=== PATIENT | female | born 1990 | race Caucasian/White ===

== ENCOUNTER → 2016-07-23 | Outpatient (CLI) | payer OTHER ==
[2016-07-23 18:27] LABS: BASO # 0.1 K/mm3 (0.0-0.2); EOS # 0.1 K/mm3 (0.0-0.50); EOS % 0.7 % (0.0-3.0); LARGE UNSTAINED CELL # 0.1 K/mm3 (0.0-0.4); LARGE UNSTAINED CELL % 0.8 % (0.0-4.0); LYMPH # 1.9 K/mm3 (1.5-6.5); LYMPH % 15.5 % (24.0-44.0); MEAN CORPUSCULAR HEMOGLOBIN 30.4 pg (27.0-33.0); MEAN CORPUSCULAR HGB CONC 34.6 g/dl (32.0-36.5); MONO # 0.4 K/mm3 (0.0-0.8); MONO % 3.4 % (0.0-5.0); NEUTROPHILS # 9.2 K/mm3 (1.8-7.7); NEUTROPHILS % 78.5 % (36.0-66.0); PLATELET COUNT, AUTOMATED 272 k/mm3 (150-450); RED CELL DISTRIBUTION WIDTH 12.6 % (11.5-14.5); WHITE BLOOD COUNT 11.6 K/mm3 (4.0-10.0)
[2016-07-24 10:18] LABS: HIV SCRN NEGATIVE (NEGATIVE); HIV SCRN1 NEGATIVE (NEGATIVE)
[2016-07-24 10:19] LABS: CONTROL LINE INT CTR LINE PRESENT
[2016-07-26 10:53] LABS: HBsAg Prenatal NEGATIVE (NEGATIVE)
== END ==
LOC: M SMT 14:19
PROVIDERS: ATTEND Obstetrics & Gynecology
DX: Z34.81 Encounter for supervision of other normal pregnancy, first trimester (principal)

== ENCOUNTER → 2016-09-03 | Outpatient (CLI) | payer OTHER ==
--- NOTE | 2016-09-03 15:17 | REP ---
Clinical: Anatomical evaluation. Comparison: 06/16/2016 . Findings: Examination demonstrates a single live intrauterine in cephalic presentation. motion is identified by technologist. Placenta is noted anteriorly and grade zero without evidence for placenta previa or abruption. Amniotic fluid volume is normal. Cervix measures 4.5 cm in length and appears closed. No evidence for nuchal cord. Gestational age by LMP 19 weeks 0 days with SHUN 01/28/2017 . Gestational age by current measurements 18 weeks 6 days with SHUN 01/29/2017 . FHR equals 147 beats per minute. BPD 4.4 cm 19 weeks 2 days HC 15.8 cm 18 weeks 5 days AC 14.0 cm 19 weeks 3 days FL 2.9 cm 19 weeks 0 days HL 3.0 cm 19 weeks 6 days HC/AC ratio 1.13 Estimated weight 276 grams (52nd percentile). Anatomical assessment demonstrates normal structures including cranium, cavum, cerebellum/posterior fossa, facial features, lungs, four-chamber heart/ventricular outflow tracts, diaphragm, stomach, cord insertion/three-vessel cord, kidneys/bladder, spine, and extremities. Small choroid plexus cysts noted bilaterally. Impression: Single live intrauterine in cephalic presentation demonstrating appropriate interval growth. Small choroid plexus cysts noted. Anatomical assessment is otherwise complete and normal. Signed by Hosea Ling MD 09/03/2016 03:08 P
== END ==
LOC: M SMT 14:01
PROVIDERS: ATTEND Obstetrics & Gynecology
DX: Z36 Encounter for antenatal screening of mother (principal); Z3A.18 18 weeks gestation of pregnancy

== ENCOUNTER → 2019-01-24 | Outpatient (REF) | payer OTHER ==
[2019-01-27 00:06] LABS: HPV HYBRID CAPTURE II Negative (Negative)
== END ==
LOC: M SFHCWAGY 16:17
PROVIDERS: ATTEND Nurse Practitioner Women's Health
DX: Z12.4 Encounter for screening for malignant neoplasm of cervix (principal)

== ENCOUNTER → 2019-03-22 | Outpatient (CLI) | payer OTHER ==
--- NOTE | 2019-03-22 10:13 | REP ---
Chest x-ray: Two views. History: Cough. No comparison study. Findings: There is a mild S-shaped thoracic scoliosis. No other bony abnormality is seen. Nipple silhouettes project at the bases bilaterally. The lungs are well inflated and clear. Pleural angles are sharp. Heart size is normal. Pulmonary vasculature is not increased. Impression: No active disease. Mild scoliosis. Electronically Signed by Joao Combs MD 03/22/2019 10:05 A
== END ==
LOC: M ADAMS 09:51
PROVIDERS: ATTEND Physician Assistant
DX: R05 Cough (principal)

== ENCOUNTER → 2019-05-16 | Outpatient (REF) | payer OTHER ==
[2019-05-16 15:51] LABS: CALCIUM LEVEL 10.3 MG/DL (8.5-10.1); MAGNESIUM LEVEL 2.1 MG/DL (1.8-2.4); PHOSPHORUS LEVEL 2.1 MG/DL (2.5-4.9)
[2019-05-16 16:02] LABS: TOTAL 25(OH) VITAMIN D 22.1 NG/ML (30.0-100.0)
== END ==
LOC: M LABDRAW1 13:20
PROVIDERS: ATTEND Nurse Practitioner Family
DX: E83.52 Hypercalcemia (principal)

== ENCOUNTER → 2019-08-07 | Outpatient (CLI) | payer OTHER ==
[~2019-08-07] MED LIST: ALBU8.5H INH; EPIP0.3I2 IM; FLUC200T2 PO; QUET5TAB PO; RIZA10TA2 PO; TAMS1CAP17 PO; TOPI50TA9 PO; VITA50005 PO
[2019-08-07 13:58] LABS: BASO % 0.5 % (0.0-1.0); EOS % 0.5 % (0.0-3.0); HEMATOCRIT 43.2 % (36.0-47.0); HEMOGLOBIN 13.4 g/dl (12.0-15.5); LYMPH # 1.8 10^3/uL (1.5-5.0); MEAN CORPUSCULAR HEMOGLOBIN 29.3 pg (27.0-33.0); MEAN CORPUSCULAR VOLUME 94.3 fl (80.0-96.0); MONO # 0.7 10^3/uL (0.0-0.8); MONO % 7.9 % (0.0-5.0); NEUTROPHILS % 69.7 % (36.0-66.0); PLATELET COUNT, AUTOMATED 255 10^3/uL (150-450); RED BLOOD COUNT 4.58 10^6/uL (4.00-5.40); WHITE BLOOD COUNT 8.6 10^3/uL (4.0-10.0)
[2019-08-07 14:19] LABS: BLOOD UREA NITROGEN 14 MG/DL (7-18); CALCIUM LEVEL 9.7 MG/DL (8.5-10.1); CARBON DIOXIDE LEVEL 26 MEQ/L (21-32); CHLORIDE LEVEL 107 MEQ/L (98-107); CREATININE FOR GFR 0.98 MG/DL (0.55-1.30); GLOMERULAR FILTRATION RATE > 60.0 (>60); GLUCOSE, FASTING 88 MG/DL (70-100); SODIUM LEVEL 140 MEQ/L (136-145)
--- NOTE | 2019-08-07 16:39 | REP ---
Supine abdomen for urinary calculus: Comparison is the abdomen/pelvis CT dated 09/12/2012. There is a 5 ml calcification projected inferior to the L2 right transverse process. This is nonspecific and could represent a right renal calculus, right ureteral calculus or gallbladder calculus. It was not present on the comparison study. The There are calcifications inferiorly in the pelvis, likely phlebolith or bowel lumen artifact. There are no other calcifications. The bowel gas pattern is normal. There is mild thoracic scoliosis convex left, unchanged. The skeletal structures and soft tissues are otherwise unremarkable. Electronically Signed by Lui Naidu MD 08/07/2019 04:31 P
== END ==
LOC: M ADAMS 10:09
PROVIDERS: ATTEND Nurse Practitioner Family
DX: N20.0 Calculus of kidney (principal)

== ENCOUNTER 2019-08-09 10:31 | Observation (INO) | payer OTHER ==
[2019-08-09] VITALS (7 sets, daily range): BP systolic 100–128; BP diastolic 54–71
[~2019-08-09] VITALS: Ht 157.5 cm; Wt 53.5 kg
[2019-08-09] MEDS: TAMSULOSIN 0.4 MG CAP PO SCH (09:00)
[2019-08-09] MEDS ORDERED: RIZA10TA2 PO (10:40)
[2019-08-09] MEDS ORDERED: QUET5TAB PO (10:40)
[2019-08-09] MEDS ORDERED: TOPI50TA9 PO (10:40)
[2019-08-09] MEDS ORDERED: VITA50005 PO (10:40)
[2019-08-09] MEDS ORDERED: ALBU8.5H INH (10:40)
[2019-08-09] MEDS ORDERED: TAMS1CAP17 PO (10:40)
[2019-08-09] MEDS ORDERED: FLUC200T2 PO (10:40)
[2019-08-09] MEDS ORDERED: NS 1,000 ML IV ONE (11:15)
[2019-08-09] MEDS ORDERED: KETOROLAC 30 MG/ML VIAL (J1885) IV ONE (11:15)
[2019-08-09] MEDS ORDERED: ONDANSETRON 4MG/2ML VIAL (J2405) IV ONE (11:15)
[2019-08-09 11:51] LABS: BASO % 0.6 % (0.0-1.0); EOS % 0.6 % (0.0-3.0); HEMATOCRIT 39.4 % (36.0-47.0); HEMOGLOBIN 12.8 g/dl (12.0-15.5); LYMPH # 1.2 10^3/uL (1.5-5.0); LYMPH % 18.5 % (24.0-44.0); MEAN CORPUSCULAR HEMOGLOBIN 29.8 pg (27.0-33.0); MEAN CORPUSCULAR HGB CONC 32.5 g/dl (32.0-36.5); MEAN CORPUSCULAR VOLUME 91.6 fl (80.0-96.0); MONO # 0.4 10^3/uL (0.0-0.8); MONO % 6.3 % (0.0-5.0); NEUTROPHILS # 4.7 10^3/uL (1.5-8.5); NEUTROPHILS % 73.8 % (36.0-66.0); PLATELET COUNT, AUTOMATED 207 10^3/uL (150-450); WHITE BLOOD COUNT 6.3 10^3/uL (4.0-10.0)
[2019-08-09] MEDS ORDERED: ISOVUE-370 76% 100ML VIAL (Q9967) As Ordered ONE (11:58)
[2019-08-09 12:24] LABS: ALT/SGPT 9 U/L (12-78); BILIRUBIN,DIRECT 0.1 MG/DL (0.0-0.2); BILIRUBIN,TOTAL 0.7 MG/DL (0.2-1.0); LIPASE 66 U/L (73-393); TOTAL PROTEIN 7.6 GM/DL (6.4-8.2)
--- NOTE | 2019-08-09 12:32 | REP ---
CT of the abdomen and pelvis with IV contrast, without bowel contrast for right lower quadrant abdominal pain: Comparison is 09/12/2012. There is a 6 ml calculus in the proximal right ureter at the level of the L4 superior endplate resulting in right hydronephrosis. There is no perinephric stranding. There is a nonobstructive 6 ml right renal calculus. In addition. No left renal calculi are identified. There is no left hydronephrosis. The The cecum is on a redundant mesentery and located anterior to the sacrum. The appendix is not identified as a distinct structure, however, there is no pericecal abscess, inflammation or free fluid. There is a 12 mm right adnexal follicle and a a 3.3 centimeter left adnexal cyst. The The visualized lung nolasco are unremarkable. The hepatic parenchyma, gallbladder, pancreas, spleen, adrenals, abdominal aorta, bowel and mesentery are unremarkable. Pelvis: There is no ascites or adenopathy. There is a right adnexal follicle. Left adnexal cyst as previously described. Impression: There is a 6 mm calculus obstructing the proximal right ureter and right hydronephrosis without perinephric stranding. There is a nonobstructive right renal calculus measuring 6 mm. The appendix cannot be identified, however there is no pericecal abscess, inflammation or fluid collection. There is a right adnexal follicle in the left adnexal cyst. Electronically Signed by Lui Naidu MD 08/09/2019 12:23 P
[2019-08-09] MEDS ORDERED: MORPHINE 4 MG/ML 1ML VIAL/SYRINGE (J2270) IV ONE (13:00)
[2019-08-09] MEDS ORDERED: PROMETHAZINE INJ 25 MG/ML VIAL (J2550) IV ONE (13:00)
[2019-08-09 13:14] LABS: HCG, SERUM QUALITATIVE NEGATIVE (NEGATIVE)
[2019-08-09] MEDS ORDERED: CONRAY-60 60% 50ML VIAL (Q9961) As Ordered ONE (13:31)
[2019-08-09] MEDS ORDERED: EPIP0.3I2 IM (13:43)
[2019-08-09] MEDS ORDERED: ONDANSETRON 4MG/2ML VIAL (J2405) IV PRN ×2 (14:45→18:30)
[2019-08-09] MEDS ORDERED: RIZATRIPTAN BENZOATE 10 MG TAB PO PRN (14:45)
[2019-08-09] MEDS ORDERED: MORPHINE 2 MG/ML 1ML VIAL (J2270) IV PRN (14:45)
[2019-08-09] MEDS ORDERED: TAMSULOSIN 0.4 MG CAP PO ONE (14:45)
[2019-08-09] MEDS ORDERED: ALBUTEROL 90 MCG/ACT 8GM HFA INHALER INH PRN (14:45)
--- NOTE | 2019-08-09 14:46 | HPEPDOC ---
General Date of Admission 08/09/19 Date of Service: Aug 09, 2019 Chief Complaint The patient is a 28-year-old female admitted with a reason for visit of Flank Pain. Source: Patient Exam Limitations: No limitations Timing/Duration: Other Severity: Severe (3-4 days) Associated Symptoms: Other (right flank pain) History of Present Illness This is a 28 years old white female with past medical history of migraine headache. Malignant hyperthermia. Polycystic ovarian syndrome and mood disor ders, had developed right-sided flank pain since last Tuesday. Flank pain is right-sided in origin, nonradiating, dull, associated with nausea not relieved with any pain medication by any position are diet since last 4-5 days. Patient was diagnosed with right obstructing proximal ureter stone. Home Medications Scheduled Ergocalciferol (Vitamin D2) (Vitamin D2) 50,000 Units Cap, 50,000 UNITS PO QWEEK, (Reported) SUNDAYS Quetiapine Fumarate (Quetiapine Fumarate) 50 Mg Tablet, 50 MG PO QHS, (Reported) Tamsulosin Hcl (Tamsulosin HCl) 0.4 Mg Capsule, 0.4 MG PO DAILY, (Reported) FOR 7 DAYS, STARTED 08/07/19 Topiramate (Topiramate) 50 Mg Tablet, 50 MG PO BID, (Reported) Scheduled PRN Albuterol Sulfate (Albuterol Sulfate Hfa) 8.5 Gm Hfa.aer.ad, 2 PUFFS INH QID PRN for SHORTNESS OF BREATH, (Reported) Epinephrine (Epipen 2-Eder) 0.3 Mg/0.3 Ml Auto.injct, 1 SYRINGE IM ONCE PRN for ALLERGIC REACTION, (Reported) Fluconazole (Fluconazole) 200 Mg Tablet, 200 MG PO ASDIRECTED PRN for YEAST INFECTIONS, (Reported) Rizatriptan Benzoate (Rizatriptan) 10 Mg Tablet, 10 MG PO ASDIRECTED PRN for MIGRAINE, (Reported) Allergies Coded Allergies: Sulfa (Sulfonamide Antibiotics) (Verified Allergy, Severe, ANYPHYLAXIS, 08/09/19) bee pollen (Verified Allergy, Severe, ANAPHYLAXIS, 08/09/19) doxycycline (Verified Allergy, Intermediate, RASH, N/V, 08/09/19) ondansetron (Verified Adverse Reaction, Severe, massive migraine, 08/09/19) tetracycline (Verified Adverse Reaction, Intermediate, BLISTERS WITH VAGINAL CREAM, CAN TAKE ORAL, 08/09/19) Past Medical History Medical History Polycystic ovarian syndrome, migraine headache, malignant hypothermia, mood disorders Surgical History D&C Family History Significant Family History: No pertinent family hx Social History * Smoker: Denies Alcohol: Denies Drugs: denies A-FIB/CHADSVASC A-FIB History Current/History of A-Fib/PAF?: No Review of Systems Constitutional: Denies: Chills, Fever, Malaise, Night Sweats, Weakness, Fatigue, Weight Loss, Lethargy, Other Eyes: Denies: Pain, Vision change, Conjunctivae inflammation, Eyelid inflammation, Redness, Other ENT: Denies: Head Aches, Ear Pain, Dysphagia, Sinus Congestion, Post Nasal Drip, Sore Throat, Epistaxis, Other Symptoms Skin: Denies: Rash, Lesions, Jaundice, Bruising, Itching, Dry, Breakdown, Nail Changes, Other Pulmonary: Denies: Dyspnea, Cough, Pleuritic Chest Pain, Other Symptoms Cardiovascular: Denies: Chest Pain, Palpitations, Orthopnea, Paroxysmal Noc. Dyspnea, Edema, Lt Headedness, Other Symptoms Gastrointestinal: Denies: Nausea, Vomiting, Abdominal Pain, Diarrhea, Constipation, Melena, Hematochezia, Other Symptoms Genitourinary: Reports: Other Symptoms (, right flank pain) Hematologic: Denies: Bruising, Bleeding Excessively, Petecchia, Purpura, Enlarged Lymph Nodes, Other Hematologic Endocrine: Denies: Polydipsia, Polyphagia, Polyuria, Heat Intolerance, Cold Intolerance, Other Endocrine Sx Musculoskeletal: Denies: Neck Pain, Back Pain, Shoulder Pain, Arm Pain, Hand Pain, Leg Pain, Foot Pain, Joint Pain, Muscle Pain, Spasms, Other Symptoms Neurological: Denies: Weakness, Numbness, Incoordination, Change in speech, Confusion, Seizures, Other Symptoms Psych: Denies: Mood Normal, Anxiety, Depression, Memory Issues, Thoughts of Self Harm, Anger, Thoughts of Harming Other, Other Psych Physical Examination General Exam: Positive: Alert, Cooperative Eye Exam: Positive: PERRLA, Conjunctiva & lids normal ENT Exam: Positive: Atraumatic, Mucous membr. moist/pink Neck Exam: Positive: Supple Chest Exam: Positive: Clear to auscultation, Normal air movement Heart Exam: Positive: Rate Normal, Normal S1, Normal S2 Abdomen Exam: Positive: Normal bowel sounds, Soft, Other (. Negative Mera's punch Gen.) Extremity Exam: Positive: Normal pulses Skin Exam: Positive: Nl turgor and temperature Neuro Exam: Positive: Strength at 5/5 X4 ext, Sensation Intact, Cranial Nerves 3-12 NL Psych Exam: Positive: Mood NL, Oriented x 3 Vital Signs Vital Signs Date Time Temp Pulse Resp B/P (MAP) Pulse Ox O2 Delivery O2 Flow Rate FiO2 08/09/19 13:18 16 08/09/19 11:51 08/09/19 10:31 99.3 86 100 Room Air Laboratory Data Labs 24H Laboratory Tests 2 08/09/19 11:39: POC Glucose (Misc Panel) 88, POC Sodium (Misc Panel) 141, POC Potassium (Misc Panel) 3.9, POC Chloride (Misc Panel) 105, POC Total CO2 (Misc Panel) 24.0, POC Blood Urea Nitrogen (Misc Panel 11, POC Ionized Calcium (Misc Panel) 5.3, POC Creatinine (Misc Panel) 0.9, POC Hematocrit (Misc Panel) 40.0 08/09/19 11:40: Immature Granulocyte % (Auto) 0.2, Neutrophils (%) (Auto) 73.8H, Lymphocytes (%) (Auto) 18.5L, Monocytes (%) (Auto) 6.3H, Eosinophils (%) (Auto) 0.6, Basophils (%) (Auto) 0.6, Neutrophils # (Auto) 4.7, Lymphocytes # (Auto) 1.2L, Monocytes # (Auto) 0.4, Eosinophils # (Auto) 0.0, Basophils # (Auto) 0.0, Nucleated Red Blood Cells % (auto) 0.0, Urine Color STRAW, Urine Appearance CLEAR, Urine pH 8.0, Urine Specific [place] 1.009, Urine Protein NEGATIVE, Urine Glucose (UA) NEGATIVE, Urine Ketones NEGATIVE, Urine Blood NEGATIVE, Urine Nitrite NEGATIVE, Urine Bilirubin NEGATIVE, Urine Urobilinogen 0.2, Urine Leukocyte Esterase NEGATIVE, Urine WBC (Auto) 1, Urine RBC (Auto) 1, Urine Hyaline Casts (Auto) 0, Urine Bacteria (Auto) NEGATIVE, Urine Squamous Epithelial Cells 0, Urine Sperm (Auto) , Total Bilirubin 0.7, Direct Bilirubin 0.1, Aspartate Amino Transf (AST/SGOT) 8, Alanine Aminotransferase (ALT/SGPT) 9L, Alkaline Phosphatase 49, Total Protein 7.6, Albumin 4.0, Albumin/Globulin Ratio 1.11, Lipase 66L, Human Chorionic Gonadotropin, Qual NEGATIVE CBC/BMP Laboratory Tests 08/09/19 11:40 Problems (1) Hydronephrosis with obstructing calculus Status: Acute Problem Text: 28 years old white female admitted with the 6 mm calculus obstructing proximal right ureter with right hydronephrosis. There was no perinephric stranding. Also there is a smaller stone in the right kidney pelvis which is nonobstructing. Dr. Tracey was called for urology consultation and he wanted patient to be admitted under medical service and he will perform cystoscopy to remove the stone. Admit patient to medical service under observation IV fluids normal saline 100 mL per hour Morphine sulfate 2 mg IV every 4 hours when necessary for pain Toradol 15 mg IV IV every 6 hours when necessary for pain Zofran 4 mg IV every 4 hours when necessary for nausea, vomiting Nothing by mouth except meds DVT prophylaxis with bilateral SCDs Activity as tolerated (2) Migraine headache Status: Chronic Problem Text: Continue home meds Plan / VTE VTE Prophylaxis Ordered?: Yes BRETT JO MD Aug 09, 2019 14:46
[2019-08-09] MEDS ORDERED: ACETAMINOPHEN TAB 650MG DOSE (2X325MG) PO PRN (15:00)
[2019-08-09] MEDS: NS 1,000 ML IV SCH (15:13)
[2019-08-09] MEDS ORDERED: MIDAZOLAM INJ 2 MG/2 ML VIAL (J2250) As Ordered ONE (16:44)
[2019-08-09] MEDS ORDERED: propofoL 500 MG/50 ML VIAL As Ordered ONE (16:44)
[2019-08-09] MEDS ORDERED: fentaNYL 100 MCG/2 ML INJECTION (J3010) As Ordered ONE (16:44)
[2019-08-09] MEDS ORDERED: ONDANSETRON 4MG/2ML VIAL (J2405) As Ordered ONE (16:50)
[2019-08-09] MEDS ORDERED: dexameTHASONE 4 MG/ML 1ML VIAL (J1100) As Ordered ONE (16:50)
--- NOTE | 2019-08-09 17:45 | CR ---
DATE OF CONSULTATION: 08/09/2019 REASON FOR CONSULTATION: Right ureteral calculus with colic. HISTORY: This is a 28-year-old white female who began having some right flank pain 3 days ago. At first, she thought it was back pain, since it was not like the pain she has had with prior kidney stones. The next day, she presented to the urgent care center, where she was diagnosed with a right renal calculus then discharged to home with ibuprofen and Flomax. Pain persisted, so she presented to the emergency room and was subsequently admitted. Patient has had several stones in the past, all of which she has passed spontaneously from both kidneys. PAST MEDICAL HISTORY: 1. Polycystic ovarian syndrome. 2. Migraine headaches. 3. Malignant hypothermia. 4. Malignant hyperthermia. 5. Mood disorders. PAST SURGICAL HISTORY: Patient had a dilatation and curettage (D and C) in the past. FAMILY HISTORY: Significant only for malignant hyperthermia. SOCIAL HISTORY: Patient does not smoke, drink, or use recreational drugs. REVIEW OF SYSTEMS: Patient had a 12-point review of systems and it is no different than her admitting history and physical. PHYSICAL EXAMINATION: Shows an alert, oriented white female who is in moderate distress. HEENT shows pupils equal and reactive to light. Sclerae white. Extraocular movements (EOMs) intact. Neck is supple without adenopathy. Trachea is in the midline with no jugular venous distention. CHEST: Normal thoracic breath sounds bilaterally present, equal and clear. CARDIAC: Regular without murmurs. ABDOMEN: Flat and soft with some right-sided tenderness. BACK: Has 4+ right-sided costovertebral angle (CVA) tenderness. EXTREMITIES: Good range of motion. Review of laboratory data shows the patient has an obstructing 6 mm right proximal ureteral calculus. On the contrast-enhanced CT scan, the right renal function is also diminished compared to the left. I discussed with the patient treatment options and recommended a stent insertion to be followed by extracorporeal shockwave lithotripsy (ESWL) treatment. The advantages, disadvantages, and alternatives were discussed as well as the possible complications of stent insertion, including, but not limited to, infection, pain, bleeding, stricture, and perforation. Patient has agreed to these procedures and conditions and has consented to the operation. JOSUE
[2019-08-09] MEDS ORDERED: fentaNYL 100 MCG/2 ML INJECTION (J3010) IV PRN (18:30)
[2019-08-09] MEDS ORDERED: LR 1,000 ML IV SCH (18:30)
[2019-08-09] MEDS: KETOROLAC 30 MG/ML VIAL (J1885) IV PRN (19:46)
[2019-08-09] MEDS ORDERED: IBUPROFEN 600 MG TAB PO PRN (20:30)
[2019-08-09] MEDS: TOPIRAMATE (TopAMAX) 25 MG TAB PO SCH (20:40)
[2019-08-09] MEDS ORDERED: QUEtiapine FUMARATE 50 MG TAB PO SCH (21:00)
--- NOTE | 2019-08-09 21:35 | RO ---
DATE OF PROCEDURE: 08/09/2019 PREPROCEDURE DIAGNOSIS: Right ureteral calculus. POSTPROCEDURE DIAGNOSIS: Right ureteral calculus. PROCEDURE: Cystoscopy, right retrograde pyelogram, ureteral stent insertion. SURGEON: Denny Tracey MD AUTOMOTIVE SERVICE CASHIER: None ANESTHESIA: Monitored anesthesia care (MAC). INDICATION FOR OPERATION: This is a 28-year-old white female with sudden onset of pain from an obstructing 6 mm proximal ureteral calculus. Because the stone had been present for 4 days and the pain and the stone have not changed, the patient was brought to the operating room for stent insertion. DESCRIPTION OF PROCEDURE: The patient was anesthetized with MAC anesthesia, placed in lithotomy position, prepped with Betadine paint and draped in an aseptic manner. Time-out was then performed. A 22-Mozambican cystoscope was then inserted into the meatus and advanced under direct vision of a 30-degree lens to the bladder. The bladder appeared normal. The right ureteral orifice was then catheterized with a 5-Mozambican Pollack catheter and retrograde injection of Conray showed the patient had an obstructing proximal ureteral calculus, which was pushed back up into the renal pelvis. A wire guide was then passed through the catheter, and the catheter then removed. A 5-Mozambican double-J stent was then passed over this wire and curled well in the renal pelvis. The bladder was then drained, cystoscope was removed, and the patient was awakened and sent to the recovery room in stable condition, having tolerated the procedure well. The patient will next have an extracorporeal shock wave lithotripsy (ESWL) procedure performed, and the stent can then be removed in the office. JOSUE
[2019-08-09] MEDS ORDERED: PROMETHAZINE INJ 25 MG/ML VIAL (J2550) IV PRN (22:00)
[2019-08-10] VITALS: BP 97/54
[2019-08-10] MEDS: NS 1,000 ML IV SCH ×2 (00:45→10:22)
[2019-08-10 04:00] VITALS: BP 96/57
[2019-08-10 07:08] LABS: HEMATOCRIT 38.2 % (36.0-47.0); HEMOGLOBIN 12.1 g/dl (12.0-15.5); MEAN CORPUSCULAR HEMOGLOBIN 29.3 pg (27.0-33.0); MEAN CORPUSCULAR HGB CONC 31.7 g/dl (32.0-36.5); MEAN CORPUSCULAR VOLUME 92.5 fl (80.0-96.0); PLATELET COUNT, AUTOMATED 194 10^3/uL (150-450); RED BLOOD COUNT 4.13 10^6/uL (4.00-5.40); WHITE BLOOD COUNT 6.9 10^3/uL (4.0-10.0)
[2019-08-10] MEDS: KETOROLAC 30 MG/ML VIAL (J1885) IV PRN (07:21)
[2019-08-10 07:39] LABS: ALBUMIN 3.4 GM/DL (3.2-5.2); ALT/SGPT 10 U/L (12-78); BILIRUBIN,TOTAL 0.8 MG/DL (0.2-1.0); BLOOD UREA NITROGEN 12 MG/DL (7-18); CARBON DIOXIDE LEVEL 24 MEQ/L (21-32); CHLORIDE LEVEL 112 MEQ/L (98-107); CREATININE FOR GFR 0.68 MG/DL (0.55-1.30); GLOMERULAR FILTRATION RATE > 60.0 (>60); GLUCOSE, FASTING 93 MG/DL (70-100); POTASSIUM SERUM 3.8 MEQ/L (3.5-5.1); SODIUM LEVEL 140 MEQ/L (136-145); TOTAL PROTEIN 6.4 GM/DL (6.4-8.2)
[2019-08-10] MEDS: TAMSULOSIN 0.4 MG CAP PO SCH (08:13)
[2019-08-10] MEDS: TOPIRAMATE (TopAMAX) 25 MG TAB PO SCH (08:14)
[2019-08-10] MEDS ORDERED: KETO10TAB PO ×2 (10:01→11:12)
--- NOTE | 2019-08-10 13:50 | DS.PDOC ---
Discharge Summary General Date of Admission Aug 09, 2019 at 10:32 Date of Discharge 08/10/19 Discharge Summary PROCEDURES PERFORMED DURING STAY: Cystoscopy with a stent placement. ADMITTING DIAGNOSES: 1. Right Hydronephrosis, right ureteral stone. DISCHARGE DIAGNOSES: 1. right Hydronephrosis, right ureteral stone. COMPLICATIONS/CHIEF COMPLAINT: Hydronephrosis With Obstructing Calculus. HISTORY OF PRESENT ILLNESS: This is a 28 years old white female with past medical history of migraine headache. Malignant hyperthermia. Polycystic ovarian syndrome and mood disorders, had developed right-sided flank pain since last Tuesday. Flank pain is right-sided in origin, nonradiating, dull, associated with nausea not relieved with any pain medication by any position are diet since last 4-5 days. Patient was diagnosed with right obstructing proximal ureter stone.. HOSPITAL COURSE: Patient was admitted with the diagnoses of right-sided obstructing proximal ureteral stone causing hydronephrosis. Patient was initially treated with IV fluids and pain management. Patient was seen by Dr. Tracey from urology and patient was taken to the OR that night. Patient had a cystoscopy done with a placement of a stent. Patient is completely asymptomatic. This morning she is a scheduled to see Dr. Tracey for lithotripsy and O on removal of the stent as an outpatient. Patient will be discharged home on all her home meds as well as coronal by mouth for pain control. Patient has been advised to follow with urology within 1 week.. DISCHARGE MEDICATIONS: Please see below. ALLERGIES: Please see below. PHYSICAL EXAMINATION ON DISCHARGE: VITAL SIGNS: Please see below. GENERAL: Within normal limits HEENT: PERRLA. Extraocular muscles intact NECK: Supple, CARDIOVASCULAR EXAMINATION: S1, S2, regular RESPIRATORY EXAMINATION: Clear to A&P ABDOMINAL EXAMINATION: , Soft, nontender. Pulses are present. No organomegaly EXTREMITIES: no clubbing, cyanosis, edema SKIN: Within normal limits NEUROLOGICAL EXAMINATION: . No focal motor sensory deficit PSYCHIATRIC EXAMINATION: ,nl LABORATORY DATA: Please see below. IMAGING: CT abdomen and pelvis:There is a 6 mm calculus obstructing the proximal right ureter and right hydronephrosis without perinephric stranding. There is a nonobstructive right renal calculus measuring 6 mm. The appendix cannot be identified, however there is no pericecal abscess, inflammation or fluid collection. There is a right adnexal follicle in the left adnexal cyst. PROGNOSIS: Good ACTIVITY: As tolerated. DIET: Regular DISCHARGE PLAN: Follow with urology as an outpatient DISPOSITION: 01 Home, Self-Care. DISCHARGE INSTRUCTIONS: 1. As per discharge instructions. ITEMS TO FOLLOWUP ON ON OUTPATIENT: 1. Follow with urology as outpatient. DISCHARGE CONDITION: Stable. TIME SPENT ON DISCHARGE: 28 minutes. Vital Signs/I&Os Vital Signs Date Time Temp Pulse Resp B/P (MAP) Pulse Ox O2 Delivery O2 Flow Rate FiO2 08/10/19 04:00 97.7 63 15 96/57 (70) 97 Room Air I&O- Last 24 Hours up to 6 AM 08/10/19 06:00 Intake Total 2850 ml Output Total 1725 ml Balance 1125 ml Laboratory Data Labs 24H Laboratory Tests 2 08/10/19 06:43: Nucleated Red Blood Cells % (auto) 0.0 08/10/19 06:44: Anion Gap 4L, Glomerular Filtration Rate > 60.0, Calcium Level 9.0, Total Bilirubin 0.8, Aspartate Amino Transf (AST/SGOT) 7, Alanine Aminotransferase (ALT/SGPT) 10L, Alkaline Phosphatase 45, Total Protein 6.4, Albumin 3.4, Albumin/Globulin Ratio 1.13 CBC/BMP Laboratory Tests 08/10/19 06:43 08/10/19 06:44 Discharge Medications Scheduled Ergocalciferol (Vitamin D2) (Vitamin D2) 50,000 Units Cap, 50,000 UNITS PO QWEEK, (Reported) SUNDAYS Quetiapine Fumarate (Quetiapine Fumarate) 50 Mg Tablet, 50 MG PO QHS, (Reported) Tamsulosin Hcl (Tamsulosin HCl) 0.4 Mg Capsule, 0.4 MG PO DAILY, (Reported) FOR 7 DAYS, STARTED 08/07/19 Topiramate (Topiramate) 50 Mg Tablet, 50 MG PO BID, (Reported) Scheduled PRN Albuterol Sulfate (Albuterol Sulfate Hfa) 8.5 Gm Hfa.aer.ad, 2 PUFFS INH QID PRN for SHORTNESS OF BREATH, (Reported) Epinephrine (Epipen 2-Eder) 0.3 Mg/0.3 Ml Auto.injct, 1 SYRINGE IM ONCE PRN for ALLERGIC REACTION, (Reported) Fluconazole (Fluconazole) 200 Mg Tablet, 200 MG PO ASDIRECTED PRN for YEAST INFECTIONS, (Reported) Ketorolac Tromethamine (Ketorolac Tromethamine) 10 Mg Tablet, 1 TAB PO Q6HP PRN for pain Ketorolac Tromethamine (Ketorolac Tromethamine) 10 Mg Tablet, 10 MG PO Q6HP PRN for pain Rizatriptan Benzoate (Rizatriptan) 10 Mg Tablet, 10 MG PO ASDIRECTED PRN for MIGRAINE, (Reported) Allergies Coded Allergies: Sulfa (Sulfonamide Antibiotics) (Verified Allergy, Severe, ANYPHYLAXIS, ) bee pollen (Verified Allergy, Severe, ANAPHYLAXIS, 08/09/19) doxycycline (Verified Allergy, Intermediate, RASH, N/V, 08/09/19) ondansetron (Verified Adverse Reaction, Severe, massive migraine, 08/09/19) tetracycline (Verified Adverse Reaction, Intermediate, BLISTERS WITH VAGINAL CREAM, CAN TAKE ORAL, 08/09/19) BRETT JO MD Aug 10, 2019 13:50
== END 2019-08-10 11:43 | disposition home or self-care (01) ==
LOC: M ED 10:31 → M ED INP 10:32 → M MS4PR 17:15
PROVIDERS: ADMIT Internal Medicine; ATTEND Internal Medicine
DX: N13.1 Hydronephrosis with ureteral stricture, not elsewhere classified (principal); N20.0 Calculus of kidney; N83.292 Other ovarian cyst, left side; R11.2 Nausea with vomiting, unspecified; G43.909 Migraine, unspecified, not intractable, without status migrainosus; J45.909 Unspecified asthma, uncomplicated; E28.2 Polycystic ovarian syndrome; F99 Mental disorder, not otherwise specified; R50.9 Fever, unspecified; F17.210 Nicotine dependence, cigarettes, uncomplicated; Z79.899 Other long term (current) drug therapy; Z88.2 Allergy status to sulfonamides; Z88.1 Allergy status to other antibiotic agents; Z88.8 Allergy status to other drugs, medicaments and biological substances; Z91.030 Bee allergy status
CPT/HCPCS: 36415; 52332; 74177; 74420; 80053; 80076; 81001; 83690; 84703; 85025; 85027; 96361; 96374; 96375; 96376; 99284; C1769; C2617; J1100; J1885; J2250; J2270; J2405; J3010; Q9961; Q9967

== ENCOUNTER → 2019-08-09 | Outpatient (REF) | payer OTHER ==
[~2019-08-09] MED LIST changes: +KETO10TAB PO
[2019-08-09 13:49] LABS: CALCIUM, URINE 9.3 MG/DL
[2019-08-09 15:20] LABS: CALCIUM, 24 HOUR URINE 97.6 MG/24HR (42-353)
== END ==
LOC: M LAB REF 12:44
PROVIDERS: ATTEND Nurse Practitioner Family
DX: E83.52 Hypercalcemia (principal)

== ENCOUNTER → 2019-08-10 | Outpatient (REF) | payer OTHER | LOC: M LAB REF 18:05 | PROVIDERS: ATTEND Internal Medicine Endocrinology, Diabetes & Metabolism | DX: E83.52 Hypercalcemia (principal) ==

== ENCOUNTER → 2019-08-21 | Outpatient (CLI) | payer OTHER ==
[2019-08-21 13:49] LABS: HEMATOCRIT 41.7 % (36.0-47.0); HEMOGLOBIN 13.5 g/dl (12.0-15.5); MEAN CORPUSCULAR HEMOGLOBIN 29.9 pg (27.0-33.0); MEAN CORPUSCULAR HGB CONC 32.4 g/dl (32.0-36.5); MEAN CORPUSCULAR VOLUME 92.3 fl (80.0-96.0); PLATELET COUNT, AUTOMATED 294 10^3/uL (150-450); RED BLOOD COUNT 4.52 10^6/uL (4.00-5.40)
[2019-08-21 14:00] LABS: INR 1.04; PROTHROMBIN TIME 13.3 SECONDS (11.8-14.0)
[2019-08-21 14:01] LABS: PARTIAL THROMBOPLASTIN TIME 32.1 SECONDS (25.0-38.4)
[2019-08-21 14:19] LABS: BLOOD UREA NITROGEN 25 MG/DL (7-18); CARBON DIOXIDE LEVEL 28 MEQ/L (21-32); CHLORIDE LEVEL 111 MEQ/L (98-107); CREATININE FOR GFR 0.77 MG/DL (0.55-1.30); GLOMERULAR FILTRATION RATE > 60.0 (>60); GLUCOSE, FASTING 92 MG/DL (70-100); POTASSIUM SERUM 4.3 MEQ/L (3.5-5.1); SODIUM LEVEL 142 MEQ/L (136-145)
--- NOTE | 2019-08-22 03:44 | REPPI ---
Clinical: Pelvic pain. Technique: Single supine view of the abdomen and pelvis. Findings: Right ureteral stent in seemingly satisfactory position. Small right intrarenal calculi measuring up to 3.5 mm suggested. Bowel gas pattern is nonspecific. No organomegaly. No significant abnormal calcifications or foreign body. Skeletal structures intact. Impression: 3.5 mm nonobstructing right renal calculus. Electronically Signed by Hosea Ling MD 08/22/2019 03:36 A
== END ==
LOC: M PLAIMG 11:41
PROVIDERS: ATTEND Urology
DX: N20.0 Calculus of kidney (principal); R10.2 Pelvic and perineal pain; Z96.0 Presence of urogenital implants

== ENCOUNTER → 2019-08-21 | Outpatient (REF) | payer OTHER ==
[~2019-08-21] MED LIST changes: +DITR5TAB PO; +PYRI1TAB5 PO
== END ==
LOC: M SMT 16:57
PROVIDERS: ATTEND Urology
DX: N20.0 Calculus of kidney (principal)

== ENCOUNTER 2019-08-30 05:37 | Day surgery (SDC) | payer OTHER ==
[~2019-08-30] VITALS: Ht 157.5 cm; Wt 50.7 kg
[2019-08-30] MEDS ORDERED: LR 1,000 ML IV ONE (06:00)
[2019-08-30] MEDS ORDERED: ceFAZolin SOD 2 GM in IV 1 EA IV ONE (06:00)
[2019-08-30] MEDS ORDERED: fentaNYL 100 MCG/2 ML INJECTION (J3010) As Ordered ONE (06:35)
[2019-08-30] MEDS ORDERED: MIDAZOLAM INJ 2 MG/2 ML VIAL (J2250) As Ordered ONE (06:35)
[2019-08-30] MEDS ORDERED: LIDOCAINE 2% INJ 100 MG/5 ML SDV (FOR ANES.) As Ordered ONE (06:39)
[2019-08-30] MEDS ORDERED: propofoL 200 MG/20 ML VIAL As Ordered ONE (06:39)
--- NOTE | 2019-08-30 07:54 | REP ---
Clinical: Kidney stone. Technique: Single supine view of the abdomen and pelvis. Comparison: 08/21/2019. Findings: Right ureteral stent in stable, satisfactory position. Two the right intrarenal calculi are again suggested and unchanged in appearance or position. Bowel gas pattern is nonspecific. Skeletal structures are intact. No foreign body. No obvious organomegaly. Impression: Right ureteral stent with continued right renal calculi noted. Electronically Signed by Hosea Ling MD 08/30/2019 07:46 A
[2019-08-30] MEDS ORDERED: PHENYLephrine HCL 500 MCG/5 ML (100MCG/ML) SYRINGE (J2370) As Ordered ONE (08:04)
[2019-08-30] MEDS ORDERED: ePHEDrine SULFATE 25 MG/5 ML(5MG/ML) SYRINGE As Ordered ONE (08:04)
[2019-08-30 09:50] VITALS: BP 108/52
--- NOTE | 2019-08-30 21:15 | RO ---
DATE OF PROCEDURE: 08/30/2019 PREPROCEDURE DIAGNOSIS: Right kidney stones. POSTPROCEDURE DIAGNOSIS: Right kidney stones. PROCEDURE: Right extracorporeal shock wave lithotripsy, cystoscopy, right ureteral stent removal. SURGEON: Keith Suarez MD HELP DESK SUPPORT: None ANESTHESIA: Monitored anesthesia care (MAC). OPERATIVE INDICATIONS: This is a 28-year-old female who was found to have a proximal obstructing right ureteral stone a few weeks ago, had a right ureteral stent placed. She also had another nonobstructing stone on CT scan. When the stent was placed, the ureteral stone was pushed into the kidney. She was brought to the operating room today for treatment. DESCRIPTION OF PROCEDURE: The patient was brought to the operating room where MAC anesthesia was administered. Prophylactic antibiotics were infused. She was then placed in the supine position and prepped and draped in the usual sterile fashion. Flexible cystoscopy was then performed and the right ureteral stent was seen. The stent was then grasped and withdrawn from the right collecting system intact. At this point, the shock wave lithotripsy was performed. Ultrasound was utilized to monitor stone position, fragmentation throughout the procedure. Shock waves were delivered ungated. There were no arrhythmias. Both stones were targeted. Both stones appeared to fragment well. After a total of 2500 shocks the procedure was concluded. The patient was then awakened from anesthesia and transported to the recovery room in stable condition. ESTIMATED BLOOD LOSS: 0 mL. INTRAOPERATIVE COMPLICATIONS: None. SPECIMENS: None. PLAN: The patient will followup in the clinic in a few weeks with imaging prior to assess for residual stone burden. [facility]RIC CENTERLilo
== END 2019-08-30 09:55 | disposition home or self-care (01) ==
LOC: M SDC 05:37
PROVIDERS: ATTEND Urology
DX: N20.0 Calculus of kidney (principal); J45.909 Unspecified asthma, uncomplicated; G43.909 Migraine, unspecified, not intractable, without status migrainosus; E28.2 Polycystic ovarian syndrome; F31.9 Bipolar disorder, unspecified; F17.210 Nicotine dependence, cigarettes, uncomplicated; Z91.030 Bee allergy status; Z88.1 Allergy status to other antibiotic agents; Z88.8 Allergy status to other drugs, medicaments and biological substances; Z88.2 Allergy status to sulfonamides; Z79.899 Other long term (current) drug therapy
CPT/HCPCS: 50590; 52310; 74018; 81025; J0690; J2250; J2370; J3010

== ENCOUNTER → 2019-09-20 | Outpatient (CLI) | payer OTHER ==
--- NOTE | 2019-09-20 14:50 | REPPI ---
KUB ABDOMEN AND PELVIS: AP view of the abdomen and pelvis is performed. Bowel gas pattern is normal with no obstruction. There appears to be a punctate calculus in the upper pole of the right kidney. Previously noted right ureteral stent has been removed. Oval calcific density in the inferior right hemipelvis is unchanged. There is mild curvature of the thoracolumbar spine convex to the left. Electronically Signed by Lui Marin MD 09/21/2019 04:45 P
== END ==
LOC: M PLAIMG 12:14
PROVIDERS: ATTEND Urology
DX: N20.0 Calculus of kidney (principal)

== ENCOUNTER → 2019-09-20 | Outpatient (REF) | payer OTHER | LOC: M SMT 16:54 | PROVIDERS: ATTEND Nurse Practitioner Family | DX: N20.0 Calculus of kidney (principal) ==

== ENCOUNTER 2021-02-02 11:47 | Inpatient (IN) | payer OTHER ==
[~2021-02-02] VITALS: Ht 157.5 cm; Wt 23.6 kg
[~2021-02-02 11:47] MED LIST changes: +ERGO500029 PO; +QUET50TA3 PO; -QUET5TAB PO; -VITA50005 PO
[2021-02-02] MEDS ORDERED: METF500T13 PO (11:54)
[2021-02-02] MEDS ORDERED: OLAN1TAB16 PO (11:54)
[2021-02-02] MEDS ORDERED: FLUO10CA16 PO (11:54)
[2021-02-02] MEDS ORDERED: DEBL1TAB PO (11:54)
[2021-02-02 12:31] LABS: HEMATOCRIT 42.2 % (36.0-47.0); HEMOGLOBIN 13.9 g/dl (12.0-15.5); MEAN CORPUSCULAR HEMOGLOBIN 29.7 pg (27.0-33.0); MEAN CORPUSCULAR HGB CONC 32.9 g/dl (32.0-36.5); MEAN CORPUSCULAR VOLUME 90.2 fl (80.0-96.0); PLATELET COUNT, AUTOMATED 262 10^3/uL (150-450); RED BLOOD COUNT 4.68 10^6/uL (4.00-5.40); WHITE BLOOD COUNT 7.1 10^3/uL (4.0-10.0)
[2021-02-02 12:55] LABS: AMPHETAMINES LEVEL URINE NEGATIVE (NEGATIVE); BARBITURATES URINE NEGATIVE (NEGATIVE); BENZODIAZEPINES URINE NEGATIVE (NEGATIVE); CANNABINOIDS URINE POSITIVE (NEGATIVE); COCAINE METABOLITE URINE NEGATIVE (NEGATIVE); METHADONE URINE NEGATIVE (NEGATIVE); OPIATES URINE NEGATIVE (NEGATIVE); PHENCYCLIDINE URINE NEGATIVE (NEGATIVE)
[2021-02-02 13:01] LABS: ALBUMIN 4.2 GM/DL (3.2-5.2); ALT/SGPT 15 U/L (12-78); BILIRUBIN,DIRECT < 0.1 MG/DL (0.0-0.2); BILIRUBIN,TOTAL 0.3 MG/DL (0.2-1.0); BLOOD UREA NITROGEN 13 MG/DL (7-18); CARBON DIOXIDE LEVEL 26 MEQ/L (21-32); CHLORIDE LEVEL 109 MEQ/L (98-107); CREATININE FOR GFR 0.74 MG/DL (0.55-1.30); ETHYL ALCOHOL (ETHANOL) < 0.003 % (0.000-0.010); GLOMERULAR FILTRATION RATE > 60.0 (>60); GLUCOSE, FASTING 98 MG/DL (70-100); POTASSIUM SERUM 4.1 MEQ/L (3.5-5.1); SALICYLATE LEVEL < 1.7 MG/DL (5.0-30.0); SODIUM LEVEL 140 MEQ/L (136-145); THYROID STIMULATING HORMONE 0.622 uIU/ML (0.358-3.740); TOTAL PROTEIN 7.9 GM/DL (6.4-8.2)
[2021-02-02 13:02] LABS: ACETAMINOPHEN LEVEL < 2.0 UG/ML (10.0-30.0)
[2021-02-02 13:22] LABS: HCG, SERUM QUALITATIVE NEGATIVE (NEGATIVE)
[2021-02-02] MEDS ORDERED: CLON0.5T2 PO (14:27)
[2021-02-02] MEDS ORDERED: clonazePAM 0.5 MG TAB PO ONE (18:25)
[2021-02-02] MEDS ORDERED: OLANZapine 5 MG TAB PO ONE (19:35)
[2021-02-02] MEDS ORDERED: FLUoxetine 10 MG CAP PO ONE (19:35)
[2021-02-02] MEDS ORDERED: ACETAMINOPHEN TAB 650MG DOSE (2X325MG) PO ONE (19:35)
[2021-02-03] MEDS ORDERED: STRETAB4 PO (08:38)
[2021-02-03] MEDS ORDERED: FLUO20CA22 PO (08:40)
[2021-02-03] MEDS ORDERED: TOPIRAMATE (TopAMAX) 25 MG TAB PO ONE (11:00)
[2021-02-03 11:52] LABS: RSV AMPLIFICATION NEGATIVE (NEGATIVE)
[2021-02-03] MEDS ORDERED: MOM 30ML SUSPENSION UDC PO PRN (13:45)
[2021-02-03] MEDS ORDERED: ACETAMINOPHEN TAB 650MG DOSE (2X325MG) PO PRN (13:45)
[2021-02-03] MEDS ORDERED: clonazePAM 0.5 MG TAB PO PRN (13:45)
[2021-02-03] MEDS ORDERED: ALBUTEROL 90 MCG/ACT 8GM HFA INHALER INH PRN (13:45)
[2021-02-03] MEDS ORDERED: traZODone 50 MG TAB PO PRN (13:45)
[2021-02-03] MEDS ORDERED: MAALOX 30 ML SUSP *UDC PO PRN (13:45)
[2021-02-03 15:01] VITALS: BP 120/76
[2021-02-03] MEDS ORDERED: RIZATRIPTAN BENZOATE 10 MG TAB PO PRN (16:30)
[2021-02-03] MEDS: metFORMIN (GLUCOPHAGE) 500MG TAB PO SCH ×2 (17:32→20:05)
[2021-02-03] MEDS: TOPIRAMATE (TopAMAX) 25 MG TAB PO SCH (17:48)
[2021-02-03] MEDS: FLUoxetine 20 MG CAP PO SCH (20:04)
[2021-02-03] MEDS ORDERED: FLUoxetine 10 MG CAP PO SCH (21:00)
[2021-02-03] MEDS ORDERED: OLANZapine 5 MG TAB PO SCH (21:00)
[2021-02-04 06:00] VITALS: BP 102/50
[2021-02-04] MEDS: MULTIVITAMINS/MINERALS THERAP 1 TAB PO SCH (08:56)
[2021-02-04] MEDS: TOPIRAMATE (TopAMAX) 25 MG TAB PO SCH ×2 (08:57→17:20)
[2021-02-04] MEDS: metFORMIN (GLUCOPHAGE) 500MG TAB PO SCH ×2 (09:00→21:29)
[2021-02-04] MEDS: JENCYCLA PO SCH ×2 (09:00→17:17)
--- NOTE | 2021-02-04 11:00 | MHHPEPDOC ---
General Date Of Admission: Feb 03, 2021 Legal Status: 9.39 Chief Complaint "[I was hoping somebody would carry me]. History of Present Illness HISTORY OF THE PRESENT ILLNESS: Patient is a 30 -year-old , female, who [has a long extensive history of depression but no previous inpatient treatment. Patient apparently moved from [place] back to [place] and has not been linked with any outpatient treatment source. Patient stated that she had difficult time to stabilize her depression and finally was doing better with Zyprexa 5 mg and Prozac 30 mg in the past year. Patient stated that since we moved back to [place] she is having increasing depressive symptoms including feeling tired and sleeping all day long sometimes and has no energy poor concentration and feeling worthless and hopeless at times. 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 She stated that she is getting increasing suicidal thoughts but has no clear plan or intent I was just wishing somebody would kill her and ended it all for her. She she does not think her current medicine is working out and wanted some medication adjustment to make her feel better but does not have any psychiatric appointment available soon enough and came to the emergency room seeking help. She is willing to cooperate with the medication change but is feeling uneasy and unsure whether she can spend so much time in hospital because she needs to care for her 4-year-old son who is staying with her father at this time. She is denying any substance abuse issues she denies any history of psychosis or manic episode and denies any previous history of suicidal attempt. She clarifies that her suicidal thoughts are more of a passive nature and does not have any clear plan or intent.]. Psychiatric Review of Systems Depression (2 or more weeks): depressed mood, insomnia/hypersomnia, feelings of worthlesness, decreased energy, difficulty concentrating, suicidal thoughts Velia (4 or more days of): denies Psychosis: denies PTSD: denies Anxiety: situational anxiety, stressor related anxiety Past Psychiatric History Previous Psychiatric Diagnosis: . Major depression since age 14. Had a history of anorexia and is better with Zyprexa Previous Psychiatric Admissions: . No previous inpatient treatment Suicide Attempts: . No history of suicidal attempt Psychiatric Follow-up: . [facility] Psych[facility] medications: . Failed with many SSRIs had the benefit from Prozac but lately she does not feel it works. She reports poor response to oral of atypical antipsychotics except for Zyprexa Past Medical History Medical Problems Migraine Head Injury: No Seizures: No Hospitalizations: No Surgeries: No Family Medical/Psychiatric HX Medical Problems Noncontributory Psychiatric Disorders: Yes (Strong family history of depression patient mother and grandmother has severe depression) Addiction: No Suicide Attemps/Completions: No Addiction History denies Social History Childhood: . Born in [place] unremarkable childhood Abuse/Trauma:[Denies any abuse issues]. Current Living Situation: Currently staying with her father in [place]. Education: High school and nursing school. 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 Social Support: . Father Legal: . No legal history Marital: . twice second marriage for 9 years her is in [place] planning to move to [place] and there is some marital discord Mental Status Examination General Appearance: appears stated age Build: average Demeanor: average Eye Contact: average Activity: average Behavior: cooperative Speech: clear, spontaneous, normal volume Mood: depressed, anxious Mood Long history of depression with multiple clinical depressive symptoms Affect: constricted, appropriate, congruent Thought Process: logical/linear, depressed Thought Content (Delusions): none reported, other (Suicidal thoughts of a passive nature and no plan or intent) Thought Content (Other): none reported Thought Content (Aggressive): none reported Perception (Hallucinations): none reported Perception (Other): none reported Cognition (Impairment of): none reported Cognition(Intelligence Est.): average Oriented: Awake, Alert, Oriented times three Insight: fair Judgment: Fair Psychosis: Denies Diagnoses Major depression recurrent A-FIB/CHADSVASC A-FIB History Current/History of A-Fib/PAF?: No Current PO Anticoag Therapy: No Age/Risk Factor Scoring CHADSVASC: CHADSVASC Response (Comments) Value Gender Risk Factor Female 1 Hx of CHF No 0 Hx of HTN No 0 Hx of Stroke/TIA/or VTE No 0 Hx of Diabetes No 0 Hx of Vascular Disease No 0 Total 1 Treatment Treatment ordered: NONE Assessment Patient reports a long history of the severe depression but no psychotic symptoms and no clear suicidal intent. Patient was offered medication change including decrease of the Prozac for cross taper and start Effexor and titrate and patient is somewhat ambivalent about continued inpatient stay. We will try to stabilize her with medication and supportive therapy Initial Treatment Plan 1. Patient was admitted on a 9.39 status. 2. Complete history was obtained. 3. With patients permission, family will be contacted and database will be expanded. 4. Patients medication regimen will be reviewed and changed accordingly. 5. Patient will be provided with protected environment. 6. Patient will be treated with individual, group, and milieu therapies. 7. Patient will receive supportive psych-education. 8. Discharge planning will commence immediately. 9. Outpatient follow-up treatment will be strongly recommended. 10. The initial treatment plan will focus initially on: * Depression. * Risk for suicide. ESTIMATED LENGTH OF STAY: 5-7 DAYS. TIME SPENT COUNSELING AND COORDINATING INITIAL CARE: 45 minutes. Tobacco Cessation Screen If Patient is a Smoker Non-smoker Complete/Results docum. Vital Signs Vital Signs Date Time Temp Pulse Resp B/P (MAP) Pulse Ox O2 Delivery O2 Flow Rate FiO2 02/04/21 06:00 97.8 67 16 102/50 (67) 96 02/03/21 14:49 Room Air Laboratory Data 24H Labs Laboratory Tests 2 02/03/21 10:49: Coronavirus (COVID-19)(PCR) NEGATIVE, Influenza Type A (RT-PCR) NEGATIVE, Influenza Type B (RT-PCR) NEGATIVE, Respiratory Syncytial Virus (PCR) NEGATIVE Medications Scheduled Fluoxetine Hcl (Fluoxetine HCl) 10 Mg Capsule, 10 MG PO QHS, (Reported) TAKES WITH 20MG FOR TOTAL DOSE 30MG Fluoxetine Hcl (Fluoxetine HCl) 20 Mg Capsule, 20 MG PO QHS, (Reported) TAKES WITH 10MG FOR TOTAL DOSE 30MG Metformin HCl (Metformin HCl) 500 Mg Tablet, 500 MG PO BID, (Reported) Multivitamin,Stress Formula (Stress Formula) 1 Each Tablet, 1 TAB PO DAILY, (Reported) Norethindrone (Deblitane) 0.35 Mg Tablet, 0.35 MG PO QPM, (Reported) TAKES AT 1930 Olanzapine (Olanzapine) 5 Mg Tablet, 5 MG PO QHS, (Reported) Topiramate (Topiramate) 50 Mg Tablet, 50 MG PO BID, (Reported) TAKES WITH BREAKFAST AND DINNER Scheduled PRN Albuterol Sulfate (Albuterol Sulfate Hfa) 8.5 Gm Hfa.aer.ad, 2 PUFFS INH QID PRN for SHORTNESS OF BREATH, (Reported) Clonazepam (Clonazepam) 0.5 Mg Tablet, 0.5 MG PO BID PRN for ANXIETY, (Reported) Epinephrine (Epipen 2-Eder) 0.3 Mg/0.3 Ml Auto.injct, 1 SYRINGE IM ONCE PRN for ALLERGIC REACTION, (Reported) Fluconazole (Fluconazole) 200 Mg Tablet, 200 MG PO ASDIRECTED PRN for YEAST INFECTIONS, (Reported) Rizatriptan Benzoate (Rizatriptan) 10 Mg Tablet, 10 MG PO ASDIRECTED PRN for MIGRAINE, (Reported) Allergies Coded Allergies: Sulfa (Sulfonamide Antibiotics) (Verified Allergy, Severe, ANYPHYLAXIS, 08/09/19) doxycycline (Verified Allergy, Intermediate, RASH, N/V, 08/09/19) bee venom protein (honey bee) (Verified Allergy, Unknown, hives, 08/24/19) ondansetron (Verified Adverse Reaction, Severe, massive migraine, 08/09/19) tetracycline (Verified Adverse Reaction, Intermediate, BLISTERS WITH VAGINAL CREAM, CAN TAKE ORAL, 08/09/19) LORENZO WASHINGTON M.D. Feb 04, 2021 11:00
--- NOTE | 2021-02-04 14:45 | HPEPDOC ---
General Date of Admission Feb 03, 2021 at 13:43 Date of Service: Feb 04, 2021 Chief Complaint The patient is a 30-year-old female admitted with a reason for visit of Unspecified Depressive Disorder. Source: Patient Exam Limitations: No limitations History of Present Illness Patient is 30 years old female with past medical history of PCOS, depression, anxiety, bipolar disorder, migraine presented to hospital with suicidal ideation. Patient stated that since we moved back to [place] she is having increasing depressive symptoms including feeling tired and sleeping all day long sometimes and has no energy poor concentration and feeling worthless and hopeless at times. 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 During my interview patient denies fever, chills, nausea, vomiting, diarrhea dysuria Home Medications Scheduled Fluoxetine Hcl (Fluoxetine HCl) 10 Mg Capsule, 10 MG PO QHS, (Reported) TAKES WITH 20MG FOR TOTAL DOSE 30MG Fluoxetine Hcl (Fluoxetine HCl) 20 Mg Capsule, 20 MG PO QHS, (Reported) TAKES WITH 10MG FOR TOTAL DOSE 30MG Metformin HCl (Metformin HCl) 500 Mg Tablet, 500 MG PO BID, (Reported) Multivitamin,Stress Formula (Stress Formula) 1 Each Tablet, 1 TAB PO DAILY, (Reported) Norethindrone (Deblitane) 0.35 Mg Tablet, 0.35 MG PO QPM, (Reported) TAKES AT 1930 Olanzapine (Olanzapine) 5 Mg Tablet, 5 MG PO QHS, (Reported) Topiramate (Topiramate) 50 Mg Tablet, 50 MG PO BID, (Reported) TAKES WITH BREAKFAST AND DINNER Scheduled PRN Albuterol Sulfate (Albuterol Sulfate Hfa) 8.5 Gm Hfa.aer.ad, 2 PUFFS INH QID PRN for SHORTNESS OF BREATH, (Reported) Clonazepam (Clonazepam) 0.5 Mg Tablet, 0.5 MG PO BID PRN for ANXIETY, (Reported) Epinephrine (Epipen 2-Eder) 0.3 Mg/0.3 Ml Auto.injct, 1 SYRINGE IM ONCE PRN for ALLERGIC REACTION, (Reported) Fluconazole (Fluconazole) 200 Mg Tablet, 200 MG PO ASDIRECTED PRN for YEAST INFECTIONS, (Reported) Rizatriptan Benzoate (Rizatriptan) 10 Mg Tablet, 10 MG PO ASDIRECTED PRN for MIGRAINE, (Reported) Allergies Coded Allergies: Sulfa (Sulfonamide Antibiotics) (Verified Allergy, Severe, ANYPHYLAXIS, 08/09/19) doxycycline (Verified Allergy, Intermediate, RASH, N/V, 08/09/19) bee venom protein (honey bee) (Verified Allergy, Unknown, hives, 08/24/19) ondansetron (Verified Adverse Reaction, Severe, massive migraine, 08/09/19) tetracycline (Verified Adverse Reaction, Intermediate, BLISTERS WITH VAGINAL CREAM, CAN TAKE ORAL, 08/09/19) Past Medical History Medical History PCOS, depression, anxiety, bipolar disorder, migraine Family History Mom has hypertension and depression Social History * Smoker: Denies Alcohol: occationally Drugs: marijuana A-FIB/CHADSVASC A-FIB History Current/History of A-Fib/PAF?: No Current PO Anticoag Therapy: No Age/Risk Factor Scoring CHADSVASC: CHADSVASC Response (Comments) Value Gender Risk Factor Female 1 Hx of CHF No 0 Hx of HTN No 0 Hx of Stroke/TIA/or VTE No 0 Hx of Diabetes No 0 Hx of Vascular Disease No 0 Total 1 Review of Systems Constitutional: Denies: Chills, Fever Eyes: Denies: Pain ENT: Denies: Head Aches Skin: Denies: Rash, Lesions Pulmonary: Denies: Dyspnea, Cough Cardiovascular: Denies: Chest Pain Gastrointestinal: Denies: Nausea, Vomiting Genitourinary: Denies: Dysuria Hematologic: Denies: Bleeding Excessively Endocrine: Denies: Polydipsia Musculoskeletal: Denies: Neck Pain, Back Pain Neurological: Denies: Weakness Psych: Reports: Depression Physical Examination General Exam: Positive: Alert, Cooperative Eye Exam: Positive: PERRLA ENT Exam: Positive: Atraumatic Neck Exam: Positive: Supple; Negative: JVD Chest Exam: Positive: Clear to auscultation Heart Exam: Positive: Rate Normal Telemetry: Positive: No significant arrhythmia Abdomen Exam: Positive: Normal bowel sounds Extremity Exam: Negative: Clubbing, Cyanosis Skin Exam: Positive: Nl turgor and temperature Neuro Exam: Positive: Normal Gait Psych Exam: Positive: Oriented x 3 Vital Signs Vital Signs Date Time Temp Pulse Resp B/P (MAP) Pulse Ox O2 Delivery O2 Flow Rate FiO2 02/04/21 10:59 Room Air 02/04/21 06:00 97.8 67 16 102/50 (67) 96 Assessment/Plan Patient is 30 years old female with past medical history of PCOS, depression, anxiety, bipolar disorder, migraine presented to hospital with suicidal ideation. Patient stated that since we moved back to [place] she is having increasing depressive symptoms including feeling tired and sleeping all day long sometimes and has no energy poor concentration and feeling worthless and hopeless at times. 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 During my interview patient denies fever, chills, nausea, vomiting, diarrhea dysuria Problems (1) Depression with suicidal ideation Status: Acute Problem Text: Defer treatment to psych team (2) Migraine headache Status: Chronic Problem Text: Continue Topamax Follow-up with neurologist in the outpatient settings (3) PCOS (polycystic ovarian syndrome) Status: Chronic Problem Text: Continue Metformin Plan / VTE VTE Prophylaxis Ordered?: No VTE Exclusion Mechanical Proph: Low Risk for VTE ADDIS MANZO DO Feb 04, 2021 14:45
[2021-02-04 17:34] VITALS: BP 117/56
[2021-02-04] MEDS: OLANZapine 2.5MG TABLET PO SCH (21:28)
[2021-02-04] MEDS: FLUoxetine 20 MG CAP PO SCH (21:29)
[2021-02-04] MEDS: VENLAFAXINE 37.5 MG TAB PO SCH (21:29)
[2021-02-05 07:07] VITALS: BP 92/53
[2021-02-05] MEDS: MULTIVITAMINS/MINERALS THERAP 1 TAB PO SCH (08:15)
[2021-02-05] MEDS: metFORMIN (GLUCOPHAGE) 500MG TAB PO SCH ×2 (08:15→20:35)
[2021-02-05] MEDS: VENLAFAXINE 37.5 MG TAB PO SCH ×2 (08:15→20:35)
[2021-02-05] MEDS: TOPIRAMATE (TopAMAX) 25 MG TAB PO SCH ×2 (08:15→16:56)
[2021-02-05] MEDS: JENCYCLA PO SCH (08:15)
--- NOTE | 2021-02-05 10:42 | MHIPNPDOC ---
[facility] Progress Note Progress Note DATE OF SERVICE: 02/05/21 The patient is fully cooperated with the medication changes and tolerating the new medicine Effexor without any side effect. She reported a little restless sl eep after her Zyprexa was decreased to 2.5 mg but denies any other complaints. She reports no serious active suicidal thoughts and again denies any intent to kill herself. She misses her son who is staying with her father and is very anxious to go back home. She is willing to try the new antidepressant medicine and wants to try increased dose tomorrow morning but does not want to stay in inpatient and wants to follow-up with outpatient treatment. She does not appear to be acutely suicidal so we will arrange for close outpatient follow-up and hopefully be able to discharge her tomorrow. HISTORY:. VITAL SIGNS: See below. NEW TEST RESULTS:. CURRENT MEDICATIONS: See below. MENTAL STATUS EXAMINATION: Patient is a 30-year old female, who is cooperative and in no acute distress. Speech: Is rational and coherent. Language skills are good. Thought processes including: Productive. Thought content: Denies any suicidal plan or intent. Abstract reasoning, and computation: Fair. Description of associations: Organized. Description of abnormal or psychotic thoughts: Denies any psychotic symptoms. Judgment: Fair. Insight: Fair. Orientation: Oriented. Recent and remote memory: Unimpaired. Attention span and concentration: Fair. Language:. Fund of knowledge:. Mood: Remains depressed but smiling more. Affect: Appropriate. DIAGNOSES: 1.. Major depression recurrent 2.. 3.. ASSESSMENT: Cooperating and tolerating medications and does not appear to be acutely suicidal MANAGEMENT PLAN: Increase Effexor tomorrow and possibly discharge. TIME SPENT: 20 minutes. Vital Signs Vital Signs Date Time Temp Pulse Resp B/P (MAP) Pulse Ox O2 Delivery O2 Flow Rate FiO2 02/05/21 08:19 Room Air 02/05/21 07:07 97.6 72 20 92/53 (66) 96 Current Medications Current Medications Medications (Trade) Dose Ordered Sig/Alexis Route PRN Reason Start Time Stop Time Status Last Admin Dose Admin Acetaminophen (Tylenol Tab) 650 mg Q6HP PRN PO HEADACHE or MILD DISCOMFORT 02/03/21 13:45 02/03/21 17:49 Al Hydrox/Mg Hydrox/Simethicone (Mylanta) 30 ml Q4HP PRN PO HEARTBURN/INDIGESTION 02/03/21 13:45 Albuterol Sulfate (Proventil, Ventolin Hfa) 2 puff QID PRN INH SHORTNESS OF BREATH 02/03/21 13:45 Clonazepam (KlonoPIN) 0.5 mg BID PRN PO ANXIETY 02/03/21 13:45 Fluoxetine HCl (PROzac) 10 mg QHS PO 02/03/21 21:00 02/04/21 10:46 DC 02/03/21 20:04 Fluoxetine HCl (PROzac) 20 mg QHS PO 02/03/21 21:00 02/04/21 21:29 Home Med (Med Rec Complete!) ASDIRECTED XX 02/03/21 08:45 02/03/21 08:46 DC Magnesium Hydroxide (Milk Of Magnesia) 30 ml DAILYPRN PRN PO CONSTIPATION 02/03/21 13:45 Metformin HCl (Glucophage) 500 mg BID PO 02/03/21 09:00 02/05/21 08:15 Multivitamins (Theragram-M) 1 tab DAILY PO 02/04/21 09:00 02/05/21 08:15 Olanzapine (ZyPREXA) 2.5 mg QHS PO 02/04/21 21:00 02/04/21 21:28 Olanzapine (ZyPREXA) 5 mg QHS PO 02/03/21 21:00 02/04/21 10:46 DC 02/03/21 20:04 Patient Own Medication (Patient'S Own Med) DEBLITANE 0.35 MG -TAKE ... DAILY PO 02/07/21 09:00 Patient Own Medication (Patient'S Own Med) NORETHINDRONE 0.35MG TABLET DA... DAILY PO 02/03/21 09:00 02/05/21 08:15 Rizatriptan Benzoate (Maxalt) 10 mg Q2HP PRN PO MIGRAINE 02/03/21 16:30 Topiramate (TopAMAX) 50 mg BID@0900,1700 PO 02/03/21 17:00 02/05/21 08:15 Trazodone HCl (Desyrel) 50 mg QHSP PRN PO INSOMNIA 02/03/21 13:45 Venlafaxine HCl (Effexor) 37.5 mg BID PO 02/04/21 21:00 02/05/21 08:15 Allergies Coded Allergies: Sulfa (Sulfonamide Antibiotics) (Verified Allergy, Severe, ANYPHYLAXIS, 08/09/19) doxycycline (Verified Allergy, Intermediate, RASH, N/V, 08/09/19) bee venom protein (honey bee) (Verified Allergy, Unknown, hives, 08/24/19) ondansetron (Verified Adverse Reaction, Severe, massive migraine, 08/09/19) tetracycline (Verified Adverse Reaction, Intermediate, BLISTERS WITH VAGINAL CREAM, CAN TAKE ORAL, 08/09/19) LORENZO WASHINGTON M.D. Feb 05, 2021 10:42
[2021-02-05 18:00] VITALS: BP 116/63
[2021-02-05] MEDS: FLUoxetine 20 MG CAP PO SCH (20:35)
[2021-02-05] MEDS: OLANZapine 2.5MG TABLET PO SCH (20:35)
[2021-02-06 06:32] VITALS: BP 120/67
[2021-02-06] MEDS: MULTIVITAMINS/MINERALS THERAP 1 TAB PO SCH (08:25)
[2021-02-06] MEDS: metFORMIN (GLUCOPHAGE) 500MG TAB PO SCH (08:25)
[2021-02-06] MEDS: TOPIRAMATE (TopAMAX) 25 MG TAB PO SCH (08:26)
[2021-02-06] MEDS: JENCYCLA PO SCH (08:26)
[2021-02-06] MEDS ORDERED: OLAN2.5T25 PO (08:27)
[2021-02-06] MEDS ORDERED: FLUO20CA22 PO (08:27)
[2021-02-06] MEDS ORDERED: VENL75CA47 PO (08:27)
[2021-02-06] MEDS ORDERED: VENLAFAXINE **XR** 75MG CAPSULE PO SCH ×2 (09:00)
--- NOTE | 2021-02-06 10:56 | MHDSPDOC ---
[facility] Discharge Summary Discharge Summary DATE OF ADMISSION: Feb 03, 2021 at 13:43 DATE OF DISCHARGE: February 06, 2021 DISCHARGE DIAGNOSES: 1. . Major depression recurrent 2. . REASON FOR ADMISSION: [30-year-old female with a long history of depression admitted due to increasing depression and suicidal thoughts. Patient has been marginally stable with her current medicine of Prozac and Zyprexa but reports decreasing efficacy from the medicine and is feeling tired lacking energy and having recurring passive suicidal thoughts and admitted for stabilization.] CONSULTANTS INVOLVED: TREATMENT AND PROGRESS ON THE UNIT : [The patient reports poor response to most of other antidepressant medicine but has not tried any SNRIs and is willing to try Effexor. Her Prozac was decreased from 30mg to 20 mg and she was started on Effexor 37.5 mg twice a day increased to Effexor ER 150 mg daily. Her Zyprexa was reduced from 5 mg at bedtime to 2.5 mg at bedtime. Patient is fully coop erating with this and reports no side effect and tolerating well. She is willing to continue outpatient treatment and was instructed to work with a psychiatrist to gradually taper off Prozac and increase Effexor to a more therapeutic amount.]. HOSPITAL COURSE: [Patient is fully cooperated with medications and tolerating well. She reports feeling somewhat better and appears much more animated and does not fear so suicidal anymore. She is much brighter and appropriate and has a good deal of insight and has good support system and feeling safe to be discharged.] DISCHARGE ASSESSMENT: [Improved stable and not suicidal] MENTAL STATUS EXAMINATION ON DISCHARGE: Patient is a [30]-year old female, who is [cooperative and in good control]. Speech is rational and coherent. Language skills are good. Thought processes including: Coherent productive. Thought content: Denies any suicidal plan or intent. Abstract reasoning, and computation: Fair. Description of associations: Well organized. Description of abnormal or psychotic thoughts: None. Judgment: Fair. Insight: Good. Orientation to well oriented. Recent and remote memory: Unimpaired. Attention span and concentration: Good. Language:. Fund of knowledge:. Mood: Not as depressed. Affect: Animated and appropriate. MEDICATIONS ON DISCHARGE: -For. Prozac 20 mg daily for 7 days with 3 refills -For. Effexor ER 150 mg daily for 7 days with 3 refills -For. Zyprexa 2.5 mg at bedtime for 7 days with 3 refills PLAN/FOLLOWUP ARRANGEMENTS: Has an appointment. The amount of time spent in the coordination of care for this patient was approximately 35 minutes. ETOH/Disorder Med Rx ETOH/DRUG DISORDER RX: N/A Vital Signs/I&Os Vital Signs Date Time Temp Pulse Resp B/P (MAP) Pulse Ox O2 Delivery O2 Flow Rate FiO2 02/06/21 06:32 98.2 72 16 120/67 (84) 97 Room Air Medications Scheduled Fluoxetine Hcl (Fluoxetine HCl) 20 Mg Capsule, 20 MG PO QHS for depression for 7 Days, #7 Metformin HCl (Metformin HCl) 500 Mg Tablet, 500 MG PO BID, (Reported) Multivitamin,Stress Formula (Stress Formula) 1 Each Tablet, 1 TAB PO DAILY, (Reported) Norethindrone (Deblitane) 0.35 Mg Tablet, 0.35 MG PO QPM, (Reported) TAKES AT 1930 Olanzapine (Olanzapine) 2.5 Mg Tablet, 2.5 MG PO QHS for mood for 7 Days, #7 Topiramate (Topiramate) 50 Mg Tablet, 50 MG PO BID, (Reported) TAKES WITH BREAKFAST AND DINNER Venlafaxine HCl (Venlafaxine HCl ER) 75 Mg Cap.er.24h, 150 MG PO DAILY for depression for 7 Days, #14 Scheduled PRN Albuterol Sulfate (Albuterol Sulfate Hfa) 8.5 Gm Hfa.aer.ad, 2 PUFFS INH QID PRN for SHORTNESS OF BREATH, (Reported) Clonazepam (Clonazepam) 0.5 Mg Tablet, 0.5 MG PO BID PRN for ANXIETY, (Reported) Epinephrine (Epipen 2-Eder) 0.3 Mg/0.3 Ml Auto.injct, 1 SYRINGE IM ONCE PRN for ALLERGIC REACTION, (Reported) Fluconazole (Fluconazole) 200 Mg Tablet, 200 MG PO ASDIRECTED PRN for YEAST INFECTIONS, (Reported) Rizatriptan Benzoate (Rizatriptan) 10 Mg Tablet, 10 MG PO ASDIRECTED PRN for MIGRAINE, (Reported) Allergies Coded Allergies: Sulfa (Sulfonamide Antibiotics) (Verified Allergy, Severe, ANYPHYLAXIS, 08/09/19) doxycycline (Verified Allergy, Intermediate, RASH, N/V, 08/09/19) bee venom protein (honey bee) (Verified Allergy, Unknown, hives, 08/24/19) ondansetron (Verified Adverse Reaction, Severe, massive migraine, 08/09/19) tetracycline (Verified Adverse Reaction, Intermediate, BLISTERS WITH VAGINAL CREAM, CAN TAKE ORAL, 08/09/19) LORENZO WASHINGTON M.D. Feb 06, 2021 10:56
[2021-02-07] MEDS ORDERED: [UNRECOGNIZED DRUG - OTHER] PO SCH (09:00)
== END 2021-02-06 11:14 | disposition home or self-care (01) | DRG 751 ==
LOC: M ED 11:47 → M ED INP 02-03 13:43 → M PSY 02-03 15:01
PROVIDERS: ADMIT Psychiatry & Neurology Psychiatry; ATTEND Psychiatry & Neurology Psychiatry
DX: F33.9 Major depressive disorder, recurrent, unspecified (principal); R45.851 Suicidal ideations; E28.2 Polycystic ovarian syndrome; G43.709 Chronic migraine without aura, not intractable, without status migrainosus; Z79.84 Long term (current) use of oral hypoglycemic drugs; Z79.899 Other long term (current) drug therapy; Z88.1 Allergy status to other antibiotic agents; Z88.2 Allergy status to sulfonamides; Z88.8 Allergy status to other drugs, medicaments and biological substances; Z63.0 Problems in relationship with spouse or partner; Z91.040 Latex allergy status

== ENCOUNTER → 2021-02-28 | Outpatient (CLI) | payer OTHER ==
[~2021-02-28] MED LIST changes: +CLON0.5T2 PO; +DEBL1TAB PO; +FLUO10CA16 PO; +FLUO20CA22 PO; +METF500T13 PO; +OLAN1TAB16 PO; +OLAN2.5T25 PO; -QUET50TA3 PO; +QUET50TA4 PO; +STRETAB4 PO; +VENL75CA47 PO
[2021-02-28 11:49] LABS: BASO # 0.1 10^3/uL (0.0-0.2); BASO % 0.7 % (0.0-1.0); EOS % 0.1 % (0.0-3.0); HEMOGLOBIN 14.1 g/dl (12.0-15.5); LYMPH # 2.2 10^3/uL (1.5-5.0); LYMPH % 31.5 % (24.0-44.0); MEAN CORPUSCULAR HEMOGLOBIN 29.1 pg (27.0-33.0); MEAN CORPUSCULAR VOLUME 90.9 fl (80.0-96.0); MONO # 0.5 10^3/uL (0.0-0.8); MONO % 6.8 % (2.0-8.0); NEUTROPHILS # 4.3 10^3/uL (1.5-8.5); NEUTROPHILS % 60.6 % (36.0-66.0); PLATELET COUNT, AUTOMATED 258 10^3/uL (150-450); RED BLOOD COUNT 4.84 10^6/uL (4.00-5.40); WHITE BLOOD COUNT 7.1 10^3/uL (4.0-10.0)
[2021-02-28 12:27] LABS: ALT/SGPT 15 U/L (12-78); BILIRUBIN,TOTAL 0.4 MG/DL (0.2-1.0); BLOOD UREA NITROGEN 20 MG/DL (7-18); CALCIUM LEVEL 9.4 MG/DL (8.5-10.1); CARBON DIOXIDE LEVEL 27 MEQ/L (21-32); CHLORIDE LEVEL 111 MEQ/L (98-107); FREE T4 0.81 NG/DL (0.76-1.46); GLOMERULAR FILTRATION RATE > 60.0 (>60); GLUCOSE, FASTING 85 MG/DL (70-100); POTASSIUM SERUM 4.3 MEQ/L (3.5-5.1); SODIUM LEVEL 141 MEQ/L (136-145); THYROID STIMULATING HORMONE 0.488 uIU/ML (0.358-3.740); TOTAL PROTEIN 7.6 GM/DL (6.4-8.2)
[2021-03-02 11:31] LABS: TESTOSTERONE 33 NG/DL (14-76)
[2021-03-02 11:32] LABS: PROGESTERONE 0.41 NG/ML; PROLACTIN 7.8 NG/ML
[2021-03-02 11:33] LABS: FOLLICLE STIMULATING HORMONE 8.2 mIU/mL; LUTEINIZING HORMONE 30.5 mIU/mL
== END ==
LOC: M LAB 11:24
PROVIDERS: ATTEND Nurse Practitioner
DX: N92.6 Irregular menstruation, unspecified (principal); L68.0 Hirsutism

== ENCOUNTER 2021-05-11 07:02 | Emergency (ER) | payer OTHER ==
[~2021-05-11] VITALS: Ht 157.5 cm; Wt 67.3 kg
--- OUTSIDE RECORDS SUMMARY | 2021-05-11 07:09 | CCD ---
Author Author Emily Rodriguez Organization Unknown Address [address] [place] [address] Phone Care Team Providers Care Shotgun Shell Reprinting Unit Operator Name Role Phone Michael Heidi PCP Allergies, Adverse Reactions, Alerts Concept Allergy Name Reaction Severity Onset Date Status Documentation Date Phone Number Npid Taxonomy Code Taxonomy Desc Author Last Name Author Fi rst Name Concept Type 155583 bee venom protein (honey bee) Anaphylaxis Life threatening s ev Active 03/02/2021 [id number] Nurse Practitioner Michael petit RXNORM 307269 doxycycline Hives Moderate Active 03/02/2021 [id number] Nurse Practitioner Michael Gordon RXNORM Problem List Concept Problem Description Status Start Date Created Date Resolv ed Date Snomed Code F12.10 Cannabis Use Disorder, Mild Active 03/02/2021 F31.9 Bipolar I Disorder, Current or most rece nt episode depressed, Unspecified Active 03/02/2021 Medications Rx Norm Medication Route Route Concept Start Date Stop Date Dosage Ankit quency Duration Formula Strength Dosage Form Dosage Form Code Dosage Description Medication Id Account Npid Author First Name Author Last Name Taxonomy Code Taxonomy Desc Phone Number [phone] mirtazapine by mouth [id number] 02/18/2021 at bedtime 15 mg ta blet 71295 [phone] Heidi Rodriguez [id number] Nurse Practitioner [phone] 272040 fluoxetine by mouth [id number] 02/20/2021 03/02/2021 every morning 30 10 mg capsule 45121 038240 [id number] Heidi Rodriguez [id number] N idrise Practitioner [phone] 210961 Klonopin by mouth [id number] 02/18/2021 03/20/2021 as directed 30 0.5 mg tablet as needed 50989 026615 [id number] Heidi Rodriguez [id number] Nurse Practitioner [phone] 647315 venlafaxine by mouth [id number] 02/18/2021 03/20/2021 every morning 30 75 mg capsule,extended release 24hr 75013 026611 [id number] Lew Rodriguez [id number] Nurse Practitioner [phone] 172272 olanzapine by mouth [id number] 02/18/2021 03/20/2021 at bedtime 30 2.5 mg tablet 14754 109826 [id number] Heidi Rodriguez [id number] Nurse P judetitioner [id number] Social History Social History Element Description Concept Effective Date Smoking Status Unknown if ever smoked [id number] Immunizations No Data in Section Vital Signs Encounter Date Height Ins Weight Lbs Bmi Bp Systolic Bp Diastoli c Oxygen Saturation Respiration Rate Pulse Rate Body Temp Head Circumference Heigh t Lying 03/02/2021 62.00 142.00 25.97 112 72 0.00 0 102 98.60 0.0 0. 00 Procedures Date Concept Id Description Targeted Site Concept Targeted Site Concept Type 03/02/2021 63814 E/M Level 3 - Established Patient CPT Patient has no history of implantable de vices Encounters Encounter Start Date End Date Encounter Type Description Diagnosis Di agnosis Desc Location Author First Name Author Last Name Npid Taxonomy Cod e Taxonomy Desc Phone Number Location Addr1 Location Addr2 Location [facility] Location [facility] Location [facility] [place] [id number] 03/02/2021 03/02/2021 36721 E/M Level 3 - Established Pa tient F12.10 Cannabis abuse, uncomplicated [facility] Heidi [phone] [id number] Nurse Practitioner [phone] [address] [address] Plan of Treatment No Data in Section Lab Results No Data in Section Instructions No Data in Section Functional Cognitive Status No Data in Section Insurance Providers Insurance Id Policy Effective Date Policy Thru Date Company Theresa zelaya [id number] 2021 [facility]
--- OUTSIDE RECORDS SUMMARY | 2021-05-11 07:09 | CCD ---
Author Author Emily Garcia Organization Unknown Address [address] [place] [address] Phone Care Team Providers Care Graphic Technician Name Role Phone Heidi Garcia PCP Allergies, Adverse Reactions, Alerts Concept Allergy Name Reaction Severity Onset Date Status Documentation Date Phone Number Npid Taxonomy Code Taxonomy Desc Author Last Name Author Fi rst Name Concept Type 763812 bee venom protein (honey bee) Anaphylaxis Life threatening s ev Active 03/02/2021 [id number] Nurse Practitioner Michael petit RXNORM 550264 doxycycline Hives Moderate Active 03/02/2021 [id number] 14 [id number] Nurse Practitioner Michael Gordon RXNORM Problem List [...] Name Taxonomy Code Taxonomy Desc Phone Number [phone] mirtazapine by mouth [id number] 02/18/2021 at bedtime 15 mg ta blet 28006 [id number] [phone] Heidi Rodriguez [id number] Nurse Practitioner [phone] 517144 fluoxetine by mouth [id number] 02/20/2021 03/02/2021 every morning 30 10 mg capsule 38795 853773 [id number] Heidi Rodriguez [id number] N idrise Practitioner [phone] 622720 Klonopin by mouth [id number] 02/18/2021 03/20/2021 as directed 30 0.5 mg tablet as needed 08589 292039 [id number] Heidi Rodriguez [id number] Nurse Practitioner [phone] 385097 venlafaxine by mouth [id number] 02/18/2021 03/20/2021 every morning 30 75 mg capsule,extended release 24hr 59828 495392 [id number] Lew Rodriguez [id number] Nurse Practitioner [phone] olanzapine by mouth [id number] 02/18/2021 03/20/2021 at bedtime 30 2.5 mg tablet 60594 601373 [id number] Heidi Rodriguez [id number] Nurse P judetitioner [phone] Social History Social History Element Description Concept Effective Date Smoking Status Unknown if ever smoked [id number] Immunizations No Data in Section Vital Signs No Data in Section Procedures Date Concept Id Description Targeted Site Concept Targeted Site Concept Type 03/02/2021 92303 Brief Individual Psychotherapy - 30 min CPT Patient has no history of implantable de vices Encounters Encounter Start Date End Date Encounter Type Description Diagnosis Di agnosis Desc Location Author First Name Author Last Name Npid Taxonomy Cod e Taxonomy Desc Phone Number Location Addr1 Location Addr2 Location [facility] Location Sta Location [facility] [id number] 03/02/2021 03/02/2021 05058 Brief Individual Psychoth erapy - 30 min F31.9 Bipolar disorder, unspecified [facility] [phone] [id number] [place] [phone] [address] [address] Plan of Treatment No Data in Section Lab Results No Data in Section Instructions No Data in Section Insurance Providers Insurance Id Policy Effective Date Policy Thru Date Company N nathalie [id number] [facility]
--- OUTSIDE RECORDS SUMMARY | 2021-05-11 07:09 | CCD | Continuity of Care Document ---
Author Author Emily SALCIDO [facility] Organization Unknown Address [address] [facility] [address] [place] [address] Phone [phone] Problems Active Problems Provider Date Migraine Sofia Zuniga RPA-C Onset: 2012 Anxiety state Marie Isidro FNP-C Onset: Asthma Yin Rico FNP-BC Onset: 10/09/2015 Insomnia Everton Salcido RPA Onset: 02/22/2018 Headache Everton Salcido RPA Onset: 02/22/2018 Mild recurrent major depression Everton Salcido RPA Onset : 07/25/2018 Bipolar disorder Everton Salcido RPA Onset: 08/04/2018 Tachycardia Everton Salcido RPA Onset: 04/10/2021 Migraine without aura, not refractory Everton Salcido RPA Onset: 03/13/2020 Social History Type Date Description Comments Sex Unknown Tobacco Use Start: Unknown Current Cigarette Smoker 1-5 Cig arettes Daily ETOH Use Occasionally consumes alcohol 1 or 2 glasses once a month Recreational Drug Use Denies Drug Use Tobacco Use Start: Unknown End: Unknown Patient is a former smoker Allergies and adverse reactions Active Allergies Criticality Reaction | Severity Comments Date Sulfa Drugs Unable to assess criticality 04/05/2013 Doxycycline Unable to assess criticality Vomiting/Hiv es 04/21/2016 Medications Active Medications SIG Qnty Indications Ordering Provide r Date Toprol XL 25mg Tablets ER 24HR 1 by mouth one time a day 30tabs Fantasma Dumont D.O., FAAFP Olanzapine 2.5mg Tablets one by mouth every night at bedtime Fantasma Dumont D.O., FA AFP 02/12/2021 Clonazepam 0.5mg Tablets 1 tab by mouth twice a day as needed for anxiety ([place]: [id number]) 60tabs Fantasma Dumont D.O., FAAFP 01/05/2021 Rizatriptan Benzoate 10mg Tablets Dispers take one tablet by mouth every day at the onset of headache may repeat in 2 hours as directed 12tabs Fantasma Dumont D.O., FAAFP 0 03/13/2020 Topamax 50mg Tablets take one tablet by mouth bid. 180tabs Fantasma Dumont D.O., FAAFP 02/2019 Metformin HCL 500mg Tablets take one tablet by mouth twice a day 180tabs Nohemy Hillman, FAAFP 02/22/2018 Epipen 2-Eder 0.3mg/0 .3ML Solution Auto-Inject inject as directed 2units Fantasma Dumont D.O., FAAFP 10/09/2015 Ventolin HFA 108(90Base) mcg/Act A erosol 2 puffs every 4-6 hours as needed 1units Fantasma Dumont D.O., FAAFP 02/04/2014 Jencycla 0.35mg Tablets 1 by mouth daily 28tabs Jeny Hernandez FNP- Effexor XR 75mg Caps ER 24HR 2 by mouth every day Unknown Remeron 15mg Tablets 1 tablet at bedtime daily Unknown History Medications OLANZapine 2.5mg Tablets one by mouth every night at bedtime Everton Salcido, [facility] - 02/12/2021 Fluoxetine HCL 20mg Capsules 1 by mouth every day 90caps Fantasma Dumont D.O., FAAFP - 02/12/2021 Fluoxetine HCL 10mg Capsules 1 by mouth every day 90caps Fantasma Dumont D.O., FAAFP - 02/12/2021 Olanzapine 5mg Tablets one by mouth every night at bedtime 30tabs Fantasma Dumont D.O., FAAFP - 02/12/2021 Medications Administered in Office Medication SIG Qnty Indications Ordering Provider Date Injection (SC)/(Im) Injection David Jeny VelDARIAN 02/03/2015 Immunizations CPT Code Status Date Vaccine Lot # [id number] Given 02/03/2015 Tdap Tetanus,Dip htheria Toxoids/Acellular Pertussis 7Yrs Or Older 44571 Given 02/03/2015 PPD Tuberculosis Intradermal 94573 Refused 04/10/2021 Influenza Virus Vaccine, Quadrivalent, Slit Virus, Im Use 3Y & Up Vital Signs Date Vital Result Comment 04/24/2021 3:33pm BP Systolic 100 mmHg BP Diastolic 76 mmHg Body Temperature 97.8 F Heart Rate 97 /min Respiratory Rate 16 /min Height 63 inches 5'3" Weight 148.00 lb [place] Body Weight 115 lb BMI (Body Mass Index) 26.2 kg/m2 O2 % BldC Oximetry 97 % 04/10/2021 11:16am BP Systolic 108 mmHg BP Diastolic 80 mmHg Body Temperature 98.0 F Heart Rate 130 /min Respiratory Rate 16 /min Height 63 inches 5'3" Weight 146.00 lb [place] Body Weight 115 lb BMI (Body Mass Index) 25.9 kg/m2 O2 % BldC Oximetry 97 % Results Test Acquired Date Facility Test Result H/L Range Note Salvage Diver Pap Test Age-Based GL Cerv CA & STDS 02/27/2021 [facility] Age 30-65 1 Diagn See Comment: 2 Adeq See Comment: 3 Cicd10 See Comment: 4 Perfor See Comment: 5 Signed See Comment: 6 Comm . Note See Comment: 7 Iglbp See Comment: 8 HPV Aptima Negative Negative 9 Influenxa A/B RSV Covid Amp 02/03/2021 [facility] (Interface) [phone] Influenza A Amplification NEGATIVE Normal Negati ve 10 Influenza B Amplification NEGATIVE Normal Negative 11 RSV Amplification NEGATIVE Normal Negative 12 Sars Covid-19 Amplification NEGATIVE Normal Negative 13 Complete Blood Count 02/02/2021 [facility] ( Interface) [phone] White Blood Count 7.1 10 Normal 4.0-10.0 Red Blood Count 4.68 10 Normal 4.00-5.40 Hemoglobin 13.9 g/dL Normal 12.0-15.5 Hematocrit 42.2 % Normal 36.0-47.0 Mean Corpuscular Volume 90.2 fl Normal 80.0-96.0 Mean Corpuscular Hemoglobin 29.7 pg Normal 27.0-33.0 Mean Corpuscular HGB Conc 32.9 g/dL Normal 32.0-36.5 Red Cell Distribution Width 11.7 % Normal 11.5-14.5 Platelet Count, Automated 262 10 Normal 150-450 Nucleated Red Blood Cell % 0.0 % Normal 0-0 Drug Eval Toxicology ED Only 02/02/2021 [facility] (Interface) [phone] Amphetamines Level Urine NEGATIVE Normal Negativ e Barbiturates Urine NEGATIVE Normal Negative Benzodiazepines Urine NEGATIVE Normal Negative Cannabinoids Urine POSITIVE High Negative Cocaine Metabolite Urine NEGATIVE Normal Negative Methadone Urine NEGATIVE Normal Negative Opiates Urine NEGATIVE Normal Negative Phencyclidine Urine NEGATIVE Normal Negative 14 Liver Profile 02/02/2021 [facility] [phone] Ast/Sgot 9 U/L Normal 7-37 Alt/SGPT 15 U/L Normal 12-78 Alkaline Phosphatase 66 U/L Normal 45-117 Bilirubin,Total 0.3 mg/dL Normal 0.2-1.0 Bilirubin,Direct < 0.1 mg/dL Normal 0.0-0.2 Total Protein 7.9 GM/DL Normal 6.4-8.2 Albumin 4.2 GM/DL Normal 3.2-5.2 Albumin/Globulin Ratio 1.1 Low 1.2-2.2 Basic Metabolic Profile 02/02/2021 [facility] (Interface) [phone] Glucose, Fasting 98 mg/dL Normal 70-100 Blood Urea Nitrogen 13 mg/dL Normal 7-18 Creatinine For GFR 0.74 mg/dL Normal 0.55-1.30 Glomerular Filtration Rate > 60.0 Normal >60 1 5 Sodium Level 140 mEq/L Normal 136-145 Potassium Serum 4.1 mEq/L Normal 3.5-5.1 Chloride Level 109 mEq/L High 98-107 Carbon Dioxide Level 26 mEq/L Normal 21-32 Anion Gap 5 mEq/L Low 8-16 Calcium Level 10.0 mg/dL Normal 8.5-10.1 Laboratory test finding 02/02/2021 [facility] (Interface) [phone] Ethyl Alcohol (Ethanol) < 0.003 % Normal 0.000-0. 010 Salicylate Level < 1.7 mg/dL Low 5.0-30.0 Acetaminophen Level < 2.0 UG/ML Low 10.0-30.0 Thyroid Stimulating Hormone 0.622 uIU/ML Normal 0.358-3.740 HCG Serum Qualitative NEGATIVE Normal Negative 1 Source.............Endocervi x Dates / Results....LMP 11/05 No. of containers..01 ThinPrep Vial [id number] 2 NEGATIVE FOR INTRAEPITHELIAL LESION OR MALIGNANCY. REACTIVE CELLULAR CHANGES AND/OR REPAIR ARE PRESENT. 3 Satisfactory for evaluation. Endocervical and/or squamous metaplastic cells (endocervical component) are present. 4 Z12.4 5 Damien Lawler totechnologist (ASCP) 6 Cary hSoemaker MD, Patholog ist 7 The Pap smear is a screening test designed to aid in the detection of premalignant and malignant conditions of the uterine cervix. It is not a diagnostic procedure and should not be used as the sole means of detecting cervical cancer. Both false-positive and false-negative reports do occur. 8 This liquid based ThinPrep(R ) pap test was screened with the use of an image guided system. 9 This nucleic acid amplificat ion test detects fourteen high-risk HPV types (16,18,31,33,35,39,45,51,52,56,58,59,66,68) without differentiation. 10 Negative results do not prec lude influenza or RSV virus infection and should not be used as the sole basis for treatment or other patient management decisions. 11 Negative results do not prec lude influenza or RSV virus infection and should not be used as the sole basis for treatment or other patient management decisions. 12 Negative results do not prec lude influenza or RSV virus infection and should not be used as the sole basis for treatment or other patient management decisions. 13 A false negative result may occur if a specimen is improperly collected, transported or handled. False negative results may also occur if inadequate numbers of organisms are present in the specimen. As with any molecular test, mutations within the target regions of Xpert Xpress SARS-CoV-2 could affect primer and/or probe binding resulting in failure to detect the presence of virus. This test cannot rule out diseases caused by other bacterial or viral pathogens. DISCLAIMER: Testing was performed using the [employer] SARS-CoV-2 test. This test was developed and its performance characteristics determined by [employer]. This test has not been FDA cleared or approved. This test has been authorized by FDA under an Emergency Use Authorization (EUA). This test is only authorized for the duration of time the declaration that circumstances exist justifying the authorization of the emergency use of in vitro diagnostic tests for detection of SARS-CoV-2 virus and/or diagnosis of COVID-19 infection under section 564(b)(1) of the Act, 21 U.S.C. 360bbb-3(b)(1), unless the authorization is terminated or revoked sooner. 14 ALL PRESUMPTIVE POSITIVE FINDINGS ARE UNCONFIRMED THRESHOLD IN NG/ML AMPHETAMINES/METHAMPHET 1000 BARBITURATES 200 BENZODIAZEPINES 200 CANNABINOIDS (THC) 50 COCAINE METABOLITE 300 METHADONE 300 OPIATES 300 PHENCYCLIDINE 25 RESULTS ARE FOR MEDICAL PURPOSES ONLY. ALL URINE SPECIMENS WILL BE SAVED FOR 3 DAYS. IF CONFIRMATION OF A PRESUMPTIVE POSITIVE SCREEN RESULT IS DESIRED, CALL CHEMISTRY ([phone]) AND REQUEST URINE TO BE SENT TO REFERENCE LAB. FOR A LIST OF CLOSELY RELATED COMPOUNDS PLEASE CALL THE LAB. 15 Units are mL/min/1.73 m2 Chronic Kidney Disease Staging per NKF: Stage I & II GFR >=60 Normal to Mildly Decreased Stage III GFR 30-59 Moderately Decreased Stage IV GFR 15-29 Severely Decreased Stage V GFR <15 Very Little GFR Left ESRD GFR <15 on DEVELOPMENTAL MATHEMATICS INSTRUCTOR Procedures Date Code Description Status 04/24/2021 34040 Office/Outpatient Established Mo d MDM 30-39 Min Completed 04/10/2021 49921 Office/Outpatient Established Mo d MDM 30-39 Min Completed 04/10/2021 09117 Electrocardiogram Complete Compl eted 02/27/2021 70248 Preventive Visit Est 18-39 Yrs C ompleted 02/12/2021 61508 Office/Outpatient Established Lo w MDM 20-29 Min Completed 01/05/2021 67607 Office/Outpatient Established Mo d MDM 30-39 Min Completed Medical Devices Description No Information Available Encounters Type Date Location Provider Dx Diagnosis Office Visit 04/24/2021 3:30p [facility] Everton Salcido, RP A J45.909 Unspecified asthma, uncomplicated R00.0 Tachycardia, unspecified R53.83 Other fatigue Office Visit 04/10/2021 11:00a [facility] Everton Salcido, RP A J45.909 Unspecified asthma, uncomplicated G47.00 Insomnia, unspecified F41.9 Anxiety disorder, unspecifie d F31.9 Bipolar disorder, unspecifie d R00.0 Tachycardia, unspecified Office Visit 02/27/2021 2:00p [facility], Jeny Crowder, [facility] Z01.411 Encntr for magneto electrician exam (general) (routine) w abnormal findings N92.6 Irregular menstruation, unsp ecified L68.0 Hirsutism E28.2 Polycystic ovarian syndrome R68.82 Decreased libido Office Visit 02/12/2021 11:00a [facility] Everton Salcido, RP A G47.00 Insomnia, unspecified F41.9 Anxiety disorder, unspecifie d F31.9 Bipolar disorder, unspecifie d Office Visit 01/05/2021 2:40p [facility] Everton Salcido, RP A J45.909 Unspecified asthma, uncomplicated G43.009 Migraine w/o aura, not intra ctable, w/o status migrainosus G47.00 Insomnia, unspecified Assessments Date Code Description Provider 04/24/2021 J45.909 Unspecified asthma, uncomplicate d Everton Salcido, RPA 04/24/2021 R00.0 Tachycardia, unspecified Everton Salcido, RPA 04/24/2021 R53.83 Fatigue Everton Salcido, RPA 04/10/2021 J45.909 Unspecified asthma, uncomplicate d Everton Salcido, RPA 04/10/2021 G47.00 Insomnia, unspecified Yuridia Salcido, RPA 04/10/2021 F41.9 Anxiety disorder, unspecified Everton Martin, RPA 04/10/2021 F31.9 Bipolar disorder, unspecified Everton Martin, RPA 04/10/2021 R00.0 Tachycardia, unspecified Everton Salcido, RPA 02/27/2021 Z01.411 Encounter for gyneco logical examination (general) (routine) with abnormal findings David Jeny Crowder [facility] 02/27/2021 N92.6 Irregular menstruation, unspecif ied David Jeny Vel [facility] 02/27/2021 L68.0 Hirsutism David Jeny M, [facility] 02/27/2021 E28.2 Polycystic ovarian syndrome Jeny Edwards [facility] 02/27/2021 R68.82 Decreased libido David Jeny M, [facility] 02/12/2021 G47.00 Insomnia, unspecified Yuridia Salcido, [facility] 02/12/2021 F41.9 Anxiety disorder, unspecified Everton Martin, [facility] 02/12/2021 F31.9 Bipolar disorder, unspecified Everton Martin, [facility] 01/05/2021 J45.909 Unspecified asthma, uncomplicate d Everton Salcido, [facility] 01/05/2021 G43.009 Migraine without aur a, not intractable, without status migrainosus Everton Salcido, [facility] 01/05/2021 G47.00 Insomnia, unspecified Yuridia Salcido, RPA Plan of Treatment No Information Available Functional Status Description No Information Available Mental Status Description No Information Available Referrals Refer to Reason for Referral Status Appt Date [facility] Anxiety, depression, ea ting disorder. Sent [address] [place] [address] [phone]
--- OUTSIDE RECORDS SUMMARY | 2021-05-11 07:09 | CCD | Continuity of Care Document ---
Author Emily Diane [facility] Organization Unknown Address 3 [facility] [address] [place] [address] Phone [phone] Problems Active Problems Provider Date Migraine Sofia Zuniga [facility] Onset: 2012 Anxiety state Marie Isidro [facility]- Onset: Asthma Yin Rico [facility]- Onset: 10/09/2015 Insomnia Everton Salcido RPA Onset: 02/22/2018 Headache Everton Salcido RPA Onset: 02/22/2018 Mild recurrent major depression Everton Salcido RPA Onset : 07/25/2018 Bipolar disorder Everton Salcido RPA Onset: 08/04/2018 Migraine without aura, not refractory Everton Salcido RPA Onset: 03/13/2020 Social History Type Date Description Comments Sex Unknown Tobacco Use Start: Unknown Current Cigarette Smoker 1-5 Cig arettes Daily ETOH Use Occasionally consumes alcohol 1 or 2 glasses once a month Recreational Drug Use Denies Drug Use Tobacco Use Start: Unknown End: Unknown Patient is a former smoker Allergies, Adverse Reactions, Alerts Active Allergies Criticality Reaction | Severity Comments Date Sulfa Drugs Unable to assess criticality 04/05/2013 Doxycycline Unable to assess criticality Vomiting/Hiv es 04/21/2016 Medications Active Medications SIG Qnty Indications Ordering Provide r Date Olanzapine 2.5mg Tablets one by mouth every night at bedtime Fantasma Dumont D.O., FA AFP 02/12/2021 Clonazepam 0.5mg Tablets 1 tab by mouth twice a day as needed for anxiety (Istop: [id number]) 60tabs Fantasma Dumont D.O., FAAFP 01/05/2021 Rizatriptan Benzoate 10mg Tablets Dispers take one tablet by mouth every day at the onset of headache may repeat in 2 hours as directed 12tabs Fantasma Dumont D.O., FAAFP 0 03/13/2020 Topamax 50mg Tablets take one tablet by mouth bid. 60tabs [facility]., [facility] 02/2019 Metformin HCL 500mg Tablets take one tablet by mouth twice a day 180tabs Nohemy Hillman, FAAFP 02/22/2018 Epipen 2-Eder 0.3mg/0 .3ML Solution Auto-Inject inject as directed 2units Fantasma [facility]ont D.O., [facility] 10/09/2015 Ventolin HFA 108(90Base) mcg/Act A erosol 2 puffs every 4-6 hours as needed 1units Fantasma Dumont D.O., [facility] 02/04/2014 Jencycla 0.35mg Tablets 1 po daily 28tabs Fantasma Dumont D.O., FAAFP Venlafaxine HCL ER 150mg Tablets E R 24HR 1 by mouth every day Unknown Fluoxetine HCL 20mg Capsules 1 by mouth every day Unknown History Medications OLANZapine 2.5mg Tablets one by mouth every night at bedtime Everton Salcido, [facility] - 02/12/2021 Fluoxetine HCL 20mg Capsules 1 by mouth every day 90caps Fantasma Dumont D.O., FAA - 02/12/2021 Fluoxetine HCL 10mg Capsules 1 by mouth every day 90caps Fantasma Dumont D.O., FAAFP - 02/12/2021 Olanzapine 5mg Tablets one by mouth every night at bedtime 30tabs Fantasma [facility] D.O., [facility] - 02/12/2021 Medications Administered in Office Medication SIG Qnty Indications Ordering Provider Date Injection (SC)/(Im) Injection Jeny Hernandez FNP-BC 02/03/2015 Immunizations CPT Code Status Date Vaccine Lot # [id number] Given 02/03/2015 Tdap Tetanus,Dip htheria Toxoids/Acellular Pertussis 7Yrs Or Older 82096 Given 02/03/2015 PPD Tuberculosis Intradermal Vital Signs Date Vital Result Comment 02/27/2021 1:58pm BP Systolic 122 mmHg BP Diastolic 62 mmHg Body Temperature 97.8 F Heart Rate 107 /min Respiratory Rate 16 /min Height 63 inches 5'3" Weight 143.00 lb [place] Body Weight 115 lb BMI (Body Mass Index) 25.3 kg/m2 O2 % BldC Oximetry 98 % 02/12/2021 10:48am BP Systolic 100 mmHg BP Diastolic 78 mmHg Body Temperature 97.5 F Heart Rate 77 /min Respiratory Rate 16 /min Height 63 inches 5'3" Weight 138.00 lb [place] Body Weight 115 lb BMI (Body Mass Index) 24.4 kg/m2 O2 % BldC Oximetry 98 % Results Test Acquired Date Facility Test Result H/L Range Note Influenxa A/B RSV Covid Amp 02/03/2021 [facility] (Interface) [phone] Influenza A Amplification NEGATIVE Normal Negati ve 1 Influenza B Amplification NEGATIVE Normal Negative 2 RSV Amplification NEGATIVE Normal Negative 3 Sars Covid-19 Amplification NEGATIVE Normal Negative 4 Complete Blood Count 02/02/2021 [facility] ( Interface) [phone] White Blood Count 7.1 10 Normal 4.0-10.0 [...] 0-0 Drug Eval Toxicology ED Only 02/02/2021 [facility] (Interface) [phone] Amphetamines Level Urine NEGATIVE Normal Negativ e Barbiturates Urine NEGATIVE Normal Negative Benzodiazepines Urine NEGATIVE Normal Negative Cannabinoids Urine POSITIVE High Negative Cocaine Metabolite Urine NEGATIVE Normal Negative Methadone Urine NEGATIVE Normal Negative Opiates Urine NEGATIVE Normal Negative Phencyclidine Urine NEGATIVE Normal Negative 5 Liver Profile 02/02/2021 [facility] ([facility]) [phone] Ast/Sgot 9 U/L Normal 7-37 Alt/SGPT 15 U/L Normal 12-78 Alkaline Phosphatase 66 U/L Normal 45-117 Bilirubin,Total 0.3 mg/dL Normal 0.2-1.0 Bilirubin,Direct < 0.1 mg/dL Normal 0.0-0.2 Total Protein 7.9 GM/DL Normal 6.4-8.2 Albumin 4.2 GM/DL Normal 3.2-5.2 Albumin/Globulin Ratio 1.1 Low 1.2-2.2 Basic Metabolic Profile 02/02/2021 [facility] (Interface) [phone] Glucose, Fasting 98 mg/dL Normal 70-100 Blood Urea Nitrogen 13 mg/dL Normal 7-18 Creatinine For GFR 0.74 mg/dL Normal 0.55-1.30 Glomerular Filtration Rate > 60.0 Normal >60 6 Sodium Level 140 mEq/L Normal 136-145 Potassium Serum 4.1 mEq/L Normal 3.5-5.1 Chloride Level 109 mEq/L High 98-107 Carbon Dioxide Level 26 mEq/L Normal 21-32 Anion Gap 5 mEq/L Low 8-16 Calcium Level 10.0 mg/dL Normal 8.5-10.1 Laboratory test finding 02/02/2021 [facility] (Interface) [phone] Ethyl Alcohol (Ethanol) < 0.003 % Normal 0.000-0. 010 Salicylate Level < 1.7 mg/dL Low 5.0-30.0 Acetaminophen Level < 2.0 UG/ML Low 10.0-30.0 Thyroid Stimulating Hormone 0.622 uIU/ML Normal 0.358-3.740 HCG Serum Qualitative NEGATIVE Normal Negative 1 Negative results do not prec lude influenza or RSV virus infection and should not be used as the sole basis for treatment or other patient management decisions. 2 Negative results do not prec lude influenza or RSV virus infection and should not be used as the sole basis for treatment or other patient management decisions. 3 Negative results do not prec lude influenza or RSV virus infection and should not be used as the sole basis for treatment or other patient management decisions. 4 A false negative result may occur if [...] pathogens. DISCLAIMER: Testing was performed using the [facility] [facility] SARS-CoV-2 test. This test was developed and its performance characteristics determined by [facility]. This test has not been FDA cleared [...] the authorization is terminated or revoked sooner. 5 ALL PRESUMPTIVE POSITIVE FINDINGS ARE UNCONFIRMED THRESHOLD [...] CLOSELY RELATED COMPOUNDS PLEASE CALL THE LAB. 6 Units are mL/min/1.73 m2 Chronic Kidney Disease Staging per NKF: Stage I & II GFR >=60 Normal to Mildly Decreased Stage III GFR 30-59 Moderately Decreased Stage IV GFR 15-29 Severely Decreased Stage V GFR <15 Very Little GFR Left ESRD GFR <15 on BALLISTICIAN Procedures Date Code Description Status 02/27/2021 97861 Preventive Visit Est 18-39 Yrs C ompleted 02/12/2021 76483 Office/Outpatient Established Lo w MDM 20-29 Min Completed 01/05/2021 26851 Office/Outpatient Established Mo d MDM 30-39 Min Completed Medical Devices Description No Information Available Encounters Type Date Location Provider Dx Diagnosis Office Visit 02/27/2021 2:00p [place] [facility] Jeny Hernandez [facility] Z01.411 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) w abnormal findings N92.6 Irregular menstruation, unsp ecified L68.0 Hirsutism E28.2 Polycystic ovarian syndrome R68.82 Decreased libido Office Visit 02/12/2021 11:00a [place] [facility] Everton Salcido, RP A G47.00 Insomnia, unspecified F41.9 Anxiety disorder, unspecifie d F31.9 Bipolar disorder, unspecifie d Office Visit 01/05/2021 2:40p [place] [facility] Everton Salcido, RP A J45.909 Unspecified asthma, uncomplicated G43.009 Migraine w/o aura, not intra ctable, w/o status migrainosus G47.00 Insomnia, unspecified Assessments Date Code Description Provider 02/27/2021 Z01.411 Encounter for gyneco logical examination (general) (routine) with abnormal findings Jeny Hernandez [facility] 02/27/2021 N92.6 Irregular menstruation, unspecif ied Jeny Hernandez [facility] 02/27/2021 L68.0 Hirsutism Jeny Hernandez [facility] 02/27/2021 E28.2 Polycystic ovarian syndrome Jeny Edwards [facility] 02/27/2021 R68.82 Decreased libido Jeny Hernandez [facility] 02/12/2021 G47.00 Insomnia, unspecified Yuridia Salcido, RPA 02/12/2021 F41.9 Anxiety disorder, unspecified Everton Martin, RPA 02/12/2021 F31.9 Bipolar disorder, unspecified Everton Martin, RPA 01/05/2021 J45.909 Unspecified asthma, uncomplicate d Everton Salcido, RPA 01/05/2021 G43.009 Migraine without aur a, not intractable, without status migrainosus Everton Salcido, RPA 01/05/2021 G47.00 Insomnia, unspecified Yuridia Salcido, RPA Plan of Treatment Future Appointment(s):* 04/10/2021 11:00 am - Everton Salcido RPA at [place] [facility] Functional Status Description No Information Available Mental Status Description No Information Available Referrals Refer to Reason for Referral Status Appt Date [facility] Anxiety, depression, ea ting disorder. Sent [address] [place], [place] [address] [phone]
--- OUTSIDE RECORDS SUMMARY | 2021-05-11 07:09 | CCD | Continuity of Care Document ---
Author Author Emily SALCIDO [facility] Organization Unknown Address 3 [facility] [address] [place] [address] Phone [phone] Problems Active Problems Provider Date Migraine Sofia [...] a day as needed for anxiety (Istop: [id number]) 60tabs Fantasma Dumont D.O., FAAFP 01/05/2021 Rizatriptan [...] 1 by mouth daily 28tabs Jeny Hernandez FISHING ROD MECHANIC- Effexor XR 75mg Caps ER 24HR 2 by mouth every day Unknown Remeron 15mg Tablets 1 tablet at bedtime daily Unknown History Medications OLANZapine 2.5mg Tablets one by mouth every night at bedtime Everton Salcido, [facility] - 02/12/2021 Fluoxetine HCL 20mg Capsules 1 [...] CPT Code Status Date Vaccine Lot # [id number] Given 02/03/2015 Tdap Tetanus,Dip htheria Toxoids/Acellular Pertussis 7Yrs Or Older [id number] Given 02/03/2015 PPD Tuberculosis Intradermal 06554 Refused 04/10/2021 Influenza Virus Vaccine, Quadrivalent, Slit Virus, Im Use 3Y & Up Vital Signs Date Vital Result Comment 04/10/2021 11:16am BP Systolic 108 mmHg BP Diastolic 80 mmHg Body Temperature 98.0 F Heart Rate 130 /min Respiratory Rate 16 /min Height 63 inches 5'3" Weight 146.00 lb [place] Body Weight 115 lb BMI (Body Mass Index) 25.9 kg/m2 O2 % BldC Oximetry 97 % 02/27/2021 1:58pm BP Systolic 122 mmHg BP Diastolic 62 mmHg Body Temperature 97.8 F Heart Rate 107 /min Respiratory Rate 16 /min Height 63 inches 5'3" Weight 143.00 lb [place] Body Weight 115 lb BMI (Body Mass Index) 25.3 kg/m2 O2 % BldC Oximetry 98 % Results Test Acquired Date Facility Test Result H/L Range Note Manager Materials Management Pap Test Age-Based GL Cerv CA & STDS 02/27/2021 [facility] Age 30-65 1 Diagn See Comment: 2 Adeq See Comment: 3 Cicd10 See Comment: 4 Perfor See Comment: 5 Signed See Comment: 6 Comm . Note See Comment: 7 Iglbp See Comment: 8 HPV Aptima Negative Negative 9 Influenxa A/B RSV Covid Amp 02/03/2021 [facility] (Interface) [phone] Influenza A Amplification NEGATIVE Normal Negati ve 10 Influenza B Amplification NEGATIVE Normal Negative 11 RSV Amplification NEGATIVE Normal Negative 12 Sars Covid-19 Amplification NEGATIVE Normal Negative 13 Complete Blood Count 02/02/2021 [facility] ( Interface) [phone] White Blood Count 7.1 10 Normal 4.0-10.0 [...] 0-0 Drug Eval Toxicology ED Only 02/02/2021 [facility] (Interface) [phone] Amphetamines Level Urine NEGATIVE Normal Negativ e Barbiturates Urine NEGATIVE Normal Negative Benzodiazepines Urine NEGATIVE Normal Negative Cannabinoids Urine POSITIVE High Negative Cocaine Metabolite Urine NEGATIVE Normal Negative Methadone Urine NEGATIVE Normal Negative Opiates Urine NEGATIVE Normal Negative Phencyclidine Urine NEGATIVE Normal Negative 14 Liver Profile 02/02/2021 [facility] [phone] Ast/Sgot 9 U/L Normal 7-37 Alt/SGPT 15 U/L Normal 12-78 Alkaline Phosphatase 66 U/L Normal 45-117 Bilirubin,Total 0.3 mg/dL Normal 0.2-1.0 Bilirubin,Direct < 0.1 mg/dL Normal 0.0-0.2 Total Protein 7.9 GM/DL Normal 6.4-8.2 Albumin 4.2 GM/DL Normal 3.2-5.2 Albumin/Globulin Ratio 1.1 Low 1.2-2.2 Basic Metabolic Profile 02/02/2021 [facility] (Interface) [phone] Glucose, Fasting 98 mg/dL Normal 70-100 Blood [...] mg/dL Normal 8.5-10.1 Laboratory test finding 02/02/2021 [facility] (Interface) [phone] Ethyl Alcohol (Ethanol) < 0.003 % Normal 0.000-0. 010 Salicylate Level < 1.7 mg/dL Low 5.0-30.0 Acetaminophen Level < 2.0 UG/ML Low 10.0-30.0 Thyroid Stimulating Hormone 0.622 uIU/ML Normal 0.358-3.740 HCG Serum Qualitative NEGATIVE Normal Negative 1 Source.............Endocervi x Dates / Results....LMP 11/05 No. of containers..01 ThinPrep Vial [id number] 2 NEGATIVE FOR INTRAEPITHELIAL LESION OR MALIGNANCY. REACTIVE CELLULAR CHANGES AND/OR REPAIR ARE PRESENT. 3 Satisfactory for evaluation. Endocervical and/or squamous metaplastic cells (endocervical component) are present. 4 Z12.4 5 Damien Lawler totechnologist (ASCP) 6 Cary Shoemaker MD, Patholog ist 7 The Pap smear [...] pathogens. DISCLAIMER: Testing was performed using the [employer] SARS-CoV-2 test. This test was developed and its performance characteristics determined by [employer]. This test has not been FDA cleared [...] Little GFR Left ESRD GFR <15 on PLASTICS SUPERVISOR Procedures Date Code Description Status 04/10/2021 93743 Office/Outpatient Established Mo d MDM 30-39 Min Completed 04/10/2021 94165 Electrocardiogram Complete Compl eted 02/27/2021 40984 Preventive Visit Est 18-39 Yrs C ompleted 02/12/2021 13581 Office/Outpatient Established Lo w MDM 20-29 Min Completed 01/05/2021 14162 Office/Outpatient Established Mo d MDM 30-39 Min Completed Medical Devices Description No Information Available Encounters Type Date Location Provider Dx Diagnosis Office Visit 04/10/2021 11:00a [place] [facility] Everton Salcido, RP A J45.909 Unspecified asthma, uncomplicated G47.00 Insomnia, unspecified F41.9 Anxiety disorder, unspecifie d F31.9 Bipolar disorder, unspecifie d R00.0 Tachycardia, unspecified Office Visit 02/27/2021 2:00p [place] [facility] Jeny Hernandez [facility] Z01.411 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 (general) (routine) w abnormal findings N92.6 Irregular menstruation, unsp ecified L68.0 Hirsutism E28.2 Polycystic ovarian syndrome R68.82 Decreased libido Office Visit 02/12/2021 11:00a [place] [facility] Everton Salcido, RP A G47.00 Insomnia, unspecified F41.9 Anxiety disorder, unspecifie d F31.9 Bipolar disorder, unspecifie d Office Visit 01/05/2021 2:40p [place] [facility] Everton Salcido, RP A J45.909 Unspecified asthma, uncomplicated G43.009 Migraine w/o aura, not intra ctable, w/o status migrainosus G47.00 Insomnia, unspecified Assessments Date Code Description Provider 04/10/2021 J45.909 Unspecified asthma, uncomplicate d Everton Salcido, RPA 04/10/2021 G47.00 Insomnia, unspecified Yuridia Salcido, RPA 04/10/2021 F41.9 Anxiety disorder, unspecified Hi Everton serrano, RPA 04/10/2021 F31.9 Bipolar disorder, unspecified Hi Everton serrano, RPA 04/10/2021 R00.0 Tachycardia, unspecified Everton Salcido, RPA 02/27/2021 Z01.411 Encounter for gyneco logical examination (general) (routine) with abnormal findings [facility] 02/27/2021 N92.6 Irregular menstruation, unspecif ied [facility] 02/27/2021 L68.0 Hirsutism [facility] 02/27/2021 E28.2 Polycystic ovarian syndrome Jen[facility] Edwards [facility] 02/27/2021 R68.82 Decreased libido [facility] 02/12/2021 G47.00 Insomnia, unspecified Yuridia Salcido, RPA 02/12/2021 F41.9 Anxiety disorder, unspecified Everton Martin, RPA 02/12/2021 F31.9 Bipolar disorder, unspecified Everton Martin, RPA 01/05/2021 J45.909 Unspecified asthma, uncomplicate d Everton Salcido, RPA 01/05/2021 G43.009 Migraine without aur a, not intractable, without status migrainosus Everton Salcido, RPA 01/05/2021 G47.00 Insomnia, unspecified Yuridia Salcido, RPA Plan of Treatment Future Appointment(s):* 04/24/2021 3:30 pm - Everton Salcido RPA at [place] [facility] Functional Status Description No Information Available Mental Status Description No Information Available Referrals Refer to Reason for Referral Status Appt Date [facility] Anxiety, depression, ea ting disorder. Sent [address] [place] [address] [address] [place] [address] [phone]
--- OUTSIDE RECORDS SUMMARY | 2021-05-11 07:09 | CCD | Continuity of Care Document ---
Author Author Emily SALCIDO [facility] Organization Unknown Address [address] [facility] [address] [place] [address] Phone [phone] Problems Active Problems Provider Date Migraine Sofia [...] a day as needed for anxiety (Istop: [id number]) 60tabs Fantasma Dumont D.O., FAAFP 01/05/2021 Rizatriptan [...] 1 by mouth daily 28tabs Jeny Hernandez FNP-BC Effexor XR 75mg Caps ER 24HR 2 by mouth every day Unknown History Medications OLANZapine 2.5mg Tablets one by mouth every night at bedtime Everton Salcido, [facility] - 02/12/2021 Fluoxetine HCL 20mg Capsules [...] Provider Date Injection (SC)/(Im) Injection Jeny Hernandez RESOURCE DEVELOPMENT MANAGER- 02/03/2015 Immunizations CPT Code Status Date Vaccine Lot # [id number] Given 02/03/2015 Tdap Tetanus,Dip htheria Toxoids/Acellular Pertussis 7Yrs Or Older 31031 Given 02/03/2015 PPD Tuberculosis Intradermal 99501 Refused 04/10/2021 Influenza Virus Vaccine, Quadrivalent, Slit Virus, Im Use 3Y & Up Vital Signs Date Vital Result Comment 04/10/2021 11:16am BP Systolic 108 mmHg BP Diastolic 80 mmHg Body Temperature 98.0 F Heart Rate 130 /min Respiratory Rate 16 /min Height 63 inches 5'3" Weight 146.00 lb [place] Body Weight 115 lb BMI (Body Mass Index) 25.9 kg/m2 O2 % BldC Oximetry 97 % 02/27/2021 1:58pm BP Systolic 122 mmHg BP Diastolic 62 mmHg Body Temperature 97.8 F Heart Rate 107 /min Respiratory Rate 16 /min Height 63 inches 5'3" Weight 143.00 lb [place] Body Weight 115 lb BMI (Body Mass Index) 25.3 kg/m2 O2 % BldC Oximetry 98 % Results Test Acquired Date Facility Test Result H/L Range Note [employer] Lab[employer] Pap Test Age-Based GL Cerv CA & STDS 02/27/2021 [facility] [place] Age 30-65 1 Diagn See Comment: 2 Adeq See Comment: 3 Cicd10 See Comment: 4 Perfor See Comment: 5 Signed See Comment: 6 Comm . Note See Comment: 7 Iglbp See Comment: 8 HPV Aptima Negative Negative 9 Influenxa A/B RSV Covid Amp 02/03/2021 [facility] (Interface) [phone] Influenza A Amplification NEGATIVE Normal Negati ve 10 Influenza B Amplification NEGATIVE Normal Negative 11 RSV Amplification NEGATIVE Normal Negative 12 Sars Covid-19 Amplification NEGATIVE Normal Negative 13 Complete Blood Count 02/02/2021 [facility] ( Interface) [phone] White Blood Count 7.1 10 Normal 4.0-10.0 [...] 0-0 Drug Eval Toxicology ED Only 02/02/2021 [facility] (Interface) [phone] Amphetamines Level Urine NEGATIVE Normal Negativ e Barbiturates Urine NEGATIVE Normal Negative Benzodiazepines Urine NEGATIVE Normal Negative Cannabinoids Urine POSITIVE High Negative Cocaine Metabolite Urine NEGATIVE Normal Negative Methadone Urine NEGATIVE Normal Negative Opiates Urine NEGATIVE Normal Negative Phencyclidine Urine NEGATIVE Normal Negative 14 Liver Profile 02/02/2021 [facility] (I nterfa) [phone] Ast/Sgot 9 U/L Normal 7-37 Alt/SGPT 15 U/L Normal 12-78 Alkaline Phosphatase 66 U/L Normal 45-117 Bilirubin,Total 0.3 mg/dL Normal 0.2-1.0 Bilirubin,Direct < 0.1 mg/dL Normal 0.0-0.2 Total Protein 7.9 GM/DL Normal 6.4-8.2 Albumin 4.2 GM/DL Normal 3.2-5.2 Albumin/Globulin Ratio 1.1 Low 1.2-2.2 Basic Metabolic Profile 02/02/2021 [facility] (Interface) [phone] Glucose, Fasting 98 mg/dL Normal 70-100 Blood [...] mg/dL Normal 8.5-10.1 Laboratory test finding 02/02/2021 [facility] (Interface) [phone] Ethyl Alcohol (Ethanol) < 0.003 % Normal 0.000-0. 010 Salicylate Level < 1.7 mg/dL Low 5.0-30.0 Acetaminophen Level < 2.0 UG/ML Low 10.0-30.0 Thyroid Stimulating Hormone 0.622 uIU/ML Normal 0.358-3.740 HCG Serum Qualitative NEGATIVE Normal Negative 1 Source.............Endocervi x Dates / Results....LMP 11/05 No. of containers..01 ThinPrep Vial [id number] 2 NEGATIVE FOR INTRAEPITHELIAL LESION OR MALIGNANCY. [...] pathogens. DISCLAIMER: Testing was performed using the [employer] SARS-CoV-2 test. This test was developed and its performance characteristics determined by [employer]. 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) (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) w abnormal findings N92.6 Irregular menstruation, unsp ecified L68.0 Hirsutism E28.2 Polycystic ovarian syndrome R68.82 Decreased libido Office Visit 02/12/2021 11:00a [facility] Everton Salcido, RP A G47.00 Insomnia, unspecified F41.9 Anxiety disorder, unspecifie d F31.9 Bipolar disorder, unspecifie d Office Visit 01/05/2021 2:40p [facility] Everton Salcido, RP A J45.909 Unspecified asthma, uncomplicated G43.009 Migraine w/o aura, not intra ctable, w/o status migrainosus G47.00 Insomnia, unspecified Assessments Date Code Description Provider 04/10/2021 J45.909 Unspecified asthma, uncomplicate d Everton Salcido, [facility] 04/10/2021 G47.00 Insomnia, unspecified Yuridia Salcido, [facility] 04/10/2021 F41.9 Anxiety disorder, unspecified Hi Everton serrano, RPA 04/10/2021 F31.9 Bipolar disorder, unspecified Hi Everton serrano, RPA 04/10/2021 R00.0 Tachycardia, unspecified Everton Salcido, [facility] 02/27/2021 Z01.411 Encounter for gyneco logical examination (general) (routine) with abnormal findings Jeny Hernandez [facility] 02/27/2021 N92.6 Irregular menstruation, unspecif ied Jeny Hernandez, [facility] 02/27/2021 L68.0 Hirsutism Jeny Hernandez, [facility] 02/27/2021 E28.2 Polycystic ovarian syndrome Jeny Edwards [facility] 02/27/2021 R68.82 Decreased libido Jeny Hernandez [facility] 02/12/2021 G47.00 Insomnia, unspecified Yuridia Salcido, RPA 02/12/2021 F41.9 Anxiety disorder, unspecified Hi Everton serrano, RPA 02/12/2021 F31.9 Bipolar disorder, unspecified Hi Everton serrano, RPA 01/05/2021 J45.909 Unspecified asthma, uncomplicate d Everton Salcido, RPA 01/05/2021 G43.009 Migraine without aur a, not intractable, without status migrainosus Everton Salcido RPA 01/05/2021 G47.00 Insomnia, unspecified Yuridia Salcido RPA Plan of Treatment Future Appointment(s):* 04/24/2021 3:30 pm - Everton Salcido RPA at [facility] Functional Status Description No Information Available Mental Status Description No Information Available Referrals Refer to Reason for Referral Status Appt Date [facility] Anxiety, depression, ea ting disorder. Sent [address] [place] [address] [address] [place] [address] [phone]
--- OUTSIDE RECORDS SUMMARY | 2021-05-11 07:09 | CCD ---
Author Author Emily Rodriguez Organization Unknown Address [address] [place] [address] Phone Care Team Providers Care Boathouse Keeper Name Role Phone MichaelHeidi PCP Allergies, Adverse Reactions, Alerts Concept Allergy Name Reaction Severity Onset Date Status Documentation Date Phone Number Npid Taxonomy Code Taxonomy Desc Author Last Name Author Fi rst Name Concept Type 255356 bee venom protein (honey bee) Anaphylaxis Life threatening s ev Active 03/02/2021 [id number] Nurse Practitioner Michael petit RXNORM 174650 doxycycline Hives Moderate Active 03/02/[phone] [id number] Nurse Practitioner Michael Gordon RXNORM Problem List Concept Problem Description Status Start Date Created Date Resolv ed Date Snomed Code F31.9 Bipolar I Disorder, Current or most rece nt episode depressed, Unspecified Active 05/05/2021 F12.10 Cannabis Use Disorder, Mild Active 05/05/2021 Medications Rx Norm Medication Route Route Concept Start Date Stop Date Dosage Ankit quency Duration Formula Strength Dosage Form Dosage Form Code Dosage Description Medication Id Account Npid Author First Name Author Last Name Taxonomy Code Taxonomy Desc Phone Number [phone] mirtazapine by mouth [id number] 04/16/2021 05/04/2021 at bedtime 21 15 mg tablet 94266 [id number] [phone] Heidi Rodriguez [id number] Nurse Jayden parisi [phone] [id number] olanzapine by mouth [id number] 04/16/2021 05/04/2021 at bedtime 21 2.5 mg tablet 76541 [id number] Heidi Rodriguez [id number] Nurse Jayden parisi [phone] [id number] venlafaxine by mouth [id number] 04/16/2021 05/04/2021 every morning 21 75 mg capsule,extended release 24hr 05535 764625 [id number] Lew Rodriguez [id number] Nurse Practitioner [phone] [id number] Ambien by mouth R64724 05/05/2021 06/03/2021 as directed 30 5 mg tablet 53420 [id number] Heidi Rodriguez [id number] Nurse Pra ctitioner [phone] [id number] venlafaxine by mouth R38201 05/04/2021 08/02/2021 every morning 30 75 mg capsule,extended release 24hr 09476 [id number] Lew Rodriguez [id number] Nurse Practitioner [phone] Social History Social History Element Description Concept Effective Date Smoking Status Unknown if ever smoked [id number] Immunizations No Data in Section Vital Signs No Data in Section Procedures Date Concept Id Description Targeted Site Concept Targeted Site Concept Type 05/04/2021 52743-64 [facility] Telemed E/M Lvl 3--Est pt CPT Patient has no history of implantable de vices Encounters Encounter Start Date End Date Encounter Type Description Diagnosis Di agnosis Desc Location Author First Name Author Last Name Npid Taxonomy Cod e Taxonomy Desc Phone Number Location Addr1 Location Addr2 Location [facility] Location [facility] Location Zip [id number] 05/04/2021 05/04/2021 00631-80 [facility] Telemed E/M Lvl 3--Est p t F31.9 Bipolar disorder, unspecified [facility] Heidi [phone] [id number] Nurse Practitioner [phone] [address] [address] Plan of Treatment No Data in Section Lab Results No Data in Section Instructions No Data in Section Functional Cognitive Status No Data in Section Insurance Providers Insurance Id Policy Effective Date Policy Thru Date Company N nathalie [id number] [facility]
--- OUTSIDE RECORDS SUMMARY | 2021-05-11 07:09 | CCD ---
Author Author Emily Pelaez Organization Unknown Address [address] [place] [address] Phone Care Team Providers Care Accounting Officer Name Role Phone Jeanie Pelaez PCP Allergies, Adverse Reactions, Alerts Concept Allergy Name Reaction Severity Onset Date Status Documentation Date Phone Number Npid Taxonomy Code Taxonomy Desc Author Last Name Author Fi rst Name Concept Type 526316 bee venom protein (honey bee) Anaphylaxis Life threatening s ev Active 03/02/2021 [id number] Nurse Practitioner Michael petit RXNORM 761796 doxycycline Hives Moderate Active 03/02/2021 [id number] [phone] [id number] Nurse Practitioner Michael Gordon RXNORM Problem List [...] Name Taxonomy Code Taxonomy Desc Phone Number [phone] mirtazapine by mouth [id number] 02/18/2021 at bedtime 15 mg ta blet 05953 [id number] [id number] Heidi Rodriguez [id number] Nurse Practitioner [phone] [id number] fluoxetine by mouth [id number] 02/20/2021 03/02/2021 every morning 30 10 mg capsule 57542 952101 [id number] Heidi Rodriguez [id number] Theresa steinberge Practitioner [phone] 647741 Klonopin by mouth R63379 02/18/2021 03/20/2021 as directed 30 0.5 mg tablet as needed 39797 126144 [id number] Heidi Rodriguez [id number] Nurse Practitioner [phone] [id number] venlafaxine by mouth [id number] 02/18/2021 03/20/2021 every morning 30 75 mg capsule,extended release 24hr 76886 983181 [id number] Lew Rodriguez [id number] Nurse Practitioner [phone] [id number] olanzapine by mouth [id number] 02/18/2021 03/20/2021 at bedtime 30 2.5 mg tablet 61181 840075 [id number] Heidi Rodriguez [id number] Nurse P isak [phone] Social History Social History Element Description Concept Effective Date Smoking Status Unknown if ever smoked [id number] Immunizations No Data in Section Vital Signs Encounter Date Height Ins Weight Lbs Bmi Bp Systolic Bp Diastoli c Oxygen Saturation Respiration Rate Pulse Rate Body Temp Head Circumference Heigh t Lying 03/02/2021 62.00 142.00 25.97 112 72 0.00 0 102 98.60 0.0 0. 00 Procedures Date Concept Id Description Targeted Site Concept Targeted Site Concept Type 03/02/2021 87205 Health Monitoring - 30 Min CPT Patient has no history of implantable de vices Encounters Encounter Start Date End Date Encounter Type Description Diagnosis Di agnosis Desc Location Author First Name Author Last Name Npid Taxonomy Cod e Taxonomy Desc Phone Number Location Addr1 Location Addr2 Location [facility] Location [facility] Location [facility] [id number] 03/02/2021 03/02/2021 65791 Health Monitoring - 30 Min F 31.9 Bipolar disorder, unspecified [facility] archibald [phone] [id number] Registered Nurse [phone] [address] [address] Plan of Treatment No Data in Section Lab Results No Data in Section Instructions No Data in Section Functional Cognitive Status No Data in Section Insurance Providers Insurance Id Policy Effective Date Policy Thru Date Company N nathalie [id number] 2021 [facility]
--- OUTSIDE RECORDS SUMMARY | 2021-05-11 07:09 | CCD | Continuity of Care Document ---
Author Author Emily SALCIDO [facility] Organization Unknown Address [address] [facility] [address] [place] [address] Phone [phone] Problems Active Problems Provider Date Migraine Sofia [...] a day as needed for anxiety (Istop: [id number]) 60tabs Fantasma Dumont D.O., FAAFP 01/05/2021 Rizatriptan [...] CPT Code Status Date Vaccine Lot # [id number] Given 02/03/2015 Tdap Tetanus,Dip htheria Toxoids/Acellular Pertussis 7Yrs Or Older 85832 Given 02/03/2015 PPD Tuberculosis Intradermal 08985 Refused 04/10/2021 Influenza Virus Vaccine, Quadrivalent, Slit Virus, Im Use 3Y & Up Vital Signs Date Vital Result Comment 04/24/2021 3:33pm BP Systolic 100 mmHg BP Diastolic 76 mmHg Body Temperature 97.8 F Heart Rate 97 /min Respiratory Rate 16 /min Height 63 inches 5'3" Weight 148.00 lb [place] Body Weight 115 lb BMI (Body Mass Index) 26.2 kg/m2 O2 % BldC Oximetry 97 % 04/10/2021 11:16am BP Systolic 108 mmHg BP Diastolic 80 mmHg Body Temperature 98.0 F Heart Rate 130 /min Respiratory Rate 16 /min Height 63 inches 5'3" Weight 146.00 lb [place] Body Weight 115 lb BMI (Body Mass Index) 25.9 kg/m2 O2 % BldC Oximetry 97 % Results Test Acquired Date Facility Test Result H/L Range Note Coil Binder Pap Test Age-Based GL Cerv CA & STDS 02/27/2021 [facility] [place] Age 30-65 1 Diagn See Comment: 2 Adeq See Comment: 3 Cicd10 See Comment: 4 Perfor See Comment: 5 Signed See Comment: 6 Comm . Note See Comment: 7 Iglbp See Comment: 8 HPV Aptima Negative Negative 9 Influenxa A/B RSV Covid Amp 02/03/2021 [facility] (Interface) [phone] Influenza A Amplification NEGATIVE Normal Negati ve 10 Influenza B Amplification NEGATIVE Normal Negative 11 RSV Amplification NEGATIVE Normal Negative 12 Sars Covid-19 Amplification NEGATIVE Normal Negative 13 Complete Blood Count 02/02/2021 [facility] ( Interface) [phone] White Blood Count 7.1 10 Normal 4.0-10.0 [...] 0-0 Drug Eval Toxicology ED Only 02/02/2021 [facility] (Interface) [phone] Amphetamines Level Urine NEGATIVE Normal Negativ e Barbiturates Urine NEGATIVE Normal Negative Benzodiazepines Urine NEGATIVE Normal Negative Cannabinoids Urine POSITIVE High Negative Cocaine Metabolite Urine NEGATIVE Normal Negative Methadone Urine NEGATIVE Normal Negative Opiates Urine NEGATIVE Normal Negative Phencyclidine Urine NEGATIVE Normal Negative 14 Liver Profile 02/02/2021 [facility] [phone] Ast/Sgot 9 U/L Normal 7-37 Alt/SGPT 15 U/L Normal 12-78 Alkaline Phosphatase 66 U/L Normal 45-117 Bilirubin,Total 0.3 mg/dL Normal 0.2-1.0 Bilirubin,Direct < 0.1 mg/dL Normal 0.0-0.2 Total Protein 7.9 GM/DL Normal 6.4-8.2 Albumin 4.2 GM/DL Normal 3.2-5.2 Albumin/Globulin Ratio 1.1 Low 1.2-2.2 Basic Metabolic Profile 02/02/2021 [facility] (Interface) [phone] Glucose, Fasting 98 mg/dL Normal 70-100 Blood [...] mg/dL Normal 8.5-10.1 Laboratory test finding 02/02/2021 [facility] (Interface) [phone] Ethyl Alcohol (Ethanol) < 0.003 % Normal 0.000-0. 010 Salicylate Level < 1.7 mg/dL Low 5.0-30.0 Acetaminophen Level < 2.0 UG/ML Low 10.0-30.0 Thyroid Stimulating Hormone 0.622 uIU/ML Normal 0.358-3.740 HCG Serum Qualitative NEGATIVE Normal Negative 1 Source.............Endocervi x Dates / Results....LMP 11/05 No. of containers..01 ThinPrep Vial [id number] 2 NEGATIVE FOR INTRAEPITHELIAL LESION OR MALIGNANCY. [...] pathogens. DISCLAIMER: Testing was performed using the [employer] SARS-CoV-2 test. This test was developed and its performance characteristics determined by [employer]. This test has not been FDA cleared [...] Little GFR Left ESRD GFR <15 on CELLAR WORKER Procedures Date Code Description Status 04/10/2021 30204 Office/Outpatient Established Mo d MDM 30-39 Min Completed 04/10/2021 99741 Electrocardiogram Complete Compl eted 02/27/2021 22849 Preventive Visit Est 18-39 Yrs C ompleted 02/12/2021 89851 Office/Outpatient Established Lo w MDM 20-29 Min Completed 01/05/2021 24170 Office/Outpatient Established Mo d MDM 30-39 Min Completed Medical Devices Description No Information Available Encounters Type Date Location Provider Dx Diagnosis Office Visit 04/10/2021 11:00a [place] [facility] Everton Salcido, RP A J45.909 Unspecified asthma, uncomplicated G47.00 Insomnia, unspecified F41.9 Anxiety disorder, unspecifie d F31.9 Bipolar disorder, unspecifie d R00.0 Tachycardia, unspecified Office Visit 02/27/2021 2:00p [place] [facility] Jeny Hernandez [facility] Z01.411 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 marketing 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) (routine) w abnormal findings N92.6 Irregular menstruation, unsp ecified L68.0 Hirsutism E28.2 Polycystic ovarian syndrome R68.82 Decreased libido Office Visit 02/12/2021 11:00a [place] [facility] Everton Salcido, RP A G47.00 Insomnia, unspecified F41.9 Anxiety disorder, unspecifie d F31.9 Bipolar disorder, unspecifie d Office Visit 01/05/2021 2:40p [place] [facility] Everton Salcido, RP A J45.909 Unspecified asthma, uncomplicated G43.009 Migraine w/o aura, not intra ctable, w/o status migrainosus G47.00 Insomnia, unspecified Assessments Date Code Description Provider 04/24/2021 J45.909 Unspecified asthma, uncomplicate d Everton Salcido, RPA 04/24/2021 R00.0 Tachycardia, unspecified Everton Salcido, RPA 04/24/2021 R53.83 Fatigue Everton Salcido, RPA 04/10/2021 J45.909 Unspecified asthma, uncomplicate d Everton Salcido, RPA 04/10/2021 G47.00 Insomnia, unspecified uYridia Salcido, RPA 04/10/2021 F41.9 Anxiety disorder, unspecified Everton Martin, RPA 04/10/2021 F31.9 Bipolar disorder, unspecified Hi Everton serrano, RPA 04/10/2021 R00.0 Tachycardia, unspecified Everton Salcido, RPA 02/27/2021 Z01.411 Encounter for gyneco logical examination (general) (routine) with abnormal findings Jeny Hernandez FNP-BC 02/27/2021 N92.6 Irregular menstruation, unspecif ied Jeny Hernandez FNP-BC 02/27/2021 L68.0 Hirsutism Jeny Hernandez FNP-BC 02/27/2021 E28.2 Polycystic ovarian syndrome Jeny Edwards, [facility] 02/27/2021 R68.82 Decreased libido Jeny Hernandez, [facility] 02/12/2021 G47.00 Insomnia, unspecified Yuridia Salcido, [...] Refer to Reason for Referral Status Appt [facility] Anxiety, depression, ea ting disorder. Sent [address] [place] [address] [phone]
--- OUTSIDE RECORDS SUMMARY | 2021-05-11 07:09 | CCD | Continuity of Care Document ---
Author Emily Diane [facility] Organization Unknown Address [address] [place] [address] Phone [phone] Problems Active Problems Provider Date Migraine Sofia Zuniga [facility] Onset: 2012 Anxiety state Marie Isidro [facility]- Onset: Asthma Yin Rico [facility]- Onset: 10/09/2015 Insomnia Everton Salcido RPA Onset: [...] a day as needed for anxiety (Istop: [id number]) 60tabs Fantasma Dumont D.O., [facility]FP 01/05/2021 Rizatriptan Benzoate 10mg Tablets Dispers take one tablet by mouth every day at the onset of headache may repeat in 2 hours as directed 12tabs [facility].O., [facility] 0 03/13/2020 Topamax 50mg Tablets take one tablet by mouth bid. 60tabs Fantasma Dumont D.O., [facility] 02/2019 Metformin HCL 500mg Tablets take one tablet by mouth twice a day 180tabs Nohemy Hillman, [facility] 02/22/2018 Epipen 2-Eder 0.3mg/0 .3ML Solution Auto-Inject inject as directed 2units Fantasma Dumont D.O., [facility] 10/09/2015 Ventolin HFA 108(90Base) mcg/Act A erosol 2 puffs every 4-6 hours as needed 1units Fantasma Dumont D.O., [facility] 02/04/2014 Jencycla 0.35mg Tablets 1 by mouth daily 28tabs Jeny Hernandez FNP-BC Venlafaxine HCL ER 150mg Tablets E R 24HR 1 by mouth every day Unknown Fluoxetine HCL 20mg Capsules 1 by mouth every day Unknown History Medications OLANZapine 2.5mg Tablets one by mouth every night at bedtime Everton Salcido, [facility] - 02/12/2021 Fluoxetine HCL 20mg Capsules 1 by mouth every day 90caps Fantasma Dumont D.O., [facility] - 02/12/2021 Fluoxetine HCL 10mg Capsules 1 by mouth every day 90caps Fantasma Dumont D.O., [facility] - 02/12/2021 Olanzapine 5mg Tablets one by mouth every night at bedtime 30tabs Fantasma Dumont D.O., [facility] - 02/12/2021 Medications Administered in Office Medication SIG Qnty Indications Ordering Provider Date Injection (SC)/(Im) Injection Jeny Hernandez FNP-BC 02/03/2015 Immunizations CPT Code Status Date Vaccine Lot # [id number] Given 02/03/2015 Tdap Tetanus,Dip htheria Toxoids/Acellular Pertussis 7Yrs Or Older [address] Given 02/03/2015 PPD Tuberculosis Intradermal Vital Signs Date Vital Result Comment 02/27/2021 1:58pm BP Systolic 122 mmHg BP Diastolic 62 mmHg Body Temperature 97.8 F Heart Rate 107 /min Respiratory Rate 16 /min Height 63 inches 5'3" Weight 143.00 lb [place] Body Weight 115 lb BMI (Body Mass Index) 25.3 kg/m2 O2 % BldC Oximetry 98 % 02/12/2021 10:48am BP Systolic 100 mmHg BP Diastolic 78 mmHg Body Temperature 97.5 F Heart Rate 77 /min Respiratory Rate 16 /min Height 63 inches 5'3" Weight 138.00 lb [place] Body Weight 115 lb BMI (Body Mass Index) 24.4 kg/m2 O2 % BldC Oximetry 98 % Results Test Acquired Date Facility Test Result H/L Range Note Usability Engineer Pap Test Age-Based GL Cerv CA & STDS 02/27/2021 [facility] [place] Age 30-65 1 Diagn See Comment: 2 Adeq See Comment: 3 Cicd10 See Comment: 4 Perfor See Comment: 5 Signed See Comment: 6 Comm . Note See Comment: 7 Iglbp See Comment: 8 HPV Aptima Negative Negative 9 Influenxa A/B RSV Covid Amp 02/03/2021 [facility] (Interface) [phone] Influenza A Amplification NEGATIVE Normal Negati ve 10 Influenza B Amplification NEGATIVE Normal Negative 11 RSV Amplification NEGATIVE Normal Negative 12 Sars Covid-19 Amplification NEGATIVE Normal Negative 13 Complete Blood Count 02/02/2021 [facility] ( Interface) [phone] White Blood Count 7.1 10 Normal 4.0-10.0 [...] Drug Eval Toxicology ED Only 02/02/2021 [facility] (Interface) [phone] Amphetamines Level Urine NEGATIVE Normal Negativ e Barbiturates Urine NEGATIVE Normal Negative Benzodiazepines Urine NEGATIVE Normal Negative Cannabinoids Urine POSITIVE High Negative Cocaine Metabolite Urine NEGATIVE Normal Negative Methadone Urine NEGATIVE Normal Negative Opiates Urine NEGATIVE Normal Negative Phencyclidine Urine NEGATIVE Normal Negative 14 Liver Profile 02/02/2021 [facility] [phone] Ast/Sgot 9 U/L Normal 7-37 Alt/SGPT 15 U/L Normal 12-78 Alkaline Phosphatase 66 U/L Normal 45-117 Bilirubin,Total 0.3 mg/dL Normal 0.2-1.0 Bilirubin,Direct < 0.1 mg/dL Normal 0.0-0.2 Total Protein 7.9 GM/DL Normal 6.4-8.2 Albumin 4.2 GM/DL Normal 3.2-5.2 Albumin/Globulin Ratio 1.1 Low 1.2-2.2 Basic Metabolic Profile 02/02/[address] [facility] [employer] [facility] (Interface) [phone] Glucose, Fasting 98 mg/dL Normal 70-100 Blood [...] mg/dL Normal 8.5-10.1 Laboratory test finding 02/02/[address] [facility] [employer] [facility] (Interface) [phone] Ethyl Alcohol (Ethanol) < 0.003 % Normal 0.000-0. 010 Salicylate Level < 1.7 mg/dL Low 5.0-30.0 Acetaminophen Level < 2.0 UG/ML Low 10.0-30.0 Thyroid Stimulating Hormone 0.622 uIU/ML Normal 0.358-3.740 HCG Serum Qualitative NEGATIVE Normal Negative 1 Source.............Endocervi x Dates / Results....LMP 11/05 No. of containers..01 ThinPrep Vial [id number] NEGATIVE FOR INTRAEPITHELIAL LESION OR MALIGNANCY. [...] pathogens. DISCLAIMER: Testing was performed using the [employer] SARS-CoV-2 test. This test was developed and its performance characteristics determined by [employer]. 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) w abnormal findings N92.6 Irregular menstruation, unsp ecified L68.0 Hirsutism E28.2 Polycystic ovarian syndrome R68.82 Decreased libido Office Visit 02/12/2021 11:00a [facility] Everton Salcido, [place] A G47.00 Insomnia, unspecified F41.9 Anxiety disorder, unspecifie d F31.9 Bipolar disorder, unspecifie d Office Visit 01/05/2021 2:40p [facility] Everton Salcido, [place] A J45.909 Unspecified asthma, uncomplicated G43.009 Migraine w/o aura, not intra ctable, w/o status migrainosus G47.00 Insomnia, unspecified Assessments Date Code Description Provider 02/27/2021 Z01.411 Encounter for gyneco logical examination (general) (routine) with abnormal findings Jeny Hernandez [facility] 02/27/2021 N92.6 Irregular menstruation, unspecif ied Jeny Hernandez [facility] 02/27/2021 L68.0 Hirsutism Jeny Hernandez [facility] 02/27/2021 E28.2 Polycystic ovarian syndrome Jeny Edwards [facility] 02/27/2021 R68.82 Decreased libido Jeny Hernandez [facility] 02/12/2021 G47.00 Insomnia, unspecified Yuridia Salcido, [...] Future Appointment(s):* 04/10/2021 11:00 am - Everton Salcido, [facility] [place] [facility] Functional Status Description No Information Available Mental Status Description No Information Available Referrals Refer to Reason for Referral Status Appt Date [facility] Anxiety, depression, ea ting disorder. Sent [address] [place] [address] [phone]
--- OUTSIDE RECORDS SUMMARY | 2021-05-11 07:10 | CCD ---
Author Author [facility] Organization [facility] Address Unknown Phone Unavailable Care Team Providers Care Gore Inserter Name Role Phone JoseHeidi Unavailable Jeanie Pelaez Unavailable Vel Hernandez SUPPLIER QUALITY SPECIALIST Unavailable Unavailable Vel Hernandez SUPPLIER QUALITY SPECIALIST Unavailable Unavailable Rounds, M LUKE SUPPLIER QUALITY SPECIALIST Unavailable Unavailable Rounds, M LUKE SUPPLIER QUALITY SPECIALIST Unavailable Unavailable Rounds, M LUKE SUPPLIER QUALITY SPECIALIST Unavailable Unavailable Rounds, M LUKE SUPPLIER QUALITY SPECIALIST Unavailable Unavailable Rounds, M LUKE SUPPLIER QUALITY SPECIALIST Unavailable Unavailable Rounds, M LUKE SUPPLIER QUALITY SPECIALIST Unavailable Unavailable Rounds, M LUKE SUPPLIER QUALITY SPECIALIST Unavailable Unavailable Rounds, M LUKE SUPPLIER QUALITY SPECIALIST Unavailable Unavailable Rounds, M LUKE SUPPLIER QUALITY SPECIALIST Unavailable Unavailable Rounds, M LUKE SUPPLIER QUALITY SPECIALIST Unavailable Unavailable Rounds, M LUKE SUPPLIER QUALITY SPECIALIST Unavailable Unavailable Rounds, M LUKE SUPPLIER QUALITY SPECIALIST Unavailable Unavailable Rounds, M LUKE SUPPLIER QUALITY SPECIALIST Unavailable Unavailable Rounds, M LUKE SUPPLIER QUALITY SPECIALIST Unavailable Unavailable Rounds, M LUKE SUPPLIER QUALITY SPECIALIST Unavailable Unavailable Rounds, M LUKE SUPPLIER QUALITY SPECIALIST Unavailable Unavailable Rounds, M LUKE SUPPLIER QUALITY SPECIALIST Unavailable Unavailable Rounds, M LUKE SUPPLIER QUALITY SPECIALIST Unavailable Unavailable Rounds, M LUKE SUPPLIER QUALITY SPECIALIST Unavailable Unavailable Rounds, M LUKE SUPPLIER QUALITY SPECIALIST Unavailable Unavailable Rounds, M LUKE SUPPLIER QUALITY SPECIALIST Unavailable Unavailable Rounds, M LUKE SUPPLIER QUALITY SPECIALIST Unavailable Unavailable Rounds, M LUKE SUPPLIER QUALITY SPECIALIST Unavailable Unavailable Rounds, M LUKE SUPPLIER QUALITY SPECIALIST Unavailable Unavailable Rounds, M LUKE SUPPLIER QUALITY SPECIALIST Unavailable Unavailable Rounds, M LUKE SUPPLIER QUALITY SPECIALIST Unavailable Unavailable Rounds, M LUKE SUPPLIER QUALITY SPECIALIST Unavailable Unavailable Rounds, M LUKE SUPPLIER QUALITY SPECIALIST Unavailable Unavailable Rounds, M LUKE SUPPLIER QUALITY SPECIALIST Unavailable Unavailable Rounds, M LUKE SUPPLIER QUALITY SPECIALIST Unavailable Unavailable Rounds, M LUKE SUPPLIER QUALITY SPECIALIST Unavailable Unavailable Rounds, M LUKE SUPPLIER QUALITY SPECIALIST Unavailable Unavailable Rounds, M LUKE SUPPLIER QUALITY SPECIALIST Unavailable Unavailable Rounds, M LUKE SUPPLIER QUALITY SPECIALIST Unavailable Unavailable Rounds, M LUKE SUPPLIER QUALITY SPECIALIST Unavailable Unavailable Rounds, M LUKE SUPPLIER QUALITY SPECIALIST Unavailable Unavailable Rounds, M LUKE SUPPLIER QUALITY SPECIALIST Unavailable Unavailable Rounds, M LUKE SUPPLIER QUALITY SPECIALIST Unavailable Unavailable Rounds, M LUKE SUPPLIER QUALITY SPECIALIST Unavailable Unavailable Rounds, M LUKE SUPPLIER QUALITY SPECIALIST Unavailable Unavailable Rounds, M LUKE SUPPLIER QUALITY SPECIALIST Unavailable Unavailable Rounds, M LUKE SUPPLIER QUALITY SPECIALIST Unavailable Unavailable Rounds, M LUKE SUPPLIER QUALITY SPECIALIST Unavailable Unavailable Rounds, M LUKE SUPPLIER QUALITY SPECIALIST Unavailable Unavailable Rounds, M LUKE SUPPLIER QUALITY SPECIALIST Unavailable Unavailable Rounds, M LUKE SUPPLIER QUALITY SPECIALIST Unavailable Unavailable Rounds, M LUKE SUPPLIER QUALITY SPECIALIST Unavailable Unavailable Rounds, M LUKE SUPPLIER QUALITY SPECIALIST Unavailable Unavailable Rounds, M LUKE SUPPLIER QUALITY SPECIALIST Unavailable Unavailable Rounds, M LUKE SUPPLIER QUALITY SPECIALIST Unavailable Unavailable Rounds, M LUKE SUPPLIER QUALITY SPECIALIST Unavailable Unavailable Rounds, M LUKE SUPPLIER QUALITY SPECIALIST Unavailable Unavailable Rounds, M LUKE SUPPLIER QUALITY SPECIALIST Unavailable Unavailable Rounds, M LUKE SUPPLIER QUALITY SPECIALIST Unavailable Unavailable Rounds, M LUKE SUPPLIER QUALITY SPECIALIST Unavailable Unavailable Rounds, M LUKE SUPPLIER QUALITY SPECIALIST Unavailable Unavailable Rounds, M LUKE SUPPLIER QUALITY SPECIALIST Unavailable Unavailable Rounds, M LUKE SUPPLIER QUALITY SPECIALIST Unavailable Unavailable Rounds, M LUKE SUPPLIER QUALITY SPECIALIST Unavailable Unavailable Rounds, M LUKE SUPPLIER QUALITY SPECIALIST Unavailable Unavailable Rounds, M LUKE SUPPLIER QUALITY SPECIALIST Unavailable Unavailable MICHAEL, H LILY SUPPLIER QUALITY SPECIALIST Unavailable Unavailable MICHAEL, H LILY SUPPLIER QUALITY SPECIALIST Unavailable Unavailable MICHAEL, H LILY SUPPLIER QUALITY SPECIALIST Unavailable Unavailable MICHAEL, H LILY SUPPLIER QUALITY SPECIALIST Unavailable Unavailable MICHAEL, H LILY SUPPLIER QUALITY SPECIALIST Unavailable Unavailable MICHAEL, H LILY SUPPLIER QUALITY SPECIALIST Unavailable Unavailable MICHAEL, H LILY SUPPLIER QUALITY SPECIALIST Unavailable Unavailable MICHAEL, H LILY SUPPLIER QUALITY SPECIALIST Unavailable Unavailable MICHAEL, H LILY SUPPLIER QUALITY SPECIALIST Unavailable Unavailable Omari, D Everton PA Unavailable Unavailable Omari, D Everton PA Unavailable Unavailable Omari, D Everton PA Unavailable Unavailable Omari, D Everton PA Unavailable Unavailable Omari, D Everton PA Unavailable Unavailable Omari, D Everton PA Unavailable Unavailable Omari, D Everton PA Unavailable Unavailable Omari, D Everton PA Unavailable Unavailable Omari, D Everton PA Unavailable Unavailable Omari, D Everton PA Unavailable Unavailable Oamri, D Everton PA Unavailable Unavailable Omari, D Everton PA Unavailable Unavailable Omari, D Everton PA Unavailable Unavailable Omari, D Everton PA Unavailable Unavailable Omari, D Everton PA Unavailable Unavailable Omari, D Everton PA Unavailable Unavailable Omari, D Everton PA Unavailable Unavailable Omari, D Everton PA Unavailable Unavailable Omari, D Everton PA Unavailable Unavailable Omari, D Everton PA Unavailable Unavailable Omari, D Everton PA Unavailable Unavailable Omari, D Everton PA Unavailable Unavailable Omari, D Everton PA Unavailable Unavailable Omari, D Everton PA Unavailable Unavailable Omari, D Everton PA Unavailable Unavailable Omari, D Everton PA Unavailable Unavailable Omari, D Everton PA Unavailable Unavailable Omari, D Everton PA Unavailable Unavailable Omari, D Everton PA Unavailable Unavailable Omari, D Everton PA Unavailable Unavailable Omari, D Everton PA Unavailable Unavailable Omari, D Everton PA Unavailable Unavailable Omari, D Everton PA Unavailable Unavailable Omari, D Everton PA Unavailable Unavailable Omari, D Everton PA Unavailable Unavailable Omari, D Everton PA Unavailable Unavailable Omari, D Everton PA Unavailable Unavailable Omari, D Everton PA Unavailable Unavailable Omari, D Everton PA Unavailable Unavailable Omari, D Everton PA Unavailable Unavailable Omari, D Everton PA Unavailable Unavailable Omari, D Everton PA Unavailable Unavailable Omari, D Everton PA Unavailable Unavailable Omari, D Everton PA Unavailable Unavailable Omari, D Everton PA Unavailable Unavailable Omari, D Everton PA Unavailable Unavailable Omari, D Everton PA Unavailable Unavailable Omari, D Everton PA Unavailable Unavailable Omari, D Everton PA Unavailable Unavailable Omari, D Everton PA Unavailable Unavailable Omari, D Everton PA Unavailable Unavailable Omari, D Eevrton PA Unavailable Unavailable Omari, D Everton PA Unavailable Unavailable Omari, D Everton PA Unavailable Unavailable Omari, D Everton PA Unavailable Unavailable Omari, D Everton PA Unavailable Unavailable Omari, D Everton PA Unavailable Unavailable Omari, D Everton PA Unavailable Unavailable Omari, D Everton PA Unavailable Unavailable Omari, D Everton PA Unavailable Unavailable Omari, D Everton PA Unavailable Unavailable Omari, D Everton PA Unavailable Unavailable Omari, D Everton PA Unavailable Unavailable Omari, D Everton PA Unavailable Unavailable Omari, D Everton PA Unavailable Unavailable Omari, D Everton PA Unavailable Unavailable Omari, D Everton PA Unavailable Unavailable Omari, D Everton PA Unavailable Unavailable Re-disclosure Warning The records that you are about to access may contain information from federally-assisted alcohol or drug abuse programs. If such information is present, then the following federally mandated warning applies: This information has been disclosed to you from records protected by federal confidentiality rules (42 CFR part 2). The federal rules prohibit you from making any further disclosure of this information unless further disclosure is expressly permitted by the written consent of the person to whom it pertains or as otherwise permitted by 42 CFR part 2. A general authorization for the release of medical or other information is NOT sufficient for this purpose. The Federal rules restrict any use of the information to criminally investigate or prosecute any alcohol or drug abuse patient.The records that you are about to access may contain highly sensitive health information, the redisclosure of which is protected by Article 27-F of the [facility] Public Health law. If you continue you may have access to information: Regarding HIV / AIDS; Provided by facilities licensed or operated by the [facility] Office of Mental Health; or Provided by the [facility] Office for People With Developmental Disabilities. If such information is present, then the following [facility] mandated warning applies: This information has been disclosed to you from confidential records which are protected by state law. State law prohibits you from making any further disclosure of this information without the specific written consent of the person to whom it pertains, or as otherwise permitted by law. Any unauthorized further disclosure in violation of state law may result in a fine or custodial sentence or both. A general authorization for the release of medical or other information is NOT sufficient authorization for further disc losure. Allergies and Adverse Reactions Type Description Substance Reaction Status Data Source(s ) Propensity to adverse reactions to substance doxycycline Doxycycline Calcium 10 MG/ML Oral Suspension Hives Moderate Active [facility] ([facility]) Propensity to adverse reactions to substance bee venom prote in (honey bee) honey bee venom protein 0.1 MG/ML Injectable Solution Anaphylaxis Life threatening sev Active [facility] ([facility]) Propensity to adverse reactions to substance doxycycline Doxycycline Calcium 10 MG/ML Oral Suspension Hives Moderate Active [facility] ([facility]) Propensity to adverse reactions to substance bee venom prote in (honey bee) honey bee venom protein 0.1 MG/ML Injectable Solution Anaphylaxis Life threatening sev Active [facility] ([facility]) Encounters Encounter Providers Location Date Indications Data Source(s ) Outpatient Attender: LILY DODGE NP [facility] Andrea l 05/04/2021 04:00:00 AM EDT - 05/04/2021 04:00:00 AM EDT [facility] ([facility]) Attender: LILY DODGE NP 05/04/2021 12:00:00 AM EDT [facility] ([facility]) Outpatient Attender: Everton GALINDO [facility] 02/2021 03:30:00 PM EDT [facility] ([facility] Outpatient Attender: Everton GALINDO [facility] 11:00:00 AM EDT [facility] ([facility] Outpatient Attender: LILY DODGE NP [facility] Andrea archibald 03/02/2021 03:30:00 AM EDT - 03/02/2021 03:30:00 AM EDT [facility] ([facility]) Brief Individual Psychotherapy - 30 min Attender: Heidi cueto [facility] 03/02/2021 02:45:00 AM EDT - 03/02/2021 02:45:00 AM EDT [facility] ([facility]) Health Monitoring - 30 Min Attender: Jeanie Pelaez [facility] 03/02/2021 02:15:00 AM EDT - 03/02/2021 02:15:00 AM EDT [facility] ([facility]) Attender: Heidi Garcia 03/02/2021 12:00:00 AM EDT [facility] ([facility]) Attender: LILY DODGE NP 03/02/2021 12:00:00 AM EDT [facility] ([facility]) Attender: Jeanie Pelaez 03/02/2021 12:00:00 AM EDT [facility] ([facility]) Outpatient Attender: LUKE Hernandez NP [facility] 02/27/2021 0 2:00:00 PM EDT [facility] ([facility] Psychiatric Diagnostic Evaluation (Non-Medical) Attender: Linda Garcia [facility] 02/20/2021 01:00:00 AM EDT - 02/20/2021 01:00:00 AM EDT [facility] ([facility]) Attender: Heidi Garcia 02/20/2021 12:00:00 AM EDT [facility] ([facility]) Psychiatric Diagnostic Evaluation with Medical Service s Attender: LILY DODGE NP [facility] 02/18/2021 02:00:00 AM EDT - 02/18/2021 02:00:00 AM EDT [facility] ([facility]) Attender: LILY DODGE NP 02/18/2021 12:00:00 AM EDT [facility] ([facility]) Outpatient Attender: Everton GALINDO [facility] 11:00:00 AM EDT [facility] ([facility] Extended Individual Psychotherapy - 45 min Attender: Lyric Garcia [facility] 02/09/2021 02:00:00 AM EDT - 02/09/2021 02:00:00 AM EDT [facility] ([facility]) Attender: Heidi Garcia 02/09/2021 12:00:00 AM EDT [facility] ([facility]) Brief Individual Psychotherapy - 30 min [facility] 01/30/2021 10:30:00 AM EDT - 01/30/2021 10:30:00 AM EDT [facility] ([facility]) Attender: Heidi Garcia 01/30/2021 12:00:00 AM EDT [facility] ([facility]) Outpatient Attender: Everton GALINDO [facility] 02:40:00 PM EDT [facility] ([facility] [address] [place] [id number] 03/25/2020 12:00:00 AM EDT [facility] ([facility]) Outpatient Attender: Everton GALINDO [facility] 04:00:00 PM EDT [facility] ([facility] Functional Status Immunizations Vaccine Date Status Description Data Source(s) COVID-19 VACCINE Pfizer 04/17/2021 12:00:00 AM EDT completed NYSIIS Vaccine Series Complete: YESThis Data wa s Submitted to [facility] Via [employer]. New in 2012. IIV4 04/10/2021 11:40:00 AM EDT completed [facility] ([facility] COVID-19 VACCINE Pfizer 03/27/2021 12:00:00 AM EDT completed NYSIIS Vaccine Series Complete: NOThis Data was Submitted to [facility] Via [employer]. Medications Medication Brand Name Start Date Product Form Dose Route Admi nistrative Instructions Pharmacy Instructions Status Indications Reaction Description Data Source(s) Zolpidem tartrate 5 MG Oral Tablet [Ambien] Ambien 05/05/2021 12:00:00 AM EDT 5 mg by mouth completed <td ID="Me dicationRxNorm_4">465018</td><td ID="MedicationMedication_4">Ambien</td><td ID="MedicationRoute_4">by mouth</td><td ID="MedicationRouteConcept_4">S10795</td><td ID="MedicationStartDate_4">05/05/2021</td><td ID="MedicationStopDate_4">06/03/2021</td><td ID="MedicationDosageFrequency_4">as directed</td><td ID="MedicationDuration_4">30</td><td ID="MedicationFormulaStrength_4">5 mg</td><td ID="MedicationDosageForm_4">tablet</td><td ID="MedicationDosageFormCode_4"></td><td ID="MedicationDosageDescription_4"></td><td ID="MedicationMedicationId_4">[id number]</td><td ID="MedicationAccount_4">[id number]</td><td ID="MedicationNpid_4">[id number]</td><td ID="MedicationAuthorFirstName_4">Lily</td><td ID="MedicationAuthorLastName_4">Michael</td><td ID="MedicationTaxonomyCode_4">[id number]</td><td ID="MedicationTaxonomyDesc_4">Nurse Practitioner</td><td ID="MedicationPhoneNumber_4">[phone]</td> [facility]) 24 HR venlafaxine 75 MG Extended Release Oral Capsule venlaf axine 05/04/2021 12:00:00 AM EDT 75 mg by mouth completed <td ID="MedicationRxNorm_5">608531</td><td ID="MedicationMedication_5">venlafaxine</td><td ID="MedicationRoute_5">by mouth</td><td ID="MedicationRouteConcept_5">H09527</td><td ID="MedicationStartDate_5">05/04/2021</td><td ID="MedicationStopDate_5">08/02/2021</td><td ID="MedicationDosageFrequency_5">every morning</td><td ID="MedicationDuration_5">30</td><td ID="MedicationFormulaStrength_5">75 mg</td><td ID="MedicationDosageForm_5">capsule,extended release 24hr</td><td ID="MedicationDosageFormCode_5"></td><td ID="MedicationDosageDescription_5"></td><td ID="MedicationMedicationId_5">[id number]</td><td ID="MedicationAccount_5">[id number]</td><td ID="MedicationNpid_5">[id number]</td><td ID="MedicationAuthorFirstName_5">Lily</td><td ID="MedicationAuthorLastName_5">Michael</td><td ID="MedicationTaxonomyCode_5">[id number]</td><td ID="MedicationTaxonomyDesc_5"> Nurse Practitioner</td><td ID="MedicationPhoneNumber_5">[phone]</td> [facility] ([facility]) olanzapine 2.5 MG Oral Tablet olanzapine 04/16/2021 12:00:00 AM EDT 2.5 mg by mouth completed <td ID="Medica tionRxNorm_2">696990</td><td ID="MedicationMedication_2">olanzapine</td><td ID="MedicationRoute_2">by mouth</td><td ID="MedicationRouteConcept_2">T21270</td><td ID="MedicationStartDate_2">04/16/2021</td><td ID="MedicationStopDate_2">05/04/2021</td><td ID="MedicationDosageFrequency_2">at bedtime</td><td ID="MedicationDuration_2">21</td><td ID="MedicationFormulaStrength_2">2.5 mg</td><td ID="MedicationDosageForm_2">tablet</td><td ID="MedicationDosageFormCode_2"></td><td ID="MedicationDosageDescription_2"></td><td ID="MedicationMedicationId_2">[id number]</td><td ID="MedicationAccount_2">[id number]</td><td ID="MedicationNpid_2">[id number]</td><td ID="MedicationAuthorFirstName_2">Lily</td><td ID="MedicationAuthorLastName_2">Michael</td><td ID="MedicationTaxonomyCode_2">[id number]</td><td ID="MedicationTaxonomyDesc_2">Nurse Practitioner</td><td ID="MedicationPhoneNumber_2">[phone]</td> [facility] ([facility]) 24 HR venlafaxine 75 MG Extended Release Oral Capsule venlaf jan 04/16/2021 12:00:00 AM EDT 75 mg by mouth completed <td ID="MedicationRxNorm_3">742942</td><td ID="MedicationMedication_3">venlafaxine</td><td ID="MedicationRoute_3">by mouth</td><td ID="MedicationRouteConcept_3">H74114</td><td ID="MedicationStartDate_3">04/16/2021</td><td ID="MedicationStopDate_3">05/04/2021</td><td ID="MedicationDosageFrequency_3">every morning</td><td ID="MedicationDuration_3">21</td><td ID="MedicationFormulaStrength_3">75 mg</td><td ID="MedicationDosageForm_3">capsule,extended release 24hr</td><td ID="MedicationDosageFormCode_3"></td><td ID="MedicationDosageDescription_3"></td><td ID="MedicationMedicationId_3">[id number]</td><td ID="MedicationAccount_3">[id number]</td><td ID="MedicationNpid_3">[id number]</td><td ID="MedicationAuthorFirstName_3">Lily</td><td ID="MedicationAuthorLastName_3">Michael</td><td ID="MedicationTaxonomyCode_3">[id number]</td><td ID="MedicationTaxonomyDesc_3"> Nurse Practitioner</td><td ID="MedicationPhoneNumber_3">[phone]</td> [facility] ([facility]) Mirtazapine 15 MG Oral Tablet mirtazapine 04/16/2021 12:00:00 AM EDT 15 mg by mouth completed <td ID="Medica tionRxNorm_1">274929</td><td ID="MedicationMedication_1">mirtazapine</td><td ID="MedicationRoute_1">by mouth</td><td ID="MedicationRouteConcept_1">N78074</td><td ID="MedicationStartDate_1">04/16/2021</td><td ID="MedicationStopDate_1">05/04/2021</td><td ID="MedicationDosageFrequency_1">at bedtime</td><td ID="MedicationDuration_1">21</td><td ID="MedicationFormulaStrength_1">15 mg</td><td ID="MedicationDosageForm_1">tablet</td><td ID="MedicationDosageFormCode_1"></td><td ID="MedicationDosageDescription_1"></td><td ID="MedicationMedicationId_1">[id number]</td><td ID="MedicationAccount_1">[id number]</td><td ID="MedicationNpid_1">[id number]</td><td ID="MedicationAuthorFirstName_1">Lily</td><td ID="MedicationAuthorLastName_1">Michael</td><td ID="MedicationTaxonomyCode_1">[id number]</td><td ID="MedicationTaxonomyDesc_1">Nurse Practitioner</td><td ID="MedicationPhoneNumber_1">[phone]</td> [facility] ([facility]) 24 HR metoprolol succinate 25 MG Extended Release Oral Tablet [Toprol] Toprol XL 04/10/2021 12:00:00 AM EDT ORAL active [facility] ([facility] Fluoxetine 10 MG Oral Capsule fluoxetine 02/20/2021 12:00:00 AM EDT 10 mg by mouth completed <td ID="Medica tionRxNorm_4">030834</td><td ID="MedicationMedication_4">fluoxetine</td><td ID="MedicationRoute_4">by mouth</td><td ID="MedicationRouteConcept_4">R35162</td><td ID="MedicationStartDate_4">02/20/2021</td><td ID="MedicationStopDate_4">03/20/2021</td><td ID="MedicationDosageFrequency_4">every morning</td><td ID="MedicationDuration_4">30</td><td ID="MedicationFormulaStrength_4">10 mg</td><td ID="MedicationDosageForm_4">capsule</td><td ID="MedicationDosageFormCode_4"></td><td ID="MedicationDosageDescription_4"> </td><td ID="MedicationMedicationId_4">[id number]</td><td ID="MedicationAccount_4">[id number]</td><td ID="MedicationNpid_4">[id number]</td><td ID="MedicationAuthorFirstName_4">Lily</td><td ID="MedicationAuthorLastName_4">Michael</td><td ID="MedicationTaxonomyCode_4">[id number]</td><td ID="MedicationTaxonomyDesc_4">Nurse Practitioner</td><td ID="MedicationPhoneNumber_4">[phone]</td> [facility] ([facility]) Fluoxetine 10 MG Oral Capsule fluoxetine 02/20/2021 12:00:00 AM EDT 10 mg by mouth completed <td ID="Medica tionRxNorm_2">003097</td><td ID="MedicationMedication_2">fluoxetine</td><td ID="MedicationRoute_2">by mouth</td><td ID="MedicationRouteConcept_2">N60395</td><td ID="MedicationStartDate_2">02/20/2021</td><td ID="MedicationStopDate_2">03/02/2021</td><td ID="MedicationDosageFrequency_2">every morning</td><td ID="MedicationDuration_2">30</td><td ID="MedicationFormulaStrength_2">10 mg</td><td ID="MedicationDosageForm_2">capsule</td><td ID="MedicationDosageFormCode_2"></td><td ID="MedicationDosageDescription_2"> </td><td ID="MedicationMedicationId_2">[id number]</td><td ID="MedicationAccount_2">[id number]</td><td ID="MedicationNpid_2">[id number]</td><td ID="MedicationAuthorFirstName_2">Lily</td><td ID="MedicationAuthorLastName_2">Michael</td><td ID="MedicationTaxonomyCode_2">[id number]</td><td ID="MedicationTaxonomyDesc_2">Nurse Practitioner</td><td ID="MedicationPhoneNumber_2">[phone]</td> [facility] ([facility]) Clonazepam 0.5 MG Oral Tablet [Klonopin] Klonopin 02/18/2021 12 :00:00 AM EDT 0.5 mg by mouth completed <td ID="Me dicationRxNorm_2">506466</td><td ID="MedicationMedication_2">Klonopin</td><td ID="MedicationRoute_2">by mouth</td><td ID="MedicationRouteConcept_2">S16520</td><td ID="MedicationStartDate_2">02/18/2021</td><td ID="MedicationStopDate_2">03/20/2021</td><td ID="MedicationDosageFrequency_2">as directed</td><td ID="MedicationDuration_2">30</td><td ID="MedicationFormulaStrength_2">0.5 mg</td><td ID="MedicationDosageForm_2">tablet</td><td ID="MedicationDosageFormCode_2"></td><td ID="MedicationDosageDescription_2">as needed</td><td ID="MedicationMedicationId_2">54980</td><td ID="MedicationAccount_2">[id number]</td><td ID="MedicationNpid_2">[id number]</td><td ID="MedicationAuthorFirstName_2">Lily</td><td ID="MedicationAuthorLastName_2">Michael</td><td ID="MedicationTaxonomyCode_2">[id number]</td><td ID="MedicationTaxonomyDesc_2">Nurse Practitioner</td><td ID="MedicationPhoneNumber_2">[phone]</td> [facility] ([facility]) Clonazepam 0.5 MG Oral Tablet [Klonopin] Klonopin 02/18/2021 12 :00:00 AM EDT 0.5 mg by mouth completed <td ID="Me dicationRxNorm_3">188899</td><td ID="MedicationMedication_3">Klonopin</td><td ID="MedicationRoute_3">by mouth</td><td ID="MedicationRouteConcept_3">R67285</td><td ID="MedicationStartDate_3">02/18/2021</td><td ID="MedicationStopDate_3">03/20/2021</td><td ID="MedicationDosageFrequency_3">as directed</td><td ID="MedicationDuration_3">30</td><td ID="MedicationFormulaStrength_3">0.5 mg</td><td ID="MedicationDosageForm_3">tablet</td><td ID="MedicationDosageFormCode_3"></td><td ID="MedicationDosageDescription_3">as needed</td><td ID="MedicationMedicationId_3">[id number]</td><td ID="MedicationAccount_3">[id number]</td><td ID="MedicationNpid_3">[id number]</td><td ID="MedicationAuthorFirstName_3">Lily</td><td ID="MedicationAuthorLastName_3">Michael</td><td ID="MedicationTaxonomyCode_3">[id number]</td><td ID="MedicationTaxonomyDesc_3">Nurse Practitioner</td><td ID="MedicationPhoneNumber_3">[phone]</td> [facility] olanzapine 2.5 MG Oral Tablet olanzapine 02/18/2021 12:00:00 AM EDT 2.5 mg by mouth completed <td ID="Medica tionRxNorm_5">138637</td><td ID="MedicationMedication_5">olanzapine</td><td ID="MedicationRoute_5">by mouth</td><td ID="MedicationRouteConcept_5">F00852</td><td ID="MedicationStartDate_5">02/18/2021</td><td ID="MedicationStopDate_5">03/20/2021</td><td ID="MedicationDosageFrequency_5">at bedtime</td><td ID="MedicationDuration_5">30</td><td ID="MedicationFormulaStrength_5">2.5 mg</td><td ID="MedicationDosageForm_5">tablet</td><td ID="MedicationDosageFormCode_5"></td><td ID="MedicationDosageDescription_5"></td><td ID="MedicationMedicationId_5">[id number]</td><td ID="MedicationAccount_5">[id number]</td><td ID="MedicationNpid_5">[id number]</td><td ID="MedicationAuthorFirstName_5">Lily</td><td ID="MedicationAuthorLastName_5">Michael</td><td ID="MedicationTaxonomyCode_5">[id number]</td><td ID="MedicationTaxonomyDesc_5">Nurse Practitioner</td><td ID="MedicationPhoneNumber_5">[phone]</td> [facility] ([facility]) 24 HR venlafaxine 75 MG Extended Release Oral Capsule venlaf axine 02/18/2021 12:00:00 AM EDT 75 mg by mouth completed <td ID="MedicationRxNorm_4">551930</td><td ID="MedicationMedication_4">venlafaxine</td><td ID="MedicationRoute_4">by mouth</td><td ID="MedicationRouteConcept_4">S96655</td><td ID="MedicationStartDate_4">02/18/2021</td><td ID="MedicationStopDate_4">03/20/2021</td><td ID="MedicationDosageFrequency_4">every morning</td><td ID="MedicationDuration_4">30</td><td ID="MedicationFormulaStrength_4">75 mg</td><td ID="MedicationDosageForm_4">capsule,extended release 24hr</td><td ID="MedicationDosageFormCode_4"></td><td ID="MedicationDosageDescription_4"></td><td ID="MedicationMedicationId_4">[id number]</td><td ID="MedicationAccount_4">[id number]</td><td ID="MedicationNpid_4">[id number]</td><td ID="MedicationAuthorFirstName_4">Lily</td><td ID="MedicationAuthorLastName_4">Michael</td><td ID="MedicationTaxonomyCode_4">[id number]</td><td ID="MedicationTaxonomyDesc_4"> Nurse Practitioner</td><td ID="MedicationPhoneNumber_4">[phone]</td> [facility] ([facility]) olanzapine 2.5 MG Oral Tablet OLANZapine 02/12/2021 12:00:00 AM EDT ORAL completed [facility] ([facility] olanzapine 2.5 MG Oral Tablet Olanzapine 02/12/2021 12:00:00 AM EDT ORAL active [facility] ([facility] Fluoxetine 10 MG Oral Capsule Fluoxetine HCL 01/05/2021 12:00:00 AM E DT ORAL completed [facility] ([facility] Fluoxetine 20 MG Oral Capsule Fluoxetine HCL 01/05/2021 12:00:00 AM E DT ORAL completed [facility] ([facility] olanzapine 5 MG Oral Tablet Olanzapine 01/05/2021 12:00:00 AM EDT ORAL completed [facility] ([facility] Clonazepam 0.5 MG Oral Tablet Clonazepam 01/05/2021 12:00:00 AM EDT ORAL active [facility] ([facility] quetiapine 50 MG Oral Tablet QUETIAPINE FUMARATE 04/01/2020 12:0 0:00 AM EDT tablet 30 TAKE ONE TABLET BY MOUTH AT BEDT LUDY TAKE ONE TABLET BY MOUTH AT BEDTIME SOLD: 05/30/2020 [facility] 50 mg 04/01/2020 12:00:00 AM EDT tablet 60 TAKE ONE TABLET BY MOUTH TWICE A DAY TAKE ONE TABLET BY MOUTH TWICE A DAY SOLD: 04/03/2020 [facility] quetiapine 50 MG Oral Tablet QUETIAPINE FUMARATE 04/01/2020 12:0 0:00 AM EDT tablet 30 TAKE ONE TABLET BY MOUTH AT BEDT LUDY TAKE ONE TABLET BY MOUTH AT BEDTIME SOLD: 05/01/2020 [facility] 50 mg 04/01/2020 12:00:00 AM EDT tablet 60 TAKE ONE TABLET BY MOUTH TWICE A DAY TAKE ONE TABLET BY MOUTH TWICE A DAY SOLD: 05/30/2020 [facility] 50 mg 04/01/2020 12:00:00 AM EDT tablet 60 TAKE ONE TABLET BY MOUTH TWICE A DAY TAKE ONE TABLET BY MOUTH TWICE A DAY SOLD: 05/01/2020 [facility] quetiapine 50 MG Oral Tablet QUETIAPINE FUMARATE 04/01/2020 12:0 0:00 AM EDT tablet 30 TAKE ONE TABLET BY MOUTH AT BEDT LUDY TAKE ONE TABLET BY MOUTH AT BEDTIME SOLD: 04/03/2020 [facility] 200 mg 03/14/2020 12:00:00 AM EDT tablet 5 TAKE ONE TABLET BY MOUTH EVERY DAY FOR 5 DAYS TAKE ONE TABLET BY MOUTH EVERY DAY FOR 5 DAYS SOLD: 03/14/2020 [facility] 90 mcg/actuation 03/14/2020 12:00:00 AM EDT HFA aerosol inha ler 18 INHALE 2 PUFFS BY MOUTH EVERY 4 TO 6 HOURS NEEDED INHALE 2 PUFFS BY MOUTH EVERY 4 TO 6 HOURS NEEDED SOLD: 03/14/2020 [facility] 200 mg 03/14/2020 12:00:00 AM EDT tablet 5 TAKE ONE TABLET BY MOUTH EVERY DAY FOR 5 DAYS TAKE ONE TABLET BY MOUTH EVERY DAY FOR 5 DAYS SOLD: 05/30/2020 [facility] 10 mg 03/14/2020 12:00:00 AM EDT tablet,disintegrating 1 2 TAKE 1 TABLET BY MOUTH ONCE AT THE ONSET OF HEADACHE MAY REPEAT IN 2 HOURS DIRECTED TAKE 1 TABLET BY MOUTH ONCE AT THE ONSET OF HEADACHE MAY REPEAT IN 2 HOURS DIRECTED SOLD: 03/14/2020 [facility] 10 mg 03/14/2020 12:00:00 AM EDT tablet,disintegrating 1 2 TAKE 1 TABLET BY MOUTH ONCE AT THE ONSET OF HEADACHE MAY REPEAT IN 2 HOURS DIRECTED TAKE 1 TABLET BY MOUTH ONCE AT THE ONSET OF HEADACHE MAY REPEAT IN 2 HOURS DIRECTED SOLD: 05/01/2020 [facility] 10 mg 03/14/2020 12:00:00 AM EDT tablet,disintegrating 1 2 TAKE 1 TABLET BY MOUTH ONCE AT THE ONSET OF HEADACHE MAY REPEAT IN 2 HOURS DIRECTED TAKE 1 TABLET BY MOUTH ONCE AT THE ONSET OF HEADACHE MAY REPEAT IN 2 HOURS DIRECTED SOLD: 05/30/2020 [facility] rizatriptan 10 MG Disintegrating Oral Tablet Rizatriptan Vu zoate 03/13/2020 12:00:00 AM EDT ORAL active [facility] ([facility] 0.3 mg/0.3 mL 01/12/2020 12:00:00 AM EDT auto-injector 2 INJECT DIRECTED INJECT DIRECTED SOLD: 03/14/2020 [facility] rizatriptan 10 MG Oral Tablet Rizatriptan Benzoate 11/30/2019 12:00 :00 AM EDT completed [facility] ([facility] Insurance Providers Payer name Policy type / Coverage type Policy ID Covered republican ID Covered republican's relationship to card Policy Card Plan Information [facility] [id number] SP [id number] [facility] [id number] SP [id number] MV [facility] O [id number] S [id number] [facility] [id number] SP [id number] [facility] O [id number] S [id number] ANSI-Not a Secondary Insurance [id number] [employer] () [id number] Commercial I nsurance [id number] [facility] [id number] 2 [id number] N REGIONAL CLAIMS WILVER -O/P [id number] 01 [id number] O BLUE [id number] SP [id number] MEDICAID [id number] SP [id number] O BLUE [id number] SP [id number] SELF PAY UNAVAILABLE SP UNAVAILA BLE P UNAVAILABLE UNAVAILA BLE Problems, Conditions, and Diagnoses Code Display Name Description Problem Type Effective Dates Data Source(s) F12.10 Cannabis abuse, uncomplicated Cannabis Use Disorder, M ild Condition 05/04/2021 12:00:00 AM EDT [facility] ([facility]) F31.9 Bipolar disorder, unspecified Bipolar I Disorder, Current or most recent episode depressed, Unspecified Condition 05/04/2021 12:00:00 AM EDT [facility] ([facility]) R00.0 Tachycardia Tachycardia Problem 04/10/2021 12:00:00 AM EDT [facility] ([facility] F31.9 Bipolar disorder, unspecified Bipolar I Disorder, Current or most recent episode depressed, Unspecified Condition 03/02/2021 12:00:00 AM EDT [facility] ([facility]) F12.10 Cannabis abuse, uncomplicated Cannabis Use Disorder, M ild Condition 03/02/2021 12:00:00 AM EDT [facility] ([facility]) F32.9 Major depressive disorder, single episod e, unspecified Unspecified depressive Disorder Condition 02/09/2021 12:00:00 AM EDT [facility] ([facility]) G43.009 Migraine without aura, not refractory Mi graine without aura, not refractory Problem 03/13/2020 12:00:00 AM EDT [facility] ([facility] Surgeries/Procedures Procedure Description Date Indications Data Source(s) [facility] [place] E/M Lvl 3--Est pt 05/04/2021 12:00:00 AM EDT - 05/04/2021 12:00:00 AM EDT [facility] ([facility]) [facility] Telemed E/M Lvl 3--Est pt 05/04/2021 12:00:00 AM E DT [facility] ([facility]) OFFICE OUTPATIENT VISIT 25 MINUTES 04/24/2021 12:00:00 AM EDT [facility] ([facility] Electrocardiogram Complete 04/10/2021 12:00:00 AM EDT [facility] ([facility] OFFICE OUTPATIENT VISIT 25 MINUTES 04/10/2021 12:00:00 AM EDT [facility] ([facility] Brief Individual Psychotherapy - 30 min 03/02/2021 12:00:00 AM EDT - 03/02/2021 12:00:00 AM EDT [facility] ([facility]) Brief Individual Psychotherapy - 30 min 03/02/2021 12: 00:00 AM EDT [facility] ([facility]) OFFICE OUTPATIENT VISIT 15 MINUTES 03/02 12:00:00 AM EDT - 03/02/2021 12:00:00 AM EDT [facility] ([facility]) OFFICE OUTPATIENT VISIT 15 MINUTES 03/02/2021 12:00:00 AM EDT [facility] ([facility]) PREVENT MED CULLED FRUIT PACKER&/RISK FACTOR REDJ SPX 30 MIN 03/02/2021 12:00:00 AM EDT - 03/02/2021 12:00:00 AM EDT [facility] ([facility]) PREVENT MED CULLED FRUIT PACKER&/RISK FACTOR REDJ SPX 30 MIN 03/02 12:00:00 AM EDT [facility] ([facility]) PERIODIC PREVENTIVE MED EST PATIENT 18-39 YRS 02/28/20 12:00:00 AM EDT [facility] ([facility] Psychiatric Diagnostic Evaluation (Non-Medical) 02/20/2021 12:00:00 AM EDT - 02/20/2021 12:00:00 AM EDT [facility] ([facility]) Psychiatric Diagnostic Evaluation (Non-Medical) 2020 12:00:00 AM EDT [facility] ([facility]) Psychiatric Diagnostic Evaluation with Medical Services 02/18/2021 12:00:00 AM EDT - 02/18/2021 12:00:00 AM EDT [facility] ([facility]) Psychiatric Diagnostic Evaluation with Medical Services 02/18/2021 12:00:00 AM EDT [facility] ([facility]) OFFICE OUTPATIENT VISIT 15 MINUTES 02/12/2021 12:00:00 AM EDT [facility] ([facility] Extended Individual Psychotherapy - 45 min 02/09/2021 12:00:00 AM EDT - 02/09/2021 12:00:00 AM EDT [facility] ([facility]) Extended Individual Psychotherapy - 45 min 12:00:00 AM EDT [facility] ([facility]) Brief Individual Psychotherapy - 30 min 01/30/2021 12:00:00 AM EDT - 01/30/2021 12:00:00 AM EDT [facility] ([facility]) Brief Individual Psychotherapy - 30 min 01/30/2021 12: 00:00 AM EDT [facility] ([facility]) OFFICE OUTPATIENT VISIT 25 MINUTES 01/05/2021 12:00:00 AM EDT [facility] ([facility] Results ID Date Data Source [id number] 02/27/2021 02:34:00 PM EDT [facility] ([facility] Name Value Range Interpretation Code Description Data Leidy rce(s) Supporting Document(s) Age Laboratory test result [facility] ([facility] Source.............Endocervix Dates / Re sults....LMP 11/05 No. of containers..01 ThinPrep Vial [id number] Pathology report final diagnosis Narrative Laboratory test result [facility] ([facility] Source.............Endocervix Dates / Re sults....LMP 11/05 No. of containers..01 ThinPrep Vial [id number] Statement of adequacy [Interpretation] o f Cervical or vaginal smear or scraping by Cyto stain Laboratory test result [facility] NT ([facility] Source.............Endocervix Dates / Re sults....LMP 11/05 No. of containers..01 ThinPrep Vial [id number] Laboratory test result [facility] ([facility] Source.............Endocervix Dates / Re sults....LMP 11/05 No. of containers..01 ThinPrep Vial [id number] Memory Care Program Director who read Cyto stain of Cervical or vaginal smear or scraping Laboratory test result [facility] ([facility] Source.............Endocervix Dates / Re sults....LMP 11/05 No. of containers..01 ThinPrep Vial [id number] Microscopic observation [Identifier] in Unspecified sp ecimen by Other stain Laboratory test result [facility] ([facility] Source.............Endocervix Dates / Re sults....LMP 11/05 No. of containers..01 ThinPrep Vial [id number] Pathologist who read Cyto stain of Cervical or vaginal smear or scraping Laboratory test result [facility] ([facility] Source.............Endocervix Dates / Re sults....LMP 11/05 No. of containers..01 ThinPrep Vial [id number] Note Laboratory test result [facility] ([facility] Source.............Endocervix Dates / Re sults....LMP 11/05 No. 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 of containers..01 ThinPrep Vial [id number] Cytology report of Cervical or vaginal smear or scrapi ng Cyto stain.thin prep Laboratory test result [facility] ([facility] Source.............Endocervix Dates / Re sults....LMP 11/05 No. of containers..01 ThinPrep Vial [id number] ID Date Data Source [id number] 02/03/2021 10:49:00 AM EDT [facility] ([facility] Name Value Range Interpretation Code Description Data Leidy rce(s) Supporting Document(s) Influenza A Amplification Laboratory test result Normal (applies to non- numeric results) [facility] ([facility] Negative results do not preclude influen za or RSV virus infection and should not be used as the sole basis for treatment or other patient management decisions. Influenza B Amplification Laboratory test result Normal (applies to non- numeric results) [facility] ([facility] ) Negative results do not preclude influen za or RSV virus infection and should not be used as the sole basis for treatment or other patient management decisions. RSV Amplification Laboratory test result Normal (applies to non-numeric results) [facility] ([facility] ) Negative results do not preclude influen za or RSV virus infection and should not be used as the sole basis for treatment or other patient management decisions. Laboratory test finding (navigational concept) Laboratory test r esult Normal (applies to non-numeric results) [facility] ([facility] A false negative result may occur if a s pecimen is improperly collected, transported or handled. False [...] pathogens. DISCLAIMER: Testing was performed using the [employer] SARS-CoV-2 test. This test was developed and its performance characteristics determined by [employer]. This test has not been FDA cleared [...] the authorization is terminated or revoked sooner. ID Date Data Source [id number] 02/03/2021 10:49:00 AM EDT [facility] Name Value Range Interpretation Code Description Data Leidy rce(s) Supporting Document(s) SARS coronavirus 2 RNA [Presence] in Res piratory specimen by PATRICK with probe detection NEGATIVE [facility] This lab was ordered by [facility] a nd reported by [facility]. ID Date Data Source [id number] 02/02/2021 12:16:00 PM EDT [facility] Name Value Range Interpretation Code Description Data Leidy rce(s) Supporting Document(s) Salicylates [Mass/volume] in Serum or Plasma Laboratory test res ult 5.0-30.0 Below low normal [facility] ([facility] ) Ethanol [Mass/volume] in Serum or Plasma Laboratory test result 0.000-0.010 Normal (applies to non-numeric results) [facility] ([facility] Acetaminophen [Mass/volume] in Serum or Plasma Laboratory test r esult 10.0-30.0 Below low normal [facility] ([facility] ) Thyrotropin [Units/volume] in Serum or Plasma 0.622 uIU/ML 0. 358-3.740 Normal (applies to non-numeric results) [facility] Choriogonadotropin.beta subunit ( test) [Pres ence] in Serum or Plasma Laboratory test result Normal (applies to non-numeric results) [facility] ([facility] ID Date Data Source [id number] 02/02/2021 12:16:00 PM EDT [facility] ([facility] Name Value Range Interpretation Code Description Data Leidy rce(s) Supporting Document(s) Blood Urea Nitrogen 13 mg/dL 7-18 Normal (applies to non-nume sharita results) [facility] ([facility] Glucose, Fasting 98 mg/dL 70-100 Normal (applies to non-numeric results) [facility] ([facility] Creatinine For GFR 0.74 mg/dL 0.55-1.30 Normal (applies to non -numeric results) [facility] ([facility] Glomerular Filtration Rate Laboratory test result Normal (applies to non- numeric results) [facility] ([facility] ) <content>Units are mL/min/1.73 m2</content>
<content></content>
<content>Chronic Kidney Disease Staging per NKF:</content>
<content></content>
<content>Stage I & II GFR >=60 Normal to Mildly Decreased</content>
<content>Stage III GFR 30- 59 Moderately Decreased</content>
<content>Stage IV GFR 15-29 Severely Decreased</content>
<content>Stage V GFR <15 Very Little GFR Left</content>
<content>ESRD GFR <15 on ORTHOTIST PROSTHETIST</content>
<content></content> Potassium Serum 4.1 meq/L 3.5-5.1 Normal (applies to non-numeric results) [facility] ([facility] Sodium Level 140 meq/L 136-145 Normal (applies to non-numeric res ults) [facility] ([facility] Chloride Level 109 meq/L 98-107 Above high normal [facility] ([facility] Carbon Dioxide Level 26 meq/L 21-32 Normal (applies to non-num paddy results) [facility] ([facility] Anion Gap 5 meq/L 8-16 Below low normal [facility] ( [facility] Calcium Level 10.0 mg/dL 8.5-10.1 Normal (applies to non-numeric re sults) [facility] ([facility] ID Date Data Source [id number] 02/02/2021 12:16:00 PM EDT [facility] ([facility] Name Value Range Interpretation Code Description Data Leidy rce(s) Supporting Document(s) Ast/Sgot 9 U/L 7-37 Normal (applies to non-numeric resul ts) [facility] ([facility] Alt/SGPT 15 U/L 12-78 Normal (applies to non-numeric resul ts) [facility] ([facility] Bilirubin,Total 0.3 mg/dL 0.2-1.0 Normal (applies to non-numeric results) [facility] ([facility] Alkaline Phosphatase 66 U/L 45-117 Normal (applies to non-num paddy results) [facility] ([facility] Bilirubin,Direct Laboratory test result 0.0-0.2 Normal ( applies to non-numeric results) [facility] ([facility] ) Total Protein 7.9 GM/DL 6.4-8.2 Normal (applies to non-numeric re sults) [facility] ([facility] Albumin 4.2 GM/DL 3.2-5.2 Normal (applies to non-numeric resul ts) [facility] ([facility] Albumin/Globulin Ratio 1.1 1.2-2.2 Below low normal [facility] ([facility] ID Date Data Source [id number] 02/02/2021 12:16:00 PM EDT [facility] ([facility] Name Value Range Interpretation Code Description Data Leidy rce(s) Supporting Document(s) Amphetamines Level Urine Laboratory test result Normal (applies to non-numeric results) [facility] ([facility] ) Barbiturates Urine Laboratory test result Normal (applies to non-numeric results) [facility] ([facility] ) Benzodiazepines Urine Laboratory test result Nor mal (applies to non-numeric results) [facility] ([facility] ) Cannabinoids Urine Laboratory test result Above high jen l [facility] ([facility] Cocaine Metabolite Urine Laboratory test result Normal (applies to non-numeric results) [facility] ([facility] ) Methadone Urine Laboratory test result Normal (a pplies to non-numeric results) [facility] ([facility] ) Opiates Urine Laboratory test result Normal (applies t o non-numeric results) [facility] ([facility] Phencyclidine Urine Laboratory test result Jen l (applies to non-numeric results) [facility] ([facility] ) ALL PRESUMPTIVE POSITIVE FINDINGS AR E UNCONFIRMED THRESHOLD IN NG/ML AMPHETAMINES/METHAMPHET 1000 BARBITURATES [...] CLOSELY RELATED COMPOUNDS PLEASE CALL THE LAB. ID Date Data Source [id number] 02/02/2021 12:16:00 PM EDT [facility] ([facility] Name Value Range Interpretation Code Description Data Leidy rce(s) Supporting Document(s) White Blood Count 7.1 10 4.0-10.0 Normal (applies to non-numeri c results) [facility] ([facility] Red Blood Count 4.68 10 4.00-5.40 Normal (applies to non-numeric results) [facility] ([facility] Hemoglobin 13.9 g/dL 12.0-15.5 Normal (applies to non-numeric resul ts) [facility] ([facility] Hematocrit 42.2 % 36.0-47.0 Normal (applies to non-numeric resul ts) [facility] ([facility] Mean Corpuscular Volume 90.2 fl 80.0-96.0 Normal ( applies to non-numeric results) [facility] ([facility] ) Mean Corpuscular Hemoglobin 29.7 pg 27.0-33.0 Norm al (applies to non-numeric results) [facility] ([facility] ) Mean Corpuscular HGB Conc 32.9 g/dL 32.0-36.5 Normal (applies to non-numeric results) [facility] ([facility] ) Red Cell Distribution Width 11.7 % 11.5-14.5 Norm al (applies to non-numeric results) [facility] ([facility] Platelet Count, Automated 262 10 150-450 Normal (applies to non-numeric results) [facility] ([facility] Nucleated Red Blood Cell % 0.0 % 0-0 Normal (applies to n on-numeric results) [facility] ([facility] Procedure Social History Code Duration Value Status Description Data Source(s ) Smoking 05/04/2021 12:00:00 AM EDT Unknown if ever smoked comp leted Unknown if ever smoked [facility] ([facility]) Smoking 03/02/2021 12:00:00 AM EDT Unknown if ever smoked comp leted Unknown if ever smoked [facility] [facility] Smoking 02/20/2021 12:00:00 AM EDT Unknown if ever smoked comp leted Unknown if ever smoked [facility] ([facility]) Smoking 02/18/2021 12:00:00 AM EDT Unknown if ever smoked comp leted Unknown if ever smoked [facility] ([facility]) Smoking 02/09/2021 12:00:00 AM EDT Unknown if ever smoked comp leted Unknown if ever smoked [facility] ([facility]) Smoking 01/30/2021 12:00:00 AM EDT Unknown if ever smoked comp leted Unknown if ever smoked [facility] ([facility]) Vital Signs ID Date Data Source UNK Name Value Range Interpretation Code Description Data Source(s) Diastolic blood pressure 76 mm[Hg] 76 mm[Hg] BROOKS ([facility] Body weight 148.00 [lb_av] 148.00 [lb_av] ROMAINE T ([facility] [place] body weight 115 [lb_av] 115 [lb_av] ROMAINE T ([facility] Body mass index (BMI) [Ratio] 26.2 kg/m2 26.2 k g/m2 BROOKS ([facility] Oxygen saturation in Arterial blood by Pulse oximetry 97 % 97 % BROOKS ([facility] Body height 63 [in_i] 63 [in_i] MEDENT ([facility] 5'3" Systolic blood pressure 100 mm[Hg] 100 mm[Hg] M EDENT ([facility] Body temperature 97.8 [degF] 97.8 [degF] MEDENT ([facility] Heart rate 97 /min 97 /min MED[facility] ([facility] Respiratory rate 16 /min 16 /min MEDENT ( [facility] [place] body weight 115 [lb_av] 115 [lb_av] MEDEN T ([facility] Systolic blood pressure 108 mm[Hg] 108 mm[Hg] M EDENT ([facility] Diastolic blood pressure 80 mm[Hg] 80 mm[Hg] MEDENT ([facility] Body temperature 98.0 [degF] 98.0 [degF] MEDENT ([facility] Heart rate 130 /min 130 /min MED[facility] ([facility] Body height 63 [in_i] 63 [in_i] [facility] ([facility] 5'3" Body weight 146.00 [lb_av] 146.00 [lb_av] MEDEN T ([facility] Body mass index (BMI) [Ratio] 25.9 kg/m2 25.9 k g/m2 MED[facility] ([facility] Oxygen saturation in Arterial blood by Pulse oximetry 97 % 97 % MED[facility] ([facility] Respiratory rate 16 /min 16 /min MEDENT ( [facility] Body height 62.00 in Normal (applies to non-numeric resu lts) 62.00 in [facility] ([facility]) Body weight Measured 142.00 lbs Normal (applies to n on-numeric results) 142.00 [facility] Body mass index (BMI) [Ratio] 25.97 kg/m2 No rmal (applies to non-numeric results) 25.97 kg/m2 [facility]) Systolic blood pressure 112 mm[Hg] Normal (applies t o non-numeric results) 112 mm[Hg] [facility] ([facility]) Diastolic blood pressure 72 mm[Hg] Normal (applies to non-numeric results) 72 mm[Hg] [facility] ([facility]) Body temperature 98.60 degF Normal (applies to non-n umeric results) 98.60 degF [facility] ([facility]) Body height --lying 102 min Normal (applies to non-nume sharita results) 102 min [facility] ([facility]) Body height --lying 102 min Normal (applies to non-nume sharita results) 102 min [facility] ([facility]) Body height 62.00 in Normal (applies to non-numeric resu lts) 62.00 in [facility] ([facility]) Body weight Measured 142.00 lbs Normal (applies to n on-numeric results) 142.00 lbs [facility] ([facility]) Body mass index (BMI) [Ratio] 25.97 kg/m2 No rmal (applies to non-numeric results) 25.97 kg/m2 [facility] ([facility]) Systolic blood pressure 112 mm[Hg] Normal (applies t o non-numeric results) 112 mm[Hg] [facility] ([facility]) Diastolic blood pressure 72 mm[Hg] Normal (applies to non-numeric results) 72 mm[Hg] [facility] ([facility]) Body temperature 98.60 degF Normal (applies to non-n umeric results) 98.60 degF [facility] ([facility]) Body temperature 97.8 [degF] 97.8 [degF] MEDENT ([facility] Body mass index (BMI) [Ratio] 25.3 kg/m2 25.3 k g/m2 [facility] ([facility] Respiratory rate 16 /min 16 /min MED[facility] ( [facility] Oxygen saturation in Arterial blood by Pulse oximetry 98 % 98 % MEDENT ([facility] Body weight 143.00 [lb_av] 143.00 [lb_av] MEDEN T ([facility] [place] body weight 115 [lb_av] 115 [lb_av] MEDEN T ([facility] Systolic blood pressure 122 mm[Hg] 122 mm[Hg] M EDENT ([facility] Diastolic blood pressure 62 mm[Hg] 62 mm[Hg] MEDENT ([facility] Heart rate 107 /min 107 /min [facility] ([facility] Body height 63 [in_i] 63 [in_i] MEDENT ([facility] 5'3" Body mass index (BMI) [Ratio] 24.4 kg/m2 24.4 k g/m2 [facility] ([facility] Heart rate 77 /min 77 /min MED[facility] ([facility] [place] body weight 115 [lb_av] 115 [lb_av] MEDEN T ([facility] Body temperature 97.5 [degF] 97.5 [degF] MEDENT ([facility] Body weight 138.00 [lb_av] 138.00 [lb_av] MEDEN T ([facility] Oxygen saturation in Arterial blood by Pulse oximetry 98 % 98 % MEDENT ([facility] Diastolic blood pressure 78 mm[Hg] 78 mm[Hg] MED[facility] ([facility] Systolic blood pressure 100 mm[Hg] 100 mm[Hg] M EDENT ([facility] Respiratory rate 16 /min 16 /min MED[facility] ( [facility] Body height 63 [in_i] 63 [in_i] MED[facility] ([facility] 5'3" Body height 63 [in_i] 63 [in_i] MEDENT ([facility] 5'3" Body weight 138.00 [lb_av] 138.00 [lb_av] MEDEN T ([facility] Body mass index (BMI) [Ratio] 24.4 kg/m2 24.4 k g/m2 [facility] ([facility] Oxygen saturation in Arterial blood by Pulse oximetry 97 % 97 % MED[facility] ([facility] Systolic blood pressure 110 mm[Hg] 110 mm[Hg] M EDENT ([facility] Diastolic blood pressure 80 mm[Hg] 80 mm[Hg] MED[facility] ([facility] Body temperature 97.5 [degF] 97.5 [degF] MED[facility] ([facility] [place] body weight 115 [lb_av] 115 [lb_av] MEDEN T ([facility] Heart rate 85 /min 85 /min MED[facility] ([facility] Respiratory rate 16 /min 16 /min MED[facility] ( [facility] Systolic blood pressure 96 mm[Hg] 96 mm[Hg] M EDENT ([facility] Respiratory rate 16 /min 16 /min MEDENT ( [facility] Body height 63 [in_i] 63 [in_i] MEDENT ([facility] 5'3" Body weight 108.00 [lb_av] 108.00 [lb_av] MEDEN T ([facility] [place] body weight 115 [lb_av] 115 [lb_av] MEDEN T ([facility] Body mass index (BMI) [Ratio] 19.1 kg/m2 19.1 k g/m2 [facility] ([facility] Heart rate 97 /min 97 /min [facility] ([facility] Oxygen saturation in Arterial blood by Pulse oximetry 99 % 99 % [facility] ([facility] Diastolic blood pressure 68 mm[Hg] 68 mm[Hg] MED[facility] ([facility] Body temperature 96.6 [degF] 96.6 [degF] MED[facility] ([facility]
--- OUTSIDE RECORDS SUMMARY | 2021-05-11 07:10 | CCD | Continuity of Care Document ---
Author Emily Diane [facility] Organization Unknown Address [address] [place] [address] Phone [phone] Problems Active Problems Provider Date Migraine Sofia Zuniga [facility] Onset: 2012 Anxiety state Marie Isidro [facility]- Onset: Asthma Yin Rico [facility]- Onset: 10/09/2015 Insomnia Everton Salcido RPA [...] smoker Allergies, Adverse Reactions, Alerts Active Allergies Reaction Severity Comments Date Sulfa Drugs 04/05/2013 Doxycycline Vomiting/Hives 04/21/2016 Medications Active Medications SIG Qnty Indications Ordering Provide r Date Olanzapine 2.5mg Tablets one by mouth every night at bedtime Fantasma Dumont D.O., FA AFP 02/12/2021 Clonazepam 0.5mg Tablets 1 tab by mouth twice a day as needed for anxiety ([place]: [id number]) 60tabs Fantasma Dumont D.O., FAAFP 01/05/2021 Rizatriptan Benzoate 10mg Tablets Dispers take one tablet by mouth every day at the onset of headache may repeat in 2 hours as directed 12tabs [facility]., [facility] 03/13/2020 Topamax 50mg Tablets take one tablet by mouth bid. 60tabs Fantasma Dumont D.O., [facility] 02/2019 Metformin HCL 500mg Tablets take one tablet by mouth twice a day 180tabs Nohemy Hillman, [facility] 02/22/2018 Epipen 2-Eder 0.3mg/0 .3ML Solution Auto-Inject inject as directed 2units Fantasma Dumont D.O., [facility] 10/09/2015 Ventolin HFA 108(90Base) mcg/Act A erosol 2 puffs every 4-6 hours as needed 1units Fantasma Dumont D.O., [facility] 02/04/2014 Jencycla 0.35mg Tablets 1 po daily 28tabs Fantasma Dumont D.O., [facility] Venlafaxine HCL ER 150mg Tablets E R 24HR 1 by mouth every day Unknown Fluoxetine HCL 20mg Capsules 1 by mouth every day Unknown History Medications OLANZapine 2.5mg Tablets one by mouth every night at bedtime Everton Salcido, [facility] - 02/12/2021 Fluoxetine HCL 20mg Capsules 1 by mouth every day 90caps Fantasma Dumont D.O., [facility] - 02/12/2021 Fluoxetine HCL 10mg Capsules 1 by mouth every day 90caps Lilo Hillman.Dionne., [facility] - 02/12/2021 Olanzapine 5mg Tablets one by mouth every night at bedtime 30tabs Fantasma Dumont D.O., [facility] - 02/12/2021 Medications Administered in Office Medication SIG Qnty Indications Ordering Provider Date Injection (SC)/(Im) Injection Jeny Hernandez FNP-BC 02/03/2015 Immunizations CPT Code Status Date Vaccine Lot # [id number] Given 02/03/2015 Tdap Tetanus,Dip htheria Toxoids/Acellular Pertussis 7Yrs Or Older [id number] Given 02/03/2015 PPD Tuberculosis Intradermal Vital Signs Date Vital Result Comment 02/27/2021 1:58pm BP Systolic 122 mmHg BP Diastolic 62 mmHg Body Temperature 97.8 F Heart Rate 107 /min Respiratory Rate 16 /min Height 63 inches 5'3" Weight 143.00 lb [place] Body Weight 115 lb BMI (Body Mass Index) 25.3 kg/m2 O2 % BldC Oximetry 98 % 02/12/2021 10:48am BP Systolic 100 mmHg BP Diastolic 78 mmHg Body Temperature 97.5 F Heart Rate 77 /min Respiratory Rate 16 /min Height 63 inches 5'3" Weight 138.00 lb [place] Body Weight 115 lb BMI (Body Mass Index) 24.4 kg/m2 O2 % BldC Oximetry 98 % Results Test Acquired Date Facility Test Result H/L Range Note Influenxa A/B RSV Covid Amp 02/03/2021 [facility] (Interface) [phone] Influenza A Amplification NEGATIVE Normal Negati ve 1 Influenza B Amplification NEGATIVE Normal Negative 2 RSV Amplification NEGATIVE Normal Negative 3 Sars Covid-19 Amplification NEGATIVE Normal Negative 4 Complete Blood Count 02/02/2021 [facility] ( Interface) [phone] White Blood Count 7.1 10 Normal 4.0-10.0 [...] 0-0 Drug Eval Toxicology ED Only 02/02/2021 [facility] (Interface) [phone] Amphetamines Level Urine NEGATIVE Normal Negativ e Barbiturates Urine NEGATIVE Normal Negative Benzodiazepines Urine NEGATIVE Normal Negative Cannabinoids Urine POSITIVE High Negative Cocaine Metabolite Urine NEGATIVE Normal Negative Methadone Urine NEGATIVE Normal Negative Opiates Urine NEGATIVE Normal Negative Phencyclidine Urine NEGATIVE Normal Negative 5 Liver Profile 02/02/2021 [facility] [phone] Ast/Sgot 9 U/L Normal 7-37 Alt/SGPT 15 U/L Normal 12-78 Alkaline Phosphatase 66 U/L Normal 45-117 Bilirubin,Total 0.3 mg/dL Normal 0.2-1.0 Bilirubin,Direct < 0.1 mg/dL Normal 0.0-0.2 Total Protein 7.9 GM/DL Normal 6.4-8.2 Albumin 4.2 GM/DL Normal 3.2-5.2 Albumin/Globulin Ratio 1.1 Low 1.2-2.2 Basic Metabolic Profile 02/02/2021 [facility] (Interface) [phone] Glucose, Fasting 98 mg/dL Normal 70-100 Blood [...] mg/dL Normal 8.5-10.1 Laboratory test finding 02/02/2021 [facility] (Interface) [phone] Ethyl Alcohol (Ethanol) < 0.003 % Normal [...] pathogens. DISCLAIMER: Testing was performed using the [facility] SARS-CoV-2 test. This test was developed and its performance characteristics determined by [facility]. 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 N92.6 Irregular menstruation, unsp ecified L68.0 Hirsutism E28.2 Polycystic ovarian syndrome R68.82 Decreased libido Office Visit 02/12/2021 11:00a [place] [facility] Everton Salcido, RP A G47.00 Insomnia, unspecified F41.9 Anxiety disorder, unspecifie d F31.9 Bipolar disorder, unspecifie d Office Visit 01/05/2021 2:40p [place] [facility] Everton Salcido, RP A J45.909 Unspecified asthma, uncomplicated G43.009 Migraine w/o aura, not intra ctable, w/o status migrainosus G47.00 Insomnia, unspecified Assessments Date Code Description Provider 02/27/2021 Z01.411 Encounter for gyneco logical examination (general) (routine) with abnormal findings Jeny Hernandez [facility] 02/27/2021 N92.6 Irregular menstruation, unspecif ied Jeny Hernandez [facility] 02/27/2021 L68.0 Hirsutism Jeny Hernandez [facility] 02/27/2021 E28.2 Polycystic ovarian syndrome Jeny Edwards, [facility] 02/27/2021 R68.82 Decreased libido Jeny Hernandez [facility] 02/12/2021 G47.00 Insomnia, unspecified Yuridia [...] 11:00 am - Everton Salcido RPA at [place] [facility] Functional Status Description No Information Available Mental Status Description No Information Available Referrals Refer to Reason for Referral Status Appt Date [facility] Anxiety, depression, ea ting disorder. Sent [facility] [address] [address] [phone]
--- OUTSIDE RECORDS SUMMARY | 2021-05-11 07:10 | CCD ---
Author Author Emily Rodriguez Heidi Organization Unknown Address [address] [address] Phone Care Team Providers Care Ethics Manager Name Role Phone Heidi Rodriguez PCP Allergies, Adverse Reactions, Alerts No Data in Section Problem List Concept Problem Description Status Start Date Created Date Resolv ed Date Snomed Code F12.10 Cannabis Use Disorder, Mild Active 02/18/2021 F31.9 Bipolar I Disorder, Current or most rece nt episode depressed, Unspecified Active 02/18/2021 Medications No Data in Section Social History Social History Element Description Concept Effective Date Smoking Status Unknown if ever smoked [id number] Immunizations No Data in Section Vital Signs No Data in Section Procedures Date Concept Id Description Targeted Site Concept Targeted Site Concept Type 02/18/2021 62336 Psychiatric Diagnostic Evaluation with Medical Services CPT Patient has no history of implantable de vices Encounters Encounter Start Date End Date Encounter Type Description Diagnosis Di agnosis Desc Location Author First Name Author Last Name Npid Taxonomy Cod e Taxonomy Desc Phone Number Location Addr1 Location Addr2 [address] [facility] Location [facility] Location Zip [id number] 02/18/2021 02/18/2021 15146 Psychiatric Esthela gnostic Evaluation with Medical Services F12.10 Cannabis abuse, uncomplicated [facility] Michael Heidi [phone] [id number] Nurse Practitioner [phone] [address] [phone] Plan of Treatment No Data in Section Lab Results No Data in Section Instructions No Data in Section Functional Cognitive Status No Data in Section Insurance Providers Insurance Id Policy Effective Date Policy Thru Date Company N nathalie [id number] [facility]
--- OUTSIDE RECORDS SUMMARY | 2021-05-11 07:10 | CCD ---
Author Author Emily Garcia Organization Unknown Address [address] [place] [address] Phone Care Team Providers Care Straw Hat Brusher Name Role Phone Heidi Garcia PCP Allergies, Adverse Reactions, Alerts No Data in Section Problem List Concept Problem Description Status Start Date Created Date Resolv ed Date Snomed Code F31.9 Bipolar I Disorder, Current or most rece nt episode depressed, Unspecified Active 02/23/2021 F12.10 Cannabis Use Disorder, Mild Active 02/23/2021 Medications Rx Norm Medication Route Route Concept Start Date Stop Date Dosage Ankit quency Duration Formula Strength Dosage Form Dosage Form Code Dosage Description Medication Id Account Npid Author First Name Author Last Name Taxonomy Code Taxonomy Desc Phone Number [phone] mirtazapine by mouth [id number] 02/18/2021 at bedtime 15 mg ta blet 85143 [id number] [phone] Heidi Rodriguez [id number] Nurse Practitioner [phone] Klonopin by mouth [id number] 02/18/2021 03/20/2021 as directed 30 0.5 mg tablet as needed 50120 [id number] [id number] Heidi Rodriguez [id number] Nurse Practitioner [phone] venlafaxine by mouth [id number] 02/18/2021 03/20/2021 every morning 30 75 mg capsule,extended release 24hr 90186 [id number] Lew Rodriguez [id number] Nurse Practitioner [phone] fluoxetine by mouth [id number] 02/20/2021 03/20/2021 every morning 30 10 mg capsule 21762 102339 [id number] Heidi Rodriguez [id number] N angelica Practitioner [phone] olanzapine by mouth [id number] 02/18/2021 03/20/2021 at bedtime 30 2.5 mg tablet 41098 107716 [id number] Heidi Rodriguez [id number] Nurse Jayden parisi [phone] Social History Social History Element Description Concept Effective Date Smoking Status Unknown if ever smoked [id number] Immunizations No Data in Section Vital Signs No Data in Section Procedures Date Concept Id Description Targeted Site Concept Targeted Site Concept Type 02/20/2021 38715 Psychiatric Diagnostic Evaluation (Non-Medical) CPT Patient has no history of implantable de vices Encounters Encounter Start Date End Date Encounter Type Description Diagnosis Di agnosis Desc Location Author First Name Author Last Name Npid Taxonomy Cod e Taxonomy Desc Phone Number Location Addr1 Location Addr2 Location [facility] Location Sta te Location Zip [id number] 02/20/2021 02/20/2021 05982 Psychiatric Esthela gnostic Evaluation (Non-Medical) F31.9 Bipolar disorder, unspecified [facility] [phone] [id number] Weatherization Field Technician [phone] [address] [phone] Plan of Treatment No Data in Section Lab Results No Data in Section Instructions No Data in Section Insurance Providers Insurance Id Policy Effective Date Policy Thru Date Company N nathalie [id number] [facility]
--- OUTSIDE RECORDS SUMMARY | 2021-05-11 07:10 | CCD | Continuity of Care Document ---
Author Author Emily SALCIDO [facility] Organization Unknown Address [address] [address] Phone [phone] Problems Active Problems Provider Date Migraine Sofia [...] a day as needed for anxiety (Istop: [id number]) 60tabs Fantasma Dumont D.O., FAAFP 01/05/2021 Rizatriptan Benzoate 10mg Tablets Dispers take one tablet by mouth every day at the onset of headache may repeat in 2 hours as directed 12tabs Fantasma Dumont D.O., FAA 0 03/13/2020 Topamax 50mg Tablets take one tablet by mouth bid. 60tabs [facility] 02/2019 Metformin HCL 500mg Tablets take one tablet by mouth twice a day 180tabs Nohemy Hillman, [facility] 02/22/2018 Epipen 2-Eder 0.3mg/0 .3ML Solution Auto-Inject inject as directed 2units Fantasma Dumont D.O., [facility] 10/09/2015 Ventolin HFA 108(90Base) mcg/Act A erosol 2 puffs every 4-6 hours as needed 1units [facility] D[facility]O., [facility] 02/04/2014 Jencycla 0.35mg Tablets 1 po daily 28tabs Fantasma Dumont D.O., [facility] Venlafaxine HCL ER 150mg Tablets E R 24HR 1 by mouth every day Unknown Fluoxetine HCL 20mg Capsules 1 by mouth every day Unknown History Medications OLANZapine 2.5mg Tablets one by mouth every night at bedtime Everton Salcido, [facility] - 02/12/2021 Fluoxetine HCL 20mg Capsules 1 by mouth every day 90caps Fantasma Dumont D.O., [facility] - 02/12/2021 Fluoxetine HCL 10mg Capsules 1 by mouth every day 90caps Lilo Hillman.Dionne., [facility] - 02/12/2021 Olanzapine 5mg Tablets one by mouth every night at bedtime 30tabs Fantasma Dumont D.O., [facility] - 02/12/2021 Medications Administered in Office Medication SIG Qnty Indications Ordering Provider Date Injection (SC)/(Im) Injection Jeny Hernandez FNP-BC 02/03/2015 Immunizations CPT Code Status Date Vaccine Lot # [id number] Given 02/03/2015 Tdap Tetanus,Dip htheria Toxoids/Acellular Pertussis 7Yrs Or Older [id number] Given 02/03/2015 PPD Tuberculosis Intradermal Vital Signs Date Vital Result Comment 02/12/2021 10:48am BP Systolic 100 mmHg BP Diastolic 78 mmHg Body Temperature 97.5 F Heart Rate 77 /min Respiratory Rate 16 /min Height 63 inches 5'3" Weight 138.00 lb [place] Body Weight 115 lb BMI (Body Mass Index) 24.4 kg/m2 O2 % BldC Oximetry 98 % 01/05/2021 2:50pm BP Systolic 110 mmHg BP Diastolic 80 mmHg Body Temperature 97.5 F Heart Rate 85 /min Respiratory Rate 16 /min Height 63 inches 5'3" Weight 138.00 lb [place] Body Weight 115 lb BMI (Body Mass Index) 24.4 kg/m2 O2 % BldC Oximetry 97 % Results Test Acquired Date Facility Test Result H/L Range Note Influenxa A/B RSV Covid Amp 02/03/2021 [facility] (Interface) [phone] Influenza A Amplification NEGATIVE Normal Negati ve 1 Influenza B Amplification NEGATIVE Normal Negative 2 RSV Amplification NEGATIVE Normal Negative 3 Sars Covid-19 Amplification NEGATIVE Normal Negative 4 Complete Blood Count 02/02/2021 [facility] ( Interface) [phone] White Blood Count 7.1 10 Normal 4.0-10.0 [...] 0-0 Drug Eval Toxicology ED Only 02/02/2021 [facility] (Interface) [phone] Amphetamines Level Urine NEGATIVE Normal Negativ e Barbiturates Urine NEGATIVE Normal Negative Benzodiazepines Urine NEGATIVE Normal Negative Cannabinoids Urine POSITIVE High Negative Cocaine Metabolite Urine NEGATIVE Normal Negative Methadone Urine NEGATIVE Normal Negative Opiates Urine NEGATIVE Normal Negative Phencyclidine Urine NEGATIVE Normal Negative 5 Liver Profile 02/02/2021 [facility] [phone] Ast/Sgot 9 U/L Normal 7-37 Alt/SGPT 15 U/L Normal 12-78 Alkaline Phosphatase 66 U/L Normal 45-117 Bilirubin,Total 0.3 mg/dL Normal 0.2-1.0 Bilirubin,Direct < 0.1 mg/dL Normal 0.0-0.2 Total Protein 7.9 GM/DL Normal 6.4-8.2 Albumin 4.2 GM/DL Normal 3.2-5.2 Albumin/Globulin Ratio 1.1 Low 1.2-2.2 Basic Metabolic Profile 02/02/2021 [facility] (Interface) [phone] Glucose, Fasting 98 mg/dL Normal 70-100 Blood [...] mg/dL Normal 8.5-10.1 Laboratory test finding 02/02/2021 [facility] (Interface) [phone] Ethyl Alcohol (Ethanol) < 0.003 % Normal [...] pathogens. DISCLAIMER: Testing was performed using the [employer] SARS-CoV-2 test. This test was developed and its performance characteristics determined by [employer]. 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 Procedures Date Code Description Status 01/05/2021 27316 Office/Outpatient Established Mo d MDM 30-39 Min Completed Medical Devices Description No Information Available Encounters Type Date Location Provider Dx Diagnosis Office Visit 01/05/2021 2:40p [place] [facility] Everton Salcido, [place] Car[place] J45.909 Unspecified asthma, uncomplicated G43.009 Migraine w/o aura, not intra ctable, w/o status migrainosus G47.00 Insomnia, unspecified Assessments Date Code Description Provider 02/12/2021 G47.00 Insomnia, unspecified Yuridia Salcido, RPA 02/12/2021 F41.9 Anxiety disorder, unspecified Everton Martin, RPA 02/12/2021 F31.9 Bipolar disorder, unspecified Everton Martin, RPA 01/05/2021 J45.909 Unspecified asthma, uncomplicate d Everton Salcido, RPA 01/05/2021 G43.009 Migraine without aur a, not intractable, without status migrainosus Everton Salcido, RPA 01/05/2021 G47.00 Insomnia, unspecified Yuridia Salcido, HANDY Plan of Treatment Future Appointment(s):* 02/27/2021 2:00 pm - Jeny Hernandez FNP-BC at [facility] * 04/10/2021 11:00 am - Everton Salcido RPA at [facility] Functional Status Description No Information Available Mental Status Description No Information Available Referrals Refer to Reason for Referral Status Appt Date [facility] Anxiety, depression, ea ting disorder. Sent [address] [place] [phone]
--- OUTSIDE RECORDS SUMMARY | 2021-05-11 07:10 | CCD | Continuity of Care Document ---
Author Author Emily SALCIDO [facility] Organization Unknown Address [address] [address] Phone [phone] Problems Active Problems Provider Date Migraine Sofia [...] a day as needed for anxiety (Istop: [id number]) 60tabs Fantasma Dumont D.O., FAAFP 01/05/2021 Rizatriptan Benzoate 10mg Tablets Dispers take one tablet by mouth every day at the onset of headache may repeat in 2 hours as directed 12tabs Fantasma Dumont D.O., FAA 0 03/13/2020 Topamax 50mg Tablets take one tablet by mouth bid. 60tabs [facility] D.O., [facility] 02/2019 Metformin HCL 500mg Tablets take one tablet by mouth twice a day 180tabs Nohemy Hillman, [facility] 02/22/2018 Epipen 2-Eder 0.3mg/0 .3ML Solution Auto-Inject inject as directed 2units Fantasma Dumont D.O., [facility] 10/09/2015 Ventolin HFA 108(90Base) mcg/Act A erosol 2 puffs every 4-6 hours as needed 1units Fantasma Dumont D.O., [facility] 02/04/2014 Jencycla 0.35mg Tablets 1 po daily 28tabs Fantasma Dumont D.O., [facility] Venlafaxine HCL ER 150mg Tablets E R 24HR 1 by mouth every day Unknown Fluoxetine HCL 20mg Capsules 1 by mouth every day Unknown History Medications OLANZapine 2.5mg Tablets one by mouth every night at bedtime Everton Salcido, [facility] - 02/12/2021 Fluoxetine HCL 20mg Capsules 1 by mouth every day 90caps Fantasma Dumont D.O., [facility] - 02/12/2021 Fluoxetine HCL 10mg Capsules 1 by mouth every day 90caps Lilo Hillman.Dionne., [facility] - 02/12/2021 Olanzapine 5mg Tablets one by mouth every night at bedtime 30tabs Fantasma Dumont D.O., [facility] - 02/12/2021 Medications Administered in Office Medication SIG Qnty Indications Ordering Provider Date Injection (SC)/(Im) Injection Jeny Hernandez FNP-BC 02/03/2015 Immunizations CPT Code Status Date Vaccine Lot # [id number] Given 02/03/2015 Tdap Tetanus,Dip htheria Toxoids/Acellular Pertussis 7Yrs Or Older 92483 Given 02/03/2015 PPD Tuberculosis Intradermal Vital Signs Date Vital Result Comment 02/12/2021 10:48am BP Systolic 100 mmHg BP Diastolic 78 mmHg Body Temperature 97.5 F Heart Rate 77 /min Respiratory Rate 16 /min Height 63 inches 5'3" Weight 138.00 lb [place] Body Weight 115 lb BMI (Body Mass Index) 24.4 kg/m2 O2 % BldC Oximetry 98 % 01/05/2021 2:50pm BP Systolic 110 mmHg BP Diastolic 80 mmHg Body Temperature 97.5 F Heart Rate 85 /min Respiratory Rate 16 /min Height 63 inches 5'3" Weight 138.00 lb [place] Body Weight 115 lb BMI (Body Mass Index) 24.4 kg/m2 O2 % BldC Oximetry 97 % Results Test Acquired Date Facility Test Result H/L Range Note Influenxa A/B RSV Covid Amp 02/03/2021 [facility] (Interface) [phone] Influenza A Amplification NEGATIVE Normal Negati ve 1 Influenza B Amplification NEGATIVE Normal Negative 2 RSV Amplification NEGATIVE Normal Negative 3 Sars Covid-19 Amplification NEGATIVE Normal Negative 4 Complete Blood Count 02/02/2021 [facility] ( Interface) [phone] White Blood Count 7.1 10 Normal 4.0-10.0 [...] Drug Eval Toxicology ED Only 02/02/2021 [facility] (Interface) [phone] Amphetamines Level Urine NEGATIVE Normal Negativ e Barbiturates Urine NEGATIVE Normal Negative Benzodiazepines Urine NEGATIVE Normal Negative Cannabinoids Urine POSITIVE High Negative Cocaine Metabolite Urine NEGATIVE Normal Negative Methadone Urine NEGATIVE Normal Negative Opiates Urine NEGATIVE Normal Negative Phencyclidine Urine NEGATIVE Normal Negative 5 Liver Profile 02/02/2021 [facility] [phone] Ast/Sgot 9 U/L Normal 7-37 Alt/SGPT 15 U/L Normal 12-78 Alkaline Phosphatase 66 U/L Normal 45-117 Bilirubin,Total 0.3 mg/dL Normal 0.2-1.0 Bilirubin,Direct < 0.1 mg/dL Normal 0.0-0.2 Total Protein 7.9 GM/DL Normal 6.4-8.2 Albumin 4.2 GM/DL Normal 3.2-5.2 Albumin/Globulin Ratio 1.1 Low 1.2-2.2 Basic Metabolic Profile 02/02/2021 [facility] (Interface) [phone] Glucose, Fasting 98 mg/dL Normal 70-100 Blood [...] mg/dL Normal 8.5-10.1 Laboratory test finding 02/02/2021 [facility] (Interface) [phone] Ethyl Alcohol (Ethanol) < 0.003 % Normal [...] pathogens. DISCLAIMER: Testing was performed using the [employer] SARS-CoV-2 test. This test was developed and its performance characteristics determined by [employer]. 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 Procedures Date Code Description Status 02/12/2021 09545 Office/Outpatient Established Lo w MDM 20-29 Min Completed 01/05/2021 29012 Office/Outpatient Established Mo d MDM 30-39 Min Completed Medical Devices Description No Information Available Encounters Type Date Location Provider Dx Diagnosis Office Visit 02/12/2021 11:00a [place] [facility] Everton Salcido, [place] A G47.00 Insomnia, unspecified F41.9 Anxiety disorder, unspecifie d F31.9 Bipolar disorder, unspecifie d Office Visit 01/05/2021 2:40p [place] [facility] Everton Salcido, A J45.909 Unspecified asthma, uncomplicated G43.009 Migraine [...] Salcido, RPA Plan of Treatment Future Appointment(s):* 02/27/2021 2:00 pm - Jeny Hernandez FNP-SEGUNDO at [facility] * 04/10/2021 11:00 am - Everton Salcido, HANDY at [facility] Functional Status Description No Information Available Mental Status Description No Information Available Referrals Refer to Dr Reason for Referral Status Appt Date [facility] Anxiety, depression, ea ting disorder. Sent [address] [place] [phone]
[2021-05-11] MEDS ORDERED: ZOLP5TAB (07:20)
[2021-05-11] MEDS ORDERED: VENL75CA2 PO (07:20)
[2021-05-11] MEDS ORDERED: METO1TAB32 (07:20)
[2021-05-11] MEDS ORDERED: PANTOPRAZOLE 40MG VIAL (C9113 PER 1) IV ONE (08:10)
[2021-05-11] MEDS ORDERED: METOCLOPRAMIDE INJ 10MG/2ML VIAL (J2765 PER 1) IV ONE (08:10)
[2021-05-11] MEDS ORDERED: KETOROLAC 30 MG/ML 1ML VIAL IV ONE (08:10)
--- NOTE | 2021-05-11 08:42 | REP ---
INDICATION: positive Mera sign. COMPARISON: None. TECHNIQUE: Real-time sonographic evaluation of right upper quadrant performed. FINDINGS: The gallbladder demonstrates no evidence of intraluminal sludge or calculi, wall thickening or pericholecystic fluid. There is no intrahepatic or extrahepatic biliary dilatation, common bile duct measures mm in maximum diameter. The liver demonstrates homogeneous echotexture with no gross mass. The liver is mildly enlarged measuring 18.5 cm in length. The pancreas demonstrates homogeneous echotexture with no gross mass. The right kidney demonstrates no hydronephrosis, with a normal size of cm in length. No free fluid is seen. IMPRESSION: Mild hepatomegaly. Otherwise, negative right upper quadrant ultrasound. <Electronically signed by Lui Marin > 05/11/21 [id number]
[2021-05-11 08:56] LABS: BASO % 0.2 % (0.0-1.0); HEMATOCRIT 43.7 % (36.0-47.0); HEMOGLOBIN 14.1 g/dl (12.0-15.5); LYMPH # 1.8 10^3/uL (1.5-5.0); LYMPH % 17.5 % (24.0-44.0); MEAN CORPUSCULAR HEMOGLOBIN 29.2 pg (27.0-33.0); MEAN CORPUSCULAR HGB CONC 32.3 g/dl (32.0-36.5); MEAN CORPUSCULAR VOLUME 90.5 fl (80.0-96.0); MONO # 0.5 10^3/uL (0.0-0.8); MONO % 5.2 % (2.0-8.0); NEUTROPHILS # 7.7 10^3/uL (1.5-8.5); NEUTROPHILS % 76.7 % (36.0-66.0); PLATELET COUNT, AUTOMATED 257 10^3/uL (150-450); RED BLOOD COUNT 4.83 10^6/uL (4.00-5.40)
--- OUTSIDE RECORDS SUMMARY | 2021-05-11 09:13 | CCD ---
Author Author [facility] Organization [facility] Address Unknown Phone Unavailable Care Team Providers Care Senior Research Analyst Name Role Phone JoseHeidi Unavailable Jeanie Pelaez Unavailable Vel Hernandez PUTTY MIXER AND APPLIER Unavailable Unavailable Vel Hernandez PUTTY MIXER AND APPLIER Unavailable Unavailable Rounds, M LUKE PUTTY MIXER AND APPLIER Unavailable Unavailable Rounds, M LUKE PUTTY MIXER AND APPLIER Unavailable Unavailable Rounds, M LUKE PUTTY MIXER AND APPLIER Unavailable Unavailable Rounds, M LUKE PUTTY MIXER AND APPLIER Unavailable Unavailable Rounds, M LUKE PUTTY MIXER AND APPLIER Unavailable Unavailable Rounds, M LUKE PUTTY MIXER AND APPLIER Unavailable Unavailable Rounds, M LUKE PUTTY MIXER AND APPLIER Unavailable Unavailable Rounds, M LUKE PUTTY MIXER AND APPLIER Unavailable Unavailable Rounds, M LUKE PUTTY MIXER AND APPLIER Unavailable Unavailable Rounds, M LUKE PUTTY MIXER AND APPLIER Unavailable Unavailable Rounds, M LUKE PUTTY MIXER AND APPLIER Unavailable Unavailable Rounds, M LUKE PUTTY MIXER AND APPLIER Unavailable Unavailable Rounds, M LUKE PUTTY MIXER AND APPLIER Unavailable Unavailable Rounds, M LUKE PUTTY MIXER AND APPLIER Unavailable Unavailable Rounds, M LUKE PUTTY MIXER AND APPLIER Unavailable Unavailable Rounds, M LUKE PUTTY MIXER AND APPLIER Unavailable Unavailable Rounds, M LUKE PUTTY MIXER AND APPLIER Unavailable Unavailable Rounds, M LUKE PUTTY MIXER AND APPLIER Unavailable Unavailable Rounds, M LUKE PUTTY MIXER AND APPLIER Unavailable Unavailable Rounds, M LUKE PUTTY MIXER AND APPLIER Unavailable Unavailable Rounds, M LUKE PUTTY MIXER AND APPLIER Unavailable Unavailable Rounds, M LUKE PUTTY MIXER AND APPLIER Unavailable Unavailable Rounds, M LUKE PUTTY MIXER AND APPLIER Unavailable Unavailable Rounds, M LUKE PUTTY MIXER AND APPLIER Unavailable Unavailable Rounds, M LUKE PUTTY MIXER AND APPLIER Unavailable Unavailable Rounds, M LUKE PUTTY MIXER AND APPLIER Unavailable Unavailable Rounds, M LUKE PUTTY MIXER AND APPLIER Unavailable Unavailable Rounds, M LUKE PUTTY MIXER AND APPLIER Unavailable Unavailable Rounds, M LUKE PUTTY MIXER AND APPLIER Unavailable Unavailable Rounds, M LUKE PUTTY MIXER AND APPLIER Unavailable Unavailable Rounds, M LUKE PUTTY MIXER AND APPLIER Unavailable Unavailable Rounds, M LUKE PUTTY MIXER AND APPLIER Unavailable Unavailable Rounds, M LUKE PUTTY MIXER AND APPLIER Unavailable Unavailable Rounds, M LUKE PUTTY MIXER AND APPLIER Unavailable Unavailable Rounds, M LUKE PUTTY MIXER AND APPLIER Unavailable Unavailable Rounds, M LUKE PUTTY MIXER AND APPLIER Unavailable Unavailable Rounds, M LUKE PUTTY MIXER AND APPLIER Unavailable Unavailable Rounds, M LUKE PUTTY MIXER AND APPLIER Unavailable Unavailable Rounds, M LUKE PUTTY MIXER AND APPLIER Unavailable Unavailable Rounds, M LUKE PUTTY MIXER AND APPLIER Unavailable Unavailable Rounds, M LUKE PUTTY MIXER AND APPLIER Unavailable Unavailable Rounds, M LUKE PUTTY MIXER AND APPLIER Unavailable Unavailable Rounds, M LUKE PUTTY MIXER AND APPLIER Unavailable Unavailable Rounds, M LUKE PUTTY MIXER AND APPLIER Unavailable Unavailable Rounds, M LUKE PUTTY MIXER AND APPLIER Unavailable Unavailable Rounds, M LUKE PUTTY MIXER AND APPLIER Unavailable Unavailable Rounds, M LUKE PUTTY MIXER AND APPLIER Unavailable Unavailable Rounds, M LUKE PUTTY MIXER AND APPLIER Unavailable Unavailable Rounds, M LUKE PUTTY MIXER AND APPLIER Unavailable Unavailable Rounds, M LUKE PUTTY MIXER AND APPLIER Unavailable Unavailable Rounds, M LUKE PUTTY MIXER AND APPLIER Unavailable Unavailable Rounds, M LUKE PUTTY MIXER AND APPLIER Unavailable Unavailable Rounds, M LUKE PUTTY MIXER AND APPLIER Unavailable Unavailable Rounds, M LUKE PUTTY MIXER AND APPLIER Unavailable Unavailable Rounds, M LUKE PUTTY MIXER AND APPLIER Unavailable Unavailable Rounds, M LUKE PUTTY MIXER AND APPLIER Unavailable Unavailable Rounds, M LUKE PUTTY MIXER AND APPLIER Unavailable Unavailable Rounds, M LUKE PUTTY MIXER AND APPLIER Unavailable Unavailable Rounds, M LUKE PUTTY MIXER AND APPLIER Unavailable Unavailable Rounds, M LUKE PUTTY MIXER AND APPLIER Unavailable Unavailable Rounds, M LUKE PUTTY MIXER AND APPLIER Unavailable Unavailable MICHAEL, H LILY PUTTY MIXER AND APPLIER Unavailable Unavailable MICHAEL, H LILY PUTTY MIXER AND APPLIER Unavailable Unavailable MICHAEL, H LILY PUTTY MIXER AND APPLIER Unavailable Unavailable MICHAEL, H LILY PUTTY MIXER AND APPLIER Unavailable Unavailable MICHAEL, H LILY PUTTY MIXER AND APPLIER Unavailable Unavailable MICHAEL, H LILY PUTTY MIXER AND APPLIER Unavailable Unavailable MICHAEL, H LILY PUTTY MIXER AND APPLIER Unavailable Unavailable MICHAEL, H LILY PUTTY MIXER AND APPLIER Unavailable Unavailable MICHAEL, H LILY PUTTY MIXER AND APPLIER Unavailable Unavailable Omari, D Everton PA Unavailable [...] is protected by Article 27-F of the [facility] Public Health law. If you continue you may have access to information: Regarding HIV / AIDS; Provided by facilities licensed or operated by the [facility] Office of Mental Health; or Provided by the [facility] Office for People With Developmental Disabilities. If such information is present, then the following [facility] mandated warning applies: This information has [...] law may result in a fine or detention sentence or both. A general authorization for the release of medical or other information is NOT sufficient authorization for further disc losure. Allergies and Adverse Reactions Type Description Substance Reaction Status Data Source(s ) Propensity to adverse reactions to substance doxycycline Doxycycline Calcium 10 MG/ML Oral Suspension Hives Moderate Active [facility] ([facility]) Propensity to adverse reactions to substance bee venom prote in (honey bee) honey bee venom protein 0.1 MG/ML Injectable Solution Anaphylaxis Life threatening sev Active [facility] ([facility]) Propensity to adverse reactions to substance doxycycline Doxycycline Calcium 10 MG/ML Oral Suspension Hives Moderate Active [facility] ([facility]) Propensity to adverse reactions to substance bee venom prote in (honey bee) honey bee venom protein 0.1 MG/ML Injectable Solution Anaphylaxis Life threatening sev Active [facility] ([facility]) Encounters Encounter Providers Location Date Indications Data Source(s ) Outpatient Attender: LILY DODGE NP [facility] l 05/04/2021 04:00:00 AM EDT - 05/04/2021 04:00:00 AM EDT [facility] ([facility]) Attender: LILY DODGE NP 05/04/2021 12:00:00 AM EDT [facility] ([facility]) Outpatient Attender: Everton GALINDO [facility] 02/2021 03:30:00 PM EDT [facility] ([facility] Outpatient Attender: Everton GALINDO [facility] 11:00:00 AM EDT [facility] ([facility] Outpatient Attender: LILY DODGE NP [facility] Andrea archibald 03/02/2021 03:30:00 AM EDT - 03/02/2021 03:30:00 AM EDT [facility] ([facility]) Brief Individual Psychotherapy - 30 min Attender: Heidi cueto [facility] 03/02/2021 02:45:00 AM EDT - 03/02/2021 02:45:00 AM EDT [facility] ([facility]) Health Monitoring - 30 Min Attender: Jeanie Pelaez [facility] 03/02/2021 02:15:00 AM EDT - 03/02/2021 02:15:00 AM EDT [facility] ([facility]) Attender: Heidi Garcia 03/02/2021 12:00:00 AM EDT [facility] ([facility]) Attender: LILY DODGE NP 03/02/2021 12:00:00 AM EDT [facility] ([facility]) Attender: Jeanie Pelaez 03/02/2021 12:00:00 AM EDT [facility] ([facility]) Outpatient Attender: LUKE Hernandez NP [facility] 02/27/2021 0 2:00:00 PM EDT [facility] ([facility] Psychiatric Diagnostic Evaluation (Non-Medical) Attender: Linda Garcia [facility] 02/20/2021 01:00:00 AM EDT - 02/20/2021 01:00:00 AM EDT [facility] ([facility]) Attender: Heidi Garcia 02/20/2021 12:00:00 AM EDT [facility] ([facility]) Psychiatric Diagnostic Evaluation with Medical Service s Attender: LILY DODGE NP [facility] 02/18/2021 02:00:00 AM EDT - 02/18/2021 02:00:00 AM EDT [facility] ([facility]) Attender: LILY DODGE NP 02/18/2021 12:00:00 AM EDT [facility] ([facility]) Outpatient Attender: Everton GALINDO [facility] 11:00:00 AM EDT [facility] ([facility] Extended Individual Psychotherapy - 45 min Attender: Lyric Garcia [facility] 02/09/2021 02:00:00 AM EDT - 02/09/2021 02:00:00 AM EDT [facility] ([facility]) Attender: Heidi Garcia 02/09/2021 12:00:00 AM EDT [facility] ([facility]) Brief Individual Psychotherapy - 30 min [facility]30[facility] 10:30:00 AM EDT - 01/30/2021 10:30:00 AM EDT [facility] ([facility]) Attender: Heidi Garcia 01/30/2021 12:00:00 AM EDT [facility] ([facility]) Outpatient Attender: Everton GALINDO [facility] 02:40:00 PM EDT [facility] ([facility] [address] [place] [phone] 03/25/2020 12:00:00 AM EDT eCW1 ([facility]) Outpatient Attender: Everton GALINDO [facility] 04:00:00 PM EDT [facility] ([facility] Functional Status Immunizations Vaccine Date Status Description Data Source(s) COVID-19 VACCINE Pfizer 04/17/2021 12:00:00 AM EDT completed NYSIIS Vaccine Series Complete: YESThis Data wa s Submitted to [facility] Via [employer]. New in 2012. IIV4 04/10/2021 11:40:00 AM EDT completed [facility] ([facility] COVID-19 VACCINE Pfizer 03/27/2021 12:00:00 AM EDT completed NYSIIS Vaccine Series Complete: NOThis Data was Submitted to [facility] Via [employer]. Medications Medication Brand Name Start Date Product Form Dose Route Admi nistrative Instructions Pharmacy Instructions Status Indications Reaction Description Data Source(s) Zolpidem tartrate 5 MG Oral Tablet [Ambien] Ambien 05/05/2021 12:00:00 AM EDT 5 mg by mouth completed <td ID="Me dicationRxNorm_4">948793</td><td ID="MedicationMedication_4">Ambien</td><td ID="MedicationRoute_4">by mouth</td><td ID="MedicationRouteConcept_4">D37602</td><td ID="MedicationStartDate_4">05/05/2021</td><td ID="MedicationStopDate_4">06/03/2021</td><td ID="MedicationDosageFrequency_4">as directed</td><td ID="MedicationDuration_4">30</td><td ID="MedicationFormulaStrength_4">5 mg</td><td ID="MedicationDosageForm_4">tablet</td><td ID="MedicationDosageFormCode_4"></td><td ID="MedicationDosageDescription_4"></td><td ID="MedicationMedicationId_4">[id number]</td><td ID="MedicationAccount_4">[id number]</td><td ID="MedicationNpid_4">[id number]</td><td ID="MedicationAuthorFirstName_4">Lily</td><td ID="MedicationAuthorLastName_4">Michael</td><td ID="MedicationTaxonomyCode_4">[id number]</td><td ID="MedicationTaxonomyDesc_4">Nurse Practitioner</td><td ID="MedicationPhoneNumber_4">[phone]</td> [facility] ([facility]) 24 HR venlafaxine 75 MG Extended Release Oral Capsule venlaf axine 05/04/2021 12:00:00 AM EDT 75 mg by mouth completed <td ID="MedicationRxNorm_5">107351</td><td ID="MedicationMedication_5">venlafaxine</td><td ID="MedicationRoute_5">by mouth</td><td ID="MedicationRouteConcept_5">Y06915</td><td ID="MedicationStartDate_5">05/04/2021</td><td ID="MedicationStopDate_5">08/02/2021</td><td ID="MedicationDosageFrequency_5">every morning</td><td ID="MedicationDuration_5">30</td><td ID="MedicationFormulaStrength_5">75 mg</td><td ID="MedicationDosageForm_5">capsule,extended release 24hr</td><td ID="MedicationDosageFormCode_5"></td><td ID="MedicationDosageDescription_5"></td><td ID="MedicationMedicationId_5">[id number]</td><td ID="MedicationAccount_5">[id number]</td><td ID="MedicationNpid_5">[id number]</td><td ID="MedicationAuthorFirstName_5">Lily</td><td ID="MedicationAuthorLastName_5">Michael</td><td ID="MedicationTaxonomyCode_5">[id number]</td><td ID="MedicationTaxonomyDesc_5"> Nurse Practitioner</td><td ID="MedicationPhoneNumber_5">[phone]</td> [facility] ([facility]) olanzapine 2.5 MG Oral Tablet olanzapine 04/16/2021 12:00:00 AM EDT 2.5 mg by mouth completed <td ID="Medica tionRxNorm_2">425274</td><td ID="MedicationMedication_2">olanzapine</td><td ID="MedicationRoute_2">by mouth</td><td ID="MedicationRouteConcept_2">Q22412</td><td ID="MedicationStartDate_2">04/16/2021</td><td ID="MedicationStopDate_2">05/04/2021</td><td ID="MedicationDosageFrequency_2">at bedtime</td><td ID="MedicationDuration_2">21</td><td ID="MedicationFormulaStrength_2">2.5 mg</td><td ID="MedicationDosageForm_2">tablet</td><td ID="MedicationDosageFormCode_2"></td><td ID="MedicationDosageDescription_2"></td><td ID="MedicationMedicationId_2">[id number]</td><td ID="MedicationAccount_2">[id number]</td><td ID="MedicationNpid_2">[id number]</td><td ID="MedicationAuthorFirstName_2">Lily</td><td ID="MedicationAuthorLastName_2">Michael</td><td ID="MedicationTaxonomyCode_2">[id number]</td><td ID="MedicationTaxonomyDesc_2">Nurse Practitioner</td><td ID="MedicationPhoneNumber_2">[phone]</td> [facility] ([facility]) 24 HR venlafaxine 75 MG Extended Release Oral Capsule venlaf jan 04/16/2021 12:00:00 AM EDT 75 mg by mouth completed <td ID="MedicationRxNorm_3">542167</td><td ID="MedicationMedication_3">venlafaxine</td><td ID="MedicationRoute_3">by mouth</td><td ID="MedicationRouteConcept_3">Q38135</td><td ID="MedicationStartDate_3">04/16/2021</td><td ID="MedicationStopDate_3">05/04/2021</td><td ID="MedicationDosageFrequency_3">every morning</td><td ID="MedicationDuration_3">21</td><td ID="MedicationFormulaStrength_3">75 mg</td><td ID="MedicationDosageForm_3">capsule,extended release 24hr</td><td ID="MedicationDosageFormCode_3"></td><td ID="MedicationDosageDescription_3"></td><td ID="MedicationMedicationId_3">[id number]</td><td ID="MedicationAccount_3">[id number]</td><td ID="MedicationNpid_3">[id number]</td><td ID="MedicationAuthorFirstName_3">Lily</td><td ID="MedicationAuthorLastName_3">Michael</td><td ID="MedicationTaxonomyCode_3">[id number]</td><td ID="MedicationTaxonomyDesc_3"> Nurse Practitioner</td><td ID="MedicationPhoneNumber_3">[phone]</td> [facility] ([facility]) Mirtazapine 15 MG Oral Tablet mirtazapine 04/16/2021 12:00:00 AM EDT 15 mg by mouth completed <td ID="Medica tionRxNorm_1">269059</td><td ID="MedicationMedication_1">mirtazapine</td><td ID="MedicationRoute_1">by mouth</td><td ID="MedicationRouteConcept_1">X72860</td><td ID="MedicationStartDate_1">04/16/2021</td><td ID="MedicationStopDate_1">05/04/2021</td><td ID="MedicationDosageFrequency_1">at bedtime</td><td ID="MedicationDuration_1">21</td><td ID="MedicationFormulaStrength_1">15 mg</td><td ID="MedicationDosageForm_1">tablet</td><td ID="MedicationDosageFormCode_1"></td><td ID="MedicationDosageDescription_1"></td><td ID="MedicationMedicationId_1">[id number]</td><td ID="MedicationAccount_1">[id number]</td><td ID="MedicationNpid_1">[id number]</td><td ID="MedicationAuthorFirstName_1">Lily</td><td ID="MedicationAuthorLastName_1">Michael</td><td ID="MedicationTaxonomyCode_1">[id number]</td><td ID="MedicationTaxonomyDesc_1">Nurse Practitioner</td><td ID="MedicationPhoneNumber_1">[phone]</td> [facility] ([facility]) 24 HR metoprolol succinate 25 MG Extended Release Oral Tablet [Toprol] Toprol XL 04/10/2021 12:00:00 AM EDT ORAL active [facility] ([facility] Fluoxetine 10 MG Oral Capsule fluoxetine 02/20/2021 12:00:00 AM EDT 10 mg by mouth completed <td ID="Medica tionRxNorm_4">395030</td><td ID="MedicationMedication_4">fluoxetine</td><td ID="MedicationRoute_4">by mouth</td><td ID="MedicationRouteConcept_4">E69214</td><td ID="MedicationStartDate_4">02/20/2021</td><td ID="MedicationStopDate_4">03/20/2021</td><td ID="MedicationDosageFrequency_4">every morning</td><td ID="MedicationDuration_4">30</td><td ID="MedicationFormulaStrength_4">10 mg</td><td ID="MedicationDosageForm_4">capsule</td><td ID="MedicationDosageFormCode_4"></td><td ID="MedicationDosageDescription_4"> </td><td ID="MedicationMedicationId_4">[id number]</td><td ID="MedicationAccount_4">[id number]</td><td ID="MedicationNpid_4">[id number]</td><td ID="MedicationAuthorFirstName_4">Lily</td><td ID="MedicationAuthorLastName_4">Michael</td><td ID="MedicationTaxonomyCode_4">[id number]</td><td ID="MedicationTaxonomyDesc_4">Nurse Practitioner</td><td ID="MedicationPhoneNumber_4">[phone]</td> [facility] ([facility]) Fluoxetine 10 MG Oral Capsule fluoxetine 02/20/2021 12:00:00 AM EDT 10 mg by mouth completed <td ID="Medica tionRxNorm_2">427333</td><td ID="MedicationMedication_2">fluoxetine</td><td ID="MedicationRoute_2">by mouth</td><td ID="MedicationRouteConcept_2">B19253</td><td ID="MedicationStartDate_2">02/20/2021</td><td ID="MedicationStopDate_2">03/02/2021</td><td ID="MedicationDosageFrequency_2">every morning</td><td ID="MedicationDuration_2">30</td><td ID="MedicationFormulaStrength_2">10 mg</td><td ID="MedicationDosageForm_2">capsule</td><td ID="MedicationDosageFormCode_2"></td><td ID="MedicationDosageDescription_2"> </td><td ID="MedicationMedicationId_2">[id number]</td><td ID="MedicationAccount_2">[id number]</td><td ID="MedicationNpid_2">[id number]</td><td ID="MedicationAuthorFirstName_2">Lily</td><td ID="MedicationAuthorLastName_2">Michael</td><td ID="MedicationTaxonomyCode_2">[id number]</td><td ID="MedicationTaxonomyDesc_2">Nurse Practitioner</td><td ID="MedicationPhoneNumber_2">[phone]</td> [facility] ([facility]) Clonazepam 0.5 MG Oral Tablet [Klonopin] Klonopin 02/18/2021 12 :00:00 AM EDT 0.5 mg by mouth completed <td ID="Me dicationRxNorm_2">307848</td><td ID="MedicationMedication_2">Klonopin</td><td ID="MedicationRoute_2">by mouth</td><td ID="MedicationRouteConcept_2">C36009</td><td ID="MedicationStartDate_2">02/18/2021</td><td ID="MedicationStopDate_2">03/20/2021</td><td ID="MedicationDosageFrequency_2">as directed</td><td ID="MedicationDuration_2">30</td><td ID="MedicationFormulaStrength_2">0.5 mg</td><td ID="MedicationDosageForm_2">tablet</td><td ID="MedicationDosageFormCode_2"></td><td ID="MedicationDosageDescription_2">as needed</td><td ID="MedicationMedicationId_2">[id number]</td><td ID="MedicationAccount_2">[id number]</td><td ID="MedicationNpid_2">[id number]</td><td ID="MedicationAuthorFirstName_2">Lily</td><td ID="MedicationAuthorLastName_2">Michael</td><td ID="MedicationTaxonomyCode_2">[id number]</td><td ID="MedicationTaxonomyDesc_2">Nurse Practitioner</td><td ID="MedicationPhoneNumber_2">[phone]</td> [facility] ([facility]) Clonazepam 0.5 MG Oral Tablet [Klonopin] Klonopin 02/18/2021 12 :00:00 AM EDT 0.5 mg by mouth completed <td ID="Me dicationRxNorm_3">421934</td><td ID="MedicationMedication_3">Klonopin</td><td ID="MedicationRoute_3">by mouth</td><td ID="MedicationRouteConcept_3">D02041</td><td ID="MedicationStartDate_3">02/18/2021</td><td ID="MedicationStopDate_3">03/20/2021</td><td ID="MedicationDosageFrequency_3">as directed</td><td ID="MedicationDuration_3">30</td><td ID="MedicationFormulaStrength_3">0.5 mg</td><td ID="MedicationDosageForm_3">tablet</td><td ID="MedicationDosageFormCode_3"></td><td ID="MedicationDosageDescription_3">as needed</td><td ID="MedicationMedicationId_3">[id number]</td><td ID="MedicationAccount_3">[id number]</td><td ID="MedicationNpid_3">[id number]</td><td ID="MedicationAuthorFirstName_3">Lily</td><td ID="MedicationAuthorLastName_3">Michael</td><td ID="MedicationTaxonomyCode_3">[id number]</td><td ID="MedicationTaxonomyDesc_3">Nurse Practitioner</td><td ID="MedicationPhoneNumber_3">[phone]</td> [facility] ([facility]) olanzapine 2.5 MG Oral Tablet olanzapine 02/18/2021 12:00:00 AM EDT 2.5 mg by mouth completed <td ID="Medica tionRxNorm_5">374607</td><td ID="MedicationMedication_5">olanzapine</td><td ID="MedicationRoute_5">by mouth</td><td ID="MedicationRouteConcept_5">Y80474</td><td ID="MedicationStartDate_5">02/18/2021</td><td ID="MedicationStopDate_5">03/20/2021</td><td ID="MedicationDosageFrequency_5">at bedtime</td><td ID="MedicationDuration_5">30</td><td ID="MedicationFormulaStrength_5">2.5 mg</td><td ID="MedicationDosageForm_5">tablet</td><td ID="MedicationDosageFormCode_5"></td><td ID="MedicationDosageDescription_5"></td><td ID="MedicationMedicationId_5">[id number]</td><td ID="MedicationAccount_5">[id number]</td><td ID="MedicationNpid_5">[id number]</td><td ID="MedicationAuthorFirstName_5">Lily</td><td ID="MedicationAuthorLastName_5">Michael</td><td ID="MedicationTaxonomyCode_5">[id number]</td><td ID="MedicationTaxonomyDesc_5">Nurse Practitioner</td><td ID="MedicationPhoneNumber_5">[phone]</td> [facility] ([facility]) 24 HR venlafaxine 75 MG Extended Release Oral Capsule venlaf axine 02/18/2021 12:00:00 AM EDT 75 mg by mouth completed <td ID="MedicationRxNorm_4">840277</td><td ID="MedicationMedication_4">venlafaxine</td><td ID="MedicationRoute_4">by mouth</td><td ID="MedicationRouteConcept_4">F28124</td><td ID="MedicationStartDate_4">02/18/2021</td><td ID="MedicationStopDate_4">03/20/2021</td><td ID="MedicationDosageFrequency_4">every morning</td><td ID="MedicationDuration_4">30</td><td ID="MedicationFormulaStrength_4">75 mg</td><td ID="MedicationDosageForm_4">capsule,extended release 24hr</td><td ID="MedicationDosageFormCode_4"></td><td ID="MedicationDosageDescription_4"></td><td ID="MedicationMedicationId_4">[id number]</td><td ID="MedicationAccount_4">[id number]</td><td ID="MedicationNpid_4">[id number]</td><td ID="MedicationAuthorFirstName_4">Lily</td><td ID="MedicationAuthorLastName_4">Michael</td><td ID="MedicationTaxonomyCode_4">[id number]</td><td ID="MedicationTaxonomyDesc_4"> Nurse Practitioner</td><td ID="MedicationPhoneNumber_4">[phone]</td> [facility] ([facility]) olanzapine 2.5 MG Oral Tablet OLANZapine 02/12/2021 12:00:00 AM EDT ORAL completed [facility] ([facility] olanzapine 2.5 MG Oral Tablet Olanzapine 02/12/2021 12:00:00 AM EDT ORAL active [facility] ([facility] Fluoxetine 10 MG Oral Capsule Fluoxetine HCL 01/05/2021 12:00:00 AM E DT ORAL completed [facility] ([facility] Fluoxetine 20 MG Oral Capsule Fluoxetine HCL 01/05/2021 12:00:00 AM E DT ORAL completed [facility] ([facility] olanzapine 5 MG Oral Tablet Olanzapine 01/05/2021 12:00:00 AM EDT ORAL completed [facility] ([facility] Clonazepam 0.5 MG Oral Tablet Clonazepam 01/05/2021 12:00:00 AM EDT ORAL active [facility] ([facility] quetiapine 50 [...] 12:00:00 AM EDT ORAL active [facility] ([facility] 0.3 mg/0.3 mL 01/12/2020 12:00:00 AM EDT auto-injector 2 INJECT DIRECTED INJECT DIRECTED SOLD: 03/14/2020 [facility] rizatriptan 10 MG Oral Tablet Rizatriptan Benzoate 11/30/2019 12:00 :00 AM EDT completed [facility] ([facility] Insurance Providers Payer name Policy type / Coverage type Policy ID Covered democrat ID Covered democrat's relationship to card Policy Card Plan Information [facility] [id number] SP [id number] [id number] SP [id number] [id number] S [id number] [facility] [id number] SP [id number] [facility] [id number] ANSI-Not a Secondary Insurance [id number] [employer] () [id number] Commercial I nsurance [id number] BA [facility] [id number] 2 [id number] N REGIONAL CLAIMS WILVER -O/P [id number] 01 [id number] O BLUE [id number] SP [id number] MEDICAID [id number] SP [id number] O BLUE [id number] SP [id number] SELF PAY UNAVAILABLE SP UNAVAILA BLE P UNAVAILABLE UNAVAILA BLE Problems, Conditions, and Diagnoses Code Display Name Description Problem Type Effective Dates Data Source(s) F12.10 Cannabis abuse, uncomplicated Cannabis Use Disorder, M ild Condition 05/04/2021 12:00:00 AM EDT [facility] ([facility]) F31.9 Bipolar disorder, unspecified Bipolar I Disorder, Current or most recent episode depressed, Unspecified Condition 05/04/2021 12:00:00 AM EDT [facility] ([facility]) R00.0 Tachycardia Tachycardia Problem 04/10/2021 12:00:00 AM EDT [facility] ([facility] F31.9 Bipolar disorder, unspecified Bipolar I Disorder, Current or most recent episode depressed, Unspecified Condition 03/02/2021 12:00:00 AM EDT [facility] ([facility]) F12.10 Cannabis abuse, uncomplicated Cannabis Use Disorder, M ild Condition 03/02/2021 12:00:00 AM EDT [facility] ([facility]) F32.9 Major depressive disorder, single episod e, unspecified Unspecified depressive Disorder Condition 02/09/2021 12:00:00 AM EDT [facility] ([facility]) G43.009 Migraine without aura, not refractory Mi graine without aura, not refractory Problem 03/13/2020 12:00:00 AM EDT [facility] ([facility] Surgeries/Procedures Procedure Description Date Indications Data Source(s) [facility] [place] [facility] [place]med E/M Lvl 3--Est pt 05/04/2021 12:00:00 AM EDT - 05/04/2021 12:00:00 AM EDT [facility] ([facility]) [facility] [place] [facility] [place] Telemed E/M Lvl 3--Est pt 05/04/2021 12:00:00 AM E DT [facility] ([facility]) OFFICE OUTPATIENT VISIT 25 MINUTES 04/24/2021 12:00:00 AM EDT [facility] ([facility] Electrocardiogram Complete 04/10/2021 12:00:00 AM EDT [facility] ([facility] OFFICE OUTPATIENT VISIT 25 MINUTES 04/10/2021 12:00:00 AM EDT [facility] ([facility] Brief Individual Psychotherapy - 30 min 03/02/2021 12:00:00 AM EDT - 03/02/2021 12:00:00 AM EDT [facility] ([facility]) Brief Individual Psychotherapy - 30 min 03/02/2021 12: 00:00 AM EDT [facility] ([facility]) OFFICE OUTPATIENT VISIT 15 MINUTES 03/02 12:00:00 AM EDT - 03/02/2021 12:00:00 AM EDT [facility] ([facility]) OFFICE OUTPATIENT VISIT 15 MINUTES 03/02/2021 12:00:00 AM EDT [facility] ([facility]) PREVENT MED DEICER REPAIRER&/RISK FACTOR REDJ SPX 30 MIN 03/02/2021 12:00:00 AM EDT - 03/02/2021 12:00:00 AM EDT [facility] ([facility]) PREVENT MED DEICER REPAIRER&/RISK FACTOR REDJ SPX 30 MIN 03/02 12:00:00 AM EDT [facility] ([facility]) PERIODIC PREVENTIVE MED EST PATIENT 18-39 YRS 02/28/20 12:00:00 AM EDT [facility] ([facility] Psychiatric Diagnostic Evaluation (Non-Medical) 02/20/2021 12:00:00 AM EDT - 02/20/2021 12:00:00 AM EDT [facility] ([facility]) Psychiatric Diagnostic Evaluation (Non-Medical) 2020 12:00:00 AM EDT [facility] ([facility]) Psychiatric Diagnostic Evaluation with Medical Services 02/18/2021 12:00:00 AM EDT - 02/18/2021 12:00:00 AM EDT [facility] ([facility]) Psychiatric Diagnostic Evaluation with Medical Services 02/18/2021 12:00:00 AM EDT [facility] ([facility]) OFFICE OUTPATIENT VISIT 15 MINUTES 02/12/2021 12:00:00 AM EDT [facility] ([facility] Extended Individual Psychotherapy - 45 min 02/09/2021 12:00:00 AM EDT - 02/09/2021 12:00:00 AM EDT [facility] ([facility]) Extended Individual Psychotherapy - 45 min 12:00:00 AM EDT [facility] ([facility]) Brief Individual Psychotherapy - 30 min 01/30/2021 12:00:00 AM EDT - 01/30/2021 12:00:00 AM EDT [facility] ([facility]) Brief Individual Psychotherapy - 30 min 01/30/2021 12: 00:00 AM EDT [facility] ([facility]) OFFICE OUTPATIENT VISIT 25 MINUTES 01/05/2021 12:00:00 AM EDT [facility] ([facility] Results ID Date Data Source [id number] 02/27/2021 02:34:00 PM EDT [facility] ([facility] Name Value Range Interpretation Code Description Data Leidy rce(s) Supporting Document(s) Age Laboratory test result [facility] ([facility] Source.............Endocervix Dates / Re sults....LMP 11/05 No. of containers..01 ThinPrep Vial [id number] Pathology report final diagnosis Narrative Laboratory test result [facility] ([facility] Source.............Endocervix Dates / Re sults....LMP 11/05 No. of containers..01 ThinPrep Vial [id number] Statement of adequacy [Interpretation] o f Cervical or vaginal smear or scraping by Cyto stain Laboratory test result MEDE NT ([facility] Source.............Endocervix Dates / Re sults....LMP 11/05 No. of containers..01 ThinPrep Vial [id number] Laboratory test result MED[facility] ([facility] Source.............Endocervix Dates / Re sults....LMP 11/05 No. of containers..01 ThinPrep Vial [id number] Data Scientist who read Cyto stain of Cervical or vaginal smear or scraping Laboratory test result [facility] ([facility] Source.............Endocervix Dates / Re sults....LMP 11/05 No. of containers..01 ThinPrep Vial [id number] Microscopic observation [Identifier] in Unspecified sp ecimen by Other stain Laboratory test result [facility] ([facility] Source.............Endocervix Dates / Re sults....LMP 11/05 No. of containers..01 ThinPrep Vial [id number] Pathologist who read Cyto stain of Cervical or vaginal smear or scraping Laboratory test result [facility] ([facility] Source.............Endocervix Dates / Re sults....LMP 11/05 No. of containers..01 ThinPrep Vial [id number] Note Laboratory test result [facility] ([facility] Source.............Endocervix Dates / Re sults....LMP 11/05 No. of containers..01 ThinPrep Vial [id number] Human papilloma virus 16+18+31+33+35+39+ 45+51+52+56+58+59+66+68 DNA [Presence] in Cervix by Probe and signal amplification method Laboratory test result [facility] ([facility] Source.............Endocervix Dates / Re sults....LMP 11/05 No. of containers..01 ThinPrep Vial [id number] Cytology report of Cervical or vaginal smear or scrapi ng Cyto stain.thin prep Laboratory test result [facility] ([facility] Source.............Endocervix Dates / Re sults....LMP 11/05 No. of containers..01 ThinPrep Vial [id number] ID Date Data Source [id number] 02/03/2021 10:49:00 AM EDT [facility] ([facility] Name Value Range Interpretation Code Description Data Leidy rce(s) Supporting Document(s) Influenza A Amplification Laboratory test result Normal (applies to non- numeric results) [facility] ([facility] ) Negative results do not preclude influen za or RSV virus infection and should not be used as the sole basis for treatment or other patient management decisions. Influenza B Amplification Laboratory test result Normal (applies to non- numeric results) [facility] ([facility] ) Negative results do not preclude influen za or RSV virus infection and should not be used as the sole basis for treatment or other patient management decisions. RSV Amplification Laboratory test result Normal (applies to non-numeric results) [facility] ([facility] ) Negative results do not preclude influen za or RSV virus infection and should not be used as the sole basis for treatment or other patient management decisions. Laboratory test finding (navigational concept) Laboratory test r esult Normal (applies to non-numeric results) [facility] ([facility] A false negative result may [...] pathogens. DISCLAIMER: Testing was performed using the [employer] SARS-CoV-2 test. This test was developed and its performance characteristics determined by [employer]. This test has not been FDA cleared [...] or revoked sooner. ID Date Data Source [id number] 02/03/2021 10:49:00 AM EDT [facility] Name Value Range Interpretation Code Description Data Leidy rce(s) Supporting Document(s) SARS coronavirus 2 RNA [Presence] in Res piratory specimen by PATRICK with probe detection NEGATIVE [facility] This lab was ordered by [facility] a nd reported by [facility]. ID Date Data Source [id number] 02/02/2021 12:16:00 PM EDT MED[facility] (Famil y [...] r esult 10.0-30.0 Below low normal [facility] ([facility] ) Thyrotropin [Units/volume] in Serum or Plasma 0.622 uIU/ML 0. 358-3.740 Normal (applies to non-numeric results) [facility] ([facility] Choriogonadotropin.beta subunit ( test) [Pres ence] in Serum or Plasma Laboratory test result Normal (applies to non-numeric results) [facility] ([facility] ID Date Data Source [id number] 02/02/2021 12:16:00 PM EDT [facility] ([facility] Name Value Range Interpretation Code Description Data Leidy rce(s) Supporting Document(s) Blood Urea Nitrogen 13 mg/dL 7-18 Normal (applies to non-nume sharita results) [facility] ([facility] Glucose, Fasting 98 mg/dL 70-100 Normal (applies to non-numeric results) [facility] ([facility] Creatinine For GFR 0.74 mg/dL 0.55-1.30 Normal (applies to non -numeric results) [facility] ([facility] Glomerular Filtration Rate Laboratory test result Normal (applies to non- numeric results) [facility] ([facility] ) <content>Units are mL/min/1.73 m2</content>
<content></content>
<content>Chronic Kidney Disease Staging per NKF:</content>
<content></content>
<content>Stage I & II GFR >=60 Normal to Mildly Decreased</content>
<content>Stage III GFR 30- 59 Moderately Decreased</content>
<content>Stage IV GFR 15-29 Severely Decreased</content>
<content>Stage V GFR <15 Very Little GFR Left</content>
<content>ESRD GFR <15 on BOAT OPERATOR</content>
<content></content> Potassium Serum 4.1 meq/L 3.5-5.1 Normal (applies to non-numeric results) [facility] ([facility] Sodium Level 140 meq/L 136-145 Normal (applies to non-numeric res ults) [facility] ([facility] Chloride Level 109 meq/L 98-107 Above high normal [facility] ([facility] Carbon Dioxide Level 26 meq/L 21-32 Normal (applies to non-num paddy results) [facility] ([facility] Anion Gap 5 meq/L 8-16 Below low normal [facility] ( [facility] Calcium Level 10.0 mg/dL 8.5-10.1 Normal (applies to non-numeric re sults) [facility] ([facility] ID Date Data Source [id number] 02/02/2021 12:16:00 PM EDT [facility] ([facility] Name Value Range [...] Normal (applies to non-num paddy results) [facility] ([facility] Bilirubin,Direct Laboratory test result 0.0-0.2 Normal ( applies to non-numeric results) [facility] ([facility] ) Total Protein 7.9 GM/DL 6.4-8.2 Normal (applies to non-numeric re sults) [facility] ([facility] Albumin 4.2 GM/DL 3.2-5.2 Normal (applies to non-numeric resul ts) [facility] ([facility] Albumin/Globulin Ratio 1.1 1.2-2.2 Below low normal [facility] ([facility] ID Date Data Source [id number] 02/02/2021 12:16:00 PM EDT [facility] ([facility] Name Value Range Interpretation Code Description Data Leidy rce(s) Supporting Document(s) Amphetamines Level Urine Laboratory test result Normal (applies to non-numeric results) [facility] ([facility] ) Barbiturates Urine Laboratory test result Normal (applies to non-numeric results) [facility] ([facility] ) Benzodiazepines Urine Laboratory [...] Normal (applies t o non-numeric results) [facility] ([facility] Phencyclidine Urine Laboratory test result Jen l (applies to non-numeric results) [facility] ([facility] ) ALL [...] CALL THE LAB. ID Date Data Source [id number] 02/02/2021 12:16:00 PM EDT [facility] ([facility] Name Value Range Interpretation Code Description Data Leidy rce(s) Supporting Document(s) White Blood Count 7.1 10 4.0-10.0 Normal (applies to non-numeri c results) [facility] ([facility] Red Blood Count 4.68 10 4.00-5.40 Normal (applies to non-numeric results) [facility] ([facility] Hemoglobin 13.9 g/dL 12.0-15.5 Normal (applies to non-numeric resul ts) [facility] ([facility] Hematocrit 42.2 % 36.0-47.0 Normal (applies to non-numeric resul ts) [facility] ([facility] Mean Corpuscular Volume 90.2 fl 80.0-96.0 Normal ( applies to non-numeric results) [facility] ([facility] ) Mean Corpuscular Hemoglobin 29.7 pg 27.0-33.0 Norm al (applies to non-numeric results) [facility] ([facility] ) Mean Corpuscular HGB Conc 32.9 g/dL 32.0-36.5 Normal (applies to non-numeric results) [facility] ([facility] ) Red Cell Distribution Width 11.7 % 11.5-14.5 Norm al (applies to non-numeric results) MED[facility]SE MANUEL ([facility] ) Platelet Count, Automated 262 10 150-450 Normal (applies to non-numeric results) [facility] ([facility] ) Nucleated Red Blood Cell % 0.0 % 0-0 Normal (applies to n on-numeric results) [facility] ([facility] Procedure Social History Code Duration Value Status Description Data Source(s ) Smoking 05/04/2021 12:00:00 AM EDT Unknown if ever smoked comp leted Unknown if ever smoked [facility] ([facility]) Smoking 03/02/2021 12:00:00 AM EDT Unknown if ever smoked comp leted Unknown if ever smoked [facility] ([facility]) Smoking 02/20/2021 12:00:00 AM EDT Unknown if ever smoked comp leted Unknown if ever smoked [facility] ([facility]) Smoking 02/18/2021 12:00:00 AM EDT Unknown if ever smoked comp leted Unknown if ever smoked [facility] ([facility]) Smoking 02/09/2021 12:00:00 AM EDT Unknown if ever smoked comp leted Unknown if ever smoked [facility] ([facility]) Smoking 01/30/2021 12:00:00 AM EDT Unknown if ever smoked comp leted Unknown if ever smoked [facility] ([facility]) Vital Signs ID Date Data Source UNK Name Value Range Interpretation Code Description Data Source(s) Body height 63 [in_i] 63 [in_i] [facility] ([facility] 5'3" Diastolic blood pressure 76 mm[Hg] 76 mm[Hg] [facility] ([facility] Body weight 148.00 [lb_av] 148.00 [lb_av] MEDEN T ([facility] [place] body weight 115 [lb_av] 115 [lb_av] MEDEN T ([facility] Body mass index (BMI) [Ratio] 26.2 kg/m2 26.2 k g/m2 [facility] ([facility] Oxygen saturation in Arterial blood by Pulse oximetry 97 % 97 % [facility] ([facility] Systolic blood pressure 100 mm[Hg] 100 mm[Hg] M EDENT ([facility] Body temperature 97.8 [degF] 97.8 [degF] [facility] ([facility] Heart rate 97 /min 97 /min [facility] ([facility] Respiratory rate 16 /min 16 /min [facility] ( [facility] [place] body weight 115 [lb_av] 115 [lb_av] MEDEN T ([facility] Systolic blood pressure 108 mm[Hg] 108 mm[Hg] M EDENT ([facility] Diastolic blood pressure 80 mm[Hg] 80 mm[Hg] [facility] ([facility] Body temperature 98.0 [degF] 98.0 [degF] [facility] ([facility] Heart rate 130 /min 130 /min [facility] ([facility] Body height 63 [in_i] 63 [in_i] [facility] ([facility] 5'3" Body weight 146.00 [lb_av] 146.00 [lb_av] MEDEN T ([facility] Body mass index (BMI) [Ratio] 25.9 kg/m2 25.9 k g/m2 [facility] ([facility] Oxygen saturation in Arterial blood by Pulse oximetry 97 % 97 % [facility] ([facility] Respiratory rate 16 /min 16 /min [facility] ( [facility] Body height 62.00 in Normal (applies to non-numeric resu lts) 62.00 in [facility] ([facility]) Body weight Measured 142.00 lbs Normal (applies to n on-numeric results) 142.00 lbs [facility] ([facility]) Body mass index (BMI) [Ratio] 25.97 kg/m2 No rmal (applies to non-numeric results) 25.97 kg/m2 [facility] Systolic blood pressure 112 mm[Hg] Normal (applies t o non-numeric results) 112 mm[Hg] [facility] ([facility]) Diastolic blood pressure 72 mm[Hg] Normal (applies to non-numeric results) 72 mm[Hg] [facility] ([facility]) Body temperature 98.60 degF Normal (applies to non-n umeric results) 98.60 degF [facility] ([facility]) Body height --lying 102 min Normal (applies to non-nume sharita results) 102 min [facility] ([facility]) Body height 62.00 in Normal (applies to non-numeric resu lts) 62.00 in [facility] ([facility]) Body weight Measured 142.00 lbs Normal (applies to n on-numeric results) 142.00 lbs [facility] ([facility]) Body mass index (BMI) [Ratio] 25.97 kg/m2 No rmal (applies to non-numeric results) 25.97 kg/m2 [facility] ([facility]) Systolic blood pressure 112 mm[Hg] Normal (applies t o non-numeric results) 112 mm[Hg] [facility] ([facility]) Body height --lying 102 min Normal (applies to non-nume sharita results) 102 min [facility] ([facility]) Diastolic blood pressure 72 mm[Hg] Normal (applies to non-numeric results) 72 mm[Hg] [facility] ([facility]) Body temperature 98.60 degF Normal (applies to non-n umeric results) 98.60 degF [facility] ([facility]) Body temperature 97.8 [degF] 97.8 [degF] [facility] ([facility] Body mass index (BMI) [Ratio] 25.3 kg/m2 25.3 k g/m2 [facility] ([facility] Heart rate 107 /min 107 /min [facility] ([facility] Oxygen saturation in Arterial blood by Pulse oximetry 98 % 98 % [facility] ([facility] Body height 63 [in_i] 63 [in_i] [facility] 5'3" Respiratory rate 16 /min 16 /min [facility] ( [facility] Body weight 143.00 [lb_av] 143.00 [lb_av] MED[facility] T ([facility] [place] body weight 115 [lb_av] 115 [lb_av] MEDEN T ([facility] Systolic blood pressure 122 mm[Hg] 122 mm[Hg] M EDENT ([facility] Diastolic blood pressure 62 mm[Hg] 62 mm[Hg] [facility] ([facility] Body mass index (BMI) [Ratio] 24.4 kg/m2 24.4 k g/m2 [facility] ([facility] Heart rate 77 /min 77 /min [facility] ([facility] Body temperature 97.5 [degF] 97.5 [degF] [facility] ([facility] [place] body weight 115 [lb_av] 115 [lb_av] MEDEN T ([facility] Diastolic blood pressure 78 mm[Hg] 78 mm[Hg] [facility] ([facility] Systolic blood pressure 100 mm[Hg] 100 mm[Hg] M EDENT ([facility] Respiratory rate 16 /min 16 /min [facility] ( [facility] Body weight 138.00 [lb_av] 138.00 [lb_av] MEDEN T ([facility] Oxygen saturation in Arterial blood by Pulse oximetry 98 % 98 % [facility] ([facility] Body height 63 [in_i] 63 [in_i] [facility] ([facility] 5'3" Body height 63 [in_i] 63 [in_i] [facility] ([facility] 5'3" Body weight 138.00 [lb_av] 138.00 [lb_av] MEDEN T ([facility] Body mass index (BMI) [Ratio] 24.4 kg/m2 24.4 k g/m2 [facility] ([facility] Oxygen saturation in Arterial blood by Pulse oximetry 97 % 97 % [facility] ([facility] Systolic blood pressure 110 mm[Hg] 110 mm[Hg] M EDENT ([facility] Diastolic blood pressure 80 mm[Hg] 80 mm[Hg] [facility] ([facility] Body temperature 97.5 [degF] 97.5 [degF] [facility] ([facility] [place] body weight 115 [lb_av] 115 [lb_av] MEDEN T ([facility] Heart rate 85 /min 85 /min [facility] ([facility] Respiratory rate 16 /min 16 /min [facility] ( [facility] Systolic blood pressure 96 mm[Hg] 96 mm[Hg] M EDENT ([facility] Diastolic blood pressure 68 mm[Hg] 68 mm[Hg] [facility] ([facility] Heart rate 97 /min 97 /min [facility] ([facility] Respiratory rate 16 /min 16 /min [facility] ( [facility] Body weight 108.00 [lb_av] 108.00 [lb_av] MEDEN T ([facility] Body height 63 [in_i] 63 [in_i] [facility] ([facility] 5'3" Body mass index (BMI) [Ratio] 19.1 kg/m2 19.1 k g/m2 [facility] ([facility] [place] body weight 115 [lb_av] 115 [lb_av] MEDEN T ([facility] Oxygen saturation in Arterial blood by Pulse oximetry 99 % 99 % [facility] ([facility] Body temperature 96.6 [degF] 96.6 [degF] [facility] ([facility] [facility]
[2021-05-11 09:16] LABS: RSV AMPLIFICATION NEGATIVE (NEGATIVE)
[2021-05-11 09:23] LABS: ALBUMIN 4.1 GM/DL (3.2-5.2); BILIRUBIN,DIRECT 0.1 MG/DL (0.0-0.2); BILIRUBIN,TOTAL 0.4 MG/DL (0.2-1.0); TOTAL PROTEIN 7.7 GM/DL (6.4-8.2)
--- NOTE | 2021-05-11 10:03 | REP ---
INDICATION: flank pain. COMPARISON: Multiple the latest 08/09/2019 a contrast-enhanced examination. TECHNIQUE: Standard helical technique without intravenous or oral bowel preparatory contrast administration. Stone protocol utilized due to flank pain and history of renal calculi FINDINGS: The lung bases are clear and unchanged. There is mild right-sided hydronephrosis and hydroureter. In the right ureterovesical junction there is a 6 mm sized calculus. There are 4 tiny mm sized nonobstructing left renal calcifications. There are no left-sided ureterolith and there is no left-sided hydronephrosis or hydroureter. Limited evaluation of the liver, gallbladder, spleen, pancreas, and adrenal glands show no significant changes from the prior exams. There is no acute abnormality. There is no free fluid or free air. Limited evaluation of the abdominal aorta and para-aortic regions show no abnormalities. Limited evaluation of the bowel loops and the mesenteries show no abnormalities. Bone window technique throughout the exam shows no significant change in appearance of the osseous structures. IMPRESSION: 1. There is an obstructing nephrolith in the right UV junction which measures 6 mm. Resultant findings as described above. 2. Suspected tiny left renal calcifications with no obstructive phenomena. 3. Other findings as described above. <Electronically signed by Eusebio Mcgowan > 05/11/21 [id number]
[2021-05-11] MEDS ORDERED: KETO10TAB PO (10:43)
[2021-05-11] MEDS ORDERED: FLOM0.4C39 PO (10:44)
[2021-05-11] MEDS ORDERED: MACR100C43 PO (10:45)
[2021-05-11 10:54] VITALS: BP 111/67
== END 2021-05-11 11:01 | disposition home or self-care (01) ==
LOC: M ED 07:02
DX: N30.00 Acute cystitis without hematuria (principal); N20.0 Calculus of kidney; R16.0 Hepatomegaly, not elsewhere classified; G43.909 Migraine, unspecified, not intractable, without status migrainosus; Z87.820 Personal history of traumatic brain injury; J45.909 Unspecified asthma, uncomplicated; K21.9 Gastro-esophageal reflux disease without esophagitis; E28.2 Polycystic ovarian syndrome; Z79.84 Long term (current) use of oral hypoglycemic drugs; Z79.899 Other long term (current) drug therapy; Z88.2 Allergy status to sulfonamides; Z88.1 Allergy status to other antibiotic agents; Z88.8 Allergy status to other drugs, medicaments and biological substances; Z91.030 Bee allergy status
CPT/HCPCS: 74176; 76705; 80047; 80076; 81001; 83605; 83690; 84702; 85025; 87086; 87631; 96374; 96375; 99284; C9113; J1885; J2765

== ENCOUNTER 2021-05-13 12:23 | Emergency (ER) | payer OTHER ==
[~2021-05-13] VITALS: Ht 157.5 cm; Wt 67.8 kg
[~2021-05-13 12:23] MED LIST changes: +FLOM0.4C39 PO; +MACR100C43 PO; +METO1TAB32; +VENL75CA2 PO; +ZOLP5TAB
--- OUTSIDE RECORDS SUMMARY | 2021-05-13 12:29 | CCD | Continuity of Care Document ---
Author Author Emily SALCIDO [facility] Organization Unknown Address [address] [place] [address] Phone [phone] Problems Active Problems Provider Date Migraine Sofia [...] a day as needed for anxiety ([place]: [id number]) 60tabs Fantasma Dumont D.O., FAAFP 01/05/2021 Rizatriptan Benzoate 10mg Tablets Dispers take one tablet by mouth every day at the onset of headache may repeat in 2 hours as directed 12tabs Fatnasma Dumont D.O., FAAFP 0 03/13/2020 Topamax 50mg [...] CPT Code Status Date Vaccine Lot # [id number] Given 02/03/2015 Tdap Tetanus,Dip htheria Toxoids/Acellular Pertussis 7Yrs Or Older 46354 Given 02/03/2015 PPD Tuberculosis Intradermal 54228 Refused 04/10/2021 Influenza Virus Vaccine, Quadrivalent, Slit Virus, Im Use 3Y & Up Vital Signs Date Vital Result Comment 04/24/2021 3:33pm BP Systolic 100 mmHg BP Diastolic 76 mmHg Body Temperature 97.8 F Heart Rate 97 /min Respiratory Rate 16 /min Height 63 inches 5'3" Weight 148.00 lb [place] Body Weight 115 lb BMI (Body Mass Index) 26.2 kg/m2 O2 % BldC Oximetry 97 % 04/10/2021 11:16am BP Systolic 108 mmHg BP Diastolic 80 mmHg Body Temperature 98.0 F Heart Rate 130 /min Respiratory Rate 16 /min Height 63 inches 5'3" Weight 146.00 lb [place] Body Weight 115 lb BMI (Body Mass Index) 25.9 kg/m2 O2 % BldC Oximetry 97 % Results Test Acquired Date Facility Test Result H/L Range Note Laboratory test finding 05/11/2021 [facility] (Interface) [phone] iSTAT B-hCG < 5.0 Normal 1 Istat Chem8+ Panel 05/11/2021 [facility] ([facility] [phone] iSTAT HCT 45.0 % Normal 38.0-51.0 iSTAT Glucose 91 mg/dL Normal 70-105 iSTAT Sodium 140 mEq/L Normal 136-145 iSTAT Potassium 3.9 mEq/L Normal 3.5-5.1 iSTAT CA++ 5.5 mg/dL High 4.5-5.3 iSTAT Chloride 104 mEq/L Normal 98-109 iSTAT Co2 26.0 MM/L Normal 23.0-27.0 iSTAT BUN 18 mg/dL Normal 8-26 iSTAT Creatinine 0.9 mg/dL Normal 0.6-1.3 CBC With Differential 05/11/2021 [facility] (Interface) [phone] White Blood Count 10.0 10 Normal 4.0-10.0 Red Blood Count 4.83 10 Normal 4.00-5.40 Hemoglobin 14.1 g/dL Normal 12.0-15.5 Hematocrit 43.7 % Normal 36.0-47.0 Mean Corpuscular Volume 90.5 fl Normal 80.0-96.0 Mean Corpuscular Hemoglobin 29.2 pg Normal 27.0-33.0 Mean Corpuscular HGB Conc 32.3 g/dL Normal 32.0-36.5 Red Cell Distribution Width 12.0 % Normal 11.5-14.5 Platelet Count, Automated 257 10 Normal 150-450 Neutrophils % 76.7 % High 36.0-66.0 Lymph % 17.5 % Low 24.0-44.0 [place] % 5.2 % Normal 2.0-8.0 Eos % 0.0 % Normal 0.0-3.0 Baso % 0.2 % Normal 0.0-1.0 Immature Granulocyte % 0.4 % Normal 0-3.0 Nucleated Red Blood Cell % 0.0 % Normal 0-0 Neutrophils # 7.7 10 Normal 1.5-8.5 Lymph # 1.8 10 Normal 1.5-5.0 [place] # 0.5 10 Normal 0.0-0.8 Eos # 0.0 10 Normal 0.0-0.5 Baso # 0.0 10 Normal 0.0-0.2 Ua W/ Reflex To Culture 05/11/2021 [facility] ([facility]) [phone] Appearance, Urine RFX CLOUDY High Clear Color, Urine RFX YELLOW Normal Yellow PH,Urine RFX 6.0 units Normal 5.0-9.0 Specific [place] Ur Auto RFX 1.019 Normal 1.002-1.035 Protein, Urine Auto RFX 1+ mg/dL High Negative Glucose, Urine (Ua) Auto RFX NEGATIVE mg/dL Normal Negative Ketone, Urine Auto RFX NEGATIVE mg/dL Normal Negative Urobilinogen, Urine Auto RFX 0.2 mg/dL Normal 0.0-2.0 Bilirubin, Urine Auto RFX NEGATIVE Normal Negative Nitrite, Urine Auto RFX NEGATIVE Normal Negative Leukocyte Esterase Ur Auto RFX TRACE High Negative Blood, Urine Blood RFX 3+ High Negative WBC, Urine Auto RFX 12 /HPF High 0-3 RBC, Urine Auto RFX TNTC /HPF High 0-3 Bacteria, Urine Auto RFX 2+ High Negative Squam Epithelial Cell Ur Aurfx 7 /HPF Normal 0-6 Mucus, Urine RFX SMALL Normal Negative Hyaline Cast, Urine Auto RFX 0 /LPF Normal 0-1 Calcium Oxalate Crystals RFX LARGE Normal None Influenza A/B RSV Covid Amp 05/11/2021 [facility] (Interface) [phone] Influenza A Amplification NEGATIVE Normal Negati ve 2 Influenza B Amplification NEGATIVE Normal Negative 3 RSV Amplification NEGATIVE Normal Negative 4 Sars Covid-19 Amplification NEGATIVE Normal Negative 5 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 Note See Comment: 12 Iglbp See Comment: 13 HPV Aptima Negative Negative 14 Influenxa A/B RSV Covid Amp 02/03/2021 [facility] (Interface) [phone] Influenza A Amplification NEGATIVE Normal Negati ve 15 Influenza B Amplification NEGATIVE Normal Negative 16 RSV Amplification NEGATIVE Normal Negative 17 Sars Covid-19 Amplification NEGATIVE Normal Negative 18 Complete Blood Count 02/02/2021 [facility] ( Interface) [phone] White Blood Count 7.1 10 Normal 4.0-10.0 [...] 0-0 Drug Eval Toxicology ED Only 02/02/2021 [facility] (Interface) [phone] Amphetamines Level Urine NEGATIVE Normal Negativ e Barbiturates Urine NEGATIVE Normal Negative Benzodiazepines Urine NEGATIVE Normal Negative Cannabinoids Urine POSITIVE High Negative Cocaine Metabolite Urine NEGATIVE Normal Negative Methadone Urine NEGATIVE Normal Negative Opiates Urine NEGATIVE Normal Negative Phencyclidine Urine NEGATIVE Normal Negative 19 Liver Profile 02/02/2021 [facility]) [phone] Ast/Sgot 9 U/L Normal 7-37 Alt/SGPT 15 U/L Normal 12-78 Alkaline Phosphatase 66 U/L Normal 45-117 Bilirubin,Total 0.3 mg/dL Normal 0.2-1.0 Bilirubin,Direct < 0.1 mg/dL Normal 0.0-0.2 Total Protein 7.9 GM/DL Normal 6.4-8.2 Albumin 4.2 GM/DL Normal 3.2-5.2 Albumin/Globulin Ratio 1.1 Low 1.2-2.2 Basic Metabolic Profile 02/02/2021 [facility] (Interface) [phone] Glucose, Fasting 98 mg/dL Normal 70-100 Blood Urea Nitrogen 13 mg/dL Normal 7-18 Creatinine For GFR 0.74 mg/dL Normal 0.55-1.30 Glomerular Filtration Rate > 60.0 Normal >60 2 0 Sodium Level 140 mEq/L Normal 136-145 Potassium Serum 4.1 mEq/L Normal 3.5-5.1 Chloride Level 109 mEq/L High 98-107 Carbon Dioxide Level 26 mEq/L Normal 21-32 Anion Gap 5 mEq/L Low 8-16 Calcium Level 10.0 mg/dL Normal 8.5-10.1 Laboratory test finding 02/02/2021 [facility] (Interface) [phone] Ethyl Alcohol (Ethanol) < 0.003 % Normal 0.000-0. 010 Salicylate Level < 1.7 mg/dL Low 5.0-30.0 Acetaminophen Level < 2.0 UG/ML Low 10.0-30.0 Thyroid Stimulating Hormone 0.622 uIU/ML Normal 0.358-3.740 HCG Serum Qualitative NEGATIVE Normal Negative 1 QUANTITATIVE RESULT QUALITATIVE INTERPRETATION <5.0 IU/L NEGATIVE 5.0 - 25.0 IU/L INDETER MINATE >25.0 IU/L POSITIVE 2 Negative results do not prec lude influenza or RSV virus infection and should not be used as the sole basis for treatment or other patient management decisions. 3 Negative results do not prec lude influenza or RSV virus infection and should not be used as the sole basis for treatment or other patient management decisions. 4 Negative results do not prec lude influenza or RSV virus infection and should not be used as the sole basis for treatment or other patient management decisions. 5 A false negative result may occur if [...] pathogens. DISCLAIMER: Testing was performed using the [employer] SARS-CoV-2 test. This test was developed and its performance characteristics determined by [employer]. This test has not been FDA cleared [...] the authorization is terminated or revoked sooner. 6 Source.............Endocervi x Dates / Results....LMP 11/05 No. of containers..01 ThinPrep Vial [id number] 7 NEGATIVE FOR INTRAEPITHELIAL LESION OR MALIGNANCY. REACTIVE CELLULAR CHANGES AND/OR REPAIR ARE PRESENT. 8 Satisfactory for evaluation. Endocervical and/or squamous metaplastic cells (endocervical component) are present. 9 Z12.4 10 Damien Lawler totechnologist (ASCP) 11 Cary Shoemaker MD, Patholog ist 12 The Pap smear is a screening test designed to aid in the detection of premalignant and malignant conditions of the uterine cervix. It is not a diagnostic procedure and should not be used as the sole means of detecting cervical cancer. Both false-positive and false-negative reports do occur. 13 This liquid based ThinPrep(R ) pap test was screened with the use of an image guided system. 14 This nucleic acid amplificat ion test detects fourteen high-risk HPV types (16,18,31,33,35,39,45,51,52,56,58,59,66,68) without differentiation. 15 Negative results do not prec lude influenza or RSV virus infection and should not be used as the sole basis for treatment or other patient management decisions. 16 Negative results do not prec lude influenza or RSV virus infection and should not be used as the sole basis for treatment or other patient management decisions. 17 Negative results do not prec lude influenza or RSV virus infection and should not be used as the sole basis for treatment or other patient management decisions. 18 A false negative result may occur if [...] pathogens. DISCLAIMER: Testing was performed using the [employer] SARS-CoV-2 test. This test was developed and its performance characteristics determined by [employer]. This test has not been FDA cleared [...] the authorization is terminated or revoked sooner. 19 ALL PRESUMPTIVE POSITIVE FINDINGS ARE UNCONFIRMED THRESHOLD [...] CLOSELY RELATED COMPOUNDS PLEASE CALL THE LAB. 20 Units are mL/min/1.73 m2 Chronic Kidney Disease Staging per NKF: Stage I & II GFR >=60 Normal to Mildly Decreased Stage III GFR 30-59 Moderately Decreased Stage IV GFR 15-29 Severely Decreased Stage V GFR <15 Very Little GFR Left ESRD GFR <15 on GREENHOUSE INSTRUCTOR Procedures Date Code Description Status 04/24/2021 86341 Office/Outpatient Established Mo d MDM 30-39 Min Completed 04/10/2021 51686 Office/Outpatient Established Mo d MDM 30-39 Min Completed 04/10/2021 30550 Electrocardiogram Complete Compl eted 02/27/2021 92470 Preventive Visit Est 18-39 Yrs C ompleted 02/12/2021 66459 Office/Outpatient Established Lo w MDM 20-29 Min Completed 01/05/2021 89554 Office/Outpatient Established Mo d MDM 30-39 Min Completed Medical Devices Description No Information Available Encounters Type Date Location Provider Dx Diagnosis Office Visit 04/24/2021 3:30p [facility] Everton Salcido, RP A J45.909 Unspecified asthma, uncomplicated R00.0 Tachycardia, unspecified R53.83 Other fatigue Office Visit 04/10/2021 11:00a [facility] Everton Salcido, RP A J45.909 Unspecified asthma, uncomplicated G47.00 Insomnia, unspecified F41.9 Anxiety disorder, unspecifie d F31.9 Bipolar disorder, unspecifie d R00.0 Tachycardia, unspecified Office Visit 02/27/2021 2:00p [place] [facility] Rounds, Jeny Crowder MONEY ORDER CLERK- Z01.411 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) w abnormal findings N92.6 Irregular menstruation, unsp ecified L68.0 Hirsutism E28.2 Polycystic ovarian syndrome R68.82 Decreased libido Office Visit 02/12/2021 11:00a [facility] Everton Salcido, RP A G47.00 Insomnia, unspecified F41.9 Anxiety disorder, unspecifie d F31.9 Bipolar disorder, unspecifie d Office Visit 01/05/2021 2:40p [facility] Everton Salcido, RP A J45.909 Unspecified asthma, uncomplicated G43.009 Migraine w/o aura, not intra ctable, w/o status migrainosus G47.00 Insomnia, unspecified Assessments Date Code Description Provider 04/24/2021 J45.909 Unspecified asthma, uncomplicate d Everton Salcido, RPA 04/24/2021 R00.0 Tachycardia, unspecified OmariEverton serrano, RPA 04/24/2021 R53.83 Fatigue Everton Salcido, RPA 04/10/2021 J45.909 Unspecified asthma, uncomplicate d Everton Salcido, RPA 04/10/2021 G47.00 Insomnia, unspecified Yuridia Salcido, RPA 04/10/2021 F41.9 Anxiety disorder, unspecified Hi Everton serrano, RPA 04/10/2021 F31.9 Bipolar disorder, unspecified Hi Everton serrano, RPA 04/10/2021 R00.0 Tachycardia, unspecified Everton Salcido, RPA 02/27/2021 Z01.411 Encounter for gyneco logical examination (general) (routine) with abnormal findings Jeny Hernandez [facility] 02/27/2021 N92.6 Irregular menstruation, unspecif ied Jeny Hernandez [facility] 02/27/2021 L68.0 Hirsutism Jeny Hernandez [facility] 02/27/2021 E28.2 Polycystic ovarian syndrome Jeny Edwards [facility] 02/27/2021 R68.82 Decreased libido Jeny Hernandez [facility] 02/12/2021 G47.00 Insomnia, unspecified Yuridia Salcido, RPA 02/12/2021 F41.9 Anxiety disorder, unspecified Hi Everton serrano, RPA 02/12/2021 F31.9 Bipolar disorder, unspecified Hi Everton serrano, RPA 01/05/2021 J45.909 Unspecified asthma, uncomplicate d Everton Salcido, RPA 01/05/2021 G43.009 Migraine without aur a, not intractable, without status migrainosus Everton Salcido, HANDY 01/05/2021 G47.00 Insomnia, unspecified Yuridia Salcido, HANDY Plan of Treatment No Information Available Functional Status Description No Information Available Mental Status Description No Information Available Referrals Refer to Reason for Referral Status Appt Date [facility] Anxiety, depression, ea ting disorder. Sent [address] [place] [address] [phone]
--- OUTSIDE RECORDS SUMMARY | 2021-05-13 12:29 | CCD | Continuity of Care Document ---
Author Author Emily SALCIDO [facility] Organization Unknown Address 3 [facility] [address] [place] [address] Phone [phone] Problems Active Problems Provider Date Migraine Sofia [...] a day as needed for anxiety (Istop: [id number]) 60tabs Fantasma Dumont D.O., FAAFP 01/05/2021 Rizatriptan [...] mouth every night at bedtime Everton Salcido, [facility] - 02/12/2021 Fluoxetine HCL 20mg Capsules [...] CPT Code Status Date Vaccine Lot # [id number] Given 02/03/2015 Tdap Tetanus,Dip htheria Toxoids/Acellular Pertussis 7Yrs Or Older 02204 Given 02/03/2015 PPD Tuberculosis Intradermal 86058 Refused 04/10/2021 Influenza Virus Vaccine, Quadrivalent, Slit Virus, Im Use 3Y & Up Vital Signs Date Vital Result Comment 04/24/2021 3:33pm BP Systolic 100 mmHg BP Diastolic 76 mmHg Body Temperature 97.8 F Heart Rate 97 /min Respiratory Rate 16 /min Height 63 inches 5'3" Weight 148.00 lb Sanders Body Weight 115 lb BMI (Body Mass Index) 26.2 kg/m2 O2 % BldC Oximetry 97 % 04/10/2021 11:16am BP Systolic 108 mmHg BP Diastolic 80 mmHg Body Temperature 98.0 F Heart Rate 130 /min Respiratory Rate 16 /min Height 63 inches 5'3" Weight 146.00 lb Sanders Body Weight 115 lb BMI (Body Mass Index) 25.9 kg/m2 O2 % BldC Oximetry 97 % Results Test Acquired Date Facility Test Result H/L Range Note Istat Chem8+ Panel 05/11/2021 [facility] ([facility]) [phone] iSTAT HCT 45.0 % Normal 38.0-51.0 iSTAT Glucose 91 mg/dL Normal 70-105 iSTAT Sodium 140 mEq/L Normal 136-145 iSTAT Potassium 3.9 mEq/L Normal 3.5-5.1 iSTAT CA++ 5.5 mg/dL High 4.5-5.3 iSTAT Chloride 104 mEq/L Normal 98-109 iSTAT Co2 26.0 MM/L Normal 23.0-27.0 iSTAT BUN 18 mg/dL Normal 8-26 iSTAT Creatinine 0.9 mg/dL Normal 0.6-1.3 CBC With Differential 05/11/2021 [facility] ([facility]) [phone] White Blood Count 10.0 10 Normal 4.0-10.0 [...] 36.0-66.0 Lymph % 17.5 % Low 24.0-44.0 [place] % 5.2 % Normal 2.0-8.0 Eos % 0.0 % Normal 0.0-3.0 Baso % 0.2 % Normal 0.0-1.0 Immature Granulocyte % 0.4 % Normal 0-3.0 Nucleated Red Blood Cell % 0.0 % Normal 0-0 Neutrophils # 7.7 10 Normal 1.5-8.5 Lymph # 1.8 10 Normal 1.5-5.0 [place] # 0.5 10 Normal 0.0-0.8 Eos # 0.0 10 Normal 0.0-0.5 Baso # 0.0 10 Normal 0.0-0.2 Liver Profile 05/11/2021 [facility] ([facility]) [phone] Ast/Sgot 10 U/L Normal 7-37 Alt/SGPT 14 U/L Normal 12-78 Alkaline Phosphatase 72 U/L Normal 45-117 Bilirubin,Total 0.4 mg/dL Normal 0.2-1.0 Bilirubin,Direct 0.1 mg/dL Normal 0.0-0.2 Total Protein 7.7 GM/DL Normal 6.4-8.2 Albumin 4.1 GM/DL Normal 3.2-5.2 Albumin/Globulin Ratio 1.1 Low 1.2-2.2 Laboratory test finding 05/11/2021 [facility] (Interface) [phone] Lipase 77 U/L Normal 73-393 Lactic Acid Sepsis Protocol 0.9 mmol/L Normal 0.4-2.0 1 Ua W/ Reflex To Culture 05/11/2021 [facility] (Interface) [phone] Appearance, Urine RFX CLOUDY High Clear Color, Urine RFX YELLOW Normal Yellow PH,Urine RFX 6.0 units Normal 5.0-9.0 Specific [place] Ur Auto RFX 1.019 Normal 1.002-1.035 Protein, [...] None Influenza A/B RSV Covid Amp 05/11/2021 [facility] dical (Interface) [phone] Influenza A Amplification NEGATIVE Normal Negati ve 2 Influenza B Amplification NEGATIVE Normal Negative 3 RSV Amplification NEGATIVE Normal Negative 4 Sars Covid-19 Amplification NEGATIVE Normal Negative 5 Reflex Urine Culture 05/11/2021 [facility] ( Interface) [phone] Reflex Urine Culture FULL REPORT IN L <SEE NOTE> Norm al 6 Laboratory test finding 05/11/2021 [facility] (Interface) [phone] iSTAT B-hCG < 5.0 Normal 7 Cotton Chopper Pap Test Age-Based GL Cerv CA & STDS 02/27/2021 [facility] [place] Age 30-65 8 Diagn See Comment: 9 Adeq See Comment: 10 Cicd10 See Comment: 11 Perfor See Comment: 12 Signed See Comment: 13 Comm . Note See Comment: 14 Iglbp See Comment: 15 HPV Aptima Negative Negative 16 Influenxa A/B RSV Covid Amp 02/03/2021 [facility] dical (Interface) [phone] Influenza A Amplification NEGATIVE Normal Negati ve 17 Influenza B Amplification NEGATIVE Normal Negative 18 RSV Amplification NEGATIVE Normal Negative 19 Sars Covid-19 Amplification NEGATIVE Normal Negative 20 Complete Blood Count 02/02/2021 [facility] ( Interface) [phone] White Blood Count 7.1 10 Normal 4.0-10.0 [...] 0-0 Drug Eval Toxicology ED Only 02/02/2021 [facility] (Interface) [phone] Amphetamines Level Urine NEGATIVE Normal Negativ e Barbiturates Urine NEGATIVE Normal Negative Benzodiazepines Urine NEGATIVE Normal Negative Cannabinoids Urine POSITIVE High Negative Cocaine Metabolite Urine NEGATIVE Normal Negative Methadone Urine NEGATIVE Normal Negative Opiates Urine NEGATIVE Normal Negative Phencyclidine Urine NEGATIVE Normal Negative 21 Liver Profile 02/02/2021 [facility] (I nterface) [phone] Ast/Sgot 9 U/L Normal 7-37 Alt/SGPT 15 U/L Normal 12-78 Alkaline Phosphatase 66 U/L Normal 45-117 Bilirubin,Total 0.3 mg/dL Normal 0.2-1.0 Bilirubin,Direct < 0.1 mg/dL Normal 0.0-0.2 Total Protein 7.9 GM/DL Normal 6.4-8.2 Albumin 4.2 GM/DL Normal 3.2-5.2 Albumin/Globulin Ratio 1.1 Low 1.2-2.2 Basic Metabolic Profile 02/02/2021 [facility] (Interface) [phone] Glucose, Fasting 98 mg/dL Normal 70-100 Blood Urea Nitrogen 13 mg/dL Normal 7-18 Creatinine For GFR 0.74 mg/dL Normal 0.55-1.30 Glomerular Filtration Rate > 60.0 Normal >60 2 2 Sodium Level 140 mEq/L Normal 136-145 Potassium Serum 4.1 mEq/L Normal 3.5-5.1 Chloride Level 109 mEq/L High 98-107 Carbon Dioxide Level 26 mEq/L Normal 21-32 Anion Gap 5 mEq/L Low 8-16 Calcium Level 10.0 mg/dL Normal 8.5-10.1 Laboratory test finding 02/02/2021 [facility] ([facility]) [phone] Ethyl Alcohol (Ethanol) < 0.003 % Normal 0.000-0. 010 Salicylate Level < 1.7 mg/dL Low 5.0-30.0 Acetaminophen Level < 2.0 UG/ML Low 10.0-30.0 Thyroid Stimulating Hormone 0.622 uIU/ML Normal 0.358-3.740 HCG Serum Qualitative NEGATIVE Normal Negative 1 Y/N query for Sepsis Lactate Rule: Y 2 Negative results do not prec lude [...] pathogens. DISCLAIMER: Testing was performed using the [employer] SARS-CoV-2 test. This test was developed and its performance characteristics determined by [employer]. This test has not been FDA cleared [...] authorization is terminated or revoked sooner. 6 FULL REPORT IN LAB NOTES (eC W and Medtawnya). SPECIMEN APPEARS CONTAMINATED 7 QUANTITATIVE RESULT QUALITATIVE INTERPRETATION <5.0 IU/L NEGATIVE 5.0 - 25.0 IU/L INDETER MINATE >25.0 IU/L POSITIVE 8 Source.............Endocervi x Dates / Results....LMP 11/05 No. of containers..01 ThinPrep Vial [id number] 9 NEGATIVE FOR INTRAEPITHELIAL LESION OR MALIGNANCY. REACTIVE CELLULAR CHANGES AND/OR REPAIR ARE PRESENT. 10 Satisfactory for evaluation. Endocervical and/or squamous metaplastic cells (endocervical component) are present. 11 Z12.4 12 Damien Lawler totechnologist (ASCP) 13 Cary Shoemaker MD, Patholog ist 14 The Pap smear is a screening test designed to aid in the detection of premalignant and malignant conditions of the uterine cervix. It is not a diagnostic procedure and should not be used as the sole means of detecting cervical cancer. Both false-positive and false-negative reports do occur. 15 This liquid based ThinPrep(R ) pap test was screened with the use of an image guided system. 16 This nucleic acid amplificat ion test detects fourteen high-risk HPV types (16,18,31,33,35,39,45,51,52,56,58,59,66,68) without differentiation. 17 Negative results do not prec lude influenza or RSV virus infection and should not be used as the sole basis for treatment or other patient management decisions. 18 Negative results do not prec lude influenza or RSV virus infection and should not be used as the sole basis for treatment or other patient management decisions. 19 Negative results do not prec lude influenza or RSV virus infection and should not be used as the sole basis for treatment or other patient management decisions. 20 A false negative result may occur if [...] pathogens. DISCLAIMER: Testing was performed using the [employer] SARS-CoV-2 test. This test was developed and its performance characteristics determined by [employer]. This test has not been FDA cleared [...] the authorization is terminated or revoked sooner. 21 ALL PRESUMPTIVE POSITIVE FINDINGS ARE UNCONFIRMED THRESHOLD [...] CLOSELY RELATED COMPOUNDS PLEASE CALL THE LAB. 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 Procedures Date Code Description Status 04/24/2021 89616 Office/Outpatient Established Mo d MDM 30-39 Min Completed 04/10/2021 95142 Office/Outpatient Established Mo d MDM 30-39 Min Completed 04/10/2021 42249 Electrocardiogram Complete Compl eted 02/27/2021 88755 Preventive Visit Est 18-39 Yrs C ompleted 02/12/2021 16110 Office/Outpatient Established Lo w MDM 20-29 Min Completed 01/05/2021 94033 Office/Outpatient Established Mo d MDM 30-39 Min Completed Medical Devices Description No Information Available Encounters Type Date Location Provider Dx Diagnosis Office Visit 04/24/2021 3:30p [place] [facility] Everton Salcido, [place] A J45.909 Unspecified asthma, uncomplicated R00.0 Tachycardia, unspecified R53.83 Other fatigue Office Visit 04/10/2021 11:00a [place] [facility] Everton Salcido, RP A J45.909 Unspecified asthma, uncomplicated G47.00 Insomnia, unspecified F41.9 Anxiety disorder, unspecifie d F31.9 Bipolar disorder, unspecifie d R00.0 Tachycardia, unspecified Office Visit 02/27/2021 2:00p [place] [facility] [place], Jeny Crowder, [facility]- Z01.411 Encntr for quarantine officer exam (general) (routine) w abnormal findings N92.6 Irregular menstruation, unsp ecified L68.0 Hirsutism E28.2 Polycystic ovarian syndrome R68.82 Decreased libido Office Visit 02/12/2021 11:00a [place] [facility] Everton Salcido, RP A G47.00 Insomnia, unspecified F41.9 Anxiety disorder, unspecifie d F31.9 Bipolar disorder, unspecifie d Office Visit 01/05/2021 2:40p [place] [facility] Evertno Salcido, RP A J45.909 Unspecified asthma, uncomplicated G43.009 Migraine w/o aura, not intra ctable, w/o status migrainosus G47.00 Insomnia, unspecified Assessments Date Code Description Provider 04/24/2021 J45.909 Unspecified asthma, uncomplicate d Everton Salcido, RPA 04/24/2021 R00.0 Tachycardia, unspecified Everton Salcido, RPA 04/24/2021 R53.83 Fatigue Everton Salcido, RPA 04/10/2021 J45.909 Unspecified asthma, uncomplicate d Everton Salcido, RPA 04/10/2021 G47.00 Insomnia, unspecified OmariYuridia, RPA 04/10/2021 F41.9 Anxiety disorder, unspecified Hi Everton serrano, RPA 04/10/2021 F31.9 Bipolar disorder, unspecified Hi nman, Everton D, [facility] 04/10/2021 R00.0 Tachycardia, unspecified Everton Salcido, [facility] 02/27/2021 Z01.411 Encounter for gyneco logical examination (general) (routine) with abnormal findings Jeny Hernandez, [facility] 02/27/2021 N92.6 Irregular menstruation, unspecif ied Jeny Hernandez [facility] 02/27/2021 L68.0 Hirsutism Jeny Hernandez [facility] 02/27/2021 E28.2 Polycystic ovarian syndrome Jeny Edwards, [facility] 02/27/2021 R68.82 Decreased libido Jeyn Hernandez [facility] 02/12/2021 G47.00 Insomnia, unspecified Yuridia Salcido, [facility] 02/12/2021 F41.9 Anxiety disorder, unspecified Everton Martin, [facility] 02/12/2021 F31.9 Bipolar disorder, unspecified Everton Martin, [facility] 01/05/2021 J45.909 Unspecified asthma, uncomplicate d Everton Salcido, [facility] 01/05/2021 G43.009 Migraine without aur a, not intractable, without status migrainosus Everton Salcido, [facility] 01/05/2021 G47.00 Insomnia, unspecified Yuridia Salcido, [facility] Plan of Treatment No Information Available Functional Status Description No Information Available Mental Status Description No Information Available Referrals Refer to Reason for Referral Status Appt Date [facility] Anxiety, depression, ea ting disorder. Sent [address] [place] [address] [address] [place] [address] [phone]
--- OUTSIDE RECORDS SUMMARY | 2021-05-13 12:29 | CCD | Continuity of Care Document ---
Author Author Emily SALCIDO [facility] Organization Unknown Address 3 [facility] [address] [place] [address] Phone [phone] Problems Active Problems Provider Date Migraine Sofia [...] a day as needed for anxiety (Istop: [id number]) 60tabs Fantasma Dumont D.O., FAAFP 01/05/2021 Rizatriptan [...] mouth every night at bedtime Everton Salcido, [facility] - 02/12/2021 Fluoxetine HCL 20mg Capsules [...] CPT Code Status Date Vaccine Lot # [id number] Given 02/03/2015 Tdap Tetanus,Dip htheria Toxoids/Acellular Pertussis 7Yrs Or Older 85072 Given 02/03/2015 PPD Tuberculosis Intradermal 08877 Refused 04/10/2021 Influenza Virus Vaccine, Quadrivalent, Slit Virus, Im Use 3Y & Up Vital Signs Date Vital Result Comment 04/24/2021 3:33pm BP Systolic 100 mmHg BP Diastolic 76 mmHg Body Temperature 97.8 F Heart Rate 97 /min Respiratory Rate 16 /min Height 63 inches 5'3" Weight 148.00 lb [place] Body Weight 115 lb BMI (Body Mass Index) 26.2 kg/m2 O2 % BldC Oximetry 97 % 04/10/2021 11:16am BP Systolic 108 mmHg BP Diastolic 80 mmHg Body Temperature 98.0 F Heart Rate 130 /min Respiratory Rate 16 /min Height 63 inches 5'3" Weight 146.00 lb [place] Body Weight 115 lb BMI (Body Mass Index) 25.9 kg/m2 O2 % BldC Oximetry 97 % Results Test Acquired Date Facility Test Result H/L Range Note Laboratory test finding 05/11/2021 [facility] (Interface) [phone] iSTAT B-hCG < 5.0 Normal 1 Istat Chem8+ Panel 05/11/2021 [facility] [phone] iSTAT HCT 45.0 % Normal 38.0-51.0 iSTAT Glucose 91 mg/dL Normal 70-105 iSTAT Sodium 140 mEq/L Normal 136-145 iSTAT Potassium 3.9 mEq/L Normal 3.5-5.1 iSTAT CA++ 5.5 mg/dL High 4.5-5.3 iSTAT Chloride 104 mEq/L Normal 98-109 iSTAT Co2 26.0 MM/L Normal 23.0-27.0 iSTAT BUN 18 mg/dL Normal 8-26 iSTAT Creatinine 0.9 mg/dL Normal 0.6-1.3 CBC With Differential 05/11/2021 [facility] (Interface) [phone] White Blood Count 10.0 10 Normal 4.0-10.0 [...] 36.0-66.0 Lymph % 17.5 % Low 24.0-44.0 [place] % 5.2 % Normal 2.0-8.0 Eos % 0.0 % Normal 0.0-3.0 Baso % 0.2 % Normal 0.0-1.0 Immature Granulocyte % 0.4 % Normal 0-3.0 Nucleated Red Blood Cell % 0.0 % Normal 0-0 Neutrophils # 7.7 10 Normal 1.5-8.5 Lymph # 1.8 10 Normal 1.5-5.0 [place] # 0.5 10 Normal 0.0-0.8 Eos # 0.0 10 Normal 0.0-0.5 Baso # 0.0 10 Normal 0.0-0.2 Liver Profile 05/11/2021 [facility] [phone] Ast/Sgot 10 U/L Normal 7-37 Alt/SGPT 14 U/L Normal 12-78 Alkaline Phosphatase 72 U/L Normal 45-117 Bilirubin,Total 0.4 mg/dL Normal 0.2-1.0 Bilirubin,Direct 0.1 mg/dL Normal 0.0-0.2 Total Protein 7.7 GM/DL Normal 6.4-8.2 Albumin 4.1 GM/DL Normal 3.2-5.2 Albumin/Globulin Ratio 1.1 Low 1.2-2.2 Laboratory test finding 05/11/2021 [facility] (Interface) [phone] Lipase 77 U/L Normal 73-393 Lactic Acid Sepsis Protocol 0.9 mmol/L Normal 0.4-2.0 2 Ua W/ Reflex To Culture 05/11/2021 [facility] (Interface) [phone] Appearance, Urine RFX CLOUDY High Clear Color, Urine RFX YELLOW Normal Yellow PH,Urine RFX 6.0 units Normal 5.0-9.0 Specific [place] Ur Auto RFX 1.019 Normal 1.002-1.035 Protein, [...] None Influenza A/B RSV Covid Amp 05/11/2021 [facility] dicid (Interface) [phone] Influenza A Amplification NEGATIVE Normal Negati ve 3 Influenza B Amplification NEGATIVE Normal Negative 4 RSV Amplification NEGATIVE Normal Negative 5 Sars Covid-19 Amplification NEGATIVE Normal Negative 6 Professional Builder Pap Test Age-Based GL Cerv CA & STDS 02/27/2021 [facility] [place] Age 30-65 7 Diagn See Comment: 8 Adeq See Comment: 9 Cicd10 See Comment: 10 Perfor See Comment: 11 Signed See Comment: 12 Comm . Note See Comment: 13 Iglbp See Comment: 14 HPV Aptima Negative Negative 15 Influenxa A/B RSV Cov[facility] Amp [facility] [phone] Influenza A Amplification NEGATIVE Normal Negati ve 16 Influenza B Amplification NEGATIVE Normal Negative 17 RSV Amplification NEGATIVE Normal Negative 18 Sars Covid-19 Amplification NEGATIVE Normal Negative 19 Complete Blood Count 02/02/2021 [facility] ( Interface) [phone] White Blood Count 7.1 10 Normal 4.0-10.0 [...] 0-0 [facility] [phone] Amphetamines Level Urine NEGATIVE Normal Negativ e Barbiturates Urine NEGATIVE Normal Negative Benzodiazepines Urine NEGATIVE Normal Negative Cannabinoids Urine POSITIVE High Negative Cocaine Metabolite Urine NEGATIVE Normal Negative Methadone Urine NEGATIVE Normal Negative Opiates Urine NEGATIVE Normal Negative Phencyclidine Urine NEGATIVE Normal Negative 20 Liver Profile 02/02/2021 [facility] (I nterface) [phone] Ast/Sgot 9 U/L Normal 7-37 Alt/SGPT 15 U/L Normal 12-78 Alkaline Phosphatase 66 U/L Normal 45-117 Bilirubin,Total 0.3 mg/dL Normal 0.2-1.0 Bilirubin,Direct < 0.1 mg/dL Normal 0.0-0.2 Total Protein 7.9 GM/DL Normal 6.4-8.2 Albumin 4.2 GM/DL Normal 3.2-5.2 Albumin/Globulin Ratio 1.1 Low 1.2-2.2 Basic Metabolic Profile 02/02/2021 [facility] (Interface) [phone] Glucose, Fasting 98 mg/dL Normal 70-100 Blood Urea Nitrogen 13 mg/dL Normal 7-18 Creatinine For GFR 0.74 mg/dL Normal 0.55-1.30 Glomerular Filtration Rate > 60.0 Normal >60 2 1 Sodium Level 140 mEq/L Normal 136-145 Potassium Serum 4.1 mEq/L Normal 3.5-5.1 Chloride Level 109 mEq/L High 98-107 Carbon Dioxide Level 26 mEq/L Normal 21-32 Anion Gap 5 mEq/L Low 8-16 Calcium Level 10.0 mg/dL Normal 8.5-10.1 Laboratory test finding 02/02/2021 [facility] ([facility]) [phone] Ethyl Alcohol (Ethanol) < 0.003 % Normal 0.000-0. 010 Salicylate Level < 1.7 mg/dL Low 5.0-30.0 Acetaminophen Level < 2.0 UG/ML Low 10.0-30.0 Thyroid Stimulating Hormone 0.622 uIU/ML Normal 0.358-3.740 HCG Serum Qualitative NEGATIVE Normal Negative 1 QUANTITATIVE RESULT QUALITATIVE INTERPRETATION <5.0 IU/L NEGATIVE 5.0 - 25.0 IU/L INDETER MINATE >25.0 IU/L POSITIVE 2 Y/N query for Sepsis Lactate Rule: Y 3 Negative results do not prec lude influenza or RSV virus infection and should not be used as the sole basis for treatment or other patient management decisions. 4 Negative results do not prec lude influenza or RSV virus infection and should not be used as the sole basis for treatment or other patient management decisions. 5 Negative results do not prec lude influenza or RSV virus infection and should not be used as the sole basis for treatment or other patient management decisions. 6 A false negative result may occur if [...] pathogens. DISCLAIMER: Testing was performed using the [employer] SARS-CoV-2 test. This test was developed and its performance characteristics determined by [employer]. This test has not been FDA cleared [...] the authorization is terminated or revoked sooner. 7 Source.............Endocervi x Dates / Results....LMP 11/05 No. of containers..01 ThinPrep Vial [id number] 8 NEGATIVE FOR INTRAEPITHELIAL LESION OR MALIGNANCY. REACTIVE CELLULAR CHANGES AND/OR REPAIR ARE PRESENT. 9 Satisfactory for evaluation. Endocervical and/or squamous metaplastic cells (endocervical component) are present. 10 Z12.4 11 Damien Lawler totechnologist (ASCP) 12 Cary Shoemaker MD, Patholog ist 13 The Pap smear is a screening test designed to aid in the detection of premalignant and malignant conditions of the uterine cervix. It is not a diagnostic procedure and should not be used as the sole means of detecting cervical cancer. Both false-positive and false-negative reports do occur. 14 This liquid based ThinPrep(R ) pap test was screened with the use of an image guided system. 15 This nucleic acid amplificat ion test detects fourteen high-risk HPV types (16,18,31,33,35,39,45,51,52,56,58,59,66,68) without differentiation. 16 Negative results do not prec lude [...] treatment or other patient management decisions. 19 A false negative result may occur if [...] pathogens. DISCLAIMER: Testing was performed using the [employer] SARS-CoV-2 test. This test was developed and its performance characteristics determined by [employer]. This test has not been FDA cleared [...] the authorization is terminated or revoked sooner. 20 ALL PRESUMPTIVE POSITIVE FINDINGS ARE UNCONFIRMED THRESHOLD [...] CLOSELY RELATED COMPOUNDS PLEASE CALL THE LAB. 21 Units are mL/min/1.73 m2 Chronic Kidney Disease Staging per NKF: Stage I & II GFR >=60 Normal to Mildly Decreased Stage III GFR 30-59 Moderately Decreased Stage IV GFR 15-29 Severely Decreased Stage V GFR <15 Very Little GFR Left ESRD GFR <15 on WET SUIT GLUER Procedures Date Code Description Status 04/24/2021 50552 Office/Outpatient Established Mo d MDM 30-39 Min Completed 04/10/2021 49261 Office/Outpatient Established Mo d MDM 30-39 Min Completed 04/10/2021 25077 Electrocardiogram Complete Compl eted 02/27/2021 54160 Preventive Visit Est 18-39 Yrs C ompleted 02/12/2021 58338 Office/Outpatient Established Lo w MDM 20-29 Min Completed 01/05/2021 35334 Office/Outpatient Established Mo d MDM 30-39 Min Completed Medical Devices Description No Information Available Encounters Type Date Location Provider Dx Diagnosis Office Visit 04/24/2021 3:30p [place] [facility] Everton Salcido, [place] A J45.909 Unspecified asthma, uncomplicated R00.0 Tachycardia, unspecified R53.83 Other fatigue Office Visit 04/10/2021 11:00a [place] [facility] Everton Salcido, RP A J45.909 Unspecified asthma, uncomplicated G47.00 Insomnia, unspecified F41.9 Anxiety disorder, unspecifie d F31.9 Bipolar disorder, unspecifie d R00.0 Tachycardia, unspecified Office Visit 02/27/2021 2:00p [place] [facility] Jeny Hernandez [facility] Z01.411 Encntr for sewer hand exam (general) (routine) w abnormal findings N92.6 Irregular menstruation, unsp ecified L68.0 Hirsutism E28.2 Polycystic ovarian syndrome R68.82 Decreased libido Office Visit 02/12/2021 11:00a [facility] Everton Salcido, [place] A G47.00 Insomnia, unspecified F41.9 Anxiety disorder, unspecifie d F31.9 Bipolar disorder, unspecifie d Office Visit 01/05/2021 2:40p [place] [facility] Everton Salcido, RP A J45.909 Unspecified [...] (routine) with abnormal findings David Jeny Crowder [facility] 02/27/2021 N92.6 Irregular menstruation, unspecif ied David Jeny Vel [facility] 02/27/2021 L68.0 Hirsutism David Jney Vel, [facility] 02/27/2021 E28.2 Polycystic ovarian syndrome Shruti lamb Jeny Vel [facility] 02/27/2021 R68.82 Decreased libido David Jeny M, [facility] 02/12/2021 G47.00 Insomnia, unspecified Yuridia [...] to Reason for Referral Status Appt Date [facility] Anxiety, depression, ea ting disorder. Sent [address] [place] [address] [phone]
--- OUTSIDE RECORDS SUMMARY | 2021-05-13 12:30 | CCD | Continuity of Care Document ---
Author Author Emily SALCIDO [facility] Organization Unknown Address 3 [facility] [address] [place] [address] Phone [phone] Problems Active Problems Provider Date Migraine Sofia [...] a day as needed for anxiety (Istop: [id number]) 60tabs Fantasma Dumont D.O., FAAFP 01/05/2021 Rizatriptan [...] CPT Code Status Date Vaccine Lot # [id number] Given 02/03/2015 Tdap Tetanus,Dip htheria Toxoids/Acellular Pertussis 7Yrs Or Older 59436 Given 02/03/2015 PPD Tuberculosis Intradermal 21280 Refused 04/10/2021 Influenza Virus Vaccine, Quadrivalent, Slit Virus, Im Use 3Y & Up Vital Signs Date Vital Result Comment 04/24/2021 3:33pm BP Systolic 100 mmHg BP Diastolic 76 mmHg Body Temperature 97.8 F Heart Rate 97 /min Respiratory Rate 16 /min Height 63 inches 5'3" Weight 148.00 lb [place] Body Weight 115 lb BMI (Body Mass Index) 26.2 kg/m2 O2 % BldC Oximetry 97 % 04/10/2021 11:16am BP Systolic 108 mmHg BP Diastolic 80 mmHg Body Temperature 98.0 F Heart Rate 130 /min Respiratory Rate 16 /min Height 63 inches 5'3" Weight 146.00 lb [place] Body Weight 115 lb BMI (Body Mass Index) 25.9 kg/m2 O2 % BldC Oximetry 97 % Results Test Acquired Date Facility Test Result H/L Range Note Laboratory test finding 05/11/2021 [facility] (Interface) [phone] iSTAT B-hCG < 5.0 Normal 1 Istat Chem8+ Panel 05/11/2021 [facility] [phone] iSTAT HCT 45.0 % Normal 38.0-51.0 iSTAT Glucose 91 mg/dL Normal 70-105 iSTAT Sodium 140 mEq/L Normal 136-145 iSTAT Potassium 3.9 mEq/L Normal 3.5-5.1 iSTAT CA++ 5.5 mg/dL High 4.5-5.3 iSTAT Chloride 104 mEq/L Normal 98-109 iSTAT Co2 26.0 MM/L Normal 23.0-27.0 iSTAT BUN 18 mg/dL Normal 8-26 iSTAT Creatinine 0.9 mg/dL Normal 0.6-1.3 CBC With Differential 05/11/2021 [facility] (Interface) [phone] White Blood Count 10.0 10 Normal 4.0-10.0 [...] 36.0-66.0 Lymph % 17.5 % Low 24.0-44.0 [place] % 5.2 % Normal 2.0-8.0 Eos % 0.0 % Normal 0.0-3.0 Baso % 0.2 % Normal 0.0-1.0 Immature Granulocyte % 0.4 % Normal 0-3.0 Nucleated Red Blood Cell % 0.0 % Normal 0-0 Neutrophils # 7.7 10 Normal 1.5-8.5 Lymph # 1.8 10 Normal 1.5-5.0 [place] # 0.5 10 Normal 0.0-0.8 Eos # 0.0 10 Normal 0.0-0.5 Baso # 0.0 10 Normal 0.0-0.2 Ua W/ Reflex To Culture 05/11/2021 [facility] ([facility]) [phone] Appearance, Urine RFX CLOUDY High Clear Color, Urine RFX YELLOW Normal Yellow PH,Urine RFX 6.0 units Normal 5.0-9.0 Specific [place] Ur Auto RFX 1.019 Normal 1.002-1.035 Protein, [...] Calcium Oxalate Crystals RFX LARGE Normal None Inside Sales Coordinator Pap Test Age-Based GL Cerv CA & STDS 02/27/2021 [facility] [place] Age 30-65 2 Diagn See Comment: 3 Adeq See Comment: 4 Cicd10 See Comment: 5 Perfor See Comment: 6 Signed See Comment: 7 Comm . Note See Comment: 8 Iglbp See Comment: 9 HPV Aptima Negative Negative 10 Influenxa A/B RSV Covid Amp 02/03/2021 [facility] (Interface) [phone] Influenza A Amplification NEGATIVE Normal Negati ve 11 Influenza B Amplification NEGATIVE Normal Negative 12 RSV Amplification NEGATIVE Normal Negative 13 Sars Covid-19 Amplification NEGATIVE Normal Negative 14 Complete Blood Count 02/02/2021 [facility] ( Interface) [phone] White Blood Count 7.1 10 Normal 4.0-10.0 [...] 0-0 Drug Eval Toxicology ED Only 02/02/2021 [facility] (Interface) [phone] Amphetamines Level Urine NEGATIVE Normal Negativ e Barbiturates Urine NEGATIVE Normal Negative Benzodiazepines Urine NEGATIVE Normal Negative Cannabinoids Urine POSITIVE High Negative Cocaine Metabolite Urine NEGATIVE Normal Negative Methadone Urine NEGATIVE Normal Negative Opiates Urine NEGATIVE Normal Negative Phencyclidine Urine NEGATIVE Normal Negative 15 Liver Profile 02/02/2021 [facility] (I nterface) [phone] Ast/Sgot 9 U/L Normal 7-37 Alt/SGPT 15 U/L Normal 12-78 Alkaline Phosphatase 66 U/L Normal 45-117 Bilirubin,Total 0.3 mg/dL Normal 0.2-1.0 Bilirubin,Direct < 0.1 mg/dL Normal 0.0-0.2 Total Protein 7.9 GM/DL Normal 6.4-8.2 Albumin 4.2 GM/DL Normal 3.2-5.2 Albumin/Globulin Ratio 1.1 Low 1.2-2.2 Basic Metabolic Profile 02/02/2021 [facility] (Interface) [phone] Glucose, Fasting 98 mg/dL Normal 70-100 Blood Urea Nitrogen 13 mg/dL Normal 7-18 Creatinine For GFR 0.74 mg/dL Normal 0.55-1.30 Glomerular Filtration Rate > 60.0 Normal >60 1 6 Sodium Level 140 mEq/L Normal 136-145 Potassium Serum 4.1 mEq/L Normal 3.5-5.1 Chloride Level 109 mEq/L High 98-107 Carbon Dioxide Level 26 mEq/L Normal 21-32 Anion Gap 5 mEq/L Low 8-16 Calcium Level 10.0 mg/dL Normal 8.5-10.1 Laboratory test finding 02/02/2021 [facility] (Interface) [phone] Ethyl Alcohol (Ethanol) < 0.003 % Normal 0.000-0. 010 Salicylate Level < 1.7 mg/dL Low 5.0-30.0 Acetaminophen Level < 2.0 UG/ML Low 10.0-30.0 Thyroid Stimulating Hormone 0.622 uIU/ML Normal 0.358-3.740 HCG Serum Qualitative NEGATIVE Normal Negative 1 QUANTITATIVE RESULT QUALITATIVE INTERPRETATION <5.0 IU/L NEGATIVE 5.0 - 25.0 IU/L INDETER MINATE >25.0 IU/L POSITIVE 2 Source.............Endocervi x Dates / Results....LMP 11/05 No. of containers..01 ThinPrep Vial [id number] 3 NEGATIVE FOR INTRAEPITHELIAL LESION OR MALIGNANCY. REACTIVE CELLULAR CHANGES AND/OR REPAIR ARE PRESENT. 4 Satisfactory for evaluation. Endocervical and/or squamous metaplastic cells (endocervical component) are present. 5 Z12.4 6 Damien Lawler totechnologist (ASCP) 7 Cary Shoemaker MD, Patholog ist 8 The Pap smear is a screening test designed to aid in the detection of premalignant and malignant conditions of the uterine cervix. It is not a diagnostic procedure and should not be used as the sole means of detecting cervical cancer. Both false-positive and false-negative reports do occur. 9 This liquid based ThinPrep(R ) pap test was screened with the use of an image guided system. 10 This nucleic acid amplificat ion test detects fourteen high-risk HPV types (16,18,31,33,35,39,45,51,52,56,58,59,66,68) without differentiation. 11 Negative results do not prec lude influenza or RSV virus infection and should not be used as the sole basis for treatment or other patient management decisions. 12 Negative results do not prec lude influenza or RSV virus infection and should not be used as the sole basis for treatment or other patient management decisions. 13 Negative results do not prec lude influenza or RSV virus infection and should not be used as the sole basis for treatment or other patient management decisions. 14 A false negative result may occur if [...] pathogens. DISCLAIMER: Testing was performed using the [employer] SARS-CoV-2 test. This test was developed and its performance characteristics determined by [employer]. This test has not been FDA cleared [...] the authorization is terminated or revoked sooner. 15 ALL PRESUMPTIVE POSITIVE FINDINGS ARE UNCONFIRMED THRESHOLD [...] CLOSELY RELATED COMPOUNDS PLEASE CALL THE LAB. 16 Units are mL/min/1.73 m2 Chronic Kidney Disease Staging per NKF: Stage I & II GFR >=60 Normal to Mildly Decreased Stage III GFR 30-59 Moderately Decreased Stage IV GFR 15-29 Severely Decreased Stage V GFR <15 Very Little GFR Left ESRD GFR <15 on BRICK SETTER Procedures Date Code Description Status 04/24/2021 96137 Office/Outpatient Established Mo d MDM 30-39 Min Completed 04/10/2021 10858 Office/Outpatient Established Mo d MDM 30-39 Min Completed 04/10/2021 46742 Electrocardiogram Complete Compl eted 02/27/2021 91395 Preventive Visit Est 18-39 Yrs C ompleted 02/12/2021 24077 Office/Outpatient Established Lo w MDM 20-29 Min Completed 01/05/2021 74148 Office/Outpatient Established Mo d MDM 30-39 Min Completed Medical Devices Description No Information Available Encounters Type Date Location Provider Dx Diagnosis Office Visit 04/24/2021 3:30p [facility] Everton Salcido, [place] A J45.909 Unspecified asthma, uncomplicated R00.0 Tachycardia, unspecified R53.83 Other fatigue Office Visit 04/10/2021 11:00a [facility] Everton Salcido, [place] A J45.909 Unspecified asthma, uncomplicated G47.00 Insomnia, unspecified F41.9 Anxiety disorder, unspecifie d F31.9 Bipolar disorder, unspecifie d R00.0 Tachycardia, unspecified Office Visit 02/27/2021 2:00p [facility] Jeny Hernandez 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 02/27/2021 L68.0 Hirsutism [facility] 02/27/2021 E28.2 Polycystic ovarian syndrome Jeny Edwards [facility] 02/27/2021 R68.82 Decreased libido Jeny Hernandez, PAYROLL TECHNICIAN- 02/12/2021 G47.00 Insomnia, unspecified Yuridia Salcido, RPA [...] to Reason for Referral Status Appt Date [facility] Anxiety, depression, ea ting disorder. Sent [address] [place] [address] [phone]
--- OUTSIDE RECORDS SUMMARY | 2021-05-13 12:30 | CCD | Continuity of Care Document ---
Author Author Emily SALCIDO [facility] Organization Unknown Address 3 [facility] [address] [place] [address] Phone [phone] Problems Active Problems Provider Date Migraine Sofia [...] a day as needed for anxiety (Istop: [id number]) 60tabs Fantasma Dumont D.O., FAAFP 01/05/2021 Rizatriptan [...] 0.35mg Tablets 1 by mouth daily 28tabs Jeyn Hernandez FNP- Effexor XR 75mg Caps ER 24HR 2 by mouth every day Unknown Remeron 15mg Tablets 1 tablet at bedtime daily Unknown History Medications OLANZapine 2.5mg Tablets one by mouth every night at bedtime Everton Salcido, [facility] - 02/12/2021 Fluoxetine HCL 20mg Capsules [...] CPT Code Status Date Vaccine Lot # [id number] Given 02/03/2015 Tdap Tetanus,Dip htheria Toxoids/Acellular Pertussis 7Yrs Or Older 05631 Given 02/03/2015 PPD Tuberculosis Intradermal 40063 Refused 04/10/2021 Influenza Virus Vaccine, Quadrivalent, Slit Virus, Im Use 3Y & Up Vital Signs Date Vital Result Comment 04/24/2021 3:33pm BP Systolic 100 mmHg BP Diastolic 76 mmHg Body Temperature 97.8 F Heart Rate 97 /min Respiratory Rate 16 /min Height 63 inches 5'3" Weight 148.00 lb [place] Body Weight 115 lb BMI (Body Mass Index) 26.2 kg/m2 O2 % BldC Oximetry 97 % 04/10/2021 11:16am BP Systolic 108 mmHg BP Diastolic 80 mmHg Body Temperature 98.0 F Heart Rate 130 /min Respiratory Rate 16 /min Height 63 inches 5'3" Weight 146.00 lb [place] Body Weight 115 lb BMI (Body Mass Index) 25.9 kg/m2 O2 % BldC Oximetry 97 % Results Test Acquired Date Facility Test Result H/L Range Note Laboratory test finding 05/11/2021 [facility] (Interface) [phone] iSTAT B-hCG < 5.0 Normal 1 Istat Chem8+ Panel 05/11/2021 [facility] [phone] iSTAT HCT 45.0 % Normal 38.0-51.0 iSTAT Glucose 91 mg/dL Normal 70-105 iSTAT Sodium 140 mEq/L Normal 136-145 iSTAT Potassium 3.9 mEq/L Normal 3.5-5.1 iSTAT CA++ 5.5 mg/dL High 4.5-5.3 iSTAT Chloride 104 mEq/L Normal 98-109 iSTAT Co2 26.0 MM/L Normal 23.0-27.0 iSTAT BUN 18 mg/dL Normal 8-26 iSTAT Creatinine 0.9 mg/dL Normal 0.6-1.3 CBC With Differential 05/11/2021 [facility] (Interface) [phone] White Blood Count 10.0 10 Normal 4.0-10.0 [...] 36.0-66.0 Lymph % 17.5 % Low 24.0-44.0 [place] % 5.2 % Normal 2.0-8.0 Eos % 0.0 % Normal 0.0-3.0 Baso % 0.2 % Normal 0.0-1.0 Immature Granulocyte % 0.4 % Normal 0-3.0 Nucleated Red Blood Cell % 0.0 % Normal 0-0 Neutrophils # 7.7 10 Normal 1.5-8.5 Lymph # 1.8 10 Normal 1.5-5.0 Ness # 0.5 10 Normal 0.0-0.8 Eos # 0.0 10 Normal 0.0-0.5 Baso # 0.0 10 Normal 0.0-0.2 Ua W/ Reflex To Culture 05/11/2021 [facility] ([facility]) [phone] Appearance, Urine RFX CLOUDY High Clear Color, Urine RFX YELLOW Normal Yellow PH,Urine RFX 6.0 units Normal 5.0-9.0 Specific [place] Ur Auto RFX 1.019 Normal 1.002-1.035 Protein, [...] None Influenza A/B RSV Covid Amp 05/11/2021 [facility] (Interface) [phone] Influenza A Amplification NEGATIVE Normal Negati ve 2 Influenza B Amplification NEGATIVE Normal Negative 3 RSV Amplification NEGATIVE Normal Negative 4 Sars Covid-19 Amplification NEGATIVE Normal Negative 5 [employer] Cartoonist Pap Test Age-Based GL Cerv CA & STDS 02/27/2021 [facility] [place] Age 30-65 6 Diagn See Comment: 7 Adeq See Comment: 8 Cicd10 See Comment: 9 Perfor See Comment: 10 Signed See Comment: 11 Comm . Note See Comment: 12 Iglbp See Comment: 13 HPV Aptima Negative Negative 14 Influenxa A/B RSV Covid Amp 02/03/2021 [facility] (Interface) [phone] Influenza A Amplification NEGATIVE Normal Negati ve 15 Influenza B Amplification NEGATIVE Normal Negative 16 RSV Amplification NEGATIVE Normal Negative 17 Sars Covid-19 Amplification NEGATIVE Normal Negative 18 Complete Blood Count 02/02/2021 [facility] ( Interface) [phone] White Blood Count 7.1 10 Normal 4.0-10.0 [...] Eval Toxicology ED Only 02/02/2021 [facility] (Interface) [phone] Amphetamines Level Urine NEGATIVE Normal Negativ e Barbiturates Urine NEGATIVE Normal Negative Benzodiazepines Urine NEGATIVE Normal Negative Cannabinoids Urine POSITIVE High Negative Cocaine Metabolite Urine NEGATIVE Normal Negative Methadone Urine NEGATIVE Normal Negative Opiates Urine NEGATIVE Normal Negative Phencyclidine Urine NEGATIVE Normal Negative 19 Liver Profile 02/02/2021 [facility]) [phone] Ast/Sgot 9 U/L Normal 7-37 Alt/SGPT 15 U/L Normal 12-78 Alkaline Phosphatase 66 U/L Normal 45-117 Bilirubin,Total 0.3 mg/dL Normal 0.2-1.0 Bilirubin,Direct < 0.1 mg/dL Normal 0.0-0.2 Total Protein 7.9 GM/DL Normal 6.4-8.2 Albumin 4.2 GM/DL Normal 3.2-5.2 Albumin/Globulin Ratio 1.1 Low 1.2-2.2 Basic Metabolic Profile 02/02/2021 [facility] (Interface) [phone] Glucose, Fasting 98 mg/dL Normal 70-100 Blood [...] 8.5-10.1 Laboratory test finding 02/02/2021 [facility] (Interface) [phone] Ethyl Alcohol (Ethanol) < 0.003 % Normal [...] pathogens. DISCLAIMER: Testing was performed using the [employer] SARS-CoV-2 test. This test was developed and its performance characteristics determined by [employer]. This test has not been FDA cleared [...] Results....LMP 11/05 No. of containers..01 ThinPrep Vial [id number] 7 NEGATIVE FOR INTRAEPITHELIAL LESION OR MALIGNANCY. [...] pathogens. DISCLAIMER: Testing was performed using the [employer] SARS-CoV-2 test. This test was developed and its performance characteristics determined by [employer]. This test has not been FDA cleared [...] Little GFR Left ESRD GFR <15 on CHIEF QUALITY OFFICER Procedures Date Code Description Status 04/24/2021 66872 Office/Outpatient Established Mo d MDM 30-39 Min Completed 04/10/2021 61340 Office/Outpatient Established Mo d MDM 30-39 Min Completed 04/10/2021 42207 Electrocardiogram Complete Compl eted 02/27/2021 10536 Preventive Visit Est 18-39 Yrs C ompleted 02/12/2021 98307 Office/Outpatient Established Lo w MDM 20-29 Min Completed 01/05/2021 38252 Office/Outpatient Established Mo d MDM 30-39 Min Completed Medical Devices Description No Information Available Encounters Type Date Location Provider Dx Diagnosis Office Visit 04/24/2021 3:30p [facility] Everton Salcido, [place] A J45.909 Unspecified asthma, uncomplicated R00.0 Tachycardia, unspecified R53.83 Other fatigue Office Visit 04/10/2021 11:00a [facility] Everton Salcido, [place] A J45.909 Unspecified asthma, uncomplicated G47.00 Insomnia, unspecified F41.9 Anxiety disorder, unspecifie d F31.9 Bipolar disorder, unspecifie d R00.0 Tachycardia, unspecified Office Visit 02/27/2021 2:00p [place] [facility] [place], Jeny Crowder 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) w abnormal findings N92.6 Irregular menstruation, unsp ecified L68.0 Hirsutism E28.2 Polycystic ovarian syndrome R68.82 Decreased libido Office Visit 02/12/2021 11:00a [facility] Everton Salcido, [place] A G47.00 Insomnia, unspecified F41.9 Anxiety disorder, unspecifie d F31.9 Bipolar disorder, unspecifie d Office Visit 01/05/2021 2:40p [place] [facility] Everton Salcido, RP A J45.909 Unspecified [...] (routine) with abnormal findings Jeny Hernandez [facility] 02/27/2021 N92.6 Irregular menstruation, unspecif ied Jeny Hernandez [facility] 02/27/2021 L68.0 Hirsutism Jeny Hernandez [facility] 02/27/2021 E28.2 Polycystic ovarian syndrome Jeny Edwards [facility] 02/27/2021 R68.82 Decreased libido Jeny Hernandez [facility] 02/12/2021 G47.00 Insomnia, unspecified Yuridia Salcido, [...] to Reason for Referral Status Appt Date [facility] Anxiety, depression, ea ting disorder. Sent [address] [place] [address] [phone]
--- OUTSIDE RECORDS SUMMARY | 2021-05-13 12:30 | CCD | Continuity of Care Document ---
Author Author Emily SALCIDO [facility] Organization Unknown Address [address] [place] [address] Phone [phone] Problems Active Problems Provider Date Migraine Sofia [...] a day as needed for anxiety (Istop: [id number]) 60tabs Fantasma Dumont D.O., FAAFP 01/05/2021 Rizatriptan [...] night at bedtime Everton Salcido, [facility] - 02/12/2021 Fluoxetine HCL [...] CPT Code Status Date Vaccine Lot # [id number] Given 02/03/2015 Tdap Tetanus,Dip htheria Toxoids/Acellular Pertussis 7Yrs Or Older 44999 Given 02/03/2015 PPD Tuberculosis Intradermal 58038 Refused 04/10/2021 Influenza Virus Vaccine, Quadrivalent, Slit Virus, Im Use 3Y & Up Vital Signs Date Vital Result Comment 04/24/2021 3:33pm BP Systolic 100 mmHg BP Diastolic 76 mmHg Body Temperature 97.8 F Heart Rate 97 /min Respiratory Rate 16 /min Height 63 inches 5'3" Weight 148.00 lb [place] Body Weight 115 lb BMI (Body Mass Index) 26.2 kg/m2 O2 % BldC Oximetry 97 % 04/10/2021 11:16am BP Systolic 108 mmHg BP Diastolic 80 mmHg Body Temperature 98.0 F Heart Rate 130 /min Respiratory Rate 16 /min Height 63 inches 5'3" Weight 146.00 lb [place] Body Weight 115 lb BMI (Body Mass Index) 25.9 kg/m2 O2 % BldC Oximetry 97 % Results Test Acquired Date Facility Test Result H/L Range Note Laboratory test finding 05/11/2021 [facility] (Interface) [phone] iSTAT B-hCG < 5.0 Normal 1 Istat Chem8+ Panel 05/11/2021 [facility] [phone] iSTAT HCT 45.0 % Normal 38.0-51.0 iSTAT Glucose 91 mg/dL Normal 70-105 iSTAT Sodium 140 mEq/L Normal 136-145 iSTAT Potassium 3.9 mEq/L Normal 3.5-5.1 iSTAT CA++ 5.5 mg/dL High 4.5-5.3 iSTAT Chloride 104 mEq/L Normal 98-109 iSTAT Co2 26.0 MM/L Normal 23.0-27.0 iSTAT BUN 18 mg/dL Normal 8-26 iSTAT Creatinine 0.9 mg/dL Normal 0.6-1.3 CBC With Differential 05/11/2021 [facility] (Interface) [phone] White Blood Count 10.0 10 Normal 4.0-10.0 [...] 36.0-66.0 Lymph % 17.5 % Low 24.0-44.0 [place] % 5.2 % Normal 2.0-8.0 Eos % 0.0 % Normal 0.0-3.0 Baso % 0.2 % Normal 0.0-1.0 Immature Granulocyte % 0.4 % Normal 0-3.0 Nucleated Red Blood Cell % 0.0 % Normal 0-0 Neutrophils # 7.7 10 Normal 1.5-8.5 Lymph # 1.8 10 Normal 1.5-5.0 [place] # 0.5 10 Normal 0.0-0.8 Eos # 0.0 10 Normal 0.0-0.5 Baso # 0.0 10 Normal 0.0-0.2 Ua W/ Reflex To Culture 05/11/2021 [facility] ([facility]) [phone] Appearance, Urine RFX CLOUDY High Clear Color, Urine RFX YELLOW Normal Yellow PH,Urine RFX 6.0 units Normal 5.0-9.0 Specific [place] Ur Auto RFX 1.019 Normal 1.002-1.035 Protein, [...] None Influenza A/B RSV Covid Amp 05/11/2021 [facility] dical (Interface) [phone] Influenza A Amplification NEGATIVE Normal Negati ve 2 Influenza B Amplification NEGATIVE Normal Negative 3 RSV Amplification NEGATIVE Normal Negative 4 Sars Covid-19 Amplification NEGATIVE Normal Negative 5 Scrub Technician Pap Test Age-Based GL Cerv CA & STDS 02/27/2021 [facility] Age 30-65 6 Diagn See Comment: 7 Adeq See Comment: 8 Cicd10 See Comment: 9 Perfor See Comment: 10 Signed See Comment: 11 Comm . Note See Comment: 12 Iglbp See Comment: 13 HPV Aptima Negative Negative 14 Influenxa A/B RSV Covid Amp 02/03/2021 [facility] (Interface) [phone] Influenza A Amplification NEGATIVE Normal Negati ve 15 Influenza B Amplification NEGATIVE Normal Negative 16 RSV Amplification NEGATIVE Normal Negative 17 Sars Covid-19 Amplification NEGATIVE Normal Negative 18 Complete Blood Count 02/02/2021 [facility] ( Interface) [phone] White Blood Count 7.1 10 Normal 4.0-10.0 [...] 0-0 Drug Eval Toxicology ED Only 02/02/2021 [facility] (Interface) [phone] Amphetamines Level Urine NEGATIVE Normal Negativ e Barbiturates Urine NEGATIVE Normal Negative Benzodiazepines Urine NEGATIVE Normal Negative Cannabinoids Urine POSITIVE High Negative Cocaine Metabolite Urine NEGATIVE Normal Negative Methadone Urine NEGATIVE Normal Negative Opiates Urine NEGATIVE Normal Negative Phencyclidine Urine NEGATIVE Normal Negative 19 Liver Profile 02/02/2021 [facility]) [phone] Ast/Sgot 9 U/L Normal 7-37 Alt/SGPT 15 U/L Normal 12-78 Alkaline Phosphatase 66 U/L Normal 45-117 Bilirubin,Total 0.3 mg/dL Normal 0.2-1.0 Bilirubin,Direct < 0.1 mg/dL Normal 0.0-0.2 Total Protein 7.9 GM/DL Normal 6.4-8.2 Albumin 4.2 GM/DL Normal 3.2-5.2 Albumin/Globulin Ratio 1.1 Low 1.2-2.2 Basic Metabolic Profile 02/02/2021 [facility] (Interface) [phone] Glucose, Fasting 98 mg/dL Normal 70-100 Blood [...] mg/dL Normal 8.5-10.1 Laboratory test finding 02/02/2021 [facility] (Interface) [phone] Ethyl Alcohol (Ethanol) < 0.003 % Normal [...] pathogens. DISCLAIMER: Testing was performed using the [employer] SARS-CoV-2 test. This test was developed and its performance characteristics determined by [employer]. This test has not been FDA cleared [...] Results....LMP 11/05 No. of containers..01 ThinPrep Vial [id number] 7 NEGATIVE FOR INTRAEPITHELIAL LESION OR MALIGNANCY. [...] pathogens. DISCLAIMER: Testing was performed using the [employer] SARS-CoV-2 test. This test was developed and its performance characteristics determined by [employer]. This test has not been FDA cleared [...] Little GFR Left ESRD GFR <15 on ROD DRAWER Procedures Date Code Description Status 04/24/2021 64148 Office/Outpatient Established Mo d MDM 30-39 Min Completed 04/10/2021 48375 Office/Outpatient Established Mo d MDM 30-39 Min Completed 04/10/2021 78106 Electrocardiogram Complete Compl eted 02/27/2021 80185 Preventive Visit Est 18-39 Yrs C ompleted 02/12/2021 00812 Office/Outpatient Established Lo w MDM 20-29 Min Completed 01/05/2021 61268 Office/Outpatient Established Mo d MDM 30-39 Min Completed Medical Devices Description No Information Available Encounters Type Date Location Provider Dx Diagnosis Office Visit 04/24/2021 3:30p [facility] Everton Salcido, RP A J45.909 Unspecified asthma, uncomplicated R00.0 Tachycardia, unspecified R53.83 Other fatigue Office Visit 04/10/2021 11:00a [facility] Everton Salcido, RP A J45.909 Unspecified asthma, uncomplicated G47.00 Insomnia, unspecified F41.9 Anxiety disorder, unspecifie d F31.9 Bipolar disorder, unspecifie d R00.0 Tachycardia, unspecified Office Visit 02/27/2021 2:00p [place] Office Rounds, 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) (routine) w abnormal findings N92.6 Irregular menstruation, unsp ecified L68.0 Hirsutism E28.2 Polycystic ovarian syndrome R68.82 Decreased libido Office Visit 02/12/2021 11:00a [facility] Everton Salcido, RP A G47.00 Insomnia, unspecified F41.9 Anxiety disorder, unspecifie d F31.9 Bipolar disorder, unspecifie d Office Visit 01/05/2021 2:40p [place] [facility] Everton Salcido, RP A J45.909 Unspecified [...] (general) (routine) with abnormal findings Jeny Hernandez [facility] 02/27/2021 N92.6 Irregular menstruation, unspecif ied Jeny Hernandez [facility] 02/27/2021 L68.0 Hirsutism Jeny Hernandez [facility] 02/27/2021 E28.2 Polycystic ovarian syndrome Jeny Edwards [facility] 02/27/2021 R68.82 Decreased libido Jeny Hernandez [facility] 02/12/2021 G47.00 Insomnia, unspecified Yuridia Salcido, [...] to Reason for Referral Status Appt Date [facility] Anxiety, depression, ea ting disorder. Sent [address] [place] [address] [phone]
--- OUTSIDE RECORDS SUMMARY | 2021-05-13 12:30 | CCD | Continuity of Care Document ---
Author Author Emily SALCIDO [facility] Organization Unknown Address [address] [place] [address] Phone [phone] Problems Active Problems Provider Date Migraine Sofia [...] a day as needed for anxiety (Istop: [id number]) 60tabs Fantasma Dumont D.O., FAAFP 01/05/2021 Rizatriptan [...] mouth every night at bedtime Everton Salcido, [facility] - 02/12/2021 Fluoxetine HCL [...] CPT Code Status Date Vaccine Lot # [id number] Given 02/03/2015 Tdap Tetanus,Dip htheria Toxoids/Acellular Pertussis 7Yrs Or Older [id number] Given 02/03/2015 PPD Tuberculosis Intradermal 02233 Refused 04/10/2021 Influenza Virus Vaccine, Quadrivalent, Slit Virus, Im Use 3Y & Up Vital Signs Date Vital Result Comment 04/24/2021 3:33pm BP Systolic 100 mmHg BP Diastolic 76 mmHg Body Temperature 97.8 F Heart Rate 97 /min Respiratory Rate 16 /min Height 63 inches 5'3" Weight 148.00 lb [place] Body Weight 115 lb BMI (Body Mass Index) 26.2 kg/m2 O2 % BldC Oximetry 97 % 04/10/2021 11:16am BP Systolic 108 mmHg BP Diastolic 80 mmHg Body Temperature 98.0 F Heart Rate 130 /min Respiratory Rate 16 /min Height 63 inches 5'3" Weight 146.00 lb [place] Body Weight 115 lb BMI (Body Mass Index) 25.9 kg/m2 O2 % BldC Oximetry 97 % Results Test Acquired Date Facility Test Result H/L Range Note Laboratory test finding 05/11/2021 [facility] (Interface) [phone] iSTAT B-hCG < 5.0 Normal 1 Istat Chem8+ Panel 05/11/2021 [facility] [phone] iSTAT HCT 45.0 % Normal 38.0-51.0 iSTAT Glucose 91 mg/dL Normal 70-105 iSTAT Sodium 140 mEq/L Normal 136-145 iSTAT Potassium 3.9 mEq/L Normal 3.5-5.1 iSTAT CA++ 5.5 mg/dL High 4.5-5.3 iSTAT Chloride 104 mEq/L Normal 98-109 iSTAT Co2 26.0 MM/L Normal 23.0-27.0 iSTAT BUN 18 mg/dL Normal 8-26 iSTAT Creatinine 0.9 mg/dL Normal 0.6-1.3 CBC With Differential 05/11/2021 [facility] (Interface) [phone] White Blood Count 10.0 10 Normal 4.0-10.0 [...] 36.0-66.0 Lymph % 17.5 % Low 24.0-44.0 [place] % 5.2 % Normal 2.0-8.0 Eos % 0.0 % Normal 0.0-3.0 Baso % 0.2 % Normal 0.0-1.0 Immature Granulocyte % 0.4 % Normal 0-3.0 Nucleated Red Blood Cell % 0.0 % Normal 0-0 Neutrophils # 7.7 10 Normal 1.5-8.5 Lymph # 1.8 10 Normal 1.5-5.0 [place] # 0.5 10 Normal 0.0-0.8 Eos # 0.0 10 Normal 0.0-0.5 Baso # 0.0 10 Normal 0.0-0.2 Ua W/ Reflex To Culture 05/11/2021 [facility] ([facility]) [phone] Appearance, Urine RFX CLOUDY High Clear Color, Urine RFX YELLOW Normal Yellow PH,Urine RFX 6.0 units Normal 5.0-9.0 Specific [place] Ur Auto RFX 1.019 Normal 1.002-1.035 Protein, [...] None Influenza A/B RSV Covid Amp 05/11/2021 [facility] dical (Interface) [phone] Influenza A Amplification NEGATIVE Normal Negati ve 2 Influenza B Amplification NEGATIVE Normal Negative 3 RSV Amplification NEGATIVE Normal Negative 4 Sars Covid-19 Amplification NEGATIVE Normal Negative 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 Note See Comment: 12 Iglbp See Comment: 13 HPV Aptima Negative Negative 14 Influenxa A/B RSV Covid Amp 02/03/2021 [facility] (Interface) [phone] Influenza A Amplification NEGATIVE Normal Negati ve 15 Influenza B Amplification NEGATIVE Normal Negative 16 RSV Amplification NEGATIVE Normal Negative 17 Sars Covid-19 Amplification NEGATIVE Normal Negative 18 Complete Blood Count 02/02/2021 [facility] ( Interface) [phone] White Blood Count 7.1 10 Normal 4.0-10.0 [...] 0-0 Drug Eval Toxicology ED Only 02/02/2021 [facility] (Interface) [phone] Amphetamines Level Urine NEGATIVE Normal Negativ e Barbiturates Urine NEGATIVE Normal Negative Benzodiazepines Urine NEGATIVE Normal Negative Cannabinoids Urine POSITIVE High Negative Cocaine Metabolite Urine NEGATIVE Normal Negative Methadone Urine NEGATIVE Normal Negative Opiates Urine NEGATIVE Normal Negative Phencyclidine Urine NEGATIVE Normal Negative 19 Liver Profile 02/02/2021 [facility]) [phone] Ast/Sgot 9 U/L Normal 7-37 Alt/SGPT 15 U/L Normal 12-78 Alkaline Phosphatase 66 U/L Normal 45-117 Bilirubin,Total 0.3 mg/dL Normal 0.2-1.0 Bilirubin,Direct < 0.1 mg/dL Normal 0.0-0.2 Total Protein 7.9 GM/DL Normal 6.4-8.2 Albumin 4.2 GM/DL Normal 3.2-5.2 Albumin/Globulin Ratio 1.1 Low 1.2-2.2 Basic Metabolic Profile 02/02/2021 [facility] (Interface) [phone] Glucose, Fasting 98 mg/dL Normal 70-100 Blood [...] mg/dL Normal 8.5-10.1 Laboratory test finding 02/02/2021 [facility] (Interface) [phone] Ethyl Alcohol (Ethanol) < 0.003 % Normal [...] pathogens. DISCLAIMER: Testing was performed using the [employer] SARS-CoV-2 test. This test was developed and its performance characteristics determined by [employer]. This test has not been FDA cleared [...] Results....LMP 11/05 No. of containers..01 ThinPrep Vial [id number] 7 NEGATIVE FOR INTRAEPITHELIAL LESION OR MALIGNANCY. [...] pathogens. DISCLAIMER: Testing was performed using the [employer] SARS-CoV-2 test. This test was developed and its performance characteristics determined by [employer]. This test has not been FDA cleared [...] Little GFR Left ESRD GFR <15 on SAMPLING EXPERT Procedures Date Code Description Status 04/24/2021 60606 Office/Outpatient Established Mo d MDM 30-39 Min Completed 04/10/2021 09834 Office/Outpatient Established Mo d MDM 30-39 Min Completed 04/10/2021 60363 Electrocardiogram Complete Compl eted 02/27/2021 60977 Preventive Visit Est 18-39 Yrs C ompleted 02/12/2021 84811 Office/Outpatient Established Lo w MDM 20-29 Min Completed 01/05/2021 01942 Office/Outpatient Established Mo d MDM 30-39 Min Completed Medical Devices Description No Information Available Encounters Type Date Location Provider Dx Diagnosis Office Visit 04/24/2021 3:30p [facility] Everton Salcido, RP A J45.909 Unspecified asthma, uncomplicated R00.0 Tachycardia, unspecified R53.83 Other fatigue Office Visit 04/10/2021 11:00a [facility] Everton Salcido, RP A J45.909 Unspecified asthma, uncomplicated G47.00 Insomnia, unspecified F41.9 Anxiety disorder, unspecifie d F31.9 Bipolar disorder, unspecifie d R00.0 Tachycardia, unspecified Office Visit 02/27/2021 2:00p [place] Office Rounds, Jeny Crowder COLLAR FELLER- Z01.411 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 ocular care 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 exam (general) (routine) w abnormal findings N92.6 Irregular menstruation, unsp ecified L68.0 Hirsutism E28.2 Polycystic ovarian syndrome R68.82 Decreased libido Office Visit 02/12/2021 11:00a [facility] Everton Salcido, RP A G47.00 Insomnia, unspecified F41.9 Anxiety disorder, unspecifie d F31.9 Bipolar disorder, unspecifie d Office Visit 01/05/2021 2:40p [place] [facility] Everton Salcido, RP A J45.909 Unspecified [...] (general) (routine) with abnormal findings Jeny Hernandez [facility] 02/27/2021 N92.6 Irregular menstruation, unspecif ied Jeny Hernandez [facility] 02/27/2021 L68.0 Hirsutism Jeny Hernandez [facility] 02/27/2021 E28.2 Polycystic ovarian syndrome Jeny Edwards [facility] 02/27/2021 R68.82 Decreased libido Jeny Hernandez [facility] 02/12/2021 G47.00 Insomnia, unspecified Yuridia Salcido, RPA 02/12/2021 F41.9 Anxiety disorder, unspecified Hi Everton serrano, RPA 02/12/2021 F31.9 Bipolar disorder, unspecified Hi Everton serrano, RPA 01/05/2021 J45.909 Unspecified asthma, uncomplicate d Evertno Salcido, RPA 01/05/2021 G43.009 Migraine without aur a, not intractable, without status migrainosus Everton Salcido, HANDY 01/05/2021 G47.00 Insomnia, unspecified Yuridia Salcido, HANDY Plan of Treatment No Information Available Functional Status Description No Information Available Mental Status Description No Information Available Referrals Refer to Reason for Referral Status Appt Date [facility] Anxiety, depression, ea ting disorder. Sent [address] [place] [address] [phone]
--- OUTSIDE RECORDS SUMMARY | 2021-05-13 12:31 | CCD ---
Author Author [facility] Organization [facility] Address Unknown Phone Unavailable Care Team Providers Care Dividend Clerk Name Role Phone Heidi Garcia Unavailable Jeanie Pelaez Unavailable Vel Hernandez COMPLAINT INVESTIGATIONS OFFICER Unavailable Unavailable Vel Hernandez COMPLAINT INVESTIGATIONS OFFICER Unavailable Unavailable Rounds, M LUKE COMPLAINT INVESTIGATIONS OFFICER Unavailable Unavailable Rounds, M LUKE COMPLAINT INVESTIGATIONS OFFICER Unavailable Unavailable Rounds, M LUKE COMPLAINT INVESTIGATIONS OFFICER Unavailable Unavailable Rounds, M LUKE COMPLAINT INVESTIGATIONS OFFICER Unavailable Unavailable Rounds, M LUKE COMPLAINT INVESTIGATIONS OFFICER Unavailable Unavailable Rounds, M LUKE COMPLAINT INVESTIGATIONS OFFICER Unavailable Unavailable Rounds, M LUKE COMPLAINT INVESTIGATIONS OFFICER Unavailable Unavailable Rounds, M LUKE COMPLAINT INVESTIGATIONS OFFICER Unavailable Unavailable Rounds, M LUKE COMPLAINT INVESTIGATIONS OFFICER Unavailable Unavailable Rounds, M LUKE COMPLAINT INVESTIGATIONS OFFICER Unavailable Unavailable Rounds, M LUKE COMPLAINT INVESTIGATIONS OFFICER Unavailable Unavailable Rounds, M LUKE COMPLAINT INVESTIGATIONS OFFICER Unavailable Unavailable Rounds, M LUKE COMPLAINT INVESTIGATIONS OFFICER Unavailable Unavailable Rounds, M LUKE COMPLAINT INVESTIGATIONS OFFICER Unavailable Unavailable Rounds, M LUKE COMPLAINT INVESTIGATIONS OFFICER Unavailable Unavailable Rounds, M LUKE COMPLAINT INVESTIGATIONS OFFICER Unavailable Unavailable Rounds, M LUKE COMPLAINT INVESTIGATIONS OFFICER Unavailable Unavailable Rounds, M LUKE COMPLAINT INVESTIGATIONS OFFICER Unavailable Unavailable Rounds, M LUEK COMPLAINT INVESTIGATIONS OFFICER Unavailable Unavailable Rounds, M LUKE COMPLAINT INVESTIGATIONS OFFICER Unavailable Unavailable Rounds, M LUKE COMPLAINT INVESTIGATIONS OFFICER Unavailable Unavailable Rounds, M LUKE COMPLAINT INVESTIGATIONS OFFICER Unavailable Unavailable Rounds, M LUKE COMPLAINT INVESTIGATIONS OFFICER Unavailable Unavailable Rounds, M LUKE COMPLAINT INVESTIGATIONS OFFICER Unavailable Unavailable Rounds, M LUKE COMPLAINT INVESTIGATIONS OFFICER Unavailable Unavailable Rounds, M LUKE COMPLAINT INVESTIGATIONS OFFICER Unavailable Unavailable Rounds, M LUKE COMPLAINT INVESTIGATIONS OFFICER Unavailable Unavailable Rounds, M LUKE COMPLAINT INVESTIGATIONS OFFICER Unavailable Unavailable Rounds, M ULKE COMPLAINT INVESTIGATIONS OFFICER Unavailable Unavailable Rounds, M LUKE COMPLAINT INVESTIGATIONS OFFICER Unavailable Unavailable Rounds, M LUKE COMPLAINT INVESTIGATIONS OFFICER Unavailable Unavailable Rounds, M LUKE COMPLAINT INVESTIGATIONS OFFICER Unavailable Unavailable Rounds, M LUKE COMPLAINT INVESTIGATIONS OFFICER Unavailable Unavailable Rounds, M LUKE COMPLAINT INVESTIGATIONS OFFICER Unavailable Unavailable Rounds, M LUKE COMPLAINT INVESTIGATIONS OFFICER Unavailable Unavailable Rounds, M LUKE COMPLAINT INVESTIGATIONS OFFICER Unavailable Unavailable Rounds, M LUKE COMPLAINT INVESTIGATIONS OFFICER Unavailable Unavailable Rounds, M LUKE COMPLAINT INVESTIGATIONS OFFICER Unavailable Unavailable Rounds, M LUKE COMPLAINT INVESTIGATIONS OFFICER Unavailable Unavailable Rounds, M LUKE COMPLAINT INVESTIGATIONS OFFICER Unavailable Unavailable Rounds, M LUKE COMPLAINT INVESTIGATIONS OFFICER Unavailable Unavailable Rounds, M LUKE COMPLAINT INVESTIGATIONS OFFICER Unavailable Unavailable Rounds, M LUKE COMPLAINT INVESTIGATIONS OFFICER Unavailable Unavailable Rounds, M LUKE COMPLAINT INVESTIGATIONS OFFICER Unavailable Unavailable Rounds, M LUKE COMPLAINT INVESTIGATIONS OFFICER Unavailable Unavailable Rounds, M LUKE COMPLAINT INVESTIGATIONS OFFICER Unavailable Unavailable Rounds, M LUKE COMPLAINT INVESTIGATIONS OFFICER Unavailable Unavailable Rounds, M LUKE COMPLAINT INVESTIGATIONS OFFICER Unavailable Unavailable Rounds, M LUKE COMPLAINT INVESTIGATIONS OFFICER Unavailable Unavailable Rounds, M LUKE COMPLAINT INVESTIGATIONS OFFICER Unavailable Unavailable Rounds, M LUKE COMPLAINT INVESTIGATIONS OFFICER Unavailable Unavailable Rounds, M LUKE COMPLAINT INVESTIGATIONS OFFICER Unavailable Unavailable Rounds, M LUKE COMPLAINT INVESTIGATIONS OFFICER Unavailable Unavailable Rounds, M LUKE COMPLAINT INVESTIGATIONS OFFICER Unavailable Unavailable Rounds, M LUKE COMPLAINT INVESTIGATIONS OFFICER Unavailable Unavailable Rounds, M LUKE COMPLAINT INVESTIGATIONS OFFICER Unavailable Unavailable Rounds, M LUKE COMPLAINT INVESTIGATIONS OFFICER Unavailable Unavailable Rounds, M LUKE COMPLAINT INVESTIGATIONS OFFICER Unavailable Unavailable Rounds, M LUKE COMPLAINT INVESTIGATIONS OFFICER Unavailable Unavailable Rounds, M LUKE COMPLAINT INVESTIGATIONS OFFICER Unavailable Unavailable Rounds, M LUKE COMPLAINT INVESTIGATIONS OFFICER Unavailable Unavailable MICHAEL, H LILY COMPLAINT INVESTIGATIONS OFFICER Unavailable Unavailable MICHAEL, H LILY COMPLAINT INVESTIGATIONS OFFICER Unavailable Unavailable MICHAEL, H LILY COMPLAINT INVESTIGATIONS OFFICER Unavailable Unavailable MICHAEL, H LILY COMPLAINT INVESTIGATIONS OFFICER Unavailable Unavailable MICHAEL, H LILY COMPLAINT INVESTIGATIONS OFFICER Unavailable Unavailable MICHAEL, H LILY COMPLAINT INVESTIGATIONS OFFICER Unavailable Unavailable MICHAEL, H LILY COMPLAINT INVESTIGATIONS OFFICER Unavailable Unavailable MICHAEL, H LILY COMPLAINT INVESTIGATIONS OFFICER Unavailable Unavailable MICHAEL, H LILY COMPLAINT INVESTIGATIONS OFFICER Unavailable Unavailable Omari, D Everton PA Unavailable [...] D Everton PA Unavailable Unavailable Omari, D Everotn PA Unavailable Unavailable Omari, D Everton PA [...] is protected by Article 27-F of the [facility] Public Health law. If you continue you may have access to information: Regarding HIV / AIDS; Provided by facilities licensed or operated by the [facility] Office of Mental Health; or Provided by the [facility] Office for People With Developmental Disabilities. If such information is present, then the following [facility] mandated warning applies: This information has [...] MG/ML Oral Suspension Hives Moderate Active [facility] ([facility]) Propensity to adverse reactions to substance bee venom prote in (honey bee) honey bee venom protein 0.1 MG/ML Injectable Solution Anaphylaxis Life threatening sev Active [facility] ([facility]) Propensity to adverse reactions to substance doxycycline Doxycycline Calcium 10 MG/ML Oral Suspension Hives Moderate Active [facility] ([facility]) Propensity to adverse reactions to substance bee venom prote in (honey bee) honey bee venom protein 0.1 MG/ML Injectable Solution Anaphylaxis Life threatening sev Active [facility] ([facility]) Encounters Encounter Providers Location Date Indications Data Source(s ) Outpatient Attender: LILY DODGE NP [facility] Andrea l 05/04/2021 04:00:00 AM EDT - 05/04/2021 04:00:00 AM EDT [facility] ([facility]) Attender: LILY DODGE NP 05/04/2021 12:00:00 AM EDT [facility] ([facility]) Outpatient Attender: Everton GALINDO [facility] 02/2021 03:30:00 PM EDT [facility] ([facility] Outpatient Attender: Everton GALINDO [facility] 11:00:00 AM EDT [facility] ([facility] Outpatient Attender: LILY DODGE NP [facility] Andrea archibald 03/02/2021 03:30:00 AM EDT - 03/02/2021 03:30:00 AM EDT [facility] ([facility]) Brief Individual Psychotherapy - 30 min Attender: Heidi cueto [facility] [place] 03/02/2021 02:45:00 AM EDT - 03/02/2021 02:45:00 AM EDT [facility] ([facility]) Health Monitoring - 30 Min Attender: Jeanie Pelaez [facility] 03/02/2021 02:15:00 AM EDT - 03/02/2021 02:15:00 AM EDT [facility] ([facility]) Attender: Heidi Garcia 03/02/2021 12:00:00 AM EDT [facility] ([facility]) Attender: LILY DODGE NP 03/02/2021 12:00:00 AM EDT [facility] ([facility]) Attender: Jeanie Pelaez 03/02/2021 12:00:00 AM EDT [facility] ([facility]) Outpatient Attender: LUKE Hernandez NP [facility] 02/27/2021 0 2:00:00 PM EDT [facility] ([facility] ) Psychiatric Diagnostic Evaluation (Non-Medical) Attender: Linda Garcia [facility] 02/20/2021 01:00:00 AM EDT - 02/20/2021 01:00:00 AM EDT [facility] ([facility]) Attender: Heidi Garcia 02/20/2021 12:00:00 AM EDT [facility] ([facility]) Psychiatric Diagnostic Evaluation with Medical Service s Attender: LILY DODGE NP [facility] 02/18/2021 02:00:00 AM EDT - 02/18/2021 02:00:00 AM EDT [facility] ([facility]) Attender: LILY DODGE NP 02/18/2021 12:00:00 AM EDT [facility] ([facility]) Outpatient Attender: Everton AGLINDO [facility] 11:00:00 AM EDT [facility] ([facility] Extended Individual Psychotherapy - 45 min Attender: Lyric Garcia [facility] 02/09/2021 02:00:00 AM EDT - 02/09/2021 02:00:00 AM EDT [facility] ([facility]) Attender: Heidi Garcia 02/09/2021 12:00:00 AM EDT [facility] ([facility]) Brief Individual Psychotherapy - 30 min Attender: Heidi Brian nory [facility] 01/30/2021 10:30:00 AM EDT - 01/30/2021 10:30:00 AM EDT [facility] ([facility]) Attender: Heidi Garcia 01/30/2021 12:00:00 AM EDT [facility] ([facility]) Outpatient Attender: Everton GALINDO [facility] 02:40:00 PM EDT [facility] ([facility] [address] [place] [phone] 03/25/2020 12:00:00 AM EDT eCW1 ([facility]) Outpatient Attender: Everton GALINDO [facility] 04:00:00 PM EDT [facility] ([facility] Functional Status Immunizations Vaccine Date Status Description Data Source(s) COVID-19 VACCINE Pfizer 04/17/2021 12:00:00 AM EDT completed [facility]SIIS Vaccine Series Complete: YESThis Data wa s Submitted to [facility] Via [facility]. New in 2012. IIV4 04/10/2021 11:40:00 AM EDT completed [facility] ([facility] COVID-19 VACCINE Pfizer 03/27/2021 12:00:00 AM EDT completed NYSIIS Vaccine Series Complete: NOThis Data was Submitted to [facility] Via [employer]. Medications Medication Brand Name Start Date Product Form Dose Route Admi nistrative Instructions Pharmacy Instructions Status Indications Reaction Description Data Source(s) Zolpidem tartrate 5 MG Oral Tablet [Ambien] Ambien 05/05/2021 12:00:00 AM EDT 5 mg by mouth completed <td ID="Me dicationRxNorm_4">002559</td><td ID="MedicationMedication_4">Ambien</td><td ID="MedicationRoute_4">by mouth</td><td ID="MedicationRouteConcept_4">K56074</td><td ID="MedicationStartDate_4">05/05/2021</td><td ID="MedicationStopDate_4">06/03/2021</td><td ID="MedicationDosageFrequency_4">as directed</td><td ID="MedicationDuration_4">30</td><td ID="MedicationFormulaStrength_4">5 mg</td><td ID="MedicationDosageForm_4">tablet</td><td ID="MedicationDosageFormCode_4"></td><td ID="MedicationDosageDescription_4"></td><td ID="MedicationMedicationId_4">[id number]</td><td ID="MedicationAccount_4">[id number]</td><td ID="MedicationNpid_4">[id number]</td><td ID="MedicationAuthorFirstName_4">Lily</td><td ID="MedicationAuthorLastName_4">Michael</td><td ID="MedicationTaxonomyCode_4">[id number]</td><td ID="MedicationTaxonomyDesc_4">Nurse Practitioner</td><td ID="MedicationPhoneNumber_4">[phone]</td> [facility] ([facility]) 24 HR venlafaxine 75 MG Extended Release Oral Capsule venlaf axine 05/04/2021 12:00:00 AM EDT 75 mg by mouth completed <td ID="MedicationRxNorm_5">807137</td><td ID="MedicationMedication_5">venlafaxine</td><td ID="MedicationRoute_5">by mouth</td><td ID="MedicationRouteConcept_5">B55365</td><td ID="MedicationStartDate_5">05/04/2021</td><td ID="MedicationStopDate_5">08/02/2021</td><td ID="MedicationDosageFrequency_5">every morning</td><td ID="MedicationDuration_5">30</td><td ID="MedicationFormulaStrength_5">75 mg</td><td ID="MedicationDosageForm_5">capsule,extended release 24hr</td><td ID="MedicationDosageFormCode_5"></td><td ID="MedicationDosageDescription_5"></td><td ID="MedicationMedicationId_5">[id number]</td><td ID="MedicationAccount_5">[id number]</td><td ID="MedicationNpid_5">[id number]</td><td ID="MedicationAuthorFirstName_5">Lily</td><td ID="MedicationAuthorLastName_5">Michael</td><td ID="MedicationTaxonomyCode_5">[id number]</td><td ID="MedicationTaxonomyDesc_5"> Nurse Practitioner</td><td ID="MedicationPhoneNumber_5">[phone]</td> [facility] ([facility]) olanzapine 2.5 MG Oral Tablet olanzapine 04/16/2021 12:00:00 AM EDT 2.5 mg by mouth completed <td ID="Medica tionRxNorm_2">100134</td><td ID="MedicationMedication_2">olanzapine</td><td ID="MedicationRoute_2">by mouth</td><td ID="MedicationRouteConcept_2">O71996</td><td ID="MedicationStartDate_2">04/16/2021</td><td ID="MedicationStopDate_2">05/04/2021</td><td ID="MedicationDosageFrequency_2">at bedtime</td><td ID="MedicationDuration_2">21</td><td ID="MedicationFormulaStrength_2">2.5 mg</td><td ID="MedicationDosageForm_2">tablet</td><td ID="MedicationDosageFormCode_2"></td><td ID="MedicationDosageDescription_2"></td><td ID="MedicationMedicationId_2">[id number]</td><td ID="MedicationAccount_2">[id number]</td><td ID="MedicationNpid_2">[id number]</td><td ID="MedicationAuthorFirstName_2">Lily</td><td ID="MedicationAuthorLastName_2">Michael</td><td ID="MedicationTaxonomyCode_2">[id number]</td><td ID="MedicationTaxonomyDesc_2">Nurse Practitioner</td><td ID="MedicationPhoneNumber_2">[phone]</td> [facility] ([facility]) 24 HR venlafaxine 75 MG Extended Release Oral Capsule venlaf axine 04/16/2021 12:00:00 AM EDT 75 mg by mouth completed <td ID="MedicationRxNorm_3">981703</td><td ID="MedicationMedication_3">venlafaxine</td><td ID="MedicationRoute_3">by mouth</td><td ID="MedicationRouteConcept_3">P52243</td><td ID="MedicationStartDate_3">04/16/2021</td><td ID="MedicationStopDate_3">05/04/2021</td><td ID="MedicationDosageFrequency_3">every morning</td><td ID="MedicationDuration_3">21</td><td ID="MedicationFormulaStrength_3">75 mg</td><td ID="MedicationDosageForm_3">capsule,extended release 24hr</td><td ID="MedicationDosageFormCode_3"></td><td ID="MedicationDosageDescription_3"></td><td ID="MedicationMedicationId_3">[id number]</td><td ID="MedicationAccount_3">[id number]</td><td ID="MedicationNpid_3">[id number]</td><td ID="MedicationAuthorFirstName_3">Lily</td><td ID="MedicationAuthorLastName_3">Michael</td><td ID="MedicationTaxonomyCode_3">[id number]</td><td ID="MedicationTaxonomyDesc_3"> Nurse Practitioner</td><td ID="MedicationPhoneNumber_3">[phone]</td> [facility] ([facility]) Mirtazapine 15 MG Oral Tablet mirtazapine 04/16/2021 12:00:00 AM EDT 15 mg by mouth completed <td ID="Medica tionRxNorm_1">136981</td><td ID="MedicationMedication_1">mirtazapine</td><td ID="MedicationRoute_1">by mouth</td><td ID="MedicationRouteConcept_1">F12246</td><td ID="MedicationStartDate_1">04/16/2021</td><td ID="MedicationStopDate_1">05/04/2021</td><td ID="MedicationDosageFrequency_1">at bedtime</td><td ID="MedicationDuration_1">21</td><td ID="MedicationFormulaStrength_1">15 mg</td><td ID="MedicationDosageForm_1">tablet</td><td ID="MedicationDosageFormCode_1"></td><td ID="MedicationDosageDescription_1"></td><td ID="MedicationMedicationId_1">[id number]</td><td ID="MedicationAccount_1">[id number]</td><td ID="MedicationNpid_1">[id number]</td><td ID="MedicationAuthorFirstName_1">Lily</td><td ID="MedicationAuthorLastName_1">Michael</td><td ID="MedicationTaxonomyCode_1">[id number]</td><td ID="MedicationTaxonomyDesc_1">Nurse Practitioner</td><td ID="MedicationPhoneNumber_1">[phone]</td> [facility] ([facility]) 24 HR metoprolol succinate 25 MG Extended Release Oral Tablet [Toprol] Toprol XL 04/10/2021 12:00:00 AM EDT ORAL active [facility] ([facility] Fluoxetine 10 MG Oral Capsule fluoxetine 02/20/2021 12:00:00 AM EDT 10 mg by mouth completed <td ID="Medica tionRxNorm_4">795151</td><td ID="MedicationMedication_4">fluoxetine</td><td ID="MedicationRoute_4">by mouth</td><td ID="MedicationRouteConcept_4">K13707</td><td ID="MedicationStartDate_4">02/20/2021</td><td ID="MedicationStopDate_4">03/20/2021</td><td ID="MedicationDosageFrequency_4">every morning</td><td ID="MedicationDuration_4">30</td><td ID="MedicationFormulaStrength_4">10 mg</td><td ID="MedicationDosageForm_4">capsule</td><td ID="MedicationDosageFormCode_4"></td><td ID="MedicationDosageDescription_4"> </td><td ID="MedicationMedicationId_4">[id number]</td><td ID="MedicationAccount_4">[id number]</td><td ID="MedicationNpid_4">[id number]</td><td ID="MedicationAuthorFirstName_4">Lily</td><td ID="MedicationAuthorLastName_4">Michael</td><td ID="MedicationTaxonomyCode_4">[id number]</td><td ID="MedicationTaxonomyDesc_4">Nurse Practitioner</td><td ID="MedicationPhoneNumber_4">[phone]</td> [facility] Fluoxetine 10 MG Oral Capsule fluoxetine 02/20/2021 12:00:00 AM EDT 10 mg by mouth completed <td ID="Medica tionRxNorm_2">274484</td><td ID="MedicationMedication_2">fluoxetine</td><td ID="MedicationRoute_2">by mouth</td><td ID="MedicationRouteConcept_2">X60335</td><td ID="MedicationStartDate_2">02/20/2021</td><td ID="MedicationStopDate_2">03/02/2021</td><td ID="MedicationDosageFrequency_2">every morning</td><td ID="MedicationDuration_2">30</td><td ID="MedicationFormulaStrength_2">10 mg</td><td ID="MedicationDosageForm_2">capsule</td><td ID="MedicationDosageFormCode_2"></td><td ID="MedicationDosageDescription_2"> </td><td ID="MedicationMedicationId_2">[id number]</td><td ID="MedicationAccount_2">[id number]</td><td ID="MedicationNpid_2">[id number]</td><td ID="MedicationAuthorFirstName_2">Lily</td><td ID="MedicationAuthorLastName_2">Michael</td><td ID="MedicationTaxonomyCode_2">[id number]</td><td ID="MedicationTaxonomyDesc_2">Nurse Practitioner</td><td ID="MedicationPhoneNumber_2">[phone]</td> [facility] ([facility]) Clonazepam 0.5 MG Oral Tablet [Klonopin] Klonopin 02/18/2021 12 :00:00 AM EDT 0.5 mg by mouth completed <td ID="Me dicationRxNorm_2">435553</td><td ID="MedicationMedication_2">Klonopin</td><td ID="MedicationRoute_2">by mouth</td><td ID="MedicationRouteConcept_2">H85346</td><td ID="MedicationStartDate_2">02/18/2021</td><td ID="MedicationStopDate_2">03/20/2021</td><td ID="MedicationDosageFrequency_2">as directed</td><td ID="MedicationDuration_2">30</td><td ID="MedicationFormulaStrength_2">0.5 mg</td><td ID="MedicationDosageForm_2">tablet</td><td ID="MedicationDosageFormCode_2"></td><td ID="MedicationDosageDescription_2">as needed</td><td ID="MedicationMedicationId_2">[id number]</td><td ID="MedicationAccount_2">[id number]</td><td ID="MedicationNpid_2">[id number]</td><td ID="MedicationAuthorFirstName_2">Lily</td><td ID="MedicationAuthorLastName_2">Michael</td><td ID="MedicationTaxonomyCode_2">[id number]</td><td ID="MedicationTaxonomyDesc_2">Nurse Practitioner</td><td ID="MedicationPhoneNumber_2">[phone]</td> [facility] ([facility]) Clonazepam 0.5 MG Oral Tablet [Klonopin] Klonopin 02/18/2021 12 :00:00 AM EDT 0.5 mg by mouth completed <td ID="Me dicationRxNorm_3">318560</td><td ID="MedicationMedication_3">Klonopin</td><td ID="MedicationRoute_3">by mouth</td><td ID="MedicationRouteConcept_3">C75727</td><td ID="MedicationStartDate_3">02/18/2021</td><td ID="MedicationStopDate_3">03/20/2021</td><td ID="MedicationDosageFrequency_3">as directed</td><td ID="MedicationDuration_3">30</td><td ID="MedicationFormulaStrength_3">0.5 mg</td><td ID="MedicationDosageForm_3">tablet</td><td ID="MedicationDosageFormCode_3"></td><td ID="MedicationDosageDescription_3">as needed</td><td ID="MedicationMedicationId_3">[id number]</td><td ID="MedicationAccount_3">[id number]</td><td ID="MedicationNpid_3">[id number]</td><td ID="MedicationAuthorFirstName_3">Lily</td><td ID="MedicationAuthorLastName_3">Michael</td><td ID="MedicationTaxonomyCode_3">[id number]</td><td ID="MedicationTaxonomyDesc_3">Nurse Practitioner</td><td ID="MedicationPhoneNumber_3">[phone]</td> [facility] ([facility]) olanzapine 2.5 MG Oral Tablet olanzapine 02/18/2021 12:00:00 AM EDT 2.5 mg by mouth completed <td ID="Medica tionRxNorm_5">962715</td><td ID="MedicationMedication_5">olanzapine</td><td ID="MedicationRoute_5">by mouth</td><td ID="MedicationRouteConcept_5">A06779</td><td ID="MedicationStartDate_5">02/18/2021</td><td ID="MedicationStopDate_5">03/20/2021</td><td ID="MedicationDosageFrequency_5">at bedtime</td><td ID="MedicationDuration_5">30</td><td ID="MedicationFormulaStrength_5">2.5 mg</td><td ID="MedicationDosageForm_5">tablet</td><td ID="MedicationDosageFormCode_5"></td><td ID="MedicationDosageDescription_5"></td><td ID="MedicationMedicationId_5">[id number]</td><td ID="MedicationAccount_5">[id number]</td><td ID="MedicationNpid_5">[id number]</td><td ID="MedicationAuthorFirstName_5">Lily</td><td ID="MedicationAuthorLastName_5">Michael</td><td ID="MedicationTaxonomyCode_5">[id number]</td><td ID="MedicationTaxonomyDesc_5">Nurse Practitioner</td><td ID="MedicationPhoneNumber_5">[phone]</td> [facility] ([facility]) 24 HR venlafaxine 75 MG Extended Release Oral Capsule venlaf axine 02/18/2021 12:00:00 AM EDT 75 mg by mouth completed <td ID="MedicationRxNorm_4">465191</td><td ID="MedicationMedication_4">venlafaxine</td><td ID="MedicationRoute_4">by mouth</td><td ID="MedicationRouteConcept_4">J40862</td><td ID="MedicationStartDate_4">02/18/2021</td><td ID="MedicationStopDate_4">03/20/2021</td><td ID="MedicationDosageFrequency_4">every morning</td><td ID="MedicationDuration_4">30</td><td ID="MedicationFormulaStrength_4">75 mg</td><td ID="MedicationDosageForm_4">capsule,extended release 24hr</td><td ID="MedicationDosageFormCode_4"></td><td ID="MedicationDosageDescription_4"></td><td ID="MedicationMedicationId_4">[id number]</td><td ID="MedicationAccount_4">[id number]</td><td ID="MedicationNpid_4">[id number]</td><td ID="MedicationAuthorFirstName_4">Lily</td><td ID="MedicationAuthorLastName_4">Michael</td><td ID="MedicationTaxonomyCode_4">[id number]</td><td ID="MedicationTaxonomyDesc_4"> Nurse Practitioner</td><td ID="MedicationPhoneNumber_4">[phone]</td> [facility] ([facility]) olanzapine 2.5 MG Oral Tablet OLANZapine 02/12/2021 12:00:00 AM EDT ORAL completed [facility] ([facility] olanzapine 2.5 MG Oral Tablet Olanzapine 02/12/2021 12:00:00 AM EDT ORAL active [facility] ([facility] Fluoxetine 10 MG Oral Capsule Fluoxetine HCL 01/05/2021 12:00:00 AM E DT ORAL completed [facility] ([facility] Fluoxetine 20 MG Oral Capsule Fluoxetine HCL 01/05/2021 12:00:00 AM E DT ORAL completed [facility] ([facility] olanzapine 5 MG Oral Tablet Olanzapine 01/05/2021 12:00:00 AM EDT ORAL completed [facility] ([facility] Clonazepam 0.5 MG Oral Tablet Clonazepam 01/05/2021 12:00:00 AM EDT ORAL active [facility] ([facility] quetiapine 50 MG Oral [...] 2 HOURS DIRECTED SOLD: 05/30/2020 [facility] 0.3 mg/0.3 mL 01/12/2020 12:00:00 AM EDT auto-injector 2 INJECT DIRECTED INJECT DIRECTED SOLD: 03/14/2020 [facility] Insurance Providers Payer name Policy type / Coverage type Policy ID Covered libertarian ID Covered libertarian's relationship to card Policy Card Plan Information [facility] [id number] SP [id number] [facility] [id number] SP [id number] [facility] O [id number] S [id number] [facility] [id number] SP [id number] [facility] O [id number] S [id number] ANSI-Not a Secondary Insurance [id number] [employer] () [id number] Commercial I nsurance [id number] BA [facility] [id number] [facility] [id number] N REGIONAL CLAIMS WILVER -O/P [id number] 01 [id number] O BLUE [id number] SP [id number] MEDICAID [id number] SP [id number] O BLUE [id number] SP [id number] SELF PAY UNAVAILABLE SP UNAVAILA BLE P UNAVAILABLE UNAVAILA BLE Problems, Conditions, and Diagnoses Code Display Name Description Problem Type Effective Dates Data Source(s) F12.10 Cannabis abuse, uncomplicated Cannabis Use Disorder, M ild Condition 05/04/2021 12:00:00 AM EDT [facility] ([facility]) F31.9 Bipolar disorder, unspecified Bipolar I Disorder, Current or most recent episode depressed, Unspecified Condition 05/04/2021 12:00:00 AM EDT [facility] ([facility]) R00.0 Tachycardia Tachycardia Problem 04/10/2021 12:00:00 AM EDT [facility] ([facility] F31.9 Bipolar disorder, unspecified Bipolar I Disorder, Current or most recent episode depressed, Unspecified Condition 03/02/2021 12:00:00 AM EDT [facility] ([facility]) F12.10 Cannabis abuse, uncomplicated Cannabis Use Disorder, M ild Condition 03/02/2021 12:00:00 AM EDT [facility] ([facility]) F32.9 Major depressive disorder, single episod e, unspecified Unspecified depressive Disorder Condition 02/09/2021 12:00:00 AM EDT [facility] ( [facility]) Surgeries/Procedures Procedure Description Date Indications Data Source(s) [facility] E/M Lvl 3--Est pt 05/04/2021 12:00:00 AM EDT - 05/04/2021 12:00:00 AM EDT [facility] ([facility]) MHC Telemed E/M Lvl 3--Est pt 05/04/2021 12:00:00 AM E DT [facility] ([facility]) OFFICE OUTPATIENT VISIT 25 MINUTES 04/24/2021 12:00:00 AM EDT [facility] ([facility] Electrocardiogram Complete 04/10/2021 12:00:00 AM EDT [facility] ([facility] OFFICE OUTPATIENT VISIT 25 MINUTES 04/10/2021 12:00:00 AM EDT [facility] ([facility] Brief Individual Psychotherapy - 30 min 03/02/2021 12:00:00 AM EDT - 03/02/2021 12:00:00 AM EDT [facility] ([facility]) Brief Individual Psychotherapy - 30 min 03/02/2021 12: 00:00 AM EDT [facility] ([facility]) OFFICE OUTPATIENT VISIT 15 MINUTES 03/02 12:00:00 AM EDT - 03/02/2021 12:00:00 AM EDT [facility] ([facility]) OFFICE OUTPATIENT VISIT 15 MINUTES 03/02/2021 12:00:00 AM EDT [facility] ([facility]) 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 OFFSET&/RISK FACTOR REDJ SPX 30 MIN 03/02/2021 12:00:00 AM EDT - 03/02/2021 12:00:00 AM EDT [facility] ([facility]) 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 OFFSET&/RISK FACTOR REDJ SPX 30 MIN 03/02 12:00:00 AM EDT [facility] ([facility]) PERIODIC PREVENTIVE MED EST PATIENT 18-39 YRS 02/28/20 12:00:00 AM EDT [facility] ([facility] Psychiatric Diagnostic Evaluation (Non-Medical) 02/20/2021 12:00:00 AM EDT - 02/20/2021 12:00:00 AM EDT [facility] ([facility]) Psychiatric Diagnostic Evaluation (Non-Medical) 2020 12:00:00 AM EDT [facility] ([facility]) Psychiatric Diagnostic Evaluation with Medical Services 02/18/2021 12:00:00 AM EDT - 02/18/2021 12:00:00 AM EDT [facility] ([facility]) Psychiatric Diagnostic Evaluation with Medical Services 02/18/2021 12:00:00 AM EDT [facility] ([facility]) OFFICE OUTPATIENT VISIT 15 MINUTES 02/12/2021 12:00:00 AM EDT [facility] ([facility] Extended Individual Psychotherapy - 45 min 02/09/2021 12:00:00 AM EDT - 02/09/2021 12:00:00 AM EDT [facility] ([facility]) Extended Individual Psychotherapy - 45 min 12:00:00 AM EDT [facility] ([facility]) Brief Individual Psychotherapy - 30 min 01/30/2021 12:00:00 AM EDT - 01/30/2021 12:00:00 AM EDT [facility] ([facility]) Brief Individual Psychotherapy - 30 min 01/30/2021 12: 00:00 AM EDT [facility] ([facility]) OFFICE OUTPATIENT VISIT 25 MINUTES 01/05/2021 12:00:00 AM EDT [facility] ([facility] Results ID Date Data Source [id number] 05/11/2021 08:39:00 AM EDT [facility] ([facility] Name Value Range Interpretation Code Description Data [facility](s) Supporting Document(s) Laboratory test finding (navigational concept) Laboratory test r esult Normal (applies to non-numeric results) [facility] ([facility] <content>QUANTITATIVE RESULT QU ALITATIVE INTERPRETATION</content>
<content> </content>
<content><5.0 IU/L NEGATIVE</content>
<content>5.0 - 25.0 IU/L INDETERMINATE</content>
<content>>25.0 IU/L POSITIVE</content>
<content></content> ID Date Data Source [id number] 05/11/2021 08:37:00 AM EDT [facility] ([facility] Name Value Range Interpretation Code Description Data [facility](s) Supporting Document(s) Laboratory test finding (navigational concept) 45.0 % 3 8.0-51.0 Normal (applies to non-numeric results) [facility] ([facility] Laboratory test finding (navigational concept) 140 meq/L 1 36-145 Normal (applies to non-numeric results) [facility] ([facility] Laboratory test finding (navigational concept) 91 mg/dL 7 0-105 Normal (applies to non-numeric results) [facility] ([facility] Laboratory test finding (navigational concept) 3.9 meq/L 3 .5-5.1 Normal (applies to non-numeric results) [facility] ([facility] Laboratory test finding (navigational concept) 5.5 mg/dL 4 .5-5.3 Above high normal [facility] ([facility] ) Laboratory test finding (navigational concept) 104 meq/L 9 8-109 Normal (applies to non-numeric results) [facility] ([facility] Laboratory test finding (navigational concept) 18 mg/dL 8 -26 Normal (applies to non-numeric results) [facility] ([facility]) Laboratory test finding (navigational concept) 26.0 MM/L 2 3.0-27.0 Normal (applies to non-numeric results) [facility] ([facility] Laboratory test finding (navigational concept) 0.9 mg/dL 0 .6-1.3 Normal (applies to non-numeric results) [facility] ID Date Data Source [id number] 05/11/2021 08:36:00 AM EDT [facility] ([facility] Name Value Range Interpretation Code Description Data [facility]idy r[facility](s) Supporting Document(s) Lipoprotein lipase [Enzymatic activity/volume] in Serum or Plasm a 77 U/L 73-393 Normal (applies to non-numeric results) [facility] Lactate [Mass/volume] in Serum or Plasma 0.9 mmol/L 0.4-2.0 Normal (applies to non-numeric results) [facility] ([facility]) Y/N query for Sepsis Lactate Rule: Y ID Date Data Source [id number] 05/11/2021 08:36:00 AM EDT [facility] ([facility] Name Value Range Interpretation Code Description Data [facility]idy r[facility](s) Supporting Document(s) Ast/Sgot 10 U/L 7-37 Normal (applies to non-numeric resul ts) [facility] ([facility] Alt/SGPT 14 U/L 12-78 Normal (applies to non-numeric resul ts) [facility] ([facility] Alkaline Phosphatase 72 U/L 45-117 Normal (applies to non-num paddy results) [facility] Bilirubin,Total 0.4 mg/dL 0.2-1.0 Normal (applies to non-numeric results) [facility] ([facility] Bilirubin,Direct 0.1 mg/dL 0.0-0.2 Normal (applies to non-numeric results) [facility] Total Protein 7.7 GM/DL 6.4-8.2 Normal (applies to non-numeric re sults) [facility] ([facility] Albumin 4.1 GM/DL 3.2-5.2 Normal (applies to non-numeric resul ts) [facility] ([facility] Albumin/Globulin Ratio 1.1 1.2-2.2 Below low normal [facility] ([facility] ID Date Data Source [id number] 05/11/2021 08:36:00 AM EDT [facility] ([facility] Name Value Range Interpretation Code Description Data Leidy rce(s) Supporting Document(s) White Blood Count 10.0 10 4.0-10.0 Normal (applies to non-numeri c results) [facility] ([facility] Red Blood Count 4.83 10 4.00-5.40 Normal (applies to non-numeric results) [facility] ([facility] Hemoglobin 14.1 g/dL 12.0-15.5 Normal (applies to non-numeric resul ts) [facility] ([facility] Mean Corpuscular Volume 90.5 fl 80.0-96.0 Normal ( applies to non-numeric results) [facility] ([facility] ) Hematocrit 43.7 % 36.0-47.0 Normal (applies to non-numeric resul ts) [facility] ([facility] Mean Corpuscular Hemoglobin 29.2 pg 27.0-33.0 Norm al (applies to non-numeric results) [facility] ([facility] ) Red Cell Distribution Width 12.0 % 11.5-14.5 Norm al (applies to non-numeric results) [facility] ([facility] ) Mean Corpuscular HGB Conc 32.3 g/dL 32.0-36.5 Normal (applies to non-numeric results) [facility] ([facility] ) Neutrophils % 76.7 % 36.0-66.0 Above high normal MEDE NT ([facility] Platelet Count, Automated 257 10 150-450 Normal (applies to non-numeric results) [facility] ([facility] ) Lymph % 17.5 % 24.0-44.0 Below low normal [facility] ( [facility] Eos % 0.0 % 0.0-3.0 Normal (applies to non-numeric resul ts) [facility] ([facility] [place] % 5.2 % 2.0-8.0 Normal (applies to non-numeric resul ts) [facility] ([facility] Baso % 0.2 % 0.0-1.0 Normal (applies to non-numeric resul ts) [facility] ([facility] Nucleated Red Blood Cell % 0.0 % 0-0 Normal (applies to n on-numeric results) [facility] ([facility] Immature Granulocyte % 0.4 % 0-3.0 Normal (applies to non-n umeric results) [facility] ([facility] Lymph # 1.8 10 1.5-5.0 Normal (applies to non-numeric resul ts) [facility] ([facility] Neutrophils # 7.7 10 1.5-8.5 Normal (applies to non-numeric re sults) [facility] ([facility] [place] # 0.5 10 0.0-0.8 Normal (applies to non-numeric resul ts) [facility] ([facility] Eos # 0.0 10 0.0-0.5 Normal (applies to non-numeric resul ts) [facility] ([facility] Baso # 0.0 10 0.0-0.2 Normal (applies to non-numeric resul ts) [facility] ([facility] ID Date Data Source [id number] 05/11/2021 08:16:00 AM EDT [facility] ([facility] Name Value Range Interpretation Code Description Data Leidy rce(s) Supporting Document(s) Reflex Urine Culture Laboratory test result Norm al (applies to non-numeric results) [facility] ([facility] ) FULL REPORT IN LAB NOTES (eCW and [facility] ). SPECIMEN APPEARS CONTAMINATED ID Date Data Source [id number] 05/11/2021 08:16:00 AM EDT [facility] Name Value Range Interpretation Code Description Data Leidy rce(s) Supporting Document(s) Influenza A Amplification Laboratory test result Normal (applies to non- numeric results) [facility] ([facility] ) Negative results do not preclude influen za or RSV virus infection and should not be used as the sole basis for treatment or other patient management decisions. Influenza B Amplification Laboratory test result Normal (applies to non- numeric results) [facility] ([facility] ) Negative results do not preclude influen za or RSV virus infection and should not be used as the sole basis for treatment or other patient management decisions. RSV Amplification Laboratory test result Normal (applies to non-numeric results) [facility] ([facility] ) Negative results do not preclude influen za or RSV virus infection and should not be used as the sole basis for treatment or other patient management decisions. Laboratory test finding (navigational concept) Laboratory test r esult Normal (applies to non-numeric results) [facility] ([facility] A false negative [...] pathogens. DISCLAIMER: Testing was performed using the [employer] SARS-CoV-2 test. This test was developed and its performance characteristics determined by [employer]. This test has not been FDA cleared [...] or revoked sooner. ID Date Data Source [id number] 05/11/2021 08:16:00 AM EDT [facility] ([facility] Name Value Range Interpretation Code Description Data Leidy rce(s) Supporting Document(s) Appearance, Urine RFX Laboratory test result Above high no rmal [facility] ([facility] Color, Urine RFX Laboratory test result Normal ( applies to non-numeric results) [facility] ([facility] ) PH,Urine RFX 6.0 units 5.0-9.0 Normal (applies to non-numeric res ults) [facility] ([facility] Specific Totz Ur Auto RFX 1.019 1.002-1.035 Nor mal (applies to non-numeric results) [facility] ([facility] ) Protein, Urine Auto RFX Laboratory test result Above high normal [facility] ([facility] Glucose, Urine (Ua) Auto RFX Laboratory test result Normal (applies to non- numeric results) [facility] ([facility] ) Urobilinogen, Urine Auto RFX 0.2 mg/dL 0.0-2.0 Nor mal (applies to non-numeric results) [facility] ([facility] ) Ketone, Urine Auto RFX Laboratory test result No rmal (applies to non-numeric results) [facility] ([facility] ) Nitrite, Urine Auto RFX Laboratory test result N ormal (applies to non-numeric results) [facility] ([facility] ) Bilirubin, Urine Auto RFX Laboratory test result Normal (applies to non- numeric results) [facility] ([facility] ) Leukocyte Esterase Ur Auto RFX Laboratory test result Abov e high normal [facility] ([facility] Blood, Urine Blood RFX Laboratory test result Above high n ormal [facility] ([facility] WBC, Urine Auto RFX 12 /HPF 0-3 Above high normal [facility] ([facility] RBC, Urine Auto RFX Laboratory test result 0-3 Above high norm al [facility] ([facility] Squam Epithelial Cell Ur Aurfx 7 /HPF 0-6 N ormal (applies to non-numeric results) [facility] ([facility] ) Bacteria, Urine Auto RFX Laboratory test result Above high normal [facility] ([facility] Deisy Howell) Mucus, Urine RFX Laboratory test result Normal ( applies to non-numeric results) [facility] ([facility] Deisy Howell ) Laboratory test finding (navigational concept) Laboratory test r esult Normal (applies to non-numeric results) [facility] ([facility] Deisy Smith) Hyaline Cast, Urine Auto RFX 0 /LPF 0-1 Normal (appl ies to non-numeric results) [facility] ([facility] Deisy Howell) ID Date Data Source [id number] 02/27/2021 02:34:00 PM EDT [facility] ([facility] Howell) Name Value Range Interpretation Code Description Data Leidy rce(s) Supporting Document(s) Age Laboratory test result [facility] ([facility] Deisy Howell) Source.............Endocervix Dates / Re sults....LMP 11/05 No. of containers..01 ThinPrep Vial [id number] Pathology report final diagnosis Narrative Laboratory test result [facility] ([facility] Howell[facility] Source.............Endocervix Dates / Re sults....LMP 11/05 No. of containers..01 ThinPrep Vial [id number] Statement of adequacy [Interpretation] o f Cervical or vaginal smear or scraping by Cyto stain Laboratory test result [facility] NT ([facility] Source.............Endocervix Dates / Re sults....LMP 11/05 No. of containers..01 ThinPrep Vial [id number] Laboratory test result [facility] ([facility]da PYair[facility].) Source.............Endocervix Dates / Re sults....LMP 11/05 No. of containers..01 ThinPrep Vial [id number] [employer] Agent who read Cyto stain of Cervical or vaginal smear or scraping Laboratory test result [facility] ([facility] Source.............Endocervix Dates / Re sults....LMP 11/05 No. of containers..01 ThinPrep Vial [id number] Pathologist who read Cyto stain of Cervical or vaginal smear or scraping Laboratory test result [facility] ([facility] Source.............Endocervix Dates / Re sults....LMP 11/05 No. of containers..01 ThinPrep Vial [id number] Microscopic observation [Identifier] in Unspecified sp ecimen by Other stain Laboratory test result [facility] ([facility] Source.............Endocervix Dates / Re sults....LMP 11/05 No. of containers..01 ThinPrep Vial [id number] Note Laboratory test result [facility] ([facility] Source.............Endocervix Dates / Re sults....LMP 11/05 No. of containers..01 ThinPrep Vial [id number] Cytology report of Cervical or vaginal smear or scrapi ng Cyto stain.thin prep Laboratory test result [facility] ([facility] Source.............Endocervix Dates / Re sults....LMP 11/05 No. of containers..01 ThinPrep Vial [id number] Human papilloma virus 16+18+31+33+35+39+ 45+51+52+56+58+59+66+68 DNA [Presence] in Cervix by Probe and signal amplification method Laboratory test result [facility] Source.............Endocervix Dates / Re sults....LMP 11/05 No. of containers..01 ThinPrep Vial [id number] ID Date Data Source [id number] 02/03/2021 10:49:00 AM EDT [facility] ([facility] Name Value Range Interpretation Code Description Data Leidy rce(s) Supporting Document(s) Influenza A Amplification Laboratory test result Normal (applies to non- numeric results) [facility] ([facility] ) Negative results do not preclude influen za or RSV virus infection and should not be used as the sole basis for treatment or other patient management decisions. Influenza B Amplification Laboratory test result Normal (applies to non- numeric results) [facility] ) Negative results do not preclude influen za or RSV virus infection and should not be used as the sole basis for treatment or other patient management decisions. RSV Amplification Laboratory test result Normal (applies to non-numeric results) [facility] ([facility] ) Negative results do not preclude influen za or RSV virus infection and should not be used as the sole basis for treatment or other patient management decisions. Laboratory test finding (navigational concept) Laboratory test r esult Normal (applies to non-numeric results) [facility] ([facility] A false negative [...] pathogens. DISCLAIMER: Testing was performed using the [employer] SARS-CoV-2 test. This test was developed and its performance characteristics determined by [employer]. This test has not been FDA cleared [...] or revoked sooner. ID Date Data Source [id number] 02/03/2021 10:49:00 AM EDT [facility] Name Value Range Interpretation Code Description Data Leidy rce(s) Supporting Document(s) SARS coronavirus 2 RNA [Presence] in Res piratory specimen by PATRICK with probe detection NEGATIVE [facility] This lab was ordered by [facility] a nd reported by [facility]. ID Date Data Source [id number] 02/02/2021 12:16:00 PM EDT [facility] ([facility] Name Value Range Interpretation Code Description Data Leidy rce(s) Supporting Document(s) Ethanol [Mass/volume] in Serum or Plasma Laboratory test result 0.000-0.010 Normal (applies to non-numeric results) [facility] ([facility] Salicylates [Mass/volume] in Serum or Plasma Laboratory test res ult 5.0-30.0 Below low normal [facility] ([facility] ) Acetaminophen [Mass/volume] in Serum or Plasma Laboratory test r esult 10.0-30.0 Below low normal [facility] ([facility] ) Thyrotropin [Units/volume] in Serum or Plasma 0.622 uIU/ML 0. 358-3.740 Normal (applies to non-numeric results) [facility] ([facility] Choriogonadotropin.beta subunit ( test) [Pres ence] in Serum or Plasma Laboratory test result Normal (applies to non-numeric results) [facility] ([facility] ID Date Data Source [id number] 02/02/2021 12:16:00 PM EDT [facility] ([facility] Name Value Range Interpretation Code Description Data Leidy rce(s) Supporting Document(s) Glucose, Fasting 98 mg/dL 70-100 Normal (applies to non-numeric results) [facility] ([facility] Blood Urea Nitrogen 13 mg/dL 7-18 Normal (applies to non-nume sharita results) [facility] ([facility] Creatinine For GFR 0.74 mg/dL 0.55-1.30 Normal (applies to non -numeric results) [facility] ([facility] Glomerular Filtration Rate Laboratory test result Normal (applies to non- numeric results) [facility] ([facility] ) <content>Units are mL/min/1.73 m2</content>
<content></content>
<content>Chronic Kidney Disease Staging per NKF:</content>
<content></content>
<content>Stage I & II GFR >=60 Normal to Mildly Decreased</content>
<content>Stage III GFR 30- 59 Moderately Decreased</content>
<content>Stage IV GFR 15-29 Severely Decreased</content>
<content>Stage V GFR <15 Very Little GFR Left</content>
<content>ESRD GFR <15 on CURB SUPERVISOR</content>
<content></content> Sodium Level 140 meq/L 136-145 Normal (applies to non-numeric res ults) [facility] ([facility] Potassium Serum 4.1 meq/L 3.5-5.1 Normal (applies to non-numeric results) [facility] ([facility] Chloride Level 109 meq/L 98-107 Above high normal [facility] ([facility] Carbon Dioxide Level 26 meq/L 21-32 Normal (applies to non-num paddy results) MEDJOSE MANUEL ([facility] Anion Gap 5 meq/L 8-16 Below low normal [facility] ( [facility] Calcium Level 10.0 mg/dL 8.5-10.1 Normal (applies to non-numeric re sults) MEDJOSE MANUEL ([facility] ID Date Data Source [id number] 02/02/2021 12:16:00 PM EDT [facility] ([facility] [...] Normal (applies to non-num paddy results) [facility] ([facility] Bilirubin,Direct Laboratory test result 0.0-0.2 Normal ( applies to non-numeric results) [facility] ([facility] ) Total Protein 7.9 GM/DL 6.4-8.2 Normal (applies to non-numeric re sults) [facility] ([facility] Albumin 4.2 GM/DL 3.2-5.2 Normal (applies to non-numeric resul ts) [facility] ([facility] Albumin/Globulin Ratio 1.1 1.2-2.2 Below low normal [facility] ([facility] ID Date Data Source [id number] 02/02/2021 12:16:00 PM EDT [facility] ([facility] Name Value Range Interpretation Code Description Data Leidy rce(s) Supporting Document(s) Amphetamines Level Urine Laboratory test result Normal (applies to non-numeric results) [facility] ([facility] ) Barbiturates Urine Laboratory test result Normal (applies to non-numeric results) [facility] ([facility] ) Benzodiazepines Urine Laboratory [...] Normal (a pplies to non-numeric results) [facility] ([facility] ) Opiates Urine Laboratory test result Normal (applies t o non-numeric results) [facility] ([facility] Phencyclidine Urine Laboratory test result Jen l (applies to non-numeric results) [facility] ([facility] ) ALL PRESUMPTIVE POSITIVE FINDINGS [...] CALL THE LAB. ID Date Data Source [id number] 02/02/2021 12:16:00 PM EDT [facility] ([facility] Name Value Range Interpretation Code Description Data Leidy rce(s) Supporting Document(s) White Blood Count 7.1 10 4.0-10.0 Normal (applies to non-numeri c results) [facility] ([facility] Red Blood Count 4.68 10 4.00-5.40 Normal (applies to non-numeric results) [facility] ([facility] Hematocrit 42.2 % 36.0-47.0 Normal (applies to non-numeric resul ts) [facility] ([facility] Hemoglobin 13.9 g/dL 12.0-15.5 Normal (applies to non-numeric resul ts) [facility] ([facility] Mean Corpuscular Volume 90.2 fl 80.0-96.0 Normal ( applies to non-numeric results) [facility] ([facility] ) Mean Corpuscular Hemoglobin 29.7 pg 27.0-33.0 Norm al (applies to non-numeric results) [facility] ([facility] ) Mean Corpuscular HGB Conc 32.9 g/dL 32.0-36.5 Normal (applies to non-numeric results) [facility] ([facility] Platelet Count, Automated 262 10 150-450 Normal (applies to non-numeric results) MEDJOSE MANUEL ([facility] ) Red Cell Distribution Width 11.7 [...] if ever smoked [facility] ([facility]) Smoking 03/02/2021 12:00:00 AM EDT Unknown if ever smoked comp leted Unknown if ever smoked [facility] ([facility]) Smoking 02/20/2021 12:00:00 AM EDT Unknown if ever smoked comp leted Unknown if ever smoked [facility] ([facility]) Smoking 02/18/2021 12:00:00 AM EDT Unknown if ever smoked comp leted Unknown if ever smoked [facility] ([facility]) Smoking 02/09/2021 12:00:00 AM EDT Unknown if ever smoked comp leted Unknown if ever smoked [facility] ([facility]) Smoking 01/30/2021 12:00:00 AM EDT Unknown if ever smoked comp leted Unknown if ever smoked [facility] ([facility]) Vital Signs ID Date Data Source [id number] Name Value Range Interpretation Code Description Data Source(s) Systolic blood pressure 100 mm[Hg] 100 mm[Hg] M KARLA ([facility] Diastolic blood pressure 76 mm[Hg] 76 mm[Hg] BROOKS ([facility] Body temperature 97.8 [degF] 97.8 [degF] BROOKS ([facility] Heart rate 97 /min 97 /min [facility]OOKS ([facility] Respiratory rate 16 /min 16 /min BROOKS ( [facility] Body height 63 [in_i] 63 [in_i] [facility] ([facility] 5'3" Body weight 148.00 [lb_av] 148.00 [lb_av] MEDEN T ([facility] [place] body weight 115 [lb_av] 115 [lb_av] MEDEN T ([facility] Body mass index (BMI) [Ratio] 26.2 kg/m2 26.2 k g/m2 [facility] ([facility] Oxygen saturation in Arterial blood by Pulse oximetry 97 % 97 % [facility] ([facility] Body height 63 [in_i] 63 [in_i] [facility] ([facility] 5'3" Heart rate 130 /min 130 /min [facility] ([facility] Systolic blood pressure 108 mm[Hg] 108 mm[Hg] M EDENT ([facility] Body mass index (BMI) [Ratio] 25.9 kg/m2 25.9 k g/m2 [facility] ([facility] Oxygen saturation in Arterial blood by Pulse oximetry 97 % 97 % [facility] ([facility] Respiratory rate 16 /min 16 /min [facility] ( [facility] Body weight 146.00 [lb_av] 146.00 [lb_av] MEDEN T ([facility] [place] body weight 115 [lb_av] 115 [lb_av] MEDEN T ([facility] Diastolic blood pressure 80 mm[Hg] 80 mm[Hg] [facility] ([facility] Body temperature 98.0 [degF] 98.0 [degF] [facility] ([facility] Body height 62.00 in Normal (applies to non-numeric resu lts) 62.00 in [facility] Body weight Measured 142.00 lbs Normal (applies to n on-numeric results) 142.00 lbs [facility] ([facility]) Body mass index (BMI) [Ratio] 25.97 kg/m2 No rmal (applies to non-numeric results) 25.97 kg/m2 [facility] ([facility]) Systolic blood pressure 112 mm[Hg] Normal (applies t o non-numeric results) 112 mm[Hg] [facility] ([facility]) Diastolic blood pressure 72 mm[Hg] Normal (applies to non-numeric results) 72 mm[Hg] [facility] ([facility]) Body temperature 98.60 degF Normal (applies to non-n umeric results) 98.60 degF [facility] ([facility]) Body height --lying 102 min Normal (applies to non-nume shartia results) 102 min [facility] ([facility]) Body height 62.00 in Normal (applies to non-numeric resu lts) 62.00 in [facility] ([facility]) Body weight Measured 142.00 lbs Normal (applies to n on-numeric results) 142.00 lbs [facility] ([facility]) Body mass index (BMI) [Ratio] 25.97 kg/m2 No rmal (applies to non-numeric results) 25.97 kg/m2 [facility] ([facility]) Systolic blood pressure 112 mm[Hg] Normal (applies t o non-numeric results) 112 mm[Hg] [facility] ([facility]) Diastolic blood pressure 72 mm[Hg] Normal (applies to non-numeric results) 72 mm[Hg] [facility] ([facility]) Body temperature 98.60 degF Normal (applies to non-n umeric results) 98.60 degF [facility] ([facility]) Body height --lying 102 min Normal (applies to non-nume sharita results) 102 min [facility] ([facility]) Oxygen saturation in Arterial blood by Pulse oximetry 98 % 98 % [facility] ([facility] Body temperature 97.8 [degF] 97.8 [degF] [facility] ([facility] Heart rate 107 /min 107 /min [facility] ([facility] Body height 63 [in_i] 63 [in_i] [facility] 5'3" Body mass index (BMI) [Ratio] 25.3 kg/m2 25.3 k g/m2 [facility] ([facility] Body weight 143.00 [lb_av] 143.00 [lb_av] MEDEN T ([facility] [place] body weight 115 [lb_av] 115 [lb_av] MEDEN T ([facility] Systolic blood pressure 122 mm[Hg] 122 mm[Hg] M EDENT ([facility] Diastolic blood pressure 62 mm[Hg] 62 mm[Hg] [facility] ([facility] Respiratory rate 16 /min 16 /min [facility] ( [facility] Body mass index (BMI) [Ratio] 24.4 kg/m2 24.4 k g/m2 [facility] ([facility] Heart rate 77 /min 77 /min [facility] ([facility] Body temperature 97.5 [degF] 97.5 [degF] [facility] ([facility] [place] body weight 115 [lb_av] 115 [lb_av] MEDEN T ([facility] Diastolic blood pressure 78 mm[Hg] 78 mm[Hg] [facility] ([facility] Systolic blood pressure 100 mm[Hg] 100 mm[Hg] M EDENT ([facility] Body weight 138.00 [lb_av] 138.00 [lb_av] MEDEN T ([facility] Oxygen saturation in Arterial blood by Pulse oximetry 98 % 98 % [facility] ([facility] Respiratory rate 16 /min 16 /min [facility] ( [facility] Body height 63 [in_i] 63 [in_i] [facility] ([facility] 5'3" Body height 63 [in_i] 63 [in_i] [facility] ([facility] 5'3" Body mass index (BMI) [Ratio] 24.4 kg/m2 24.4 k g/m2 [facility] ([facility] Oxygen saturation in Arterial blood by Pulse oximetry 97 % 97 % [facility] ([facility] Body weight 138.00 [lb_av] 138.00 [lb_av] MEDEN T ([facility] Systolic blood pressure 110 mm[Hg] 110 mm[Hg] M EDENT ([facility] Diastolic blood pressure 80 mm[Hg] 80 mm[Hg] [facility] ([facility] Body temperature 97.5 [degF] 97.5 [degF] [facility] ([facility] [place] body weight 115 [lb_av] 115 [lb_av] MEDEN T ([facility] Heart rate 85 /min 85 /min [facility] ([facility] Respiratory rate 16 /min 16 /min [facility] ( [facility] Systolic blood pressure 96 mm[Hg] 96 mm[Hg] M EDENT ([facility] Diastolic blood pressure 68 mm[Hg] 68 mm[Hg] MED[facility] ([facility] Respiratory rate 16 /min 16 /min [facility] ( [facility] Body height 63 [in_i] 63 [in_i] [facility] ([facility] 5'3" Body weight 108.00 [lb_av] 108.00 [lb_av] MEDEN T ([facility] [place] body weight 115 [lb_av] 115 [lb_av] MEDEN T ([facility] Body mass index (BMI) [Ratio] 19.1 kg/m2 19.1 k g/m2 [facility] ([facility] Oxygen saturation in Arterial blood by Pulse oximetry 99 % 99 % [facility] ([facility] Heart rate 97 /min 97 /min [facility] ([facility] Body temperature 96.6 [degF] 96.6 [degF] [facility] ([facility]
--- OUTSIDE RECORDS SUMMARY | 2021-05-13 16:08 | CCD ---
Author Author [facility] Organization [facility] Address Unknown Phone Unavailable Care Team Providers Care Acting Professor Name Role Phone JoseHeidi Unavailable Jeanie Pelaez Unavailable Vel Hernandez FRUIT PRESS OPERATOR Unavailable Unavailable Vel Hernandez FRUIT PRESS OPERATOR Unavailable Unavailable Rounds, M LUKE FRUIT PRESS OPERATOR Unavailable Unavailable Rounds, M LUKE FRUIT PRESS OPERATOR Unavailable Unavailable Rounds, M LUKE FRUIT PRESS OPERATOR Unavailable Unavailable Rounds, M LUKE FRUIT PRESS OPERATOR Unavailable Unavailable Rounds, M LUKE FRUIT PRESS OPERATOR Unavailable Unavailable Rounds, M LUKE FRUIT PRESS OPERATOR Unavailable Unavailable Rounds, M LUKE FRUIT PRESS OPERATOR Unavailable Unavailable Rounds, M LUKE FRUIT PRESS OPERATOR Unavailable Unavailable Rounds, M LUKE FRUIT PRESS OPERATOR Unavailable Unavailable Rounds, M LUKE FRUIT PRESS OPERATOR Unavailable Unavailable Rounds, M LUKE FRUIT PRESS OPERATOR Unavailable Unavailable Rounds, M LUKE FRUIT PRESS OPERATOR Unavailable Unavailable Rounds, M LUKE FRUIT PRESS OPERATOR Unavailable Unavailable Rounds, M LUKE FRUIT PRESS OPERATOR Unavailable Unavailable Rounds, M LUKE FRUIT PRESS OPERATOR Unavailable Unavailable Rounds, M LUKE FRUIT PRESS OPERATOR Unavailable Unavailable Rounds, M LUKE FRUIT PRESS OPERATOR Unavailable Unavailable Rounds, M LUKE FRUIT PRESS OPERATOR Unavailable Unavailable Rounds, M LUKE FRUIT PRESS OPERATOR Unavailable Unavailable Rounds, M LUKE FRUIT PRESS OPERATOR Unavailable Unavailable Rounds, M LUKE FRUIT PRESS OPERATOR Unavailable Unavailable Rounds, M LUKE FRUIT PRESS OPERATOR Unavailable Unavailable Rounds, M LUKE FRUIT PRESS OPERATOR Unavailable Unavailable Rounds, M LUKE FRUIT PRESS OPERATOR Unavailable Unavailable Rounds, M LUKE FRUIT PRESS OPERATOR Unavailable Unavailable Rounds, M LUKE FRUIT PRESS OPERATOR Unavailable Unavailable Rounds, M LUKE FRUIT PRESS OPERATOR Unavailable Unavailable Rounds, M LUKE FRUIT PRESS OPERATOR Unavailable Unavailable Rounds, M LUKE FRUIT PRESS OPERATOR Unavailable Unavailable Rounds, M LUKE FRUIT PRESS OPERATOR Unavailable Unavailable Rounds, M LUKE FRUIT PRESS OPERATOR Unavailable Unavailable Rounds, M LUKE FRUIT PRESS OPERATOR Unavailable Unavailable Rounds, M LUKE FRUIT PRESS OPERATOR Unavailable Unavailable Rounds, M LUKE FRUIT PRESS OPERATOR Unavailable Unavailable Rounds, M LUKE FRUIT PRESS OPERATOR Unavailable Unavailable Rounds, M LUKE FRUIT PRESS OPERATOR Unavailable Unavailable Rounds, M LUKE FRUIT PRESS OPERATOR Unavailable Unavailable Rounds, M LUKE FRUIT PRESS OPERATOR Unavailable Unavailable Rounds, M LUKE FRUIT PRESS OPERATOR Unavailable Unavailable Rounds, M LUKE FRUIT PRESS OPERATOR Unavailable Unavailable Rounds, M LUKE FRUIT PRESS OPERATOR Unavailable Unavailable Rounds, M LUKE FRUIT PRESS OPERATOR Unavailable Unavailable Rounds, M LUKE FRUIT PRESS OPERATOR Unavailable Unavailable Rounds, M LUKE FRUIT PRESS OPERATOR Unavailable Unavailable Rounds, M LUKE FRUIT PRESS OPERATOR Unavailable Unavailable Rounds, M LUKE FRUIT PRESS OPERATOR Unavailable Unavailable Rounds, M LUKE FRUIT PRESS OPERATOR Unavailable Unavailable Rounds, M LUKE FRUIT PRESS OPERATOR Unavailable Unavailable Rounds, M LUKE FRUIT PRESS OPERATOR Unavailable Unavailable Rounds, M LUKE FRUIT PRESS OPERATOR Unavailable Unavailable Rounds, M LUKE FRUIT PRESS OPERATOR Unavailable Unavailable Rounds, M LUKE FRUIT PRESS OPERATOR Unavailable Unavailable Rounds, M LUKE FRUIT PRESS OPERATOR Unavailable Unavailable Rounds, M LUKE FRUIT PRESS OPERATOR Unavailable Unavailable Rounds, M LUKE FRUIT PRESS OPERATOR Unavailable Unavailable Rounds, M LUKE FRUIT PRESS OPERATOR Unavailable Unavailable Rounds, M LUKE FRUIT PRESS OPERATOR Unavailable Unavailable Rounds, M LUKE FRUIT PRESS OPERATOR Unavailable Unavailable Rounds, M LUKE FRUIT PRESS OPERATOR Unavailable Unavailable Rounds, M LUKE FRUIT PRESS OPERATOR Unavailable Unavailable Rounds, M LUKE FRUIT PRESS OPERATOR Unavailable Unavailable MICHAEL, H LILY FRUIT PRESS OPERATOR Unavailable Unavailable MICHAEL, H LILY FRUIT PRESS OPERATOR Unavailable Unavailable MICHAEL, H LILY FRUIT PRESS OPERATOR Unavailable Unavailable MICHAEL, H LILY FRUIT PRESS OPERATOR Unavailable Unavailable MICHAEL, H LILY FRUIT PRESS OPERATOR Unavailable Unavailable MICHAEL, H LILY FRUIT PRESS OPERATOR Unavailable Unavailable MICHAEL, H LILY FRUIT PRESS OPERATOR Unavailable Unavailable MICHAEL, H LILY FRUIT PRESS OPERATOR Unavailable Unavailable MICHAEL, H LILY FRUIT PRESS OPERATOR Unavailable Unavailable Omari, D Everton PA Unavailable [...] is protected by Article 27-F of the [facility] Public Health law. If you continue you may have access to information: Regarding HIV / AIDS; Provided by facilities licensed or operated by the [facility] Office of Mental Health; or Provided by the [facility] Office for People With Developmental Disabilities. If such information is present, then the following [facility] mandated warning applies: This information has [...] law may result in a fine or fdc sentence or both. A general authorization for the release of medical or other information is NOT sufficient authorization for further disc losure. Allergies and Adverse Reactions Type Description Substance Reaction Status Data Source(s ) Propensity to adverse reactions to substance doxycycline Doxycycline Calcium 10 MG/ML Oral Suspension Hives Moderate Active [facility] ([facility]) Propensity to adverse reactions to substance bee venom prote in (honey bee) honey bee venom protein 0.1 MG/ML Injectable Solution Anaphylaxis Life threatening sev Active [facility] ([facility]) Propensity to adverse reactions to substance doxycycline Doxycycline Calcium 10 MG/ML Oral Suspension Hives Moderate Active [facility] ([facility]) Propensity to adverse reactions to substance bee venom prote in (honey bee) honey bee venom protein 0.1 MG/ML Injectable Solution Anaphylaxis Life threatening sev Active [facility] ([facility]) Encounters Encounter Providers Location Date Indications Data Source(s ) Outpatient Attender: [place] [facility] 11:30:00 AM EDT [facility] ([facility] Outpatient Attender: LILY DODGE NP [facility] Andrea l 05/04/2021 04:00:00 AM EDT - 05/04/2021 04:00:00 AM EDT [facility] ([facility]) Attender: LILY DODGE NP 05/04/2021 12:00:00 AM EDT [facility] ([facility]) Outpatient Attender: [place] [facility] 02/2021 03:30:00 PM EDT [facility] ([facility] Outpatient Attender: [place] [facility] 11:00:00 AM EDT [facility] ([facility] Outpatient Attender: LILY DODGE NP [facility] Andrea archibald 03/02/2021 03:30:00 AM EDT - 03/02/2021 03:30:00 AM EDT [facility] ([facility]) Brief Individual Psychotherapy - 30 min Attender: Heidi cueto [facility] 03/02/2021 02:45:00 AM EDT - 03/02/2021 02:45:00 AM EDT [facility] ([facility]) Health Monitoring - 30 Min Attender: Jeanie Pelaez Jose Guadalupe [facility] 03/02/2021 02:15:00 AM EDT - 03/02/2021 02:15:00 AM EDT [facility] ([facility]) Attender: Heidi Garcia 03/02/2021 12:00:00 AM EDT [facility] ([facility]) Attender: LILY DODGE NP 03/02/2021 12:00:00 AM EDT [facility] ([facility]) Attender: Jeanie Pelaez 03/02/2021 12:00:00 AM EDT [facility] ([facility]) Outpatient Attender: LUKE [facility] 02/27/2021 0 2:00:00 PM EDT [facility] ([facility] Psychiatric Diagnostic Evaluation (Non-Medical) Attender: Linda Garcia [facility] 02/20/2021 01:00:00 AM EDT - 02/20/2021 01:00:00 AM EDT [facility] ([facility]) Attender: Heidi Garcia 02/20/2021 12:00:00 AM EDT [facility] ([facility]) Psychiatric Diagnostic Evaluation with Medical Service s Attender: LILY DODGE NP [facility] 02/18/2021 02:00:00 AM EDT - 02/18/2021 02:00:00 AM EDT [facility] ([facility]) Attender: LILY DODGE NP 02/18/2021 12:00:00 AM EDT [facility] ([facility]) Outpatient Attender: Everton GALINDO [place] [facility] 11:00:00 AM EDT [facility] ([facility] Extended Individual Psychotherapy - 45 min Attender: Lyric Garcia [facility] 02/09/2021 02:00:00 AM EDT - 02/09/2021 02:00:00 AM EDT [facility] ([facility]) Attender: Heidi Clark 02/09/2021 12:00:00 AM EDT [facility] ([facility]) Brief Individual Psychotherapy - 30 min Attender: Heidi braxtontiffany [facility] 01/30/2021 10:30:00 AM EDT - 01/30/2021 10:30:00 AM EDT [facility] ([facility]) Attender: Heidi Garcia 01/30/2021 12:00:00 AM EDT [facility] ([facility]) Outpatient Attender: Everton GALINDO [facility] 02:40:00 PM EDT [facility] [address] [place] [id number] 03/25/2020 12:00:00 AM EDT eCW1 ([facility]) Functional Status Immunizations Vaccine Date Status Description Data Source(s) COVID-19 VACCINE Pfizer 04/17/2021 12:00:00 AM EDT completed NYSIIS Vaccine Series Complete: YESThis Data wa s Submitted to [facility] Via [employer]. New in 2012. IIV4 04/10/2021 11:40:00 AM EDT completed [facility] ([facility] COVID-19 VACCINE Pfizer 03/27/2021 12:00:00 AM EDT completed NYSIIS Vaccine Series Complete: NOThis Data was Submitted to [facility] Via [employer]. Medications Medication Brand Name Start Date Product Form Dose Route Admi nistrative Instructions Pharmacy Instructions Status Indications Reaction Description Data Source(s) Zolpidem tartrate 5 MG Oral Tablet [Ambien] Ambien 05/05/2021 12:00:00 AM EDT 5 mg by mouth completed <td ID="Me dicationRxNorm_4">391514</td><td ID="MedicationMedication_4">Ambien</td><td ID="MedicationRoute_4">by mouth</td><td ID="MedicationRouteConcept_4">H26989</td><td ID="MedicationStartDate_4">05/05/2021</td><td ID="MedicationStopDate_4">06/03/2021</td><td ID="MedicationDosageFrequency_4">as directed</td><td ID="MedicationDuration_4">30</td><td ID="MedicationFormulaStrength_4">5 mg</td><td ID="MedicationDosageForm_4">tablet</td><td ID="MedicationDosageFormCode_4"></td><td ID="MedicationDosageDescription_4"></td><td ID="MedicationMedicationId_4">[id number]</td><td ID="MedicationAccount_4">[id number]</td><td ID="MedicationNpid_4">[id number]</td><td ID="MedicationAuthorFirstName_4">Lily</td><td ID="MedicationAuthorLastName_4">Michael</td><td ID="MedicationTaxonomyCode_4">[id number]</td><td ID="MedicationTaxonomyDesc_4">Nurse Practitioner</td><td ID="MedicationPhoneNumber_4">[phone]</td> [facility] ([facility]) 24 HR venlafaxine 75 MG Extended Release Oral Capsule venlaf axine 05/04/2021 12:00:00 AM EDT 75 mg by mouth completed <td ID="MedicationRxNorm_5">777984</td><td ID="MedicationMedication_5">venlafaxine</td><td ID="MedicationRoute_5">by mouth</td><td ID="MedicationRouteConcept_5">D03454</td><td ID="MedicationStartDate_5">05/04/2021</td><td ID="MedicationStopDate_5">08/02/2021</td><td ID="MedicationDosageFrequency_5">every morning</td><td ID="MedicationDuration_5">30</td><td ID="MedicationFormulaStrength_5">75 mg</td><td ID="MedicationDosageForm_5">capsule,extended release 24hr</td><td ID="MedicationDosageFormCode_5"></td><td ID="MedicationDosageDescription_5"></td><td ID="MedicationMedicationId_5">[id number]</td><td ID="MedicationAccount_5">[id number]</td><td ID="MedicationNpid_5">[id number]</td><td ID="MedicationAuthorFirstName_5">Lily</td><td ID="MedicationAuthorLastName_5">Michael</td><td ID="MedicationTaxonomyCode_5">[id number]</td><td ID="MedicationTaxonomyDesc_5"> Nurse Practitioner</td><td ID="MedicationPhoneNumber_5">[phone]</td> [facility] ([facility]) olanzapine 2.5 MG Oral Tablet olanzapine 04/16/2021 12:00:00 AM EDT 2.5 mg by mouth completed <td ID="Medica tionRxNorm_2">104695</td><td ID="MedicationMedication_2">olanzapine</td><td ID="MedicationRoute_2">by mouth</td><td ID="MedicationRouteConcept_2">W94013</td><td ID="MedicationStartDate_2">04/16/2021</td><td ID="MedicationStopDate_2">05/04/2021</td><td ID="MedicationDosageFrequency_2">at bedtime</td><td ID="MedicationDuration_2">21</td><td ID="MedicationFormulaStrength_2">2.5 mg</td><td ID="MedicationDosageForm_2">tablet</td><td ID="MedicationDosageFormCode_2"></td><td ID="MedicationDosageDescription_2"></td><td ID="MedicationMedicationId_2">[id number]</td><td ID="MedicationAccount_2">[id number]</td><td ID="MedicationNpid_2">[id number]</td><td ID="MedicationAuthorFirstName_2">Lily</td><td ID="MedicationAuthorLastName_2">Michael</td><td ID="MedicationTaxonomyCode_2">[id number]</td><td ID="MedicationTaxonomyDesc_2">Nurse Practitioner</td><td ID="MedicationPhoneNumber_2">[phone]</td> [facility] ([facility]) 24 HR venlafaxine 75 MG Extended Release Oral Capsule venlaf axine 04/16/2021 12:00:00 AM EDT 75 mg by mouth completed <td ID="MedicationRxNorm_3">923419</td><td ID="MedicationMedication_3">venlafaxine</td><td ID="MedicationRoute_3">by mouth</td><td ID="MedicationRouteConcept_3">X89645</td><td ID="MedicationStartDate_3">04/16/2021</td><td ID="MedicationStopDate_3">05/04/2021</td><td ID="MedicationDosageFrequency_3">every morning</td><td ID="MedicationDuration_3">21</td><td ID="MedicationFormulaStrength_3">75 mg</td><td ID="MedicationDosageForm_3">capsule,extended release 24hr</td><td ID="MedicationDosageFormCode_3"></td><td ID="MedicationDosageDescription_3"></td><td ID="MedicationMedicationId_3">[id number]</td><td ID="MedicationAccount_3">[id number]</td><td ID="MedicationNpid_3">[id number]</td><td ID="MedicationAuthorFirstName_3">Lily</td><td ID="MedicationAuthorLastName_3">Michael</td><td ID="MedicationTaxonomyCode_3">[id number]</td><td ID="MedicationTaxonomyDesc_3"> Nurse Practitioner</td><td ID="MedicationPhoneNumber_3">[phone]</td> [facility] ([facility]) Mirtazapine 15 MG Oral Tablet mirtazapine 04/16/2021 12:00:00 AM EDT 15 mg by mouth completed <td ID="Medica tionRxNorm_1">552216</td><td ID="MedicationMedication_1">mirtazapine</td><td ID="MedicationRoute_1">by mouth</td><td ID="MedicationRouteConcept_1">F98803</td><td ID="MedicationStartDate_1">04/16/2021</td><td ID="MedicationStopDate_1">05/04/2021</td><td ID="MedicationDosageFrequency_1">at bedtime</td><td ID="MedicationDuration_1">21</td><td ID="MedicationFormulaStrength_1">15 mg</td><td ID="MedicationDosageForm_1">tablet</td><td ID="MedicationDosageFormCode_1"></td><td ID="MedicationDosageDescription_1"></td><td ID="MedicationMedicationId_1">[id number]</td><td ID="MedicationAccount_1">[id number]</td><td ID="MedicationNpid_1">[id number]</td><td ID="MedicationAuthorFirstName_1">Lily</td><td ID="MedicationAuthorLastName_1">Michael</td><td ID="MedicationTaxonomyCode_1">[id number]</td><td ID="MedicationTaxonomyDesc_1">Nurse Practitioner</td><td ID="MedicationPhoneNumber_1">[phone]</td> [facility] ([facility]) 24 HR metoprolol succinate 25 MG Extended Release Oral Tablet [Toprol] Toprol XL 04/10/2021 12:00:00 AM EDT ORAL active [facility] ([facility] Fluoxetine 10 MG Oral Capsule fluoxetine 02/20/2021 12:00:00 AM EDT 10 mg by mouth completed <td ID="Medica tionRxNorm_4">291800</td><td ID="MedicationMedication_4">fluoxetine</td><td ID="MedicationRoute_4">by mouth</td><td ID="MedicationRouteConcept_4">W32568</td><td ID="MedicationStartDate_4">02/20/2021</td><td ID="MedicationStopDate_4">03/20/2021</td><td ID="MedicationDosageFrequency_4">every morning</td><td ID="MedicationDuration_4">30</td><td ID="MedicationFormulaStrength_4">10 mg</td><td ID="MedicationDosageForm_4">capsule</td><td ID="MedicationDosageFormCode_4"></td><td ID="MedicationDosageDescription_4"> </td><td ID="MedicationMedicationId_4">[id number]</td><td ID="MedicationAccount_4">[id number]</td><td ID="MedicationNpid_4">[id number]</td><td ID="MedicationAuthorFirstName_4">Lily</td><td ID="MedicationAuthorLastName_4">Michael</td><td ID="MedicationTaxonomyCode_4">[id number]</td><td ID="MedicationTaxonomyDesc_4">Nurse Practitioner</td><td ID="MedicationPhoneNumber_4">[phone]</td> [facility] ([facility]) Fluoxetine 10 MG Oral Capsule fluoxetine 02/20/2021 12:00:00 AM EDT 10 mg by mouth completed <td ID="Medica tionRxNorm_2">782281</td><td ID="MedicationMedication_2">fluoxetine</td><td ID="MedicationRoute_2">by mouth</td><td ID="MedicationRouteConcept_2">N51873</td><td ID="MedicationStartDate_2">02/20/2021</td><td ID="MedicationStopDate_2">03/02/2021</td><td ID="MedicationDosageFrequency_2">every morning</td><td ID="MedicationDuration_2">30</td><td ID="MedicationFormulaStrength_2">10 mg</td><td ID="MedicationDosageForm_2">capsule</td><td ID="MedicationDosageFormCode_2"></td><td ID="MedicationDosageDescription_2"> </td><td ID="MedicationMedicationId_2">85502</td><td ID="MedicationAccount_2">[id number]</td><td ID="MedicationNpid_2">[id number]</td><td ID="MedicationAuthorFirstName_2">Lily</td><td ID="MedicationAuthorLastName_2">Michael</td><td ID="MedicationTaxonomyCode_2">[id number]</td><td ID="MedicationTaxonomyDesc_2">Nurse Practitioner</td><td ID="MedicationPhoneNumber_2">[phone]</td> [facility]) Clonazepam 0.5 MG Oral Tablet [Klonopin] Klonopin 02/18/2021 12 :00:00 AM EDT 0.5 mg by mouth completed <td ID="Me dicationRxNorm_2">385508</td><td ID="MedicationMedication_2">Klonopin</td><td ID="MedicationRoute_2">by mouth</td><td ID="MedicationRouteConcept_2">R78698</td><td ID="MedicationStartDate_2">02/18/2021</td><td ID="MedicationStopDate_2">03/20/2021</td><td ID="MedicationDosageFrequency_2">as directed</td><td ID="MedicationDuration_2">30</td><td ID="MedicationFormulaStrength_2">0.5 mg</td><td ID="MedicationDosageForm_2">tablet</td><td ID="MedicationDosageFormCode_2"></td><td ID="MedicationDosageDescription_2">as needed</td><td ID="MedicationMedicationId_2">84244</td><td ID="MedicationAccount_2">[id number]</td><td ID="MedicationNpid_2">[id number]</td><td ID="MedicationAuthorFirstName_2">Lily</td><td ID="MedicationAuthorLastName_2">Michael</td><td ID="MedicationTaxonomyCode_2">[id number]</td><td ID="MedicationTaxonomyDesc_2">Nurse Practitioner</td><td ID="MedicationPhoneNumber_2">[phone]</td> [facility] ([facility]) Clonazepam 0.5 MG Oral Tablet [Klonopin] Klonopin 02/18/2021 12 :00:00 AM EDT 0.5 mg by mouth completed <td ID="Me dicationRxNorm_3">686624</td><td ID="MedicationMedication_3">Klonopin</td><td ID="MedicationRoute_3">by mouth</td><td ID="MedicationRouteConcept_3">H22067</td><td ID="MedicationStartDate_3">02/18/2021</td><td ID="MedicationStopDate_3">03/20/2021</td><td ID="MedicationDosageFrequency_3">as directed</td><td ID="MedicationDuration_3">30</td><td ID="MedicationFormulaStrength_3">0.5 mg</td><td ID="MedicationDosageForm_3">tablet</td><td ID="MedicationDosageFormCode_3"></td><td ID="MedicationDosageDescription_3">as needed</td><td ID="MedicationMedicationId_3">71979</td><td ID="MedicationAccount_3">[id number]</td><td ID="MedicationNpid_3">[id number]</td><td ID="MedicationAuthorFirstName_3">Lily</td><td ID="MedicationAuthorLastName_3">Michael</td><td ID="MedicationTaxonomyCode_3">[id number]</td><td ID="MedicationTaxonomyDesc_3">Nurse Practitioner</td><td ID="MedicationPhoneNumber_3">[phone]</td> [facility] ([facility]) olanzapine 2.5 MG Oral Tablet olanzapine 02/18/2021 12:00:00 AM EDT 2.5 mg by mouth completed <td ID="Medica tionRxNorm_5">230135</td><td ID="MedicationMedication_5">olanzapine</td><td ID="MedicationRoute_5">by mouth</td><td ID="MedicationRouteConcept_5">R03558</td><td ID="MedicationStartDate_5">02/18/2021</td><td ID="MedicationStopDate_5">03/20/2021</td><td ID="MedicationDosageFrequency_5">at bedtime</td><td ID="MedicationDuration_5">30</td><td ID="MedicationFormulaStrength_5">2.5 mg</td><td ID="MedicationDosageForm_5">tablet</td><td ID="MedicationDosageFormCode_5"></td><td ID="MedicationDosageDescription_5"></td><td ID="MedicationMedicationId_5">[id number]</td><td ID="MedicationAccount_5">[id number]</td><td ID="MedicationNpid_5">[id number]</td><td ID="MedicationAuthorFirstName_5">Lily</td><td ID="MedicationAuthorLastName_5">Michael</td><td ID="MedicationTaxonomyCode_5">[id number]</td><td ID="MedicationTaxonomyDesc_5">Nurse Practitioner</td><td ID="MedicationPhoneNumber_5">[phone]</td> [facility] ([facility]) 24 HR venlafaxine 75 MG Extended Release Oral Capsule venlaf axine 02/18/2021 12:00:00 AM EDT 75 mg by mouth completed <td ID="MedicationRxNorm_4">044827</td><td ID="MedicationMedication_4">venlafaxine</td><td ID="MedicationRoute_4">by mouth</td><td ID="MedicationRouteConcept_4">R54106</td><td ID="MedicationStartDate_4">02/18/2021</td><td ID="MedicationStopDate_4">03/20/2021</td><td ID="MedicationDosageFrequency_4">every morning</td><td ID="MedicationDuration_4">30</td><td ID="MedicationFormulaStrength_4">75 mg</td><td ID="MedicationDosageForm_4">capsule,extended release 24hr</td><td ID="MedicationDosageFormCode_4"></td><td ID="MedicationDosageDescription_4"></td><td ID="MedicationMedicationId_4">48361</td><td ID="MedicationAccount_4">[id number]</td><td ID="MedicationNpid_4">[id number]</td><td ID="MedicationAuthorFirstName_4">Lily</td><td ID="MedicationAuthorLastName_4">Michael</td><td ID="MedicationTaxonomyCode_4">[id number]</td><td ID="MedicationTaxonomyDesc_4"> Nurse Practitioner</td><td ID="MedicationPhoneNumber_4">[phone]</td> [facility] ([facility]) olanzapine 2.5 MG Oral Tablet OLANZapine 02/12/2021 12:00:00 AM EDT ORAL completed [facility] ([facility] olanzapine 2.5 MG Oral Tablet Olanzapine 02/12/2021 12:00:00 AM EDT ORAL active [facility] ([facility] Fluoxetine 10 MG Oral Capsule Fluoxetine HCL 01/05/2021 12:00:00 AM E DT ORAL completed [facility] ([facility] Fluoxetine 20 MG Oral Capsule Fluoxetine HCL 01/05/2021 12:00:00 AM E DT ORAL completed [facility] ([facility] olanzapine 5 MG Oral Tablet Olanzapine 01/05/2021 12:00:00 AM EDT ORAL completed [facility] ([facility] Clonazepam 0.5 MG Oral Tablet Clonazepam 01/05/2021 12:00:00 AM EDT ORAL active [facility] ([facility] quetiapine 50 MG Oral Tablet [...] TABLET BY MOUTH AT BEDTIME SOLD: 04/03/2020 [facility] 200 mg 03/14/2020 12:00:00 AM [...] relationship to card Policy Card Plan Information [facility] [id number] SP [id number] [facility] [id number] SP [id number] [facility] O [id number] S [id number] [facility] [id number] SP [id number] [facility] O [id number] S [id number] ANSI-Not a Secondary Insurance [id number] [employer] () [id number] Commercial I nsurance [id number] [employer] [facility] [id number] [facility] [id number] [facility] CLAIMS WILVER -O/P [id number] 01 [id number] O BLUE [id number] SP [id number] MEDICAID [id number] SP [id number] O BLUE [id number] SP [id number] SELF PAY UNAVAILABLE SP UNAVAILA BLE P UNAVAILABLE UNAVAILA BLE Problems, Conditions, and Diagnoses Code Display Name Description Problem Type Effective Dates Data Source(s) R42 Dizziness and giddiness Dizziness and giddiness Proble m 05/13/2021 12:00:00 AM EDT [facility] ([facility] ) F12.10 Cannabis abuse, uncomplicated Cannabis Use Disorder, M ild Condition 05/04/2021 12:00:00 AM EDT [facility] ([facility]) F31.9 Bipolar disorder, unspecified Bipolar I Disorder, Current or most recent episode depressed, Unspecified Condition 05/04/2021 12:00:00 AM EDT [facility] ([facility]) R00.0 Tachycardia Tachycardia Problem 04/10/2021 12:00:00 AM EDT [facility] ([facility] F31.9 Bipolar disorder, unspecified Bipolar I Disorder, Current or most recent episode depressed, Unspecified Condition 03/02/2021 12:00:00 AM EDT [facility] ([facility]) F12.10 Cannabis abuse, uncomplicated Cannabis Use Disorder, M ild Condition 03/02/2021 12:00:00 AM EDT [facility] ([facility]) F32.9 Major depressive disorder, single episod e, unspecified Unspecified depressive Disorder Condition 02/09/2021 12:00:00 AM EDT [facility] ([facility]) Surgeries/Procedures Procedure Description Date Indications Data Source(s) OFFICE OUTPATIENT VISIT 15 MINUTES 05/13/2021 12:00:00 AM EDT [facility] ([facility] MHC Telemed E/M Lvl 3--Est pt 05/04/2021 12:00:00 AM EDT - 05/04/2021 12:00:00 AM EDT [facility] ([facility]) MHC Telemed E/M Lvl 3--Est pt 05/04/2021 12:00:00 AM E DT [facility] ([facility]) OFFICE OUTPATIENT VISIT 25 MINUTES 04/24/2021 12:00:00 AM EDT [facility] ([facility] Electrocardiogram Complete 04/10/2021 12:00:00 AM EDT [facility] ([facility] OFFICE OUTPATIENT VISIT 25 MINUTES 04/10/2021 12:00:00 AM EDT [facility] ([facility] Brief Individual Psychotherapy - 30 min 03/02/2021 12:00:00 AM EDT - 03/02/2021 12:00:00 AM EDT [facility] ([facility]) Brief Individual Psychotherapy - 30 min 03/02/2021 12: 00:00 AM EDT [facility] ([facility]) OFFICE OUTPATIENT VISIT 15 MINUTES 03/02 12:00:00 AM EDT - 03/02/2021 12:00:00 AM EDT [facility] ([facility]) OFFICE OUTPATIENT VISIT 15 MINUTES 03/02/2021 12:00:00 AM EDT [facility] ([facility]) PREVENT MED PRESIDENT & FOUNDER&/RISK FACTOR REDJ SPX 30 MIN 03/02/2021 12:00:00 AM EDT - 03/02/2021 12:00:00 AM EDT [facility] ([facility]) PREVENT MED PRESIDENT & FOUNDER&/RISK FACTOR REDJ SPX 30 MIN 03/02 12:00:00 AM EDT [facility] ([facility]) PERIODIC PREVENTIVE MED EST PATIENT 18-39 YRS 02/28/20 12:00:00 AM EDT [facility] ([facility] Psychiatric Diagnostic Evaluation (Non-Medical) 02/20/2021 12:00:00 AM EDT - 02/20/2021 12:00:00 AM EDT [facility] ([facility]) Psychiatric Diagnostic Evaluation (Non-Medical) 2020 12:00:00 AM EDT [facility] ([facility]) Psychiatric Diagnostic Evaluation with Medical Services 02/18/2021 12:00:00 AM EDT - 02/18/2021 12:00:00 AM EDT [facility] ([facility]) Psychiatric Diagnostic Evaluation with Medical Services 02/18/2021 12:00:00 AM EDT [facility] ([facility]) OFFICE OUTPATIENT VISIT 15 MINUTES 02/12/2021 12:00:00 AM EDT [facility] ([facility] Extended Individual Psychotherapy - 45 min 02/09/2021 12:00:00 AM EDT - 02/09/2021 12:00:00 AM EDT [facility] ([facility]) Extended Individual Psychotherapy - 45 min 12:00:00 AM EDT [facility] ([facility]) Brief Individual Psychotherapy - 30 min 01/30/2021 12:00:00 AM EDT - 01/30/2021 12:00:00 AM EDT [facility] ([facility]) Brief Individual Psychotherapy - 30 min 01/30/2021 12: 00:00 AM EDT [facility] ([facility]) OFFICE OUTPATIENT VISIT 25 MINUTES 01/05/2021 12:00:00 AM EDT [facility] ([facility] Results ID Date Data Source [id number] 05/11/2021 08:39:00 AM EDT [facility] ([facility] Name Value Range Interpretation Code Description Data Leidy rce(s) Supporting Document(s) Laboratory test finding (navigational concept) Laboratory test r esult Normal (applies to non-numeric results) [facility] ([facility] <content>QUANTITATIVE RESULT QU ALITATIVE INTERPRETATION</content>
<content> </content>
<content><5.0 IU/L NEGATIVE</content>
<content>5.0 - 25.0 IU/L INDETERMINATE</content>
<content>>25.0 IU/L POSITIVE</content>
<content></content> ID Date Data Source [id number] 05/11/2021 08:37:00 AM EDT [facility] ([facility] Name Value Range Interpretation Code Description Data Leidy rce(s) Supporting Document(s) Laboratory test finding (navigational concept) 45.0 % 3 8.0-51.0 Normal (applies to non-numeric results) [facility] ([facility] Laboratory test finding (navigational concept) 140 meq/L 1 36-145 Normal (applies to non-numeric results) [facility] ([facility] Laboratory test finding (navigational concept) 91 mg/dL 7 0-105 Normal (applies to non-numeric results) [facility] ([facility] Laboratory test finding (navigational concept) 3.9 meq/L 3 .5-5.1 Normal (applies to non-numeric results) [facility] ([facility] Laboratory test finding (navigational concept) 5.5 mg/dL 4 .5-5.3 Above high normal [facility] ([facility] ) Laboratory test finding (navigational concept) 104 meq/L 9 8-109 Normal (applies to non-numeric results) [facility] Laboratory test finding (navigational concept) 18 mg/dL 8 -26 Normal (applies to non-numeric results) [facility] ([facility]) Laboratory test finding (navigational concept) 26.0 MM/L 2 3.0-27.0 Normal (applies to non-numeric results) [facility] ([facility] Laboratory test finding (navigational concept) 0.9 mg/dL 0 .6-1.3 Normal (applies to non-numeric results) [facility] ID Date Data Source [id number] 05/11/2021 08:36:00 AM EDT [facility] ([facility] Name Value Range Interpretation Code Description Data Leidy rce(s) Supporting Document(s) Lactate [Mass/volume] in Serum or Plasma 0.9 mmol/L 0.4-2.0 Normal (applies to non-numeric results) [facility] ([facility]) Y/N query for Sepsis Lactate Rule: Y Lipoprotein lipase [Enzymatic activity/volume] in Serum or Plasm a 77 U/L 73-393 Normal (applies to non-numeric results) [facility] ID Date Data Source [id number] 05/11/2021 08:36:00 AM EDT [facility] ([facility] Name Value Range Interpretation Code Description Data Leidy rce(s) Supporting Document(s) Ast/Sgot 10 U/L 7-37 Normal (applies to non-numeric resul ts) [facility] ([facility] Alkaline Phosphatase 72 U/L 45-117 Normal (applies to non-num paddy results) [facility] Alt/SGPT 14 U/L 12-78 Normal (applies to non-numeric resul ts) [facility] ([facility] Bilirubin,Total 0.4 mg/dL 0.2-1.0 Normal (applies to non-numeric results) [facility] ([facility] Bilirubin,Direct 0.1 mg/dL 0.0-0.2 Normal (applies to non-numeric results) [facility] ([facility] Total Protein 7.7 GM/DL 6.4-8.2 Normal (applies to non-numeric re sults) [facility] ([facility] Albumin/Globulin Ratio 1.1 1.2-2.2 Below low normal [facility] ([facility] Albumin 4.1 GM/DL 3.2-5.2 Normal (applies to non-numeric resul ts) [facility] ([facility] ID Date Data Source [id number] 05/11/2021 08:36:00 AM EDT [facility] Name Value Range Interpretation Code Description Data Leidy rce(s) Supporting Document(s) White Blood Count 10.0 10 4.0-10.0 Normal (applies to non-numeri c results) [facility] ([facility] Red Blood Count 4.83 10 4.00-5.40 Normal (applies to non-numeric results) [facility] ([facility] Hemoglobin 14.1 g/dL 12.0-15.5 Normal (applies to non-numeric resul ts) [facility] ([facility] Hematocrit 43.7 % 36.0-47.0 Normal (applies to non-numeric resul ts) [facility] ([facility] Mean Corpuscular Hemoglobin 29.2 pg 27.0-33.0 Norm al (applies to non-numeric results) [facility] ([facility] ) Mean Corpuscular Volume 90.5 fl 80.0-96.0 Normal [...] % 36.0-66.0 Above high normal MEDE NT ([facility] Platelet Count, Automated 257 10 150-450 Normal (applies to non-numeric results) [facility] ([facility] ) Lymph % 17.5 % 24.0-44.0 Below low normal [facility] ( [facility] Eos % 0.0 % 0.0-3.0 Normal (applies to non-numeric resul ts) [facility] ([facility] [place] % 5.2 % 2.0-8.0 Normal (applies to non-numeric resul ts) [facility] ([facility] Baso % 0.2 % 0.0-1.0 Normal (applies to non-numeric resul ts) [facility] ([facility] Immature Granulocyte % 0.4 % 0-3.0 Normal (applies to non-n umeric results) [facility] ([facility] Nucleated Red Blood Cell % 0.0 % 0-0 Normal (applies to n on-numeric results) [facility] ([facility] Neutrophils # 7.7 10 1.5-8.5 Normal (applies to non-numeric re sults) [facility] ([facility] Lymph # 1.8 10 1.5-5.0 Normal (applies to non-numeric resul ts) [facility] ([facility] [place] # 0.5 10 0.0-0.8 Normal (applies to non-numeric resul ts) [facility] ([facility] Eos # 0.0 10 0.0-0.5 Normal (applies to non-numeric resul ts) [facility] ([facility] Baso # 0.0 10 0.0-0.2 Normal (applies to non-numeric resul ts) [facility] ([facility] ID Date Data Source [id number] 05/11/2021 08:16:00 AM EDT [facility] Name Value Range Interpretation Code Description Data Leidy rce(s) Supporting Document(s) Reflex Urine Culture Laboratory test result Norm al (applies to non-numeric results) [facility] ([facility] ) FULL REPORT IN LAB NOTES (eCW and [facility] ). SPECIMEN APPEARS CONTAMINATED ID Date Data Source [id number] 05/11/2021 08:16:00 AM EDT [facility] ([facility] Name Value Range Interpretation Code Description Data Leidy rce(s) Supporting Document(s) Influenza B Amplification Laboratory test result Normal (applies to non- numeric results) [facility] ([facility] ) Negative results do not preclude influen za or RSV virus infection and should not be used as the sole basis for treatment or other patient management decisions. Influenza A Amplification Laboratory test result Normal (applies to non- numeric results) [facility] ([facility] ) Negative results do not preclude influen za or RSV virus infection and should not be used as the sole basis for treatment or other patient management decisions. RSV Amplification Laboratory test result Normal (applies to non-numeric results) [facility] ) Negative results do not preclude influen za or RSV virus infection and should not be used as the sole basis for treatment or other patient management decisions. Laboratory test finding (navigational concept) Laboratory test r esult Normal (applies to non-numeric results) [facility] ([facility] A false negative result [...] pathogens. DISCLAIMER: Testing was performed using the [employer] SARS-CoV-2 test. This test was developed and its performance characteristics determined by [employer]. This test has not been FDA cleared [...] or revoked sooner. ID Date Data Source [id number] 05/11/2021 08:16:00 AM EDT [facility] ([facility] Name Value Range Interpretation Code Description Data Leidy rce(s) Supporting Document(s) Appearance, Urine RFX Laboratory test result Above high no rmal [facility] ([facility] Color, Urine RFX Laboratory test result Normal ( applies to non-numeric results) [facility] ([facility] ) PH,Urine RFX 6.0 units 5.0-9.0 Normal (applies to non-numeric res ults) [facility] ([facility] Specific [place] Ur Auto RFX 1.019 1.002-1.035 Nor mal (applies to non-numeric results) [facility] ([facility] ) Protein, Urine Auto RFX Laboratory test result Above high normal [facility] ([facility] Glucose, Urine (Ua) Auto RFX Laboratory test result Normal (applies to non- numeric results) [facility] ([facility] ) Ketone, Urine Auto RFX Laboratory test result No rmal (applies to non-numeric results) [facility] ([facility] ) Nitrite, Urine Auto RFX Laboratory test result N ormal (applies to non-numeric results) [facility] ([facility] ) Bilirubin, Urine Auto RFX Laboratory test result Normal (applies to non- numeric results) [facility] ([facility] ) Urobilinogen, Urine Auto RFX 0.2 mg/dL 0.0-2.0 Nor mal (applies to non-numeric results) [facility] ([facility] ) Leukocyte Esterase Ur Auto RFX Laboratory test result Abov e high normal [facility] ([facility] Blood, Urine Blood RFX Laboratory test result Above high n ormal [facility] ([facility] WBC, Urine Auto RFX 12 /HPF 0-3 Above high normal [facility] ([facility] RBC, Urine Auto RFX Laboratory test result 0-3 Above high norm al [facility] ([facility] Bacteria, Urine Auto RFX Laboratory test result Above high normal [facility] ([facility] Squam Epithelial Cell Ur Aurfx 7 /HPF 0-6 N ormal (applies to non-numeric results) [facility] ([facility] ) Mucus, Urine RFX Laboratory test result Normal ( applies to non-numeric results) [facility] ([facility] ) Hyaline Cast, Urine Auto RFX 0 /LPF 0-1 Normal (appl ies to non-numeric results) [facility] ([facility] Laboratory test finding (navigational concept) Laboratory test r esult Normal (applies to non-numeric results) [facility] ([facility]) ID Date Data Source [id number] 02/27/2021 02:34:00 PM EDT [facility] ([facility] De[facility] Metz) Name Value Range Interpretation Code Description Data Leidy rce(s) Supporting Document(s) Age Laboratory test result [facility] ([facility] Source.............Endocervix Dates / Re sults....LMP 11/05 No. of containers..01 ThinPrep Vial [id number] Pathology report final diagnosis Narrative Laboratory test result [facility] ([facility] Source.............Endocervix Dates / Re sults....LMP 11/05 No. of containers..01 ThinPrep Vial [id number] Statement of adequacy [Interpretation] o f Cervical or vaginal smear or scraping by Cyto stain Laboratory test result MEDE NT ([facility] Source.............Endocervix Dates / Re sults....LMP 11/05 No. of containers..01 ThinPrep Vial [id number] Laboratory test result [facility] ([facility] Source.............Endocervix Dates / Re sults....LMP 11/05 No. of containers..01 ThinPrep Vial [id number] Pathologist who read Cyto stain of Cervical or vaginal smear or scraping Laboratory test result [facility] ([facility] Source.............Endocervix Dates / Re sults....LMP 11/05 No. of containers..01 ThinPrep Vial [id number] Sales Representative Business Courses who read Cyto stain of Cervical or vaginal smear or scraping Laboratory test result [facility] ([facility] Source.............Endocervix Dates / Re sults....LMP 11/05 No. of containers..01 ThinPrep Vial [id number] Microscopic observation [Identifier] in Unspecified sp ecimen by Other stain Laboratory test result [facility] ([facility] Source.............Endocervix Dates / Re sults....LMP 11/05 No. of containers..01 ThinPrep Vial [id number] Note Laboratory test result [facility] ([facility] Source.............Endocervix Dates / Re sults....LMP 11/05 No. of containers..01 ThinPrep Vial [id number] Human papilloma virus 16+18+31+33+35+39+ 45+51+52+56+58+59+66+68 DNA [Presence] in Cervix by Probe and signal amplification method Laboratory test result [facility] ([facility] Source.............Endocervix Dates / Re sults....LMP 11/05 No. of containers..01 ThinPrep Vial [id number] Cytology report of Cervical or vaginal smear or scrapi ng Cyto stain.thin prep Laboratory test result [facility] ([facility] Source.............Endocervix Dates / Re sults....LMP 11/05 No. of containers..01 ThinPrep Vial [id number] ID Date Data Source [id number] 02/03/2021 10:49:00 AM EDT [facility] Name Value Range Interpretation Code Description Data Leidy rce(s) Supporting Document(s) Influenza A Amplification Laboratory test result Normal (applies to non- numeric results) [facility] ([facility] ) Negative results do not preclude influen za or RSV virus infection and should not be used as the sole basis for treatment or other patient management decisions. Influenza B Amplification Laboratory test result Normal (applies to non- numeric results) [facility] ([facility] ) Negative results do not preclude influen za or RSV virus infection and should not be used as the sole basis for treatment or other patient management decisions. RSV Amplification Laboratory test result Normal (applies to non-numeric results) [facility] ([facility] ) Negative results do not preclude influen za or RSV virus infection and should not be used as the sole basis for treatment or other patient management decisions. Laboratory test finding (navigational concept) Laboratory test r esult Normal (applies to non-numeric results) [facility] ([facility] A false negative result may occur [...] pathogens. DISCLAIMER: Testing was performed using the [employer] SARS-CoV-2 test. This test was developed and its performance characteristics determined by [employer]. This test has not been FDA cleared [...] or revoked sooner. ID Date Data Source [id number] 02/03/2021 10:49:00 AM EDT [facility] Name Value Range Interpretation Code Description Data Leidy rce(s) Supporting Document(s) SARS coronavirus 2 RNA [Presence] in Res piratory specimen by PATRICK with probe detection NEGATIVE [facility] This lab was ordered by [facility] a nd reported by [facility]. ID Date Data Source [id number] 02/02/2021 12:16:00 PM EDT [facility] ([facility] Name Value Range Interpretation Code Description Data Leidy rce(s) Supporting Document(s) Ethanol [Mass/volume] in Serum or Plasma Laboratory test result 0.000-0.010 Normal (applies to non-numeric results) [facility] ([facility] Acetaminophen [Mass/volume] in Serum or Plasma Laboratory test r esult 10.0-30.0 Below low normal [facility] ([facility] ) Salicylates [Mass/volume] in Serum or Plasma Laboratory test res ult 5.0-30.0 Below low normal [facility] ([facility] ) Choriogonadotropin.beta subunit ( test) [Pres ence] in Serum or Plasma Laboratory test result Normal (applies to non-numeric results) [facility] ([facility] Thyrotropin [Units/volume] in Serum or Plasma 0.622 uIU/ML 0. 358-3.740 Normal (applies to non-numeric results) [facility] ID Date Data Source [id number] 02/02/2021 12:16:00 PM EDT [facility] ([facility] Howell [facility]) Name Value Range Interpretation Code Description Data Leidy rce(s) Supporting Document(s) Glucose, Fasting 98 mg/dL 70-100 Normal (applies to non-numeric results) [facility] ([facility] Glomerular Filtration Rate Laboratory test result Normal (applies to non- numeric results) [facility] ([facility] ) <content>Units are mL/min/1.73 m2</content>
<content></content>
<content>Chronic Kidney Disease Staging per NKF:</content>
<content></content>
<content>Stage I & II GFR >=60 Normal to Mildly Decreased</content>
<content>Stage III GFR 30- 59 Moderately Decreased</content>
<content>Stage IV GFR 15-29 Severely Decreased</content>
<content>Stage V GFR <15 Very Little GFR Left</content>
<content>ESRD GFR <15 on FISHER NET</content>
<content></content> Blood Urea Nitrogen 13 mg/dL 7-18 Normal (applies to non-nume sharita results) [facility] ([facility] Creatinine For GFR 0.74 mg/dL 0.55-1.30 Normal (applies to non -numeric results) [facility] ([facility] Sodium Level 140 meq/L 136-145 Normal (applies to non-numeric res ults) [facility] ([facility] Chloride Level 109 meq/L 98-107 Above high normal [facility] ([facility] Potassium Serum 4.1 meq/L 3.5-5.1 Normal (applies to non-numeric results) [facility] ([facility] Carbon Dioxide Level 26 meq/L 21-32 Normal (applies to non-num paddy results) [facility] ([facility] Anion Gap 5 meq/L 8-16 Below low normal [facility] ( [facility] Calcium Level 10.0 mg/dL 8.5-10.1 Normal (applies to non-numeric re sults) [facility] ([facility] ID Date Data Source [id number] 02/02/2021 12:16:00 PM EDT [facility] ([facility] Name Value Range Interpretation Code Description Data Leidy rce(s) Supporting Document(s) Ast/Sgot 9 U/L 7-37 Normal (applies to non-numeric resul ts) [facility] ([facility] Alt/SGPT 15 U/L 12-78 Normal (applies to non-numeric resul ts) [facility] ([facility] Alkaline Phosphatase 66 U/L 45-117 Normal (applies to non-num paddy results) [facility] ([facility] Bilirubin,Direct Laboratory test result 0.0-0.2 Normal ( applies to non-numeric results) [facility] ([facility] ) Bilirubin,Total 0.3 mg/dL 0.2-1.0 Normal (applies to non-numeric results) [facility] ([facility] Albumin 4.2 GM/DL 3.2-5.2 Normal (applies to non-numeric resul ts) [facility] ([facility] Total Protein 7.9 GM/DL 6.4-8.2 Normal (applies to non-numeric re sults) [facility] ([facility] Albumin/Globulin Ratio 1.1 1.2-2.2 Below low normal [facility] ([facility] ID Date Data Source [id number] 02/02/2021 12:16:00 PM EDT [facility] ([facility] Name Value Range Interpretation Code Description Data Leidy rce(s) Supporting Document(s) Benzodiazepines Urine Laboratory test result Nor mal (applies to non-numeric results) [facility] ([facility] ) Amphetamines Level Urine Laboratory test result Normal (applies to non-numeric results) [facility] ([facility] ) Barbiturates Urine Laboratory test result Normal (applies to non-numeric results) [facility] ([facility] Cannabinoids Urine Laboratory test result Above high jen l [facility] ([facility] Cocaine Metabolite Urine Laboratory test result Normal (applies to non-numeric results) [facility] ([facility] Methadone Urine Laboratory test result Normal (a pplies to non-numeric results) [facility] ([facility] ) Opiates Urine Laboratory test result Normal (applies t o non-numeric results) [facility] ([facility] Phencyclidine Urine Laboratory test result Jen l (applies to non-numeric results) [facility] ([facility] ALL PRESUMPTIVE POSITIVE FINDINGS [...] CALL THE LAB. ID Date Data Source [id number] 02/02/2021 12:16:00 PM EDT [facility] ([facility] Name Value Range Interpretation Code Description Data Leidy rce(s) Supporting Document(s) White Blood Count 7.1 10 4.0-10.0 Normal (applies to non-numeri c results) [facility] ([facility] Red Blood Count 4.68 10 4.00-5.40 Normal (applies to non-numeric results) [facility] ([facility] Hematocrit 42.2 % 36.0-47.0 Normal (applies to non-numeric resul ts) [facility] ([facility] Hemoglobin 13.9 g/dL 12.0-15.5 Normal (applies to non-numeric resul ts) [facility] ([facility] Mean Corpuscular HGB Conc 32.9 g/dL 32.0-36.5 Normal (applies to non-numeric results) [facility] ([facility] ) Mean Corpuscular Volume 90.2 fl 80.0-96.0 Normal ( applies to non-numeric results) [facility] ([facility] Mean Corpuscular Hemoglobin 29.7 pg 27.0-33.0 Norm al (applies to non-numeric results) [facility] ([facility] ) Platelet Count, Automated 262 10 150-450 Normal (applies to non-numeric results) [facility] MANUEL ([facility] Red Cell Distribution Width 11.7 % 11.5-14.5 Norm al (applies to non-numeric results) [facility] ([facility] ) Nucleated Red Blood Cell % 0.0 % 0-0 Normal (applies to n on-numeric results) [facility] ([facility] Procedure Social History Code Duration Value Status Description Data Source(s ) Smoking 05/04/2021 12:00:00 AM EDT Unknown if ever smoked comp leted Unknown if ever smoked [facility] ([facility]) Smoking 03/02/2021 12:00:00 AM EDT Unknown if ever smoked comp leted Unknown if ever smoked [facility] ([facility]) Smoking 02/20/2021 12:00:00 AM EDT Unknown if ever smoked comp leted Unknown if ever smoked [facility] ([facility]) Smoking 02/18/2021 12:00:00 AM EDT Unknown if ever smoked comp leted Unknown if ever smoked [facility] ([facility]) Smoking 02/09/2021 12:00:00 AM EDT Unknown if ever smoked comp leted Unknown if ever smoked [facility] ([facility]) Smoking 01/30/2021 12:00:00 AM EDT Unknown if ever smoked comp leted Unknown if ever smoked [facility] ([facility]) Vital Signs ID Date Data Source UNK Name Value Range Interpretation Code Description Data Source(s) Systolic blood pressure 110 mm[Hg] 110 mm[Hg] M [facility] ([facility] Diastolic blood pressure 80 mm[Hg] 80 mm[Hg] [facility] ([facility] Body temperature 98.0 [degF] 98.0 [degF] [facility] ([facility] Heart rate 112 /min 112 /min [facility] ([facility] Respiratory rate 16 /min 16 /min [facility] ( [facility] Body height 63 [in_i] 63 [in_i] [facility] ([facility] 5'3" Body weight 149.00 [lb_av] 149.00 [lb_av] [facility] T ([facility] [place] body weight 115 [lb_av] 115 [lb_av] [facility] ([facility] Body mass index (BMI) [Ratio] 26.4 kg/m2 26.4 k g/m2 [facility] ([facility] Oxygen saturation in Arterial blood by Pulse oximetry 97 % 97 % [facility] ([facility] Systolic blood pressure 100 mm[Hg] 100 mm[Hg] M [facility] ([facility] Diastolic blood pressure 76 mm[Hg] 76 mm[Hg] [facility] ([facility] Body temperature 97.8 [degF] 97.8 [degF] [facility] ([facility] Heart rate 97 /min 97 /min [facility] ([facility] Respiratory rate 16 /min 16 /min [facility] ( [facility] Body height 63 [in_i] 63 [in_i] [facility] ([facility] 5'3" Body weight 148.00 [lb_av] 148.00 [lb_av] [facility] T ([facility] [place] body weight 115 [lb_av] 115 [lb_av] [facility] T ([facility] Body mass index (BMI) [Ratio] 26.2 kg/m2 26.2 k g/m2 [facility] ([facility] Oxygen saturation in Arterial blood by Pulse oximetry 97 % 97 % [facility] ([facility] Respiratory rate 16 /min 16 /min [facility] ( [facility] Body height 63 [in_i] 63 [in_i] [facility] ([facility] 5'3" Heart rate 130 /min 130 /min [facility] ([facility] Systolic blood pressure 108 mm[Hg] 108 mm[Hg] M [facility] ([facility] Body mass index (BMI) [Ratio] 25.9 kg/m2 25.9 k g/m2 [facility] ([facility] Oxygen saturation in Arterial blood by Pulse oximetry 97 % 97 % [facility] ([facility] Body weight 146.00 [lb_av] 146.00 [lb_av] [facility] T ([facility] [place] body weight 115 [lb_av] 115 [lb_av] [facility] T ([facility] Diastolic blood pressure 80 mm[Hg] 80 mm[Hg] [facility] ([facility] Body temperature 98.0 [degF] 98.0 [degF] [facility] ([facility] Body height 62.00 in Normal (applies to non-numeric resu lts) 62.00 in [facility] ([facility]) Body weight Measured 142.00 lbs Normal (applies to n on-numeric results) 142.00 lbs [facility] ([facility]) Body mass index (BMI) [Ratio] 25.97 kg/m2 No rmal (applies to non-numeric results) 25.97 kg/m2 [facility] Systolic blood pressure 112 mm[Hg] Normal (applies t o non-numeric results) 112 mm[Hg] [facility] ([facility]) Diastolic blood pressure 72 mm[Hg] Normal (applies to non-numeric results) 72 mm[Hg] [facility] ([facility]) Body temperature 98.60 degF Normal (applies to non-n umeric results) 98.60 degF [facility] ([facility]) Body height --lying 102 min Normal (applies to non-nume sharita results) 102 min [facility] ([facility]) Body height 62.00 in Normal (applies to non-numeric resu lts) 62.00 in [facility] ([facility]) Body weight Measured 142.00 lbs Normal (applies to n on-numeric results) 142.00 lbs [facility] ([facility]) Body mass index (BMI) [Ratio] 25.97 kg/m2 No rmal (applies to non-numeric results) 25.97 kg/m2 [facility] ([facility]) Systolic blood pressure 112 mm[Hg] Normal (applies t o non-numeric results) 112 mm[Hg] [facility] ([facility]) Diastolic blood pressure 72 mm[Hg] Normal (applies to non-numeric results) 72 mm[Hg] [facility] ([facility]) Body height --lying 102 min Normal (applies to non-nume sharita results) 102 min [facility] ([facility]) Body temperature 98.60 degF Normal (applies to non-n umeric results) 98.60 degF [facility] ([facility]) Oxygen saturation in Arterial blood by Pulse oximetry 98 % 98 % [facility] ([facility] Body temperature 97.8 [degF] 97.8 [degF] [facility] ([facility] Heart rate 107 /min 107 /min [facility] ([facility] Body height 63 [in_i] 63 [in_i] [facility] ([facility] 5'3" Respiratory rate 16 /min 16 /min [facility] ( [facility] Body weight 143.00 [lb_av] 143.00 [lb_av] [facility] ([facility] [place] body weight 115 [lb_av] 115 [lb_av] [facility] ([facility] Systolic blood pressure 122 mm[Hg] 122 mm[Hg] M [facility] ([facility] Diastolic blood pressure 62 mm[Hg] 62 mm[Hg] [facility] ([facility] Body mass index (BMI) [Ratio] 25.3 kg/m2 25.3 k g/m2 [facility] ([facility] Body mass index (BMI) [Ratio] 24.4 kg/m2 24.4 k g/m2 [facility] ([facility] Heart rate 77 /min 77 /min [facility] ([facility] Body temperature 97.5 [degF] 97.5 [degF] [facility] ([facility] [place] body weight 115 [lb_av] 115 [lb_av] [facility] ([facility] Body weight 138.00 [lb_av] 138.00 [lb_av] [facility] ([facility] Oxygen saturation in Arterial blood by Pulse oximetry 98 % 98 % [facility] ([facility] Diastolic blood pressure 78 mm[Hg] 78 mm[Hg] [facility] ([facility] Respiratory rate 16 /min 16 /min [facility] ( [facility] Body height 63 [in_i] 63 [in_i] [facility] ([facility] 5'3" Systolic blood pressure 100 mm[Hg] 100 mm[Hg] M [facility] ([facility] Body height 63 [in_i] 63 [in_i] [facility] ([facility] 5'3" Body weight 138.00 [lb_av] 138.00 [lb_av] [facility] ([facility] Body mass index (BMI) [Ratio] 24.4 kg/m2 24.4 k g/m2 [facility] ([facility] Oxygen saturation in Arterial blood by Pulse oximetry 97 % 97 % [facility] ([facility] Systolic blood pressure 110 mm[Hg] 110 mm[Hg] M [facility] ([facility] Diastolic blood pressure 80 mm[Hg] 80 mm[Hg] [facility] ([facility] Body temperature 97.5 [degF] 97.5 [degF] [facility] ([facility] [place] body weight 115 [lb_av] 115 [lb_av] [facility] T ([facility] Heart rate 85 /min 85 /min [facility] ([facility] Respiratory rate 16 /min 16 /min [facility] ( [facility] Heart rate 97 /min 97 /min [facility] ([facility] Respiratory rate 16 /min 16 /min [facility] ( [facility] Body height 63 [in_i] 63 [in_i] [facility] ([facility] 5'3" Body weight 108.00 [lb_av] 108.00 [lb_av] [facility] T ([facility] [place] body weight 115 [lb_av] 115 [lb_av] [facility] T ([facility] Body mass index (BMI) [Ratio] 19.1 kg/m2 19.1 k g/m2 [facility] ([facility] Oxygen saturation in Arterial blood by Pulse oximetry 99 % 99 % [facility] ([facility] Systolic blood pressure 96 mm[Hg] 96 mm[Hg] M [facility] ([facility] Diastolic blood pressure 68 mm[Hg] 68 mm[Hg] [facility] ([facility] Body temperature 96.6 [degF] 96.6 [degF] [facility] ([facility]
[2021-05-13] MEDS ORDERED: NS 1,000 ML IV ONE (16:10)
[2021-05-13 17:39] LABS: BASO % 0.1 % (0.0-1.0); HEMATOCRIT 42.2 % (36.0-47.0); HEMOGLOBIN 13.6 g/dl (12.0-15.5); LYMPH # 2.1 10^3/uL (1.5-5.0); LYMPH % 22.5 % (24.0-44.0); MEAN CORPUSCULAR HEMOGLOBIN 29.4 pg (27.0-33.0); MEAN CORPUSCULAR HGB CONC 32.2 g/dl (32.0-36.5); MEAN CORPUSCULAR VOLUME 91.1 fl (80.0-96.0); MONO # 0.4 10^3/uL (0.0-0.8); MONO % 4.5 % (2.0-8.0); NEUTROPHILS # 6.7 10^3/uL (1.5-8.5); NEUTROPHILS % 72.6 % (36.0-66.0); PLATELET COUNT, AUTOMATED 274 10^3/uL (150-450); RED BLOOD COUNT 4.63 10^6/uL (4.00-5.40); WHITE BLOOD COUNT 9.2 10^3/uL (4.0-10.0)
[2021-05-13 17:51] LABS: ALBUMIN 4.2 GM/DL (3.2-5.2); ALT/SGPT 16 U/L (12-78); BILIRUBIN,TOTAL 0.4 MG/DL (0.2-1.0); BLOOD UREA NITROGEN 12 MG/DL (7-18); CARBON DIOXIDE LEVEL 28 MEQ/L (21-32); CHLORIDE LEVEL 107 MEQ/L (98-107); GLOMERULAR FILTRATION RATE > 60.0 (>60); GLUCOSE, FASTING 89 MG/DL (70-100); POTASSIUM SERUM 3.9 MEQ/L (3.5-5.1); SODIUM LEVEL 141 MEQ/L (136-145); TOTAL PROTEIN 7.9 GM/DL (6.4-8.2)
--- NOTE | 2021-05-13 18:18 | REPVR ---
PROCEDURE INFORMATION: Exam: CT Head Without Contrast Exam date and time: 05/13/2021 6:06 PM Age: 30 years old Clinical indication: Pain; Visual disturbance; Headache; Additional info: Intractable migraine one week. Blurred vision left eye TECHNIQUE: Imaging protocol: Computed tomography of the head without contrast. Radiation optimization: All CT scans at this facility use at least one of these dose optimization techniques: automated exposure control; mA and/or kV adjustment per patient size (includes targeted exams where dose is matched to clinical indication); or iterative reconstruction. COMPARISON: No relevant prior studies available. FINDINGS: Brain: Normal. No hemorrhage. Unremarkable white matter. No mass effect. Cerebral ventricles: No ventriculomegaly. Paranasal sinuses: Visualized sinuses are unremarkable. No fluid levels. Mastoid air cells: Visualized mastoid air cells are well aerated. Bones/joints: Unremarkable. No acute fracture. Soft tissues: Unremarkable. IMPRESSION: No acute intracranial abnormality. Electronically signed by: Albino Jenkins On 05/13/2021 18:17:43 PM
[2021-05-13] MEDS ORDERED: METOCLOPRAMIDE INJ 10MG/2ML VIAL (J2765 PER 1) IV ONE (18:30)
[2021-05-13] MEDS ORDERED: KETOROLAC 30 MG/ML 1ML VIAL IV ONE (18:30)
[2021-05-13] MEDS ORDERED: diphenhydrAMINE 50MG/ML VIAL (J1200) IV STA (19:01)
[2021-05-13] MEDS ORDERED: dexameTHASONE 20MG/5ML VIAL (J1100 PER 1MG) IV ONE (19:35)
[2021-05-13 19:46] VITALS: BP 116/62
[2021-05-13 19:56] LABS: PTH INTACT 80.8 PG/ML (18.5-88.0); TOTAL 25(OH) VITAMIN D 26.6 NG/ML (30.0-100.0)
== END 2021-05-13 19:50 | disposition left against medical advice (07) ==
LOC: M ED 12:23
DX: M54.2 Cervicalgia (principal); R51.9 Headache, unspecified; Z53.9 Procedure and treatment not carried out, unspecified reason; R11.2 Nausea with vomiting, unspecified; Z87.442 Personal history of urinary calculi; J45.909 Unspecified asthma, uncomplicated; F12.10 Cannabis abuse, uncomplicated; Z79.899 Other long term (current) drug therapy; Z88.2 Allergy status to sulfonamides; Z88.8 Allergy status to other drugs, medicaments and biological substances; Z88.1 Allergy status to other antibiotic agents; Z91.030 Bee allergy status
CPT/HCPCS: 36415; 70450; 80053; 81001; 82306; 83970; 84702; 85025; 96374; 96375; 99284; J1885; J2765

== ENCOUNTER → 2022-04-23 | Outpatient (CLI) | payer OTHER ==
[~2022-04-23] MED LIST changes: -FLUC200T2 PO; +FLUC200T4 PO; -FLUO10CA16 PO; +FLUO10CA18 PO
[2022-04-23 16:21] LABS: CALCIUM LEVEL 10.7 MG/DL (8.5-10.1); FREE T4 1.14 NG/DL (0.76-1.46); MAGNESIUM LEVEL 2.3 MG/DL (1.8-2.4); PHOSPHORUS LEVEL 2.8 MG/DL (2.5-4.9); THYROID STIMULATING HORMONE 0.471 uIU/ML (0.358-3.740)
[2022-04-23 16:37] LABS: PTH INTACT 65.6 PG/ML (18.5-88.0); TOTAL 25(OH) VITAMIN D 24.7 NG/ML (30.0-100.0)
== END ==
LOC: M PLALAB 11:25
PROVIDERS: ATTEND Nurse Practitioner Family
DX: R94.6 Abnormal results of thyroid function studies (principal); E83.52 Hypercalcemia

== ENCOUNTER → 2022-04-29 | Outpatient (REF) | payer OTHER ==
[2022-04-29 17:11] LABS: HEMATOCRIT 41.1 % (36.0-47.0); HEMOGLOBIN 13.5 g/dl (12.0-15.5); MEAN CORPUSCULAR HEMOGLOBIN 29.9 pg (27.0-33.0); MEAN CORPUSCULAR HGB CONC 32.8 g/dl (32.0-36.5); MEAN CORPUSCULAR VOLUME 90.9 fl (80.0-96.0); PLATELET COUNT, AUTOMATED 256 10^3/uL (150-450); RED BLOOD COUNT 4.52 10^6/uL (4.00-5.40); WHITE BLOOD COUNT 11.5 10^3/uL (4.0-10.0)
[2022-04-29 20:50] LABS: HEPATITIS B SURFACE ANTIGEN NEGATIVE (NEGATIVE); HEPATITIS C VIRUS ABY INDEX < 0.0 INDEX (<0.8)
[2022-04-29 20:51] LABS: HCG, SERUM QUANTITATIVE 90291 MIU/ML; HIV 1&2 SCREEN CENTAUR NEGATIVE (NEGATIVE)
== END ==
LOC: M LAB REF 16:14
PROVIDERS: ATTEND Obstetrics & Gynecology
DX: Z32.01 Encounter for pregnancy test, result positive (principal); O36.80X0 Pregnancy with inconclusive fetal viability, not applicable or unspecified

== ENCOUNTER → 2022-07-01 | Outpatient (REF) | payer OTHER ==
[2022-07-01 14:50] LABS: FREE T4 1.15 NG/DL (0.89-1.76); THYROID STIMULATING HORMONE 0.7 uIU/ML (0.55-4.78)
== END ==
LOC: M LAB REF 12:23
PROVIDERS: ATTEND Obstetrics & Gynecology
DX: Z34.82 Encounter for supervision of other normal pregnancy, second trimester (principal)

== ENCOUNTER → 2022-07-29 | Outpatient (CLI) | payer OTHER | LOC: M WHC 09:08 | PROVIDERS: ATTEND Obstetrics & Gynecology | DX: Z34.82 Encounter for supervision of other normal pregnancy, second trimester (principal) ==

== ENCOUNTER → 2022-09-22 | Outpatient (CLI) | payer OTHER ==
[~2022-09-22] MED LIST changes: +TOPI-254 PO; -TOPI50TA9 PO
[2022-09-22 10:31] LABS: HEMATOCRIT 33.2 % (36.0-47.0); MEAN CORPUSCULAR HEMOGLOBIN 30.7 pg (27.0-33.0); MEAN CORPUSCULAR HGB CONC 33.1 g/dl (32.0-36.5); MEAN CORPUSCULAR VOLUME 92.7 fl (80.0-96.0); PLATELET COUNT, AUTOMATED 249 10^3/uL (150-450); RED BLOOD COUNT 3.58 10^6/uL (4.00-5.40); WHITE BLOOD COUNT 10.2 10^3/uL (4.0-10.0)
== END ==
LOC: M LAB 08:45
PROVIDERS: ATTEND Obstetrics & Gynecology
DX: Z34.82 Encounter for supervision of other normal pregnancy, second trimester (principal)

== ENCOUNTER → 2022-11-18 | Outpatient (REF) | payer OTHER | LOC: M LAB REF 16:23 | PROVIDERS: ATTEND Obstetrics & Gynecology | DX: Z34.83 Encounter for supervision of other normal pregnancy, third trimester (principal) ==

== ENCOUNTER 2022-12-09 05:14 | Inpatient (IN) | payer OTHER ==
[~2022-12-09] VITALS: Ht 157.5 cm; Wt 71.1 kg
[2022-12-09] VITALS (10 sets, daily range): BP systolic 119–146; BP diastolic 60–89; TEMP 97.4; O2SAT 97
[2022-12-09] MEDS ORDERED: LACTATED RINGER'S 1000 ML IV STA (05:28)
[2022-12-09] MEDS ORDERED: ceFAZolin SOD 2 GM in IV 1 EA IV ONE (05:30)
[2022-12-09] MEDS ORDERED: BICITRA 30ML SOLN UDC PO ONE (05:30)
[2022-12-09] MEDS ORDERED: LR 1,000 ML IV SCH (05:30)
[2022-12-09] MEDS ORDERED: ZOLO100T PO (05:41)
[2022-12-09] MEDS ORDERED: PRENTAB9 PO (05:43)
[2022-12-09] MEDS ORDERED: TUMS750C5 PO (05:43)
[2022-12-09] MEDS ORDERED: PROM25TA12 PO (06:00)
[2022-12-09 06:53] LABS: HEMATOCRIT 32.7 % (36.0-47.0); HEMOGLOBIN 10.6 g/dl (12.0-15.5); MEAN CORPUSCULAR HEMOGLOBIN 28.5 pg (27.0-33.0); MEAN CORPUSCULAR HGB CONC 32.4 g/dl (32.0-36.5); MEAN CORPUSCULAR VOLUME 87.9 fl (80.0-96.0); PLATELET COUNT, AUTOMATED 244 10^3/uL (150-450); RED BLOOD COUNT 3.72 10^6/uL (4.00-5.40); WHITE BLOOD COUNT 13.9 10^3/uL (4.0-10.0)
[2022-12-09] MEDS ORDERED: MORPHINE PRES-FREE INJ 10 MG/10 ML VIAL As Ordered ONE (06:55)
[2022-12-09] MEDS ORDERED: KETOROLAC 60MG 2ML VIAL As Ordered ONE (06:56)
[2022-12-09] MEDS ORDERED: PHENYLephrine 500MCG 5ML (100MCG/ML) SYRINGE As Ordered ONE ×2 (06:56→08:21)
[2022-12-09] MEDS ORDERED: ACETAMINOPHEN 1000MG 100ML IV BAG As Ordered ONE (06:57)
[2022-12-09] MEDS ORDERED: GLYCOPYRROLATE INJ 0.2 MG/ML 2 ML VIAL As Ordered ONE (07:08)
[2022-12-09] MEDS ORDERED: RHOGAM 300MCG (1500IU) INJ IM SCH (07:35)
[2022-12-09] MEDS ORDERED: OXYTOCIN DRIP 30 UNITS in IV 1 EA IV SCH (07:35)
[2022-12-09] MEDS ORDERED: MIDAZOLAM INJ 2MG/2ML VIAL As Ordered ONE (08:09)
[2022-12-09 08:29] LABS: CORD GAS ABE V 0.5; CORD GAS HCO3 A 27.5 MMOL/L; CORD GAS HCO3 V 23.5 MMOL/L; CORD GAS O2 SAT A 50.5 %; CORD GAS O2 SAT V 71.3 %; CORD GAS PCO2 A 50.8 mmHg; CORD GAS PCO2 V 33.2 mmHg; CORD GAS PH A 7.351 UNITS; CORD GAS PH V 7.468 UNITS; CORD GAS PO2 A 20.6 mmHg; CORD GAS PO2 V 25.1 mmHg; CORD GAS SBC A 24.2 MMOL/L; CORD GAS SBC V 24.3 MMOL/L; CORD GAS TCO2 V 24.5 MMOL/L
[2022-12-09] MEDS ORDERED: OXYTOCIN 30UNITS IN 0.9% NaCl 500ML IV BAG As Ordered ONE (08:45)
[2022-12-09] MEDS ORDERED: fentaNYL 100 MCG/2 ML INJECTION IV PRN (09:00)
[2022-12-09] MEDS ORDERED: oxyCODONE 5MG TAB PO PRN (09:00)
[2022-12-09] MEDS ORDERED: **NOTE PATIENT COMMENT** MISC XX SCH (09:00)
[2022-12-09] MEDS ORDERED: MEPERIDINE 25 MG/ML 1ML VIAL IV PRN (09:00)
[2022-12-09] MEDS ORDERED: NALOXONE INJ 0.4MG/1ML VIAL IV PRN ×2 (09:00)
[2022-12-09] MEDS ORDERED: METOCLOPRAMIDE INJ 10MG/2ML VIAL IV PRN (09:00)
[2022-12-09] MEDS ORDERED: diphenhydrAMINE 50MG/ML VIAL IV PRN (09:00)
[2022-12-09] MEDS ORDERED: HYDROMORPHONE HCL 0.5 MG/ 0.5 ML SYRINGE IV PRN (09:00)
[2022-12-09] MEDS: PRENATAL VITAMINS CHEWABLE TABLET PO SCH (10:44)
[2022-12-09] MEDS: SLF 3 ML SYR IV SCH ×2 (10:44→17:07)
[2022-12-09] MEDS: SERTRALINE 100 MG TAB PO SCH (13:58)
[2022-12-09] MEDS: KETOROLAC 30 MG/ML 1ML VIAL IV SCH ×2 (13:59→19:52)
[2022-12-10] MEDS: KETOROLAC 30 MG/ML 1ML VIAL IV SCH (01:49)
[2022-12-10] MEDS: SLF 3 ML SYR IV SCH (01:50)
[2022-12-10 02:00] VITALS: BP 121/67; O2SAT 97
[2022-12-10 05:52] VITALS: BP 124/73; O2SAT 97
[2022-12-10] MEDS: SIMETHICONE 80MG CHEW TAB PO PRN ×3 (06:19→20:06)
[2022-12-10] MEDS: PERCOCET 5MG/325MG TAB PO PRN ×3 (06:21→20:09)
[2022-12-10 07:23] LABS: HEMATOCRIT 23.9 % (36.0-47.0); MEAN CORPUSCULAR HEMOGLOBIN 29.5 pg (27.0-33.0); MEAN CORPUSCULAR HGB CONC 33.1 g/dl (32.0-36.5); MEAN CORPUSCULAR VOLUME 89.2 fl (80.0-96.0); PLATELET COUNT, AUTOMATED 199 10^3/uL (150-450); RED BLOOD COUNT 2.68 10^6/uL (4.00-5.40); WHITE BLOOD COUNT 13.9 10^3/uL (4.0-10.0)
[2022-12-10 07:30] LABS: HEMOGLOBIN 7.9 g/dl (12.0-15.5)
[2022-12-10] MEDS: PRENATAL VITAMINS CHEWABLE TABLET PO SCH (09:42)
[2022-12-10] MEDS: IBUPROFEN 800 MG TAB PO SCH ×2 (09:43→17:51)
[2022-12-10 10:00] VITALS: BP 130/78; O2SAT 98
[2022-12-10 14:00] VITALS: BP 125/75; O2SAT 100
[2022-12-10] MEDS: SERTRALINE 100 MG TAB PO SCH (14:20)
[2022-12-10 18:00] VITALS: BP 124/68; O2SAT 99
[2022-12-10 22:00] VITALS: BP 119/63; O2SAT 97
[2022-12-11] MEDS: PERCOCET 5MG/325MG TAB PO PRN ×3 (00:53→10:23)
[2022-12-11 02:00] VITALS: BP 128/60; O2SAT 98
[2022-12-11] MEDS: IBUPROFEN 800 MG TAB PO SCH ×2 (02:11→10:23)
[2022-12-11] MEDS: SIMETHICONE 80MG CHEW TAB PO PRN (05:59)
[2022-12-11 06:00] VITALS: BP 122/73; O2SAT 98
[2022-12-11] MEDS ORDERED: MEASLES,MUMPS,RUBELLA VACCINE INJ (MMR-II) SC.IMMUN ONE (09:00)
[2022-12-11] MEDS: PRENATAL VITAMINS CHEWABLE TABLET PO SCH (10:22)
[2022-12-11] MEDS ORDERED: OXYC1TAB23 PO (12:33)
[2022-12-11] MEDS ORDERED: IBUP80TA PO (12:33)
== END 2022-12-11 13:45 | disposition home or self-care (01) | DRG 540 ==
LOC: M LDI 05:14 → M OBS 10:29
PROVIDERS: ADMIT Obstetrics & Gynecology; ATTEND Obstetrics & Gynecology
PROC: 10D00Z1 Extraction of Products of Conception, Low, Open Approach (ICD-10-PCS; principal; 2022-12-09 07:30)
DX: O99.344 Other mental disorders complicating childbirth (principal); F31.9 Bipolar disorder, unspecified; E28.2 Polycystic ovarian syndrome; O99.284 Endocrine, nutritional and metabolic diseases complicating childbirth; E05.90 Thyrotoxicosis, unspecified without thyrotoxic crisis or storm; Z3A.39 39 weeks gestation of pregnancy; J45.909 Unspecified asthma, uncomplicated; O99.52 Diseases of the respiratory system complicating childbirth; Z37.0 Single live birth

== ENCOUNTER 2024-02-07 07:14 | Observation (INO) | payer MEDICAID, OTHER ==
[~2024-02-07] VITALS: Ht 157.5 cm; Wt 64.1 kg
[~2024-02-07 07:14] MED LIST changes: +FLUO-290 PO; +FLUO-365 PO; -FLUO10CA18 PO; -FLUO20CA22 PO; +IBUP80TA PO; +OXYC1TAB23 PO; +PRENTAB9 PO; +PROM25TA12 PO; +TOPI-21 PO; -TOPI-254 PO; +TUMS750C5 PO; +ZOLO100T PO
[2024-02-07] MEDS ORDERED: RIZA10TA58 PO (07:23)
[2024-02-07] MEDS ORDERED: METOCLOPRAMIDE INJ 10MG/2ML VIAL IV ONE (07:45)
[2024-02-07] MEDS: PROMETHAZINE 25MG/ML 1ML VIAL IV ONE (08:20)
[2024-02-07] MEDS: NS 1,000 ML IV ONE (08:20)
[2024-02-07 08:32] LABS: BASO # 0.1 10^3/uL (0.0-0.2); BASO % 0.5 % (0.0-1.0); EOS # 0.1 10^3/uL (0.0-0.5); EOS % 0.4 % (0.0-3.0); HEMATOCRIT 45.1 % (36.0-47.0); LYMPH # 1.3 10^3/uL (1.5-5.0); MEAN CORPUSCULAR HEMOGLOBIN 30.4 pg (27.0-33.0); MEAN CORPUSCULAR HGB CONC 33.3 g/dl (32.0-36.5); MEAN CORPUSCULAR VOLUME 91.3 fl (80.0-96.0); MONO # 0.6 10^3/uL (0.0-0.8); MONO % 4.9 % (2.0-8.0); NEUTROPHILS # 10.9 10^3/uL (1.5-8.5); PLATELET COUNT, AUTOMATED 322 10^3/uL (150-450); RED BLOOD COUNT 4.94 10^6/uL (4.00-5.40)
[2024-02-07 08:58] LABS: HCG, SERUM QUALITATIVE NEGATIVE (NEGATIVE)
[2024-02-07] MEDS: MORPHINE 4 MG/ML 1ML VIAL IV ONE (08:59)
[2024-02-07] MEDS: cefTRIAXone SOD 1 GM in D5W MINI-BAG PLUS 50 ML IV ONE ×2 (10:13→12:01)
[2024-02-07] MEDS: NS 1,000 ML IV SCH (12:01)
[2024-02-07] MEDS ORDERED: IBUP80TA PO (12:11)
[2024-02-07] MEDS ORDERED: SERT50TA29 PO (12:11)
[2024-02-07] MEDS ORDERED: ACET-897 PO (12:11)
[2024-02-07] MEDS ORDERED: HOME MED LIST COMPLETE! XX SCH (12:15)
[2024-02-07] MEDS ORDERED: RIZATRIPTAN MLT 10 MG TAB PO PRN (13:15)
[2024-02-07] MEDS: METOCLOPRAMIDE INJ 10MG/2ML VIAL IV PRN (13:44)
[2024-02-07] MEDS: MORPHINE 4 MG/ML 1ML VIAL IV PRN (14:46)
[2024-02-07] MEDS: TAMSULOSIN 0.4 MG CAP PO STA (14:46)
[2024-02-07 16:14] VITALS: BP 133/63; TEMP 97.7; O2SAT 97
[2024-02-07 19:33] VITALS: BP 132/69; TEMP 98.8; O2SAT 96
[2024-02-08 04:29] VITALS: BP 129/70; TEMP 97.9; O2SAT 97
[2024-02-08] MEDS: ACETAMINOPHEN TAB 650MG DOSE (2X325MG) PO PRN (07:43)
[2024-02-08 08:15] LABS: BASO % 0.5 % (0.0-1.0); EOS # 0.1 10^3/uL (0.0-0.5); EOS % 0.8 % (0.0-3.0); HEMATOCRIT 38.4 % (36.0-47.0); LYMPH # 2.1 10^3/uL (1.5-5.0); LYMPH % 27.9 % (24.0-44.0); MEAN CORPUSCULAR HGB CONC 32.6 g/dl (32.0-36.5); MEAN CORPUSCULAR VOLUME 92.1 fl (80.0-96.0); MONO # 0.4 10^3/uL (0.0-0.8); MONO % 5.1 % (2.0-8.0); NEUTROPHILS # 4.9 10^3/uL (1.5-8.5); NEUTROPHILS % 65.4 % (36.0-66.0); PLATELET COUNT, AUTOMATED 238 10^3/uL (150-450); RED BLOOD COUNT 4.17 10^6/uL (4.00-5.40); WHITE BLOOD COUNT 7.4 10^3/uL (4.0-10.0)
[2024-02-08 08:19] LABS: HEMOGLOBIN 12.5 g/dl (12.0-15.5)
[2024-02-08] MEDS ORDERED: PERCOCET 5MG/325MG TAB PO PRN (08:20)
[2024-02-08 08:43] LABS: BLOOD UREA NITROGEN 14 MG/DL (9-23); CALCIUM LEVEL 9.1 MG/DL (8.5-10.1); CARBON DIOXIDE LEVEL 23 MMOL/L (20-31); CHLORIDE LEVEL 114 MMOL/L (98-107); CREATININE FOR GFR 0.56 MG/DL (0.55-1.30); GLOMERULAR FILTRATION RATE > 60.0 (>60); GLUCOSE, FASTING 73 MG/DL (60-100); MAGNESIUM LEVEL 1.9 MG/DL (1.8-2.4); POTASSIUM SERUM 3.6 MMOL/L (3.5-5.1); SODIUM LEVEL 142 MMOL/L (136-145)
[2024-02-08] MEDS: TAMSULOSIN 0.4 MG CAP PO SCH (09:03)
[2024-02-08] MEDS: cefTRIAXone SOD 2 GM in D5W MINI-BAG PLUS 50 ML IV SCH (09:04)
[2024-02-08 12:00] VITALS: BP 138/81; TEMP 98.8; O2SAT 100
[2024-02-08] MEDS ORDERED: LIDOCAINE 2% 100MG/5ML SDV (FOR ANES.) As Ordered ONE (12:30)
[2024-02-08] MEDS ORDERED: propofoL 200 MG/20 ML VIAL As Ordered ONE (12:30)
[2024-02-08] MEDS ORDERED: ONDANSETRON 4MG 2ML VIAL As Ordered ONE (12:30)
[2024-02-08] MEDS ORDERED: ACETAMINOPHEN 1000MG 100ML IV BAG As Ordered ONE (12:33)
[2024-02-08] MEDS ORDERED: MIDAZOLAM INJ 2MG/2ML VIAL As Ordered ONE (12:33)
[2024-02-08] MEDS ORDERED: fentaNYL 100 MCG/2 ML INJECTION As Ordered ONE (12:35)
[2024-02-08] MEDS ORDERED: dexmedeTOMIDine (4MCG/ML)200MCG/50ML BTL (PRECEDEX) As Ordered ONE (13:10)
[2024-02-08] MEDS: ISOVUE-300 61% 100ML VIAL As Ordered ONE (13:52)
[2024-02-08] MEDS ORDERED: LR 1,000 ML IV SCH (14:05)
[2024-02-08] MEDS ORDERED: PROMETHAZINE 25MG/ML 1ML VIAL IV PRN (14:05)
[2024-02-08] MEDS ORDERED: fentaNYL 100 MCG/2 ML INJECTION IV PRN (14:05)
[2024-02-08 14:40] VITALS: BP 123/69; TEMP 98.4; O2SAT 97
[2024-02-08] MEDS ORDERED: OXYC1TAB23 PO (14:57)
[2024-02-08 15:10] VITALS: BP 120/70; TEMP 98.6; O2SAT 95
[2024-02-08 15:40] VITALS: BP 120/74; TEMP 98.2; O2SAT 95
== END 2024-02-08 16:31 | disposition home or self-care (01) ==
LOC: M ED 07:14 → M ED INP 11:23 → M MSPAV 16:07
PROVIDERS: ADMIT Internal Medicine; ATTEND Internal Medicine
DX: N13.2 Hydronephrosis with renal and ureteral calculous obstruction (principal); Z88.2 Allergy status to sulfonamides; Z88.1 Allergy status to other antibiotic agents; Z88.8 Allergy status to other drugs, medicaments and biological substances
CPT/HCPCS: 36415; 52356; 74176; 76000; 80047; 80048; 81001; 82365; 83735; 84703; 85025; 93005; 96361; 96365; 96366; 96375; 96376; 99284; C1769; C1894; C2617; J0131; J0696; J1100; J2250; J2405; J2550; J2765; J3010; Q9967

== ENCOUNTER 2024-03-05 08:46 | Day surgery (SDC) | payer OTHER ==
[~2024-03-05] VITALS: Ht 157.5 cm; Wt 63.3 kg
[~2024-03-05 08:46] MED LIST changes: +ACET-897 PO; +FLUC-1 PO; -FLUC200T4 PO; +LIDOCAINE 2% 100MG/5ML SDV (FOR ANES.) As Ordered ONE; +LR 1,000 ML IV SCH; +MIDAZOLAM INJ 2MG/2ML VIAL As Ordered ONE; -OLAN2.5T25 PO; +OLAN2.5T53 PO; +OXYB5TAB14 PO; +PHEN1TAB73 PO; +RIZA10TA58 PO; +SERT50TA29 PO; +fentaNYL 100 MCG/2 ML INJECTION As Ordered ONE; +fentaNYL 100 MCG/2 ML INJECTION IV PRN; +oxyCODONE 5MG TAB PO PRN; +propofoL 200 MG/20 ML VIAL As Ordered ONE
[2024-03-05] MEDS ORDERED: LR 1,000 ML IV SCH (09:30)
[2024-03-05] MEDS: LIDOCAINE 2% 5ML JELLY UROJET As Ordered ONE (10:38)
[2024-03-05] MEDS: ceFAZolin SOD 2 GM in IV 1 EA IV ONE (10:41)
[2024-03-05 10:56] VITALS: BP 93/54; TEMP 97; O2SAT 95
== END 2024-03-05 11:36 | disposition home or self-care (01) ==
LOC: M SDC 08:46
PROVIDERS: ATTEND Urology
DX: N20.0 Calculus of kidney (principal); Z46.6 Encounter for fitting and adjustment of urinary device; Z87.442 Personal history of urinary calculi; J45.909 Unspecified asthma, uncomplicated; G43.909 Migraine, unspecified, not intractable, without status migrainosus; F32.A Depression, unspecified; F31.9 Bipolar disorder, unspecified; Z87.891 Personal history of nicotine dependence; Z88.1 Allergy status to other antibiotic agents; Z88.8 Allergy status to other drugs, medicaments and biological substances; Z88.2 Allergy status to sulfonamides; Z91.030 Bee allergy status; Z79.899 Other long term (current) drug therapy
CPT/HCPCS: 52310; 76000; 81025; C1769; J0690; J2250; J3010

== ENCOUNTER → 2024-11-15 | Outpatient (REF) | payer OTHER ==
[~2024-11-15] MED LIST changes: -FLOM0.4C39 PO; -LIDOCAINE 2% 100MG/5ML SDV (FOR ANES.) As Ordered ONE; -LR 1,000 ML IV SCH; -MIDAZOLAM INJ 2MG/2ML VIAL As Ordered ONE; +TAMS-18 PO; -fentaNYL 100 MCG/2 ML INJECTION As Ordered ONE; -fentaNYL 100 MCG/2 ML INJECTION IV PRN; -oxyCODONE 5MG TAB PO PRN; -propofoL 200 MG/20 ML VIAL As Ordered ONE
[2024-11-15 17:30] LABS: HEMATOCRIT 39.3 % (36.0-47.0); HEMOGLOBIN 13.1 g/dl (12.0-15.5); MEAN CORPUSCULAR HEMOGLOBIN 29.8 pg (27.0-33.0); MEAN CORPUSCULAR HGB CONC 33.3 g/dl (32.0-36.5); MEAN CORPUSCULAR VOLUME 89.5 fl (80.0-96.0); PLATELET COUNT, AUTOMATED 291 10^3/uL (150-450); RED BLOOD COUNT 4.39 10^6/uL (4.00-5.40); WHITE BLOOD COUNT 10.2 10^3/uL (4.0-10.0)
[2024-11-15 18:14] LABS: HEPATITIS B SURFACE ANTIGEN NEGATIVE (NEGATIVE)
[2024-11-15 18:27] LABS: HIV 1&2 SCREEN NEGATIVE (NEGATIVE)
[2024-11-15 18:34] LABS: HEPATITIS C VIRUS ABY INDEX 0.03 INDEX (<0.8)
== END ==
LOC: M LAB REF 16:44
PROVIDERS: ATTEND Obstetrics & Gynecology
DX: Z32.01 Encounter for pregnancy test, result positive (principal); O36.80X0 Pregnancy with inconclusive fetal viability, not applicable or unspecified

== ENCOUNTER → 2024-11-27 | Outpatient (CLI) | payer OTHER | LOC: M WHC 07:52 | PROVIDERS: ATTEND Obstetrics & Gynecology | DX: O36.80X0 Pregnancy with inconclusive fetal viability, not applicable or unspecified (principal) ==

== ENCOUNTER 2025-01-28 08:22 | Observation (INO) | payer OTHER ==
[~2025-01-28] VITALS: Ht 157.5 cm; Wt 65.6 kg
[2025-01-28] MEDS ORDERED: REGL5TAB2 PO (08:56)
[2025-01-28 09:00] LABS: BASO # 0.0 10^3/uL (0.0-0.2); BASO % 0.3 % (0.0-1.0); EOS # 0.0 10^3/uL (0.0-0.5); EOS % 0.4 % (0.0-3.0); LYMPH # 1.4 10^3/uL (1.5-5.0); LYMPH % 12.7 % (24.0-44.0); MONO # 0.5 10^3/uL (0.0-0.8); MONO % 4.1 % (2.0-8.0); NEUTROPHILS # 9.0 10^3/uL (1.5-8.5); NEUTROPHILS % 81.9 % (36.0-66.0); PLATELET COUNT, AUTOMATED 248 10^3/uL (150-450)
[2025-01-28] MEDS: PRENATAL VITAMINS CHEWABLE TABLET PO SCH (09:00)
[2025-01-28] MEDS ORDERED: HOME MED LIST COMPLETE! XX SCH (09:25)
[2025-01-28 09:33] LABS: CALCIUM LEVEL 9.9 MG/DL (8.5-10.1); CARBON DIOXIDE LEVEL 23 MMOL/L (20-31); CHLORIDE LEVEL 103 MMOL/L (98-107); CREATININE FOR GFR 0.53 MG/DL (0.55-1.30); GLOMERULAR FILTRATION RATE > 90.0 (>60); POTASSIUM SERUM 3.5 MMOL/L (3.5-5.1); SODIUM LEVEL 139 MMOL/L (136-145)
[2025-01-28] MEDS: diphenhydrAMINE 50 MG/ML VIAL IV ONE (09:47)
[2025-01-28] MEDS: NS (Normal Saline) 0.9% 1,000 ML IV ONE (09:48)
[2025-01-28 10:03] LABS: ALT/SGPT < 9 U/L (7.0-40); AST/SGOT 11 U/L (<34); MAGNESIUM LEVEL 1.6 MG/DL (1.8-2.4)
[2025-01-28 10:53] LABS: KETONE, URINE AUTO RFX 2+ mg/dL (NEGATIVE); LEUKOCYTE ESTERASE UR AUTO RFX NEGATIVE (NEGATIVE); MUCUS, URINE RFX SMALL (NEGATIVE); NITRITE, URINE AUTO RFX NEGATIVE (NEGATIVE); RBC, URINE AUTO RFX 13 /HPF (0-3); SQUAM EPITHELIAL CELL UR AURFX 6 /HPF (0-6); WBC, URINE AUTO RFX 5 /HPF (0-3)
[2025-01-28] MEDS: MAG SULF 1GM/100ML (MAG RUN) 1 GM in IV 1 EA IV ONE (10:59)
[2025-01-28] MEDS: PROMETHAZINE 25MG/ML 1ML VIAL IM ONE (16:29)
[2025-01-28] MEDS ORDERED: SERTRALINE HCL 50 MG TAB PO SCH (16:35)
[2025-01-28] MEDS ORDERED: ACETAMINOPHEN 325 MG TAB PO PRN (16:35)
[2025-01-28] MEDS ORDERED: RIZATRIPTAN MLT 10 MG TAB PO PRN (16:35)
[2025-01-28] MEDS ORDERED: MULTIVITAMIN -ADULT INJECTION 10 ML, THIAMINE INJection 100 MG, FOLIC ACID 1 MG in NS (... IV ONE (18:00)
[2025-01-28] MEDS ORDERED: NS 0.9% IV SCH (18:00)
[2025-01-28] MEDS ORDERED: POTASSIUM CHLORIDE IV SCH (18:00)
[2025-01-28] MEDS: SERTRALINE 100 MG TAB PO SCH (18:50)
[2025-01-28] MEDS: cefTRIAXone SOD 2 GM in DEXTROSE 5% (D5W) ADV/MINI-BAG 50 ML IV SCH (18:50)
[2025-01-28] MEDS: SCOPOLAMINE 1MG TRANSDERMAL PATCH TOP SCH (18:51)
[2025-01-28] MEDS: MAG SULF 1GM/100ML (MAG RUN) 1 GM in IV 1 EA IV SCH (20:35)
[2025-01-28] MEDS: MULTIVITAMIN -ADULT INJECTION 10 ML, THIAMINE INJection 100 MG, FOLIC ACID 1 MG in NS (... IV ONE (22:23)
[2025-01-29] MEDS ORDERED: POTASSIUM CHLORIDE 10MEQ/100ML SWI As Ordered ONE (00:52)
[2025-01-29] MEDS ORDERED: MAGNESIUM SULFATE 1 GM/100 ML D5W BAG (10MG/ML) As Ordered ONE (00:53)
[2025-01-29 06:25] LABS: BASO # 0.1 10^3/uL (0.0-0.2); BASO % 0.4 % (0.0-1.0); EOS # 0.0 10^3/uL (0.0-0.5); EOS % 0.3 % (0.0-3.0); LYMPH # 1.9 10^3/uL (1.5-5.0); LYMPH % 16.0 % (24.0-44.0); MONO # 0.6 10^3/uL (0.0-0.8); MONO % 5.1 % (2.0-8.0); NEUTROPHILS # 9.2 10^3/uL (1.5-8.5); NEUTROPHILS % 77.6 % (36.0-66.0); PLATELET COUNT, AUTOMATED 229 10^3/uL (150-450)
[2025-01-29 06:52] LABS: FREE T4 1.13 NG/DL (0.89-1.76)
[2025-01-29 07:05] LABS: ALT/SGPT < 9 U/L (7.0-40); AST/SGOT 15 U/L (<34); CALCIUM LEVEL 8.9 MG/DL (8.5-10.1); CARBON DIOXIDE LEVEL 18 MMOL/L (20-31); CHLORIDE LEVEL 107 MMOL/L (98-107); CREATININE FOR GFR 0.49 MG/DL (0.55-1.30); GLOMERULAR FILTRATION RATE > 90.0 (>60); MAGNESIUM LEVEL 1.9 MG/DL (1.8-2.4); POTASSIUM SERUM 3.8 MMOL/L (3.5-5.1); SODIUM LEVEL 139 MMOL/L (136-145)
[2025-01-29] MEDS: POTASSIUM CHLORIDE IV SCH (08:36)
[2025-01-29] MEDS: NS 0.9% IV SCH (08:36)
[2025-01-29 15:30] VITALS: BP 124/65; TEMP 98.7; O2SAT 100
[2025-01-29] MEDS: PROMETHAZINE 25MG/ML 1ML VIAL IV SCH (18:52)
[2025-01-29 20:00] VITALS: BP 119/58; TEMP 98.5; O2SAT 97
[2025-01-29] MEDS: HEPARIN SOD 5000 UNITS/ML 1 ML VIAL/SYRINGE SQ SCH (20:59)
[2025-01-29] MEDS: CALCIUM CARBONATE 500 MG CHEW U/D PO PRN (20:59)
[2025-01-29] MEDS ORDERED: HEPARIN SOD 5000 UNITS/ML 1 ML VIAL/SYRINGE SC SCH (21:00)
[2025-01-30] VITALS: BP 111/53; TEMP 97.2; O2SAT 98
[2025-01-30 07:18] LABS: BASO # 0.0 10^3/uL (0.0-0.2); BASO % 0.3 % (0.0-1.0); EOS # 0.1 10^3/uL (0.0-0.5); EOS % 0.8 % (0.0-3.0); LYMPH # 1.9 10^3/uL (1.5-5.0); LYMPH % 19.1 % (24.0-44.0); MONO # 0.6 10^3/uL (0.0-0.8); MONO % 6.6 % (2.0-8.0); NEUTROPHILS # 7.0 10^3/uL (1.5-8.5); NEUTROPHILS % 72.6 % (36.0-66.0); PLATELET COUNT, AUTOMATED 237 10^3/uL (150-450)
[2025-01-30 07:39] LABS: ALT/SGPT < 9 U/L (7.0-40); AST/SGOT 14 U/L (<34); CALCIUM LEVEL 9.8 MG/DL (8.5-10.1); CARBON DIOXIDE LEVEL 19 MMOL/L (20-31); CHLORIDE LEVEL 107 MMOL/L (98-107); CREATININE FOR GFR 0.47 MG/DL (0.55-1.30); GLOMERULAR FILTRATION RATE > 90.0 (>60); MAGNESIUM LEVEL 1.5 MG/DL (1.8-2.4); POTASSIUM SERUM 3.7 MMOL/L (3.5-5.1); SODIUM LEVEL 140 MMOL/L (136-145)
[2025-01-30 08:00] VITALS: BP 114/59; TEMP 98.3; O2SAT 98
[2025-01-30] MEDS: MAG SULF 1GM/100ML (MAG RUN) 1 GM in IV 1 EA IV ONE (09:06)
[2025-01-30] MEDS: OMEPRAZOLE 20MG CAP PO SCH (09:40)
[2025-01-30] MEDS: CALCIUM CARBONATE 500 MG CHEW U/D PO PRN (09:40)
[2025-01-30] MEDS: NS (Normal Saline) 0.9% 500 ML IV SCH (11:03)
[2025-01-30] MEDS ORDERED: PROM25TA12 PO (11:44)
[2025-01-30] MEDS ORDERED: Scopolamine TOP (11:44)
[2025-01-30] MEDS ORDERED: MAGN400T2 PO (11:44)
[2025-01-30] MEDS ORDERED: OMEP-173 PO (11:44)
[2025-01-30 12:00] VITALS: BP 111/58; TEMP 98.4; O2SAT 98
[2025-01-30] MEDS: MAG SULF 1GM/100ML (MAG RUN) 1 GM in IV 1 EA IV SCH (13:21)
[2025-01-30 15:39] LABS: CALCIUM LEVEL 9.6 MG/DL (8.5-10.1); CARBON DIOXIDE LEVEL 20 MMOL/L (20-31); CHLORIDE LEVEL 106 MMOL/L (98-107); CREATININE FOR GFR 0.46 MG/DL (0.55-1.30); GLOMERULAR FILTRATION RATE > 90.0 (>60); MAGNESIUM LEVEL 2.2 MG/DL (1.8-2.4); POTASSIUM SERUM 3.4 MMOL/L (3.5-5.1); SODIUM LEVEL 138 MMOL/L (136-145)
[2025-01-30] MEDS ORDERED: POTA-298 PO (15:46)
[2025-01-30 16:00] VITALS: BP 115/57; TEMP 98.7; O2SAT 97
== END 2025-01-30 18:01 | disposition home or self-care (01) ==
LOC: EDBD 08:22 → M ED 08:22 → M ED INP 08:23 → M PED 01-29 16:08
PROVIDERS: ADMIT Internal Medicine; ATTEND Internal Medicine
DX: O21.0 Mild hyperemesis gravidarum (principal); O23.42 Unspecified infection of urinary tract in pregnancy, second trimester; O99.282 Endocrine, nutritional and metabolic diseases complicating pregnancy, second trimester; E83.42 Hypomagnesemia; O09.522 Supervision of elderly multigravida, second trimester; O99.612 Diseases of the digestive system complicating pregnancy, second trimester; K20.90 Esophagitis, unspecified without bleeding; O99.342 Other mental disorders complicating pregnancy, second trimester; F41.9 Anxiety disorder, unspecified; F31.9 Bipolar disorder, unspecified; Z88.2 Allergy status to sulfonamides; Z88.1 Allergy status to other antibiotic agents; Z88.8 Allergy status to other drugs, medicaments and biological substances; Z91.030 Bee allergy status; Z79.899 Other long term (current) drug therapy; Z3A.19 19 weeks gestation of pregnancy
CPT/HCPCS: 36415; 76816; 80048; 80053; 80076; 81001; 83690; 83735; 84145; 84439; 84443; 85025; 87086; 87486; 87507; 87581; 87633; 87798; 93005; 93041; 94760; 96365; 96366; 96367; 96368; 96372; 96375; 96376; 99285; J0696; J1200; J1808; J2550; J2765; J3411; J3475

== ENCOUNTER → 2025-02-01 | Outpatient (CLI) | payer OTHER ==
[~2025-02-01] MED LIST changes: +MAGN400T2 PO; +OMEP-173 PO; +POTA-298 PO; +REGL5TAB2 PO; +Scopolamine TOP
== END ==
LOC: M LAB 11:20
PROVIDERS: ATTEND Internal Medicine
DX: E87.6 Hypokalemia (principal)

== ENCOUNTER → 2025-02-08 | Outpatient (CLI) | payer OTHER | LOC: M RAD 16:03 | PROVIDERS: ATTEND Obstetrics & Gynecology | DX: Z36.2 Encounter for other antenatal screening follow-up (principal); Z3A.00 Weeks of gestation of pregnancy not specified ==

== ENCOUNTER → 2025-02-12 | Outpatient (REF) | payer OTHER ==
[2025-02-12 18:58] LABS: FREE T4 1.03 NG/DL (0.89-1.76)
== END ==
LOC: M LAB REF 17:42
PROVIDERS: ATTEND Obstetrics & Gynecology
DX: Z34.82 Encounter for supervision of other normal pregnancy, second trimester (principal)

== ENCOUNTER → 2025-04-22 | Outpatient (CLI) | payer OTHER ==
[~2025-04-22] MED LIST changes: -ZOLP5TAB; +ZOLP5TAB9
[2025-04-22 15:26] LABS: PLATELET COUNT, AUTOMATED 297 10^3/uL (150-450)
[2025-04-22 15:28] LABS: GLUCOSE CHALLENGE TEST 1 HOUR 110 MG/DL (LESS THAN 140)
[2025-04-22 16:03] LABS: HIV 1&2 SCREEN NEGATIVE (NEGATIVE)
[2025-04-22 16:11] LABS: HEPATITIS C VIRUS ABY INDEX 0.03 INDEX (<0.8)
[2025-04-22 16:25] LABS: Trichomonas vaginalis (AMP) NOT DETECTED (NEGATIVE)
[2025-04-22 16:48] LABS: GC DNA AMPLIFICATION NEGATIVE (NEGATIVE)
== END ==
LOC: M PLALAB 11:57
PROVIDERS: ATTEND Nurse Practitioner Family
DX: Z34.80 Encounter for supervision of other normal pregnancy, unspecified trimester (principal)
CPT/HCPCS: 36415; 82950; 85027; 86780; 86803; 86850; 86900; 86901; 87389; 87661; 87810; 87850; J2790

== ENCOUNTER → 2025-05-07 | Outpatient (CLI) | payer OTHER ==
[2025-05-07 11:15] LABS: PLATELET COUNT, AUTOMATED 268 10^3/uL (150-450)
[2025-05-07 11:50] LABS: IRON (FE) 65.0 UG/DL (50-170)
[2025-05-07 11:51] LABS: PERCENT SATURATION 12.8 % (13.2-45.0)
== END ==
LOC: M PLALAB 09:10
PROVIDERS: ATTEND Student in an Organized Health Care Education/Training Program
DX: O99.013 Anemia complicating pregnancy, third trimester (principal)

== ENCOUNTER → 2025-05-08 | Outpatient (CLI) | payer OTHER | LOC: M RAD 12:29 | PROVIDERS: ATTEND Obstetrics & Gynecology | DX: O09.523 Supervision of elderly multigravida, third trimester (principal); Z3A.33 33 weeks gestation of pregnancy ==

== ENCOUNTER 2025-05-17 14:19 | Outpatient (CLI) | payer OTHER ==
[~2025-05-17] VITALS: Ht 157.5 cm; Wt 71.4 kg
[~2025-05-17 14:19] MED LIST changes: +ALBUTEROL SULFATE 2.5 MG/0.5 ML INH CONCENTRATE NEB SOLN INH PRN; +EPINEPHrine INJ 1 MG/ML 1ML AMP IM PRN; +diphenhydrAMINE 50 MG/ML VIAL IV PRN
[2025-05-17] MEDS: IRON SUCROSE 200MG IVP IV ONE (14:28)
[2025-05-17 14:35] VITALS: BP 134/61; O2SAT 98
[2025-05-17 15:05] VITALS: BP 134/66; O2SAT 98
== END 2025-05-17 15:05 | disposition home or self-care (01) ==
LOC: M INFU 14:19
PROVIDERS: ATTEND Student in an Organized Health Care Education/Training Program
DX: O99.013 Anemia complicating pregnancy, third trimester (principal); Z88.2 Allergy status to sulfonamides; Z88.1 Allergy status to other antibiotic agents; Z88.8 Allergy status to other drugs, medicaments and biological substances; Z91.030 Bee allergy status
CPT/HCPCS: 96374; J1756

== ENCOUNTER 2025-05-24 14:01 | Outpatient (CLI) | payer OTHER ==
[~2025-05-24] VITALS: Ht 157.5 cm; Wt 69.0 kg
[~2025-05-24 14:01] MED LIST changes: +ALBUTEROL SULFATE 2.5 MG/0.5 ML INH CONCENTRATE NEB SOLN INH PRN; +EPINEPHrine INJ 1 MG/ML 1ML AMP IM PRN; -OMEP40CA4 PO; -PROM1SUP2 PR; -TRAN1DIS4 TD; +diphenhydrAMINE 50 MG/ML VIAL IV PRN
[2025-05-24 14:15] VITALS: BP 115/57; O2SAT 96
[2025-05-24] MEDS: IRON SUCROSE 200MG IVP IV ONE (14:24)
[2025-05-24 14:55] VITALS: BP 125/62; O2SAT 99
[2025-05-30] MEDS ORDERED: TRAN1DIS4 TD (07:44)
[2025-05-30] MEDS ORDERED: OMEP40CA4 PO (07:44)
[2025-05-30] MEDS ORDERED: RIZA10TA58 PO (07:44)
[2025-05-30] MEDS ORDERED: PROM1SUP2 PR (07:44)
== END 2025-05-24 14:55 | disposition home or self-care (01) ==
LOC: M INFU 14:01
PROVIDERS: ATTEND Student in an Organized Health Care Education/Training Program
DX: O99.013 Anemia complicating pregnancy, third trimester (principal); Z88.1 Allergy status to other antibiotic agents; Z88.2 Allergy status to sulfonamides; Z88.8 Allergy status to other drugs, medicaments and biological substances; Z91.030 Bee allergy status
CPT/HCPCS: 96374; J1756

== ENCOUNTER → 2025-05-24 | Outpatient (REF) | payer OTHER ==
[~2025-05-24] MED LIST changes: -ALBUTEROL SULFATE 2.5 MG/0.5 ML INH CONCENTRATE NEB SOLN INH PRN; -EPINEPHrine INJ 1 MG/ML 1ML AMP IM PRN; +OMEP40CA4 PO; +PROM1SUP2 PR; +TRAN1DIS4 TD; -diphenhydrAMINE 50 MG/ML VIAL IV PRN
== END ==
LOC: M PLALAB 16:50
PROVIDERS: ATTEND Student in an Organized Health Care Education/Training Program
DX: Z3A.36 36 weeks gestation of pregnancy (principal); O99.013 Anemia complicating pregnancy, third trimester; Z88.1 Allergy status to other antibiotic agents; Z88.2 Allergy status to sulfonamides; Z88.8 Allergy status to other drugs, medicaments and biological substances; Z91.030 Bee allergy status

== ENCOUNTER 2025-05-30 08:00 | Inpatient (IN) | payer OTHER ==
[~2025-05-30] VITALS: Ht 157.5 cm; Wt 71.2 kg
[~2025-05-30 08:00] MED LIST changes: -ALBUTEROL SULFATE 2.5 MG/0.5 ML INH CONCENTRATE NEB SOLN INH PRN; -EPINEPHrine INJ 1 MG/ML 1ML AMP IM PRN; +OMEP40CA4 PO; +PROM1SUP2 PR; +TRAN1DIS4 TD; -diphenhydrAMINE 50 MG/ML VIAL IV PRN
[2025-06-19] VITALS (11 sets, daily range): BP systolic 118–135; BP diastolic 63–86; TEMP 98–98.1; O2SAT 98–100
[2025-06-19] MEDS: LR 500 ML in IV 1 EA IV STA (06:13)
[2025-06-19] MEDS: LR 1,000 ML IV SCH (06:13)
[2025-06-19 06:16] LABS: PLATELET COUNT, AUTOMATED 208 10^3/uL (150-450)
[2025-06-19] MEDS ORDERED: OXYTOCIN 30UNITS IN 0.9% NaCl 500ML IV BAG IV ONE (07:10)
[2025-06-19] MEDS ORDERED: MORPHINE PRES-FREE INJ 10 MG/10 ML VIAL As Ordered ONE (07:11)
[2025-06-19 07:14] LABS: HIV 1&2 SCREEN NEGATIVE (NEGATIVE)
[2025-06-19] MEDS: ceFAZolin SODIUM 2 GM in DEXTROSE 5% (D5W) ADV/MINI-BAG 50 ML IV ONE (07:20)
[2025-06-19] MEDS: BICITRA 30 ML SOLN UDC PO ONE (07:20)
[2025-06-19 07:21] LABS: HEPATITIS C VIRUS ABY INDEX < 0.02 INDEX (<0.8)
[2025-06-19] MEDS ORDERED: PHENYLephrine 500MCG 5ML (100MCG/ML) SYRINGE As Ordered ONE (08:05)
[2025-06-19] MEDS ORDERED: dexAMETHasone 4 MG/ML 1 ML VIAL As Ordered ONE (08:05)
[2025-06-19] MEDS ORDERED: KETOROLAC 30 MG/ML 1 ML VIAL As Ordered ONE (08:30)
[2025-06-19] MEDS ORDERED: SIMETHICONE 80MG CHEW TAB PO PRN (08:55)
[2025-06-19] MEDS: SLF 3 ML SYR IV SCH (08:55)
[2025-06-19] MEDS ORDERED: ACETAMINOPHEN 500 MG TAB PO PRN (08:55)
[2025-06-19] MEDS ORDERED: diphenhydrAMINE 50 MG/ML VIAL IV PRN (08:55)
[2025-06-19] MEDS ORDERED: **NOTE PATIENT COMMENT** MISC XX SCH (08:55)
[2025-06-19] MEDS ORDERED: NALOXONE INJ 0.4 MG/1 ML VIAL IV PRN ×2 (08:55)
[2025-06-19] MEDS: PRENATAL VITAMINS CHEWABLE TABLET PO SCH (09:00)
[2025-06-19] MEDS: DOCUSATE SODIUM 100 MG CAPSULE PO SCH (09:00)
[2025-06-19 09:09] LABS: CORD GAS ABE A -1.3; CORD GAS HCO3 A 25.8 MMOL/L; CORD GAS O2 SAT A 49.8 %; CORD GAS PCO2 A 52.7 mmHg; CORD GAS PH A 7.308 UNITS; CORD GAS PO2 A 19.8 mmHg; CORD GAS SBC A 22.3 MMOL/L; CORD GAS TCO2 A 27.4 MMOL/L
[2025-06-19 09:12] LABS: CORD GAS ABE V -2.9; CORD GAS HCO3 V 22.3 MMOL/L; CORD GAS O2 SAT V 72.6 %; CORD GAS PCO2 V 40.6 mmHg; CORD GAS PH V 7.358 UNITS; CORD GAS PO2 V 27.0 mmHg; CORD GAS SBC V 21.5 MMOL/L; CORD GAS TCO2 V 23.6 MMOL/L
[2025-06-19] MEDS: TRANEXAMIC ACID INJection 1,000 MG in NS 100 ML IV ONE (09:30)
[2025-06-19] MEDS: OXYTOCIN INJ 10UNITS/ML 1ML VIAL IM ONE (09:30)
[2025-06-19] MEDS: METHYLERGONOVINE MALEATE 0.2 MG/ML 1 ML VIAL IM ONE (09:30)
[2025-06-19] MEDS: OXYTOCIN DRIP 30 UNITS in IV 1 EA IV SCH (09:44)
[2025-06-19] MEDS: KETOROLAC 30 MG/ML 1 ML VIAL IV SCH (15:47)
[2025-06-19] MEDS: SCOPOLAMINE 1MG TRANSDERMAL PATCH TOP SCH (20:38)
[2025-06-20] VITALS (9 sets, daily range): BP systolic 110–138; BP diastolic 57–72; TEMP 97.3–98.8; O2SAT 96–100
[2025-06-20 09:32] LABS: PLATELET COUNT, AUTOMATED 219 10^3/uL (150-450)
[2025-06-20] MEDS: RHOGAM 300MCG (1500IU) INJ IM SCH (16:16)
[2025-06-20] MEDS: IBUPROFEN 800 MG TAB PO SCH (16:17)
[2025-06-21 01:50] VITALS: BP 106/51; O2SAT 98
[2025-06-21 05:45] VITALS: BP 119/66; O2SAT 99
[2025-06-21] MEDS: MEASLES,MUMPS,RUBELLA VACCINE INJ (MMR-II) SC.IMMUN ONE (08:10)
== END 2025-06-21 14:30 | disposition home or self-care (01) | DRG 540 ==
LOC: M LDI 06-19 05:09 → EDSTATUS 06-19 07:30 → M OBS 06-19 10:04
PROVIDERS: ADMIT Obstetrics & Gynecology; ATTEND Obstetrics & Gynecology
PROC: 0UB70ZZ Excision of Bilateral Fallopian Tubes, Open Approach (ICD-10-PCS; 2025-06-19)
PROC: 10D00Z1 Extraction of Products of Conception, Low, Open Approach (ICD-10-PCS; principal; 2025-06-19 07:30)
DX: O34.211 Maternal care for low transverse scar from previous cesarean delivery (principal); Z30.2 Encounter for sterilization; Z3A.39 39 weeks gestation of pregnancy; Z37.0 Single live birth

== ENCOUNTER 2025-05-31 14:09 | Outpatient (CLI) | payer OTHER ==
[~2025-05-31] VITALS: Ht 157.5 cm; Wt 74.0 kg
[~2025-05-31 14:09] MED LIST changes: +ALBUTEROL SULFATE 2.5 MG/0.5 ML INH CONCENTRATE NEB SOLN INH PRN; +EPINEPHrine INJ 1 MG/ML 1ML AMP IM PRN; +diphenhydrAMINE 50 MG/ML VIAL IV PRN
[2025-05-31 14:15] VITALS: BP 137/63; O2SAT 97
[2025-05-31] MEDS: IRON SUCROSE 200MG IVP IV ONE (14:24)
[2025-05-31 14:50] VITALS: BP 129/60; O2SAT 98
== END 2025-05-31 14:50 | disposition home or self-care (01) ==
LOC: M INFU 14:09
PROVIDERS: ATTEND Student in an Organized Health Care Education/Training Program
DX: O99.013 Anemia complicating pregnancy, third trimester (principal); Z88.1 Allergy status to other antibiotic agents; Z88.2 Allergy status to sulfonamides; Z91.030 Bee allergy status
CPT/HCPCS: 96374; J1756

== ENCOUNTER → 2025-06-04 | Outpatient (REF) | payer OTHER ==
[~2025-06-04] MED LIST changes: -ALBUTEROL SULFATE 2.5 MG/0.5 ML INH CONCENTRATE NEB SOLN INH PRN; -EPINEPHrine INJ 1 MG/ML 1ML AMP IM PRN; -diphenhydrAMINE 50 MG/ML VIAL IV PRN
== END ==
LOC: M SFHCWAGY 12:56
PROVIDERS: ATTEND Obstetrics & Gynecology
DX: Z36.85 Encounter for antenatal screening for Streptococcus B (principal); Z3A.36 36 weeks gestation of pregnancy